=== PATIENT | female | born 1990 | race Caucasian/White ===

== ENCOUNTER 2022-10-23 12:34 | Emergency (ER) | payer OTHER, SELFPAY ==
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
--- NOTE | ~2022-10-23 | CT_ITS ---
EXAMINATION: CT CERVICAL SPINE WITHOUT CONTRAST CLINICAL INFORMATION: Trauma COMPARISON: None TECHNIQUE: Axial helical scans with sagittal and coronal reformats are obtained. This CT examination was performed using dose optimization techniques as appropriate, variously including the following: *Automated exposure control *Adjustment of mA and/or kV according to patient size (this includes techniques or standardized protocols for targeted exams where dose is matched to indication/reason for exam; i.e. extremities or head) *Use of iterative reconstruction technique DLP: 637 mGy-cm FINDINGS: No fracture or destructive lesion or alignment abnormality. No encroachment on the spinal canal. Prevertebral soft tissues are normal. CT/CT cervical spine wo IV con IMPRESSION: Unremarkable study. No acute findings.
[2022-10-23 12:40] VITALS: BP 133/98; BP 134/68; PULSE 77; PULSE 99; RESP 20; O2SAT 99; BMI 19.0
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
[2022-10-23 13:41] LABS: Urine Pregnancy NEGATIVE (NEGATIVE)
[2022-10-23 13:50] LABS: Amphetamine Screen Urine Not Detected (Not Detect); Barbiturates, Urine Not Detected (Not Detect); Benzodiazepines Screen Urine Not Detected (Not Detect); Cannabinoid Screen Urine POSITIVE (Not Detect); Cocaine Screen Urine Not Detected (Not Detect); Fentanyl, urine Not Detected (Not Detect); Opiate Screen Urine Not Detected (Not Detect); Phencyclidine Screen Urine Not Detected (Not Detect)
[2022-10-23 14:13] LABS: Ethanol 342 mg/dL
[2022-10-23 14:39] VITALS: BP 119/71; PULSE 82; RESP 20; O2SAT 96
[2022-10-23 15:20] LABS: UPreg QC Valid YES
== END 2022-10-23 15:06 | disposition home or self-care (01) ==
PROVIDERS: Emergency Provider Emergency Medicine
DX: Z04.1 Encounter for examination and observation following transport accident (principal); F10.120 Alcohol abuse with intoxication, uncomplicated; Y90.8 Blood alcohol level of 240 mg/100 ml or more; F12.90 Cannabis use, unspecified, uncomplicated
CPT/HCPCS: 36415; 70450; 72125; 80307; 81025; 82077; 99284

== ENCOUNTER 2024-02-12 02:47 | Emergency (ER) | payer OTHER, SELFPAY ==
--- NOTE | ~2024-02-12 | XR_ITS ---
EXAMINATION: XR RIBS, LEFT CLINICAL INFORMATION: Status post fall COMPARISON: None available. TECHNIQUE: 3 views of the left ribs were obtained. FINDINGS: No displaced rib fracture is seen. Lung volumes are symmetric. No focal consolidation is present. Trace linear left basilar atelectasis. No evidence of pneumothorax, pleural effusion, or pulmonary edema. The cardiomediastinal contour is unremarkable. XR/XR ribs LT min 3V w CXR1V IMPRESSION: No rib fracture identified. Trace left basilar atelectasis.
[2024-02-12 02:49] VITALS: BP 112/70; PULSE 108; O2SAT 99
[2024-02-12 02:52] VITALS: BP 126/77; PULSE 89; RESP 18; TEMP 37.2; O2SAT 99; BMI 23.0
--- NOTE | 2024-02-12 02:54 | ED_ITS ---
HPI - Alcohol General Chief Complaint: ETOH/Substance Use Stated Complaint: etoh Time Seen by Provider: 02/12/24 02:54 Source: patient Mode of arrival: EMS Limitations: no limitations History of Present Illness ED Provider: mingo POWELL narrative: Patient alcoholic been drinking heavy for last 2 years after separation stay sober for 2 months and started drinking in stoddard drink 6-7 days nonstop without eating much food patient's brother asked her to go to the hospital Related Data Allergies Allergy/AdvReac Type Severity Reaction Status Date / Time No Known Allergies Allergy Verified 02/12/24 02:57 Review of Systems 2 Review of Systems: Yes all other systems are reviewed and are negative [facility] Social History Social History Alcohol intake: current Alcohol intake frequency: 3 or more drinks per day Alcohol type: hard liquor Smoked in Last 30 Days: No Use of substances other than those prescribed or required for medical reasons: Yes Substance Use Type: Marijuana Substance Use Frequency: Chronic Longstanding Advance Directives: No Advance Directives Information Provided: No Do you have a plan to hurt others: No Plan Patient : No Physical Exam ED Vital Signs: Vital Signs - 24 hr 02/12/24 02:52 02/12/24 06:09 Temperature 99.0 F 98.5 F Pulse Rate 89 112 H Respiratory Rate 18 14 Blood Pressure 126/77 115/74 Pulse Oximetry 99 96 Oxygen Delivery Method Room Air Room Air BMI result Body Mass Index 23.0 Appearance: Alert. Oriented X3. No acute distress. Intoxicated Eyes: PERRLA, No Nystagmus ENT: Pharynx normal. Oral Mucosa moist Neck: Normal inspection. Neck supple. CVS: Normal heart rate and rhythm. Pulses normal. Respiratory: No respiratory distress. Equal air entry bilateral, no wheezing/rales/rhonchi bruising left lower rib with slight tenderness Abdomen: Soft and nontender. Bowel sounds are present, no mass palpable, no CVA tenderness Skin: Skin warm and dry. Normal skin color. Normal skin turgor. Extremities: No lower extremity edema. No calf tenderness Neuro: Oriented X 3. No motor deficit. No sensory deficit.No cerebellar signs , cranial nerves II-XII intact Medical Decision Making Lab Data [facility] Lab Attestation statement: I reviewed the patient's lab results. 02/12/24 03:15 02/12/24 03:15 Labs: Lab Results 02/12/24 02/12/24 Range/Units 03:15 03:28 WBC 10.5 (4.8-10.8) X10*3/uL RBC 4.55 (4.20-5.50) X10*6/uL Hgb 14.1 (12.0-16.0) g/dl Hct 41.3 (37.0-47.0) % MCV 90.8 (80.0-98.0) fL MCH 31.0 (27.0-33.0) pg MCHC 34.1 (31.0-35.0) g/dl RDW 14.2 (11.0-16.0) % Plt Count 429 H (160-400) X10*3/uL MPV 9.3 L (9.4-12.3) fL Immature Gran % (Auto) 0.2 (0.0-0.4) % Neut % (Auto) 47.1 (45-73) % Lymph % (Auto) 45.3 H (20-40) % [place] % (Auto) 6.1 (2-11) % Eos % (Auto) 0.5 (0-4) % Baso % (Auto) 0.8 (0-2) % Lymph # (Auto) 4.7 (1.2-4.9) X10*3/uL [place] # (Auto) 0.6 (0.1-1.2) X10*3/uL Eos # (Auto) 0.1 (0.0-0.4) X10*3/uL Baso # (Auto) 0.1 (0.0-0.2) X10*3/uL Abs Immat Gran (auto) 0.02 (0.00-0.03) X10*3/uL Absolute Neuts (auto) 4.9 (2.0-8.3) x10*3/uL Absolute Nucleated RBC 0.000 (0.0-0.012) X10*3/uL Nucleated RBC % (auto) 0.0 (0.0-0.2) /100WBC Sodium 140 (135-145) mmol/L Potassium 3.6 (3.3-5.1) mmol/L Chloride 99 (96-108) mmol/L Carbon Dioxide 25 (22-29) mmol/L Anion Gap 20 (12-20) BUN 8 L (9-16) mg/dL Creatinine 0.76 (0.5-1.4) mg/dL Estim Creat Clear Calc 111.7 Estimated GFR > 60 Random Glucose 99 (60-115) mg/dL Calcium 9.1 (8.4-10.2) mg/dL Magnesium 2.1 (1.6-2.6) mg/dL Total Bilirubin 0.7 (0.0-1.0) mg/dL AST 71 H (5-31) U/L ALT 125 H (0-31) U/L Alkaline Phosphatase 79 (39-117) U/L Total Protein 7.5 (6.5-8.0) g/dL Albumin 4.6 (3.5-5.0) g/dL Lipase 34 (8-78) U/L Urine Color Yellow Urine Appearance Clear Urine pH 6.0 (5.0-9.0) Ur Specific [place] 1.010 (1.005-1.025) Urine Protein 30 (1+) H (Neg-Trace) mg/dL Urine Glucose (UA) Negative (Negative) mg/dL Urine Ketones Negative (Negative) mg/dL Urine Blood Negative (Negative) Urine Nitrite Negative (Negative) Ur Leukocyte Esterase Negative (Negative) Urine RBC 0-2 (0-2) /HPF Urine WBC 0-5 (0-5) /HPF Ur Squamous Epith Cells 3-5 (0-2) /HPF Urine Bacteria None Seen (None Seen) Hyaline Casts 0-2 (0-2) /LPF Urine Test NEGATIVE (NEGATIVE) Urine Opiates Screen Not Detected (Not Detect) Ur Buprenorphine Scrn Not Detected (Not Detect) ng/mL Ur Oxycodone Screen Not Detected (Not Detect) ng/mL Urine Methadone Screen Not Detected (Not Detect) ng/mL Urine Fentanyl Screen Not Detected (Not Detect) Ur Barbiturates Screen Not Detected (Not Detect) Ur Phencyclidine Scrn Not Detected (Not Detect) Ur Amphetamines Screen Not Detected (Not Detect) U Benzodiazepines Scrn Not Detected (Not Detect) Urine Cocaine Screen Not Detected (Not Detect) U Marijuana (THC) Screen POSITIVE H (Not Detect) Ethyl Alcohol 461 H* mg/dL Medications Administered Discontinued Medications Generic Name Dose Route Start Last Admin Trade Name Freq PRN Reason Stop Dose Admin Sodium Chloride 1,000 mls @ 999 mls/hr 02/12/24 03:00 02/12/24 04:27 Ns IV 02/12/24 04:00 Infused .Q1H1M ONE Infusion Lorazepam 2 mg 02/12/24 03:24 02/12/24 03:31 Lorazepam 1 Mg Tablet PO 02/12/24 03:25 2 mg ONCE ONE Administration Discharge Plan Discharge Clinical Impression: Alcoholic intoxication Patient Disposition: Still a Patient Print Language: Japanese
[2024-02-12 03:19] LABS: MANUAL DIFF FLAG NO
[2024-02-12 03:20] LABS: Basophils Absolute Auto 0.1 X10*3/uL (0.0-0.2); Basophils Percent Auto 0.8 % (0-2); Eosinophils Absolute Auto 0.1 X10*3/uL (0.0-0.4); Eosinophils Percent Auto 0.5 % (0-4); Hematocrit 41.3 % (37.0-47.0); Hemoglobin 14.1 g/dl (12.0-16.0); Imm Gran Abs Auto 0.02 X10*3/uL (0.00-0.03); Imm Gran Pct Auto 0.2 % (0.0-0.4); Lymphocytes Absolute Auto 4.7 X10*3/uL (1.2-4.9); Lymphocytes Percent Auto 45.3 % (20-40); Mean Corpuscular HGB Conc 34.1 g/dl (31.0-35.0); Mean Corpuscular Volume 90.8 fL (80.0-98.0); Mean Platelet Volume 9.3 fL (9.4-12.3); Monocytes Absolute Auto 0.6 X10*3/uL (0.1-1.2); Monocytes Percent Auto 6.1 % (2-11); Neutrophils Absolute Auto 4.9 x10*3/uL (2.0-8.3); Neutrophils Percent Auto 47.1 % (45-73); Platelet Count 429 X10*3/uL (160-400); Red Blood Count 4.55 X10*6/uL (4.20-5.50); Red Cell Distribution Width 14.2 % (11.0-16.0); White Blood Count 10.5 X10*3/uL (4.8-10.8)
[2024-02-12] MEDS: 0.9 % Sodium Chloride 1,000 ML 999 ML IV (03:21)
[2024-02-12] MEDS: LORazepam 1 MG TABLET 2 MG PO ×2 (03:31→12:41)
[2024-02-12 03:36] LABS: Appearance Urine Clear; Color Urine Yellow; Glucose Urine UA Negative (Negative); Leukocyte Esterase Urine Negative (Negative); Nitrite Urine Negative (Negative); UMIC TRIGGER UACC YES; Urine Blood Negative (Negative); Urine Ketones Negative (Negative); Urine Protein 30 (1+) mg/dL (Neg-Trace)
[2024-02-12 03:37] LABS: UPreg QC Valid YES; Urine Pregnancy NEGATIVE (NEGATIVE)
[2024-02-12 03:38] LABS: Ethanol 461 mg/dL
[2024-02-12 03:38] LABS: Bacteria Urine None Seen (None Seen); Hyaline Casts Urine 0-2 /LPF (0-2); RBC Urine 0-2 /HPF (0-2); WBC Urine 0-5 /HPF (0-5)
[2024-02-12 03:40] LABS: Alanine Aminotransferase 125 U/L (0-31); Albumin Level 4.6 g/dL (3.5-5.0); Alkaline Phosphatase 79 U/L (39-117); Anion Gap 20 (12-20); Aspartate Amino Transferase 71 U/L (5-31); Bilirubin Total 0.7 mg/dL (0.0-1.0); Blood Urea Nitrogen 8 mg/dL (9-16); Calcium 9.1 mg/dL (8.4-10.2); Carbon Dioxide 25 mmol/L (22-29); Chloride 99 mmol/L (96-108); Creatinine Clr Calc Pharmacy 111.7; Estimated Glomerular Filt Rate > 60; Glucose Random 99 mg/dL (60-115); Lipase 34 U/L (8-78); Magnesium 2.1 mg/dL (1.6-2.6); Potassium 3.6 mmol/L (3.3-5.1); Sodium 140 mmol/L (135-145); Total Protein 7.5 g/dL (6.5-8.0)
[2024-02-12 03:47] LABS: Amphetamine Screen Urine Not Detected (Not Detect); Barbiturates, Urine Not Detected (Not Detect); Benzodiazepines Screen Urine Not Detected (Not Detect); Buprenorphine Scr Not Detected (Not Detect); Cannabinoid Screen Urine POSITIVE (Not Detect); Cocaine Screen Urine Not Detected (Not Detect); Fentanyl, urine Not Detected (Not Detect); Methadone Screen, Urine Not Detected (Not Detect); Opiate Screen Urine Not Detected (Not Detect); Oxycodone Screen Urine Not Detected (Not Detect); Phencyclidine Screen Urine Not Detected (Not Detect)
[2024-02-12 06:09] VITALS: BP 115/74; PULSE 112; RESP 14; TEMP 36.9; O2SAT 96
--- NOTE | 2024-02-12 07:18 | PC.NURSE ---
Resumed care of patient, she is currently resting comfortable at this time, RN to let patient sleep. Call thornton within reach at this time
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
--- NOTE | 2024-02-12 13:15 | PC.NURSE ---
pt reporting she feels weak today, denies n/v/d. Ativan and PO intake given to patient at this time. Awaiting intake phone call with Addition later this afternoon
[2024-02-12 14:18] VITALS: BP 115/74; PULSE 112; RESP 14; TEMP 36.9; O2SAT 96
== END 2024-02-12 14:19 | disposition home or self-care (01) ==
PROVIDERS: Emergency Provider Internal Medicine
DX: F10.220 Alcohol dependence with intoxication, uncomplicated (principal); Y90.8 Blood alcohol level of 240 mg/100 ml or more; R07.81 Pleurodynia; F12.90 Cannabis use, unspecified, uncomplicated; Z91.81 History of falling
CPT/HCPCS: 36415; 71101; 80053; 80307; 81001; 81025; 83690; 83735; 85025; 96360; 99202; 99284; 99285

== ENCOUNTER 2024-02-12 14:19 | Outpatient (AMB) | payer OTHER, SELFPAY ==
[2024-02-12 14:23] VITALS: BP 112/66; PULSE 148; O2SAT 97
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
== END 2024-02-12 15:09 | disposition home or self-care (01) ==
PROVIDERS: Visit Provider Nurse Practitioner Family
DX: F10.20 Alcohol dependence, uncomplicated (principal)
CPT/HCPCS: 99204

== ENCOUNTER 2024-02-16 09:15 | Outpatient (AMB) | payer OTHER, SELFPAY ==
--- NOTE | 2024-02-16 09:16 | MHC.AM.SUB ---
Vital Signs 02/16/24 09:19 BP 120/80 Blood Pressure Location Rt brachial Position Sitting Respiration 22 H Pulse 87 Pulse Source Pulse Oximeter Pulse Oximetry (%) 98 Intake Visit Reasons: MAT follow up Allergies No Known Allergies Allergy (Verified 02/12/24 02:57) HPI HPI MAT follow up: Details: Patient presents for AUD treatment and follow up States she has only had 2 Twisted Teas since her last appointment Reports [place] the [place] States she only has a problem with alcohol when she is home alone Has been trying to keep busy States she filled out multiple job applications in the past few days Has been trying to work out more but is experiencing some left rib pain that has made it challenging Reports poor sleep due to rib pain States she is in substance abuse therapy through [facility], sees her therapist once monthly, but is planning on increasing her visits to twice a month Has tried AA and [facility], did not find either helpful HPI Comments Details: Patient presents for MAT visit [facility] Social History Alcohol intake: current Alcohol intake frequency: 3 or more drinks per day Alcohol type: hard liquor Substance Use Type: Marijuana Review of Systems Const Reports as per HPI Physical Exam Vital Signs: Last Vital Signs Pulse 87 02/16/24 09:19 Resp 22 H 02/16/24 09:19 BP 120/80 02/16/24 09:19 Pulse Ox 98 02/16/24 09:19 Const General: cooperative and no acute distress Resp Effort & Inspection: normal respiratory effort and able to speak in complete sentences Psych Appearance: grossly normal Mental Status: mental status grossly normal Speech and movement: Normal speech and movement present Affect: normal affect Attitude: cooperative Thought process: Normal thought process present Assessment & Plan Assessment & Plan (1) Alcohol use disorder, severe, dependence: Code(s): F10.20 - Alcohol dependence, uncomplicated Category: Medical Plan: -Rx sent to pharmacy for lidocaine patch for rib pain -Provided pt with literature about financial coach support, she is to think about whether she would like a referral -Recovery support and relapse prevention discussion -Follow up 1 week Medications: New lidocaine 1.8% leave on most painful area for up to 12 hrs 1 patch topical DAILY 30 ea 0RF
[2024-02-16 09:19] VITALS: BP 120/80; PULSE 87; RESP 22; O2SAT 98
== END 2024-02-16 09:40 | disposition home or self-care (01) ==
PROVIDERS: Visit Provider Nurse Practitioner Family
DX: F10.20 Alcohol dependence, uncomplicated (principal)
CPT/HCPCS: 99213

== ENCOUNTER → 2024-02-16 09:15 | Outpatient (BNVA) | payer OTHER, SELFPAY | PROVIDERS: Visit Provider Nurse Practitioner Family | DX: F10.20 Alcohol dependence, uncomplicated (principal); Z79.899 Other long term (current) drug therapy | CPT/HCPCS: 99212 ==

== ENCOUNTER 2024-02-23 09:28 | Outpatient (AMB) | payer OTHER, SELFPAY ==
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
[2024-02-23 09:39] VITALS: BP 90/58; PULSE 62; O2SAT 98
== END 2024-02-23 10:44 | disposition home or self-care (01) ==
PROVIDERS: Visit Provider Nurse Practitioner Family
DX: F10.21 Alcohol dependence, in remission (principal)
CPT/HCPCS: 99213

== ENCOUNTER → 2024-02-23 09:28 | Outpatient (BNVA) | payer OTHER, SELFPAY | PROVIDERS: Visit Provider Nurse Practitioner Family | DX: F10.20 Alcohol dependence, uncomplicated (principal) | CPT/HCPCS: 99212 ==

== ENCOUNTER 2024-03-01 13:25 | Outpatient (AMB) | payer OTHER, SELFPAY ==
[2024-03-01 13:30] VITALS: BP 85/40; PULSE 66; RESP 16; O2SAT 98
--- NOTE | 2024-03-01 13:30 | A.OFFVISCC_ITS ---
Vital Signs 03/01/24 13:30 BP 85/40 L Blood Pressure Location Rt brachial Respiration 16 Pulse 66 Pulse Source Pulse Oximeter Pulse Oximetry (%) 98 Intake Visit Reasons: MAT follow up Allergies No Known Allergies Allergy (Verified 02/12/24 02:57) HPI HPI MAT follow up: Details: Patient presents for AUD treatment and follow up Has continued to remain free from alcohol States last night she was having cravings, and had a dream where she was drinking Started a new job last week, she is feeling positive about this change Reports she hung out today with her ex, she continues to feel triggered by him, but feels responsible for him HPI Comments Details: Patient presents for MAT visit [facility] Social History Alcohol intake: current Alcohol intake frequency: 3 or more drinks per day Alcohol type: hard liquor Substance Use Type: Marijuana Review of Systems Const Reports as per HPI Physical Exam Vital Signs: Last Vital Signs Pulse 66 03/01/24 13:30 Resp 16 03/01/24 13:30 BP 85/40 L 03/01/24 13:30 Pulse Ox 98 03/01/24 13:30 Const General: cooperative and no acute distress Resp Effort & Inspection: normal respiratory effort and able to speak in complete sentences Psych Appearance: grossly normal Mental Status: mental status grossly normal Speech and movement: Normal speech and movement present Affect: normal affect Attitude: cooperative Thought process: Normal thought process present Assessment & Plan Assessment & Plan (1) Alcohol use disorder, severe, dependence: Code(s): F10.20 - Alcohol dependence, uncomplicated Category: Medical Plan: -DIscussed with her how important it is to set healthy boundaries with people -Encouraged her to trial her naltrexone at 1/2 tab for the next few days and then progress to full tab. Discussed with her that starting the naltrexone will hopefully decrease some of her alcohol cravings -Follow up 2 weeks
== END 2024-03-01 14:22 | disposition home or self-care (01) ==
PROVIDERS: Visit Provider Nurse Practitioner Family
DX: F10.20 Alcohol dependence, uncomplicated (principal)
CPT/HCPCS: 99213

== ENCOUNTER → 2024-03-01 13:25 | Outpatient (BNVA) | payer OTHER, SELFPAY | PROVIDERS: Visit Provider Nurse Practitioner Family | DX: F10.20 Alcohol dependence, uncomplicated (principal) | CPT/HCPCS: 99212 ==

== ENCOUNTER 2024-03-08 11:00 | Outpatient (AMB) | payer OTHER, SELFPAY ==
--- NOTE | 2024-03-08 11:21 | MHC.AM.SUB ---
Intake Visit Reasons: mat follow up Allergies No Known Allergies Allergy (Verified 02/12/24 02:57) HPI HPI mat follow up: Details: Patient presents to visit quite intoxicated Had an uber drop her off Reporting that following her appt last Friday (03/01) she started to drink that evening after not drinking for 3 weeks She reports drinking 3 handles of vodka over the last week--and yesterday drank about 1/2 of a bottle This morning had 6 shots prior to appt. She is help seeking however she is unwilling to present to ED or have any type of admission to treat ETOH. She reports history of alcohol withdrawal seizures--unclear when this was. She identifies her dog as the main reason she is unable to enter treatment anywhere. This remote mortgage underwriter sharing concerns for withdrawal management. Patient stating she is planning to taper her alcohol use. Requesting assistance on how to do this. She does have tremors and anxiety and states this is when she takes a couple of shots Identifies her brother as a support, and he lives down the street from her. [facility] Social History Alcohol intake: current Alcohol intake frequency: 3 or more drinks per day Alcohol type: hard liquor Substance Use Type: Marijuana Review of Systems Const Reports as per HPI (occasional nausea, anxiety) Physical Exam Const General: alert and awake Nutritional Appearance: average body habitus Limitations: altered mental status Psych Appearance: disheveled Speech and movement: Slurred speech present Affect: Depressed mood present Attitude: cooperative Thought process: Tangential thought process present Insight: Fair insight present (Psych) Judgement: Limited judgement present (Psych) Assessment & Plan Assessment & Plan (1) Alcohol use disorder, severe, dependence: Code(s): F10.20 - Alcohol dependence, uncomplicated Category: Medical Plan: discussed decreasing amount of alcohol slowly. Provided patient with a sheet and potential plan for how many shots daily reinforced eating, drinking water, not stopping abruptly advised to present to ED with any withdrawal sx encouraged to call brother and make him aware of difficulties at this time walked out to car by RN into waiting ride follow up one week --telehealth if necessary. Discouraged patient from leaving home when drinking so much unless it was to come to the hospital
== END 2024-03-08 11:56 | disposition home or self-care (01) ==
PROVIDERS: Visit Provider Nurse Practitioner Psychiatric/Mental Health
DX: F10.20 Alcohol dependence, uncomplicated (principal)
CPT/HCPCS: 99214

== ENCOUNTER → 2024-03-08 11:00 | Outpatient (BNVA) | payer OTHER, SELFPAY | PROVIDERS: Visit Provider Nurse Practitioner Psychiatric/Mental Health | DX: F10.20 Alcohol dependence, uncomplicated (principal) | CPT/HCPCS: 99212 ==

== ENCOUNTER 2024-03-08 16:13 | Emergency (ER) | payer OTHER, SELFPAY ==
[2024-03-08 16:27] VITALS: BP 111/66; BP 142/90; PULSE 105; PULSE 88; RESP 18; TEMP 36.8; O2SAT 95; O2SAT 96; BMI 22.1
--- NOTE | 2024-03-08 16:28 | ED.GENADULT ---
HPI - General Adult General Chief complaint: ETOH/Substance Use Stated complaint: ETOH Time Seen by Provider: 03/08/24 16:27 Source: patient and EMS Mode of arrival: EMS Limitations: no limitations History of Present Illness ED Provider: Dior Castro PA-C HPI narrative: 33-year-old female with history of alcohol use disorder presents for evaluation of alcohol intoxication with fear of withdrawal. Per patient, she has been on a 6 day drinking stoddard. She reports she drinks half a handle of vodka per day. At one point in interview states she drank half a gallon of vodka this morning, then later stated it was 6 shots. Endorsed abdominal pain and nausea to EMS but currently denies. States that she has only had six mini pizzas to eat over the last 6 days, drinks lots of water. When asked if she has a history of withdrawal seizures she states that she knows she has 3 per night when she stops drinking but they have not been witnessed and she could not clarify on how she knows she's having them. MD complaint: Alcohol intoxication Relieving factors: none Exacerbating factors: none Associated symptoms: denies other symptoms Treatments prior to arrival: none Related Data Previous Rx's ?Medication ?Instructions ?Recorded folic acid 1 mg tablet 1 mg PO DAILY #30 tabs 02/12/24 naltrexone 50 mg tablet 50 mg PO DAILY #30 tabs 02/12/24 ondansetron 4 mg disintegrating 4 mg PO Q8H PRN nausea and 02/12/24 tablet vomiting #10 tabs thiamine HCl (vitamin B1) 100 mg 100 mg PO DAILY #30 tabs 02/12/24 tablet lidocaine 1.8 % topical patch 1 patch topical DAILY #30 ea 02/16/24 Allergies Allergy/AdvReac Type Severity Reaction Status Date / Time No Known Allergies Allergy Verified 03/08/24 16:30 Review of Systems Constitutional: Constitutional: Reports no additional constitutional complaints, Denies chills, Denies fever(s), Denies night sweats and Reports poor appetite Eyes: Eyes: Reports no additional eye complaints, Denies blurry vision, Denies change in vision, Denies diplopia, Denies eye discharge, Denies loss of vision and Denies eye pain ENT: Denies dizziness Cardiovascular: Cardiovascular: Reports no additional cardiovascular complaints, Denies chest pain, Denies lightheadedness, Denies Loss of Consciousness and Denies dyspnea Respiratory: Respiratory: Reports no additional respiratory complaints and Denies dyspnea Gastrointestinal: Gastrointestinal: Reports no additional gastrointestinal complaints, Denies abdominal pain, Denies melena, Denies hematochezia, Denies change in bowel habits and Denies change in stool character Genitourinary: Genitourinary: Denies hematuria, Denies urinary frequency, Denies dysuria, Denies urinary incontinence, Denies urinary hesitancy and Denies urinary urgency Musculoskeletal: Musculoskeletal: Reports no additional musculoskeletal complaints, Denies numbness and Denies tingling Neurologic: Denies dizziness, Denies loss of vision, Denies numbness and Denies tingling Psychiatric: Psychiatric: Reports no additional psychiatric complaints Endocrine: Endocrine: Reports no additional endocrine complaints Hematologic/Lymphatic: Hematologic/Lymphatic: Reports no additional hematologic/lymphatic complaints Allergic/Immunologic: Allergic/Immunologic: Reports no additional allergic/immunologic complaints PMFSH Past Medical History Attestation statement: The following information was validated with the patient. Source: old records reviewed and nursing notes reviewed Social History Social History Alcohol intake: current Alcohol intake frequency: 3 or more drinks per day Alcohol type: hard liquor Smoked in Last 30 Days: Yes Use of substances other than those prescribed or required for medical reasons: Yes Substance Use Type: Marijuana Substance Use Frequency: Daily Advance Directives: No Advance Directives Information Provided: No Do you have a plan to hurt others: No Plan Patient : No Physical Exam ED Vital Signs: Vital Signs - 24 hr 03/08/24 16:27 Temperature 98.3 F Pulse Rate 88 Respiratory Rate 18 Blood Pressure 111/66 Pulse Oximetry 96 Oxygen Delivery Method Room Air BMI result Body Mass Index 22.1 Const General: cooperative, no acute distress, alert and awake Nutritional Appearance: well nourished Orientation/consciousness: patient oriented x3 Limitations: no limitations HENMT Head: Yes normal to inspection and Yes atraumatic Ears: hearing grossly normal bilaterally and external ears normal General nose exam: Normal external nose present, no nasal discharge noted and no epistaxis Face and sinus: Yes normal facial exam, No abrasion and No laceration Mouth: Normal oral and palatal mucosa present, no drooling and no muffled voice Eyes General: appearance normal, both eyes and all related structures Periorbital: periorbital findings normal Eyelids: Yes eyelids normal Conjunctivae: conjunctivae normal Pupils: Equal, round and reactive pupils present EOM: EOMs intact bilaterally Neck Neck: Yes normal visual inspection, Yes full ROM and Yes no lymphadenopathy Chest Chest palpation & inspection: normal inspection of the chest Resp Effort & Inspection: normal respiratory effort and able to speak in complete sentences Auscultation: clear to auscultation bilaterally Cardio Rate: regular rate Rhythm: regular rhythm GI Inspection: Yes normal to inspection Neuro General: patient oriented x3 and moves all extremities Cranial nerves: Yes Equal, round and reactive pupils present Cognition (Neuro): normal cognition Motor exam (neuro): 5/5 motor strength present throughout Sensory Exam: Normal double simultaneous stimulation for sensation Coordination: [id number] test normal Extrem General: Yes normal to inspection, Yes full ROM and Yes capillary refill normal Psych Appearance: grossly normal Mental Status: other (acutely intoxicated with EtOH) Speech and movement: Slurred speech present Affect: normal affect Attitude: cooperative Thought process: Normal thought process present Thought content: Normal thought content present Insight: Good insight present (Psych) Medications Administered Discontinued Medications Generic Name Dose Route Start Last Admin Trade Name Lokiq PRN Reason Stop Dose Admin Sodium Chloride 1,000 mls @ 999 mls/hr 03/08/24 16:45 03/08/24 18:35 Ns IV 03/08/24 17:45 Infused .Q1H1M CAROLE Infusion Lorazepam 2 mg 03/08/24 18:13 03/08/24 18:32 Lorazepam 1 Mg Tablet PO 03/08/24 18:14 2 mg ONCE ONE Administration Medical Decision Making Medical Decision Making [facility] Narrative: Patient is a 33 year old assigned female at with a history of ETOH abuse presenting to the emergency department today with alcohol intoxication and concern for withdrawal. Patient's physical exam was unremarkable. Patient's blood work showed an ethyl alcohol level of 412 but was otherwise unremarkable. Patient's urine showed no acute process. I explained my physical exam findings as well as all test results to the patient. I answered all questions asked by the patient. Patient requested to speak to the addiction team about her alcohol abuse. Patient will remain in physician observation until she consults with the addiction team. Differential Diagnosis Differential Diagnoses: The differential diagnosis associated with the presentation includes Alcohol intoxication Alcohol withdrawal Nutrient deficiency Admission/Observation Consideration of admission/observation: Escalation of care including admission/observation considered Patient would have been admitted to the hospital had her work up had any findings where hospital admission was appropriate and her clinical presentation warranted hospital admission. Lab Data [facility] Lab Attestation statement: I reviewed the patient's lab results. My interpretation of these results are in the MDM Rationale portion of this note. 03/08/24 17:09 03/08/24 17:09 Labs: Lab Results 03/08/24 03/08/24 Range/Units 17:09 22:49 WBC 7.8 (4.8-10.8) X10*3/uL RBC 4.60 (4.20-5.50) X10*6/uL Hgb 14.9 (12.0-16.0) g/dl Hct 42.0 (37.0-47.0) % MCV 91.3 (80.0-98.0) fL MCH 32.4 (27.0-33.0) pg MCHC 35.5 H (31.0-35.0) g/dl RDW 14.1 (11.0-16.0) % Plt Count 381 (160-400) X10*3/uL MPV 8.9 L (9.4-12.3) fL Immature Gran % (Auto) 0.1 (0.0-0.4) % Neut % (Auto) 44.3 L (45-73) % Lymph % (Auto) 50.4 H (20-40) % [place] % (Auto) 4.1 (2-11) % Eos % (Auto) 0.3 (0-4) % Baso % (Auto) 0.8 (0-2) % Lymph # (Auto) 4.0 (1.2-4.9) X10*3/uL [place] # (Auto) 0.3 (0.1-1.2) X10*3/uL Eos # (Auto) 0.0 (0.0-0.4) X10*3/uL Baso # (Auto) 0.1 (0.0-0.2) X10*3/uL Abs Immat Gran (auto) 0.01 (0.00-0.03) X10*3/uL Absolute Neuts (auto) 3.5 (2.0-8.3) x10*3/uL Absolute Nucleated RBC 0.000 (0.0-0.012) X10*3/uL Nucleated RBC % (auto) 0.0 (0.0-0.2) /100WBC Sodium 146 H (135-145) mmol/L Potassium 3.9 (3.3-5.1) mmol/L Chloride 105 (96-108) mmol/L Carbon Dioxide 21 L (22-29) mmol/L Anion Gap 24 H (12-20) BUN 9 (9-16) mg/dL Creatinine 0.76 (0.5-1.4) mg/dL Estim Creat Clear Calc 111.7 Estimated GFR > 60 Random Glucose 87 (60-115) mg/dL Calcium 8.8 (8.4-10.2) mg/dL Magnesium 2.0 (1.6-2.6) mg/dL Total Bilirubin 0.7 (0.0-1.0) mg/dL AST 34 H (5-31) U/L ALT 24 (0-31) U/L Alkaline Phosphatase 62 (39-117) U/L Total Protein 7.6 (6.5-8.0) g/dL Albumin 4.6 (3.5-5.0) g/dL Urine Color Yellow Urine Appearance Clear Urine pH 6.0 (5.0-9.0) Ur Specific [place] 1.015 (1.005-1.025) Urine Protein 30 (1+) H (Neg-Trace) mg/dL Urine Glucose (UA) Negative (Negative) mg/dL Urine Ketones Trace (Negative) mg/dL Urine Blood Negative (Negative) Urine Nitrite Negative (Negative) Ur Leukocyte Esterase Negative (Negative) Urine Test NEGATIVE (NEGATIVE) Salicylates < 5.0 L (15-30) mg/dL Acetaminophen < 3 (<30) mcg/mL Ethyl Alcohol 412 H* mg/dL COVID-19 (JO-ANN) Negative (Negative) COVID-19 Clin Com See Note Independent Historian Clinical information obtained from an independent historian. History obtained from or confirmed by: EMS (EMS provided additional history and confirmed the history provided by the patient.) Discharge Plan Discharge Clinical Impression: Alcohol use disorder, severe, dependence Patient Disposition: Still a Patient Prescriptions: No Action lidocaine 1.8 % adhesive patch,medicated 1 patch topical DAILY Qty: 30 0RF Rx Instructions: leave on most painful area for up to 12 hrs naltrexone 50 mg tablet 50 mg PO DAILY Qty: 30 0RF Rx Instructions: Take 1/2 pill for 3 days, advance to full pill if well tolerated folic acid 1 mg tablet 1 mg PO DAILY Qty: 30 0RF thiamine HCl (vitamin B1) 100 mg tablet 100 mg PO DAILY Qty: 30 0RF ondansetron 4 mg tablet,disintegrating 4 mg PO Q8H PRN (Reason: nausea and vomiting) Qty: 10 0RF Print Language: Frisian
[2024-03-08] MEDS: 0.9 % Sodium Chloride 1,000 ML 999 ML IV (17:10)
[2024-03-08 17:12] LABS: MANUAL DIFF FLAG NO
[2024-03-08 17:17] LABS: Basophils Absolute Auto 0.1 X10*3/uL (0.0-0.2); Basophils Percent Auto 0.8 % (0-2); Eosinophils Percent Auto 0.3 % (0-4); Hemoglobin 14.9 g/dl (12.0-16.0); Imm Gran Abs Auto 0.01 X10*3/uL (0.00-0.03); Imm Gran Pct Auto 0.1 % (0.0-0.4); Lymphocytes Percent Auto 50.4 % (20-40); Mean Corpuscular HGB Conc 35.5 g/dl (31.0-35.0); Mean Corpuscular Hemoglobin 32.4 pg (27.0-33.0); Mean Corpuscular Volume 91.3 fL (80.0-98.0); Mean Platelet Volume 8.9 fL (9.4-12.3); Monocytes Absolute Auto 0.3 X10*3/uL (0.1-1.2); Monocytes Percent Auto 4.1 % (2-11); Neutrophils Absolute Auto 3.5 x10*3/uL (2.0-8.3); Neutrophils Percent Auto 44.3 % (45-73); Platelet Count 381 X10*3/uL (160-400); Red Cell Distribution Width 14.1 % (11.0-16.0); White Blood Count 7.8 X10*3/uL (4.8-10.8)
[2024-03-08 17:36] LABS: COVID-19 Test Negative (Negative); IDNOW Serial# 152EDE1D
[2024-03-08 17:41] LABS: Acetaminophen LAB < 3 mcg/mL (<30); Alanine Aminotransferase 24 U/L (0-31); Albumin Level 4.6 g/dL (3.5-5.0); Alkaline Phosphatase 62 U/L (39-117); Anion Gap 24 (12-20); Aspartate Amino Transferase 34 U/L (5-31); Bilirubin Total 0.7 mg/dL (0.0-1.0); Blood Urea Nitrogen 9 mg/dL (9-16); Calcium 8.8 mg/dL (8.4-10.2); Carbon Dioxide 21 mmol/L (22-29); Chloride 105 mmol/L (96-108); Creatinine Clr Calc Pharmacy 111.7; Estimated Glomerular Filt Rate > 60; Ethanol 412 mg/dL; Glucose Random 87 mg/dL (60-115); Potassium 3.9 mmol/L (3.3-5.1); Salicylate < 5.0 mg/dL (15-30); Sodium 146 mmol/L (135-145); Total Protein 7.6 g/dL (6.5-8.0)
[2024-03-08] MEDS: LORazepam 1 MG TABLET 2 MG PO (18:32)
--- NOTE | 2024-03-08 21:35 | PC.NURSE ---
late entry: Pt CIWA score of 7 reported to LATRELL De Leon- pt reports she feels s though she is going to have a seizure. 2mg ativan given
--- NOTE | 2024-03-08 21:36 | PC.NURSE ---
pt appears to be sleeping at this time, eyes closed, respirations even and unlabored, rise and fall of chest noted. Warm blanket given, pt awaiting CARE team consult
[2024-03-08 22:58] LABS: Appearance Urine Clear; Color Urine Yellow; Glucose Urine UA Negative (Negative); Leukocyte Esterase Urine Negative (Negative); Nitrite Urine Negative (Negative); Specific Gravity - Urine 1.015 (1.005-1.025); UMIC TRIGGER UA YES; Urine Blood Negative (Negative); Urine Ketones Trace mg/dL (Negative); Urine Protein 30 (1+) mg/dL (Neg-Trace)
[2024-03-08 22:59] LABS: UPreg QC Valid YES; Urine Pregnancy NEGATIVE (NEGATIVE)
[2024-03-08 23:03] LABS: Bacteria Urine None Seen (None Seen); Hyaline Casts Urine 0-2 /LPF (0-2); RBC Urine 0-2 /HPF (0-2); WBC Urine 0-5 /HPF (0-5)
[2024-03-08 23:13] LABS: Amphetamine Screen Urine Not Detected (Not Detect); Barbiturates, Urine Not Detected (Not Detect); Benzodiazepines Screen Urine Not Detected (Not Detect); Buprenorphine Scr Not Detected (Not Detect); Cannabinoid Screen Urine POSITIVE (Not Detect); Cocaine Screen Urine Not Detected (Not Detect); Fentanyl, urine Not Detected (Not Detect); Methadone Screen, Urine Not Detected (Not Detect); Opiate Screen Urine Not Detected (Not Detect); Oxycodone Screen Urine Not Detected (Not Detect); Phencyclidine Screen Urine Not Detected (Not Detect)
--- NOTE | 2024-03-08 23:20 | PC.NURSE ---
this rn assumed careof pt, pt noted to not be changed over. this rn woke pt up to change and pt states she would like to go home and no longer would like to speak to care team and detox. Dior SAMS aware. pt denies si/hi.
[2024-03-08 23:32] VITALS: BP 111/66; PULSE 88; RESP 18; TEMP 36.8; O2SAT 96
== END 2024-03-08 23:32 | disposition home or self-care (01) ==
PROVIDERS: Physician Assistant Medical; Emergency Provider Internal Medicine
DX: F10.239 Alcohol dependence with withdrawal, unspecified (principal); Y90.8 Blood alcohol level of 240 mg/100 ml or more; R11.0 Nausea; Z51.81 Encounter for therapeutic drug level monitoring; Z79.899 Other long term (current) drug therapy; Z11.52 Encounter for screening for COVID-19
CPT/HCPCS: 80053; 80143; 80179; 80307; 81001; 81025; 83735; 85025; 87635; 96360; 99284; 99285

== ENCOUNTER 2024-03-15 10:11 | Outpatient (AMB) | payer OTHER, SELFPAY ==
[2024-03-15 10:16] VITALS: BP 140/80; PULSE 115; RESP 22; O2SAT 98
--- NOTE | 2024-03-15 10:16 | MHC.AM.SUB ---
Vital Signs 03/15/24 10:16 BP 140/80 H Blood Pressure Location Rt brachial Position Sitting Respiration 22 H Pulse 115 H Pulse Source Pulse Oximeter Pulse Oximetry (%) 98 Intake Visit Reasons: mat follow up Allergies No Known Allergies Allergy (Verified 03/08/24 16:30) HPI HPI mat follow up: Details: Patient presents for follow up Reports she fell down the stairs recently carrying her dog out to use the bathroom Leg bruised--tailbone painful. Did not visit ER No alcohol for 5 days. Slightly anxious, but motivated to continue forward [facility] Social History Alcohol intake: current Alcohol intake frequency: 3 or more drinks per day Alcohol type: hard liquor Substance Use Type: Marijuana Review of Systems Const Reports as per HPI Physical Exam Vital Signs: Last Vital Signs Pulse 115 H 03/15/24 10:16 Resp 22 H 03/15/24 10:16 BP 140/80 H 03/15/24 10:16 Pulse Ox 98 03/15/24 10:16 Const General: cooperative Nutritional Appearance: average body habitus Orientation/consciousness: patient oriented x3 Neuro General: patient oriented x3 Psych Appearance: well kempt Speech and movement: Clear speech present Affect: Anxious affect present Assessment & Plan Assessment & Plan (1) Alcohol use disorder, severe, dependence: Code(s): F10.20 - Alcohol dependence, uncomplicated Category: Medical Plan: follow up one week with RN worksheets related to relapse prevention to be reviewed at that time
== END 2024-03-15 10:37 | disposition home or self-care (01) ==
PROVIDERS: Visit Provider Nurse Practitioner Psychiatric/Mental Health
DX: F10.20 Alcohol dependence, uncomplicated (principal)
CPT/HCPCS: 99213

== ENCOUNTER → 2024-03-15 10:11 | Outpatient (BNVA) | payer OTHER, SELFPAY | PROVIDERS: Visit Provider Nurse Practitioner Psychiatric/Mental Health | DX: F10.20 Alcohol dependence, uncomplicated (principal) | CPT/HCPCS: 99212 ==

== ENCOUNTER 2024-03-16 17:31 | Emergency (ER) | payer OTHER, SELFPAY | END 2024-03-16 18:51 | disposition left against medical advice (07) | PROVIDERS: Emergency Provider Emergency Medicine | DX: Z53.21 Procedure and treatment not carried out due to patient leaving prior to being seen by health care provider (principal) ==

== ENCOUNTER 2024-04-13 10:29 | Outpatient (AMB) | payer OTHER, SELFPAY ==
--- NOTE | 2024-04-13 10:37 | MHC.AM.SUB ---
Intake Visit Reasons: MAT Allergies No Known Allergies Allergy (Verified 03/08/24 16:30) HPI HPI MAT: Details: Patient presents for follow up Reports drinking for 7 days --has found that she drinks to excess during her menses Negative self talk, feeling anxious Has been taking vitamins --needs refill Discussed SSRI --patient agreeable [facility] Social History Alcohol intake: current Alcohol intake frequency: 3 or more drinks per day Alcohol type: hard liquor Substance Use Type: Marijuana Review of Systems Const Reports as per HPI Physical Exam Const General: cooperative, anxious and tired appearing (slightly dis) Nutritional Appearance: thin Assessment & Plan Assessment & Plan (1) Alcohol use disorder, severe, dependence: Code(s): F10.20 - Alcohol dependence, uncomplicated Category: Medical Plan: continue naltrexone sertraline 25mg --discussed goals, side effects and dosing refilled other medications follow up one week Medications: New sertraline (Zoloft) 25 mg PO DAILY 30 tabs 0RF omeprazole 10 mg PO DAILY 30 caps 0RF Refilled thiamine HCl (vitamin B1) 100 mg PO DAILY 30 tabs 3RF folic acid 1 mg PO DAILY 30 tabs 3RF
== END 2024-04-13 10:58 | disposition home or self-care (01) ==
PROVIDERS: Visit Provider Nurse Practitioner Psychiatric/Mental Health
DX: F10.20 Alcohol dependence, uncomplicated (principal)
CPT/HCPCS: 99214

== ENCOUNTER → 2024-04-13 10:29 | Outpatient (BNVA) | payer OTHER, SELFPAY | PROVIDERS: Visit Provider Nurse Practitioner Psychiatric/Mental Health | DX: F10.20 Alcohol dependence, uncomplicated (principal); Z79.899 Other long term (current) drug therapy | CPT/HCPCS: 99212 ==

== ENCOUNTER 2024-06-03 20:51 | Emergency (ER) | payer OTHER, SELFPAY ==
[2024-06-03 21:03] VITALS: BP 116/79; BP 136/80; PULSE 110; PULSE 95; RESP 18; TEMP 36.8; O2SAT 97; BMI 23.0
[2024-06-03 21:35] LABS: Hematocrit 43.2 % (37.0-47.0); Hemoglobin 14.8 g/dl (12.0-16.0); Mean Corpuscular HGB Conc 34.3 g/dl (31.0-35.0); Mean Corpuscular Volume 90.4 fL (80.0-98.0); Mean Platelet Volume 9.3 fL (9.4-12.3); Platelet Count 433 X10*3/uL (160-400); Red Blood Count 4.78 X10*6/uL (4.20-5.50); Red Cell Distribution Width 13.2 % (11.0-16.0)
[2024-06-03 21:55] LABS: Alanine Aminotransferase 65 U/L (0-31); Albumin Level 4.5 g/dL (3.5-5.0); Alkaline Phosphatase 55 U/L (39-117); Anion Gap 16 (12-20); Aspartate Amino Transferase 71 U/L (5-31); Bilirubin Total 0.5 mg/dL (0.0-1.0); Blood Urea Nitrogen 8 mg/dL (9-16); Calcium 8.7 mg/dL (8.4-10.2); Carbon Dioxide 27 mmol/L (22-29); Chloride 106 mmol/L (96-108); Creatinine Clr Calc Pharmacy 110.2; Estimated Glomerular Filt Rate > 60; Ethanol 478 mg/dL; Glucose Random 91 mg/dL (60-115); Potassium 3.5 mmol/L (3.3-5.1); Sodium 145 mmol/L (135-145); Total Protein 7.6 g/dL (6.5-8.0)
[2024-06-03 22:15] LABS: Amphetamine Screen Urine Not Detected (Not Detect); Barbiturates, Urine Not Detected (Not Detect); Benzodiazepines Screen Urine Not Detected (Not Detect); Buprenorphine Scr Not Detected (Not Detect); Cannabinoid Screen Urine POSITIVE (Not Detect); Cocaine Screen Urine Not Detected (Not Detect); Fentanyl, urine Not Detected (Not Detect); Methadone Screen, Urine Not Detected (Not Detect); Opiate Screen Urine Not Detected (Not Detect); Oxycodone Screen Urine Not Detected (Not Detect); Phencyclidine Screen Urine Not Detected (Not Detect)
[2024-06-03 22:18] LABS: SLIDE REVIEW MANUAL DIFF; White Blood Count 8.6 X10*3/uL (4.8-10.8)
[2024-06-03 22:21] LABS: Atypical Lymph Absolute Manual 1.7 x10*3/uL; Atypical Lymphs Percent Manual 20 % (0-6); Band Neutrophils Percent 0 % (3-5); Basophils Abs Manual 0.1 X10*3/uL (0.0-0.2); Basophils Percent Manual 1 % (0-2); Eosinophils Absolute Manual 0.1 X10*3/uL (0.0-0.4); Eosinophils Percent Manual 1 % (0-4); Lymphocytes Absolute Manual 3.4 X10*3/uL (1.2-4.9); Lymphocytes Percent Manual 40 % (20-40); Monocytes Absolute Manual 0.4 X10*3/uL (0.1-1.2); Monocytes Percent Manual 5 % (2-11); Neutrophils Absolute Manual 2.8 X10*3/uL (2.0-8.3); Neutrophils Percent Manual 33 % (45-73); RBC Morphology NORMAL
[2024-06-03 22:22] LABS: Platelet Estimate NORMAL (NORMAL); Platelet Morphology Comment NORMAL
--- NOTE | 2024-06-03 22:45 | ED.ALCOHOL ---
HPI - Alcohol General Chief Complaint: ETOH/Substance Use Stated Complaint: ETOH Time Seen by Provider: 06/03/24 22:45 Source: patient Mode of arrival: ambulatory Limitations: no limitations History of Present Illness ED Provider: mingo POWELL narrative: Patient alcoholic with history of depression been drinking heavy for last 3 years after break-up from the relationship drinks vodka for 5 days month and then stops and starts drinking again today patient has been drinking last 4 days did not eat or drink any other food feels shaky last drink was in a.m. Related Data Previous Rx's ?Medication ?Instructions ?Recorded naltrexone 50 mg tablet 50 mg PO DAILY #30 tabs 02/12/24 ondansetron 4 mg disintegrating 4 mg PO Q8H PRN nausea and 02/12/24 tablet vomiting #10 tabs lidocaine 1.8 % topical patch 1 patch topical DAILY #30 ea 02/16/24 folic acid 1 mg tablet 1 mg PO DAILY #30 tabs 04/13/24 omeprazole 10 mg capsule,delayed 10 mg PO DAILY #30 caps 04/13/24 release sertraline 25 mg tablet (Zoloft) 25 mg PO DAILY #30 tabs 04/13/24 thiamine HCl (vitamin B1) 100 mg 100 mg PO DAILY #30 tabs 04/13/24 tablet Allergies Allergy/AdvReac Type Severity Reaction Status Date / Time No Known Allergies Allergy Verified 06/03/24 21:10 Review of Systems Review of Systems: Yes all other systems are reviewed and are negative [facility] Social History Social History Alcohol intake: current Alcohol intake frequency: 3 or more drinks per day Alcohol type: hard liquor Smoked in Last 30 Days: No Use of substances other than those prescribed or required for medical reasons: Yes Substance Use Type: Marijuana Advance Directives: No Advance Directives Information Provided: No Do you have a plan to hurt others: No Plan Physical Exam ED Vital Signs: Vital Signs - 24 hr 06/03/24 21:03 06/04/24 00:12 Temperature 98.2 F 98.7 F Pulse Rate 95 76 Respiratory Rate 18 16 Blood Pressure 116/79 105/69 Pulse Oximetry 97 100 Oxygen Delivery Method Room Air Room Air BMI result Body Mass Index 23.0 Appearance: Alert. Oriented X3. No acute distress. Eyes: PERRLA, no pallor or icterus ENT: Pharynx normal. Oral Mucosa moist Neck: Normal inspection. Neck supple. CVS: Normal heart rate and rhythm. Pulses normal. Respiratory: No respiratory distress. Equal air entry bilateral, no wheezing/rales/rhonchi Abdomen: Soft and nontender. Bowel sounds are present, no mass palpable, no CVA tenderness Skin: Skin warm and dry. Normal skin color. Normal skin turgor. Extremities: No lower extremity edema. No calf tenderness Neuro: Oriented X 3. No motor deficit. No sensory deficit.No cerebellar signs , cranial nerves II-XII intact Medical Decision Making Medical Decision Making [facility] Narrative: Patient intoxicated ambulatory in steady gait in the ER refused to stay longer for family reasons. Will discharge patient home Lab Data [facility] Lab Attestation statement: I reviewed the patient's lab results. 06/03/24 21:15 06/03/24 21:15 Labs: Lab Results 06/03/24 06/03/24 Range/Units 21:15 21:45 WBC 8.6 (4.8-10.8) X10*3/uL RBC 4.78 (4.20-5.50) X10*6/uL Hgb 14.8 (12.0-16.0) g/dl Hct 43.2 (37.0-47.0) % MCV 90.4 (80.0-98.0) fL MCH 31.0 (27.0-33.0) pg MCHC 34.3 (31.0-35.0) g/dl RDW 13.2 (11.0-16.0) % Plt Count 433 H (160-400) X10*3/uL MPV 9.3 L (9.4-12.3) fL Immature Gran % (Auto) Cancelled Neut % (Auto) Cancelled Lymph % (Auto) Cancelled [place] % (Auto) Cancelled Eos % (Auto) Cancelled Baso % (Auto) Cancelled Lymph # (Auto) Cancelled [place] # (Auto) Cancelled Eos # (Auto) Cancelled Baso # (Auto) Cancelled Abs Immat Gran (auto) Cancelled Absolute Neuts (auto) Cancelled Absolute Nucleated RBC 0.000 (0.0-0.012) X10*3/uL Nucleated RBC % (auto) 0.0 (0.0-0.2) /100WBC Neutrophils % (Manual) 33 L (45-73) % Band Neutrophils % 0 L (3-5) % Lymphocytes % (Manual) 40 (20-40) % Atypical Lymphs % (Man) 20 H (0-6) % Monocytes % (Manual) 5 (2-11) % Eosinophils % (Manual) 1 (0-4) % Basophils % (Manual) 1 (0-2) % Abs Neuts (Manual) 2.8 (2.0-8.3) X10*3/uL Lymphocytes # (Manual) 3.4 (1.2-4.9) X10*3/uL Atyp Lymphs # (Manual) 1.7 x10*3/uL Monocytes # (Manual) 0.4 (0.1-1.2) X10*3/uL Eosinophils # (Manual) 0.1 (0.0-0.4) X10*3/uL Basophils # (Manual) 0.1 (0.0-0.2) X10*3/uL Platelet Estimate NORMAL (NORMAL) Plt Morphology Comment NORMAL RBC Morphology NORMAL Smear Tech's Comments MANUAL DIFF Sodium 145 (135-145) mmol/L Potassium 3.5 (3.3-5.1) mmol/L Chloride 106 (96-108) mmol/L Carbon Dioxide 27 (22-29) mmol/L Anion Gap 16 (12-20) BUN 8 L (9-16) mg/dL Creatinine 0.77 (0.5-1.4) mg/dL Estim Creat Clear Calc 110.2 Estimated GFR > 60 Random Glucose 91 (60-115) mg/dL Calcium 8.7 (8.4-10.2) mg/dL Magnesium 2.1 (1.6-2.6) mg/dL Total Bilirubin 0.5 (0.0-1.0) mg/dL AST 71 H (5-31) U/L ALT 65 H (0-31) U/L Alkaline Phosphatase 55 (39-117) U/L Total Protein 7.6 (6.5-8.0) g/dL Albumin 4.5 (3.5-5.0) g/dL Urine Opiates Screen Not Detected (Not Detect) Ur Buprenorphine Scrn Not Detected (Not Detect) ng/mL Ur Oxycodone Screen Not Detected (Not Detect) ng/mL Urine Methadone Screen Not Detected (Not Detect) ng/mL Urine Fentanyl Screen Not Detected (Not Detect) Ur Barbiturates Screen Not Detected (Not Detect) Ur Phencyclidine Scrn Not Detected (Not Detect) Ur Amphetamines Screen Not Detected (Not Detect) U Benzodiazepines Scrn Not Detected (Not Detect) Urine Cocaine Screen Not Detected (Not Detect) U Marijuana (THC) Screen POSITIVE H (Not Detect) Ethyl Alcohol 478 H* mg/dL Medications Administered Discontinued Medications Generic Name Dose Route Start Last Admin Trade Name Freq PRN Reason Stop Dose Admin Sodium Chloride 1,000 mls @ 999 mls/hr 06/03/24 23:04 06/03/24 23:22 Ns IV 06/04/24 00:04 999 mls/hr .Q1H1M ONE Administration Lorazepam 2 mg 06/03/24 23:04 06/03/24 23:23 Lorazepam 1 Mg Tablet PO 06/03/24 23:05 2 mg ONCE ONE Administration Discharge Plan Discharge Clinical Impression: Alcoholic intoxication Patient Disposition: Home, Self-Care Instructions: Alcohol Intoxication (ED) Additional Instructions: Stop drinking alcohol Follow with detox Prescriptions: No Action lidocaine 1.8 % adhesive patch,medicated 1 patch topical DAILY Qty: 30 0RF Rx Instructions: leave on most painful area for up to 12 hrs naltrexone 50 mg tablet 50 mg PO DAILY Qty: 30 0RF Rx Instructions: Take 1/2 pill for 3 days, advance to full pill if well tolerated ondansetron 4 mg tablet,disintegrating 4 mg PO Q8H PRN (Reason: nausea and vomiting) Qty: 10 0RF sertraline [Zoloft] 25 mg tablet 25 mg PO DAILY Qty: 30 0RF thiamine HCl (vitamin B1) 100 mg tablet 100 mg PO DAILY Qty: 30 3RF folic acid 1 mg tablet 1 mg PO DAILY Qty: 30 3RF omeprazole 10 mg capsule,delayed release(DR/EC) 10 mg PO DAILY Qty: 30 0RF Interventions: ED Discharge Assessment Last Done: 06/04/24 00:12 Discharge Date/Time: 06/04/24 00:19 Print Language: Azeri
[2024-06-03 23:17] LABS: Magnesium 2.1 mg/dL (1.6-2.6)
[2024-06-03] MEDS: 0.9 % Sodium Chloride 1,000 ML 999 ML IV (23:22)
[2024-06-03] MEDS: LORazepam 1 MG TABLET 2 MG PO (23:23)
--- NOTE | 2024-06-04 00:05 | PC.NURSE ---
pt walked to the nurse desk, and spoke with the doctor, pt wants to be discharge, because her dog is at home, by itself. Pt ambulates steadily without assistance
[2024-06-04 00:12] VITALS: BP 105/69; PULSE 76; RESP 16; TEMP 37.1; O2SAT 100
== END 2024-06-04 00:19 | disposition home or self-care (01) ==
PROVIDERS: Emergency Provider Internal Medicine
DX: F10.220 Alcohol dependence with intoxication, uncomplicated (principal); Y90.8 Blood alcohol level of 240 mg/100 ml or more; Z79.899 Other long term (current) drug therapy
CPT/HCPCS: 36415; 80053; 80307; 83735; 85007; 85025; 85027; 99284

== ENCOUNTER 2024-06-21 14:02 | Outpatient (AMB) | payer OTHER, SELFPAY ==
[2024-06-21 14:18] VITALS: PULSE 89; RESP 19; O2SAT 98
--- NOTE | 2024-06-21 14:18 | A.OFFVISCC_ITS ---
Vital Signs 06/21/24 14:18 Blood Pressure Location Rt radial Position Sitting Respiration 19 Pulse 89 Pulse Source Pulse Oximeter Pulse Oximetry (%) 98 Intake Visit Reasons: MAT Office Allergies No Known Allergies Allergy (Verified 06/03/24 21:10) HPI HPI MAT Office: Details: Patient presents for follow up for AUD reports seeing pcp recently and had labs drawn elevated LFTs was seen by GI, but has not followed up again, I know it's because of my drinking Did not start SSRI, wants to start OCT, has new rx reviewed how to start Has noted that week before her menses she will drink excessive amounts of alcohol spends several days after being sick with vomiting She states that her hope is the OCT will balance her hormones and she won't drink as much -provided supportive listening and offered risk reduction strategies PFS Social History Alcohol intake: current Alcohol intake frequency: 3 or more drinks per day Alcohol type: hard liquor Substance Use Type: Marijuana Review of Systems Const Reports as per HPI, Reports difficulty sleeping, Reports fatigue, Reports lethargy, Reports malaise, Reports poor appetite and Reports weakness Neuro Reports weakness Endo Reports fatigue Physical Exam Vital Signs: Last Vital Signs Pulse 89 06/21/24 14:18 Resp 19 06/21/24 14:18 Pulse Ox 98 06/21/24 14:18 Const General: cooperative (skin pale), comfortable and no acute distress Nutritional Appearance: thin Orientation/consciousness: patient oriented x3 Limitations: no limitations Neuro General: patient oriented x3 Assessment & Plan Assessment & Plan (1) Alcohol use disorder, severe, dependence: Code(s): F10.20 - Alcohol dependence, uncomplicated Category: Medical Plan: * risk reduction discussion * patient to return as walk in when ready
== END 2024-06-21 15:30 | disposition home or self-care (01) ==
PROVIDERS: Visit Provider Nurse Practitioner Psychiatric/Mental Health
DX: F10.20 Alcohol dependence, uncomplicated (principal)
CPT/HCPCS: 99214

== ENCOUNTER → 2024-06-21 14:02 | Outpatient (BNVA) | payer OTHER, SELFPAY | PROVIDERS: Visit Provider Nurse Practitioner Psychiatric/Mental Health | DX: F10.20 Alcohol dependence, uncomplicated (principal); Z79.899 Other long term (current) drug therapy | CPT/HCPCS: 99212 ==

== ENCOUNTER 2025-03-25 08:58 | Inpatient (IN) | payer OTHER, SELFPAY ==
[2025-03-25] VITALS (9 sets, daily range): BP systolic 92–130; BP diastolic 55–95; PULSE 75–150; RESP 15–20; TEMP 36.6–37.2; O2SAT 96–100; BMI 17.9; BMI 21.0
--- NOTE | ~2025-03-25 | CT_ITS ---
EXAMINATION: CT ABDOMEN PELVIS WITH IV CONTRAST HISTORY: abnormal LFTs, elevated lipase, pain n/v COMPARISON: There are no prior studies for available comparison. TECHNIQUE: CT scan of the abdomen and pelvis was performed following administration of 85 mL Omnipaque 350 using standard departmental protocol. Coronal and sagittal reformatted images were generated and reviewed. The patient received oral contrast material. This CT exam was performed with one or more of the following dose reduction techniques: automated exposure control, adjustment of the mA and/or kV according to patient size, use of iterative reconstruction technique. DLP: 579 mGy-cm FINDINGS: LOWER CHEST: The visualized lung bases are clear. There is no pleural effusion. CARDIOVASCULATURE: The heart is normal in size. There is no pericardial effusion. LIVER: The liver is normal in size and contour, but demonstrates markedly decreased attenuation, consistent with steatosis. No liver mass is identified. The hepatic and portal veins are patent. GALLBLADDER / BILE DUCTS: The gallbladder is unremarkable. There is no intra or extrahepatic biliary ductal dilatation. SPLEEN: The spleen is normal in size. No focal splenic lesion is identified. PANCREAS: The pancreas is unremarkable in appearance. No peripancreatic inflammatory stranding is seen. ADRENAL GLANDS: Within normal limits. KIDNEYS/RETROPERITONEUM: No renal calculi are identified. There is no hydronephrosis. No renal masses are identified. LYMPH NODES: No abdominal or pelvic lymphadenopathy. VASCULATURE: The abdominal aorta is normal in caliber. MESENTERY/PERITONEUM: No free fluid. No masses. There is no free intraperitoneal gas. STOMACH: The stomach is unremarkable. SMALL BOWEL: There is wall thickening of a segment of small bowel in the pelvis which also demonstrates fecalization, consistent with stasis. There is no significant small bowel dilatation. COLON: The colon is largely collapsed, but appears to demonstrate wall thickening. APPENDIX: Normal. URINARY BLADDER/PELVIC ORGANS: The urinary bladder is collapsed, limiting evaluation. The uterus and ovaries are unremarkable. BONES / SOFT TISSUES: No suspicious bony or soft tissue abnormalities. CT/CT abdomen pelvis w IV con IMPRESSION: 1. Marked hepatic steatosis. 2. Abnormal loop of small bowel in the pelvis demonstrating wall thickening and fecalization, consistent with enteritis and stasis. 3. Colonic wall thickening, compatible with colitis. Electronically signed by: Praveen Do MD 03/25/2025 12:49 PM EDT RP
--- NOTE | ~2025-03-25 | CT_ITS ---
EXAMINATION: CT HEAD WITHOUT IV CONTRAST HISTORY: headstrike fall. TECHNIQUE: Unenhanced helical CT of the head was performed per standard departmental protocol. Coronal and sagittal reformats of the head were also evaluated. One or more of the following techniques was used for dose reduction: Automated exposure control, adjustment of the mA and/or kV according to patient size, use of iterative reconstruction technique. DLP: 582 mGy-cm COMPARISON: Comparison is made with the prior examination dated 10/23/2022. FINDINGS: BRAIN: The brain parenchyma is unremarkable. There is normal swenson/white differentiation. The ventricular system is normal in size and configuration. There is no mass effect or midline shift. No intra- or extra-axial fluid collections are identified. SINUSES: The visualized paranasal sinuses are clear. The mastoid air cells and middle ear cavities are well pneumatized. ORBITS: The visualized orbits are unremarkable. BONES/SOFT TISSUES: The extracranial soft tissues are unremarkable. The calvarium is intact. No suspicious lytic or sclerotic lesions. CT/CT head/brain wo IV con IMPRESSION: No acute intracranial abnormality. Electronically signed by: Praveen Do MD 03/25/2025 10:02 AM EDT
--- NOTE | ~2025-03-25 | CT_ITS ---
EXAMINATION: CT CERVICAL SPINE WITHOUT CONTRAST CLINICAL INFORMATION: Neck pain after fall. COMPARISON: 10/23/2022. TECHNIQUE: Spiral CT imaging of the cervical spine performed in axial plane without contrast. Multiplanar reformatted images were constructed from the axial data set. This CT examination was performed using dose optimization techniques as appropriate, variously including the following: *Automated exposure control *Adjustment of mA and/or kV according to patient size (this includes techniques or standardized protocols for targeted exams where dose is matched to indication/reason for exam; i.e. extremities or head) *Use of iterative reconstruction technique FINDINGS: CORONAL ALIGNMENT: -Normal. SAGITTAL ALIGNMENT: -Mild reversal of the normal lordosis centered at C4. -No subluxations. C1-C2 AND CRANIOCERVICAL JUNCTION: -Intact and normally aligned. 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 VERTEBRAL BODIES AND FACETS: -There is no fracture, depression deformity, or suspicious bone lesion, or traumatic subluxation. -There is normal facet alignment bilaterally. No facet subluxation. DISCS: -Grossly preserved at all levels. CENTRAL CANAL: -No evidence of high-grade central canal narrowing or large disc herniation allowing for modality limitations. PREVERTEBRAL AND PARAVERTEBRAL SOFT TISSUES: -There is no prevertebral or paravertebral soft tissue edema, swelling, or abnormal fluid collection. -Normal-appearing thyroid. -No mass or lymphadenopathy within the neck. LUNG APICES: -Clear bilaterally. CT/CT cervical spine wo IV con IMPRESSION: No CT evidence of acute cervical spine fracture or injury. Electronically signed by: Yon Vazquez MD 03/25/2025 10:06 AM EDT
--- NOTE | 2025-03-25 09:14 | ECG_ITS ---
Test Reason : Seizure Blood Pressure : */* mmHG Vent. Rate : 115 BPM Atrial Rate : * BPM P-R Int : * ms QRS Dur : 100 ms QT Int : 342 ms P-R-T Axes : * 85 -89 degrees QTcB Int : 473 ms Sinus tachycardia Cannot rule out Inferior infarct , age undetermined ST & T wave abnormality, consider anterolateral ischemia Abnormal ECG No previous ECGs available Referred By: Scarlet Graham Electronically Signed By: Iker Verde
--- NOTE | 2025-03-25 09:17 | ED_ITS ---
HPI - Seizure General Chief Complaint: Seizure Stated Complaint: seizure Time Seen by Provider: 03/25/25 09:05 Source: patient, EMS and old records reviewed Mode of arrival: EMS Limitations: other (poor historian) History of Present Illness ED Provider: VASU HPI Narrative: 34 yo female with PMH of severe ETOH use disorder still drinking though she did not elaborate how much she is drinking who notes 2 weeks ago she had back to back seizures at [facility] but refused transport. She notes since then she hasn't felt well. She states she was on sinus infection medications but unclear if fevers and this was a week ago. She notes she has just been laying in bed now her whole body hurts. She had a seizure today per her reports states she felt weird and then woke up on the floor - she reports she hit her head on a hard object. EMS then stated she had shaking movements with them but unclear how long and she was NOT postictal. I asked patient with her ETOH use has she had seizure before and she states no. No hx of seizure but her sister had one before. She reports her whole body hurts. She has no tongue injury or incontinence. Her last drink was a few days ago. She states she has n/v body pain and is weak. MD complaint: possible seizure and other Onset (ago): week(s) (2) Description of Episode: loss of consciousness Witnessed: Yes - by Bystander Trauma: Yes Seizure History: No Place: Home Possible Precipitating Event: alcohol withdrawal Associated symptoms: loss of appetite, malaise and weakness Treatments prior to arrival: other (IVF) Related Data Previous Rx's ?Medication ?Instructions ?Recorded naltrexone 50 mg tablet 50 mg PO DAILY #30 tabs 01/15 0 ondansetron 4 mg disintegrating 4 mg PO Q8H PRN nausea and 02/12/24 tablet vomiting #10 tabs lidocaine 1.8 % topical patch 1 patch topical DAILY #3 0 ea 02/16/24 omeprazole 10 mg capsule,delayed 10 mg PO DAILY #30 ca ps 04/13/24 release sertraline 25 mg tablet (Zoloft) 25 mg PO DAILY #30 ta bs 04/13/24 folic acid 1 mg tablet 1 mg PO DAILY #90 tabs 07/12 thiamine HCl (vitamin B1) 100 mg 100 mg PO DAILY #90 t abs 07/12/24 tablet Allergies Allergy/AdvReac Type Severity Reaction Status Date / Time No Known Allergies Allergy Verified 03/25/25 09:17 Review of Systems 2 Review of Systems: Constitutional : No Fever, No Chills, pos Fatigue ENT/Mouth : No sore throat, No Rhinorrhea Eyes: No Eye Pain, No Swelling, No Redness Cardiovascular : No Chest Pain, No SOB, No Dyspnea on Exertion Respiratory : No Cough, No Sputum Gastrointestinal : pos Nausea, pos Vomiting, No Diarrhea, No abdominal Pain Genitourinary : No Dysuria, No Urinary Frequency, No Hematuria, Musculoskeletal : No joint pain, pos Myalgias, No Joint Swelling Skin : No Skin Lesions, No rash Neuro : pos Weakness, No Numbness, No Dizziness, positive Headache All other systems reviewed and are negative [facility] Past Medical History Attestation statement: The following information was validated with the patient. Source: old records reviewed Medical History (Updated 03/25/25 @ 10:35 by Scarlet Graham DO) Alcohol use disorder, severe, dependence Social History Social History (Updated 03/25/25 @ 09:51 by Scarlet Graham DO) Alcohol intake: current Alcohol intake frequency: 3 or more drinks per day Alcohol type: hard liquor Patient Tobacco Use Status: Tobacco use Unknown Smoked in Last 30 Days: No Use of substances other than those prescribed or required for medical reasons: No Substance Use Type: Marijuana Advance Directives: No Advance Directives Information Provided: Yes Do you have a plan to hurt others: No Plan Patient : No Physical Exam 2 Vital Signs: Vital Signs: Last Vital Signs Temp 98.3 F 03/25/25 10:20 Pulse 98 03/25/25 11:25 Resp 15 03/25/25 11:25 BP 124/85 03/25/25 11:25 Pulse Ox 99 03/25/25 11:25 O2 Del Method Room Air 03/25/25 11:25 BMI result Body Mass Index 17.9 Appearance: Alert. Oriented X3. anxious mild acute distress. Eyes: Pupils equal, round and reactive to light. ENT: Pharynx dry MM tongue fasciculations Neck: Normal inspection. Neck supple. no meningeal signs CVS: tachyardic heart rate and rhythm. Pulses normal. Respiratory: No respiratory distress. Breath sounds normal. Abdomen: Soft and nontender. Skin: Skin warm and dry. Normal skin color. skin sensitive to touch every part of body Extremities: No lower extremity edema. No calf ttp Neuro: Oriented X 3. No motor deficit. No sensory deficit. CN2-12 intact tremors Course Course Course Narrative: improving after ativan phenobarb started asleep now Reevaluation(s) Reevaluation #1: given LFTs and lipase - CT scan ordered Reevaluation #2: possible colitis but no diarrhea and hx not consistent will hold off therapy Medications Administered Discontinued Medications Generic Name Dose Route Start Last Admin Trade Name Humza PRN Reason Stop Dose Admin Lactated Ringer's 1,000 mls @ 999 mls/hr 03/25/25 09:13 03/25/25 10:35 Lr IV 03/25/25 10:13 Infused .Q1H1M ONE Infusion Magnesium Sulfate 2 gm in 50 mls @ 25 mls/hr 03/25/25 09:13 03/25/25 10:49 Magnesium Sulfate/H2o IV 03/25/25 11:12 Infused ONCE ONE Infusion Thiamine HCl 200 mg/ Sodium 102 mls @ 204 mls/hr 03/25/25 09:57 03/25/25 11:41 Chloride IV 03/25/25 10:26 Infused ONCE ONE Infusion Potassium Chloride 10 meq in 100 mls @ 100 mls/hr 03/25/25 10:15 03/25/25 11:41 Potassium Chloride/H20 IV 03/25/25 12:14 100 mls/hr Q1H CAROLE Administration Lactated Ringer's 1,000 mls @ 999 mls/hr 03/25/25 10:10 03/25/25 11:41 Lr IV 03/25/25 11:10 Infused .Q1H1M ONE Infusion Iohexol 100 ml 03/25/25 12:15 03/25/25 12:15 Iohexol 350 Mg/Ml 100 Ml Infus..Btl IV 03/25/25 12:16 85 ml ONCE ONE Administration Lorazepam 2 mg 03/25/25 09:13 03/25/25 09:20 Lorazepam 2 Mg/Ml Vial IVPUSH 03/25/25 09:14 2 mg ONCE ONE Administration Ondansetron HCl 4 mg 03/25/25 11:12 03/25/25 11:34 Ondansetron Hcl 4 Mg/2 Ml Vial IVPUSH 03/25/25 11:13 4 mg ONCE ONE Administration Phenobarbital Sodium 227 mg 03/25/25 11:00 03/25/25 11:34 Phenobarbital Sodium 130 Mg/Ml Im Once IM 03/25/25 11:01 227 mg ONCE ONE Administration Protocol Potassium Chloride 40 meq 03/25/25 10:05 03/25/25 12:08 Potassium Chloride Er 20 Meq Tab.Er.Prt PO 03/25/25 10:06 40 meq ONCE ONE Administration Medical Decision Making Medical Decision Making [facility] Narrative: 34 yo female with PMH of severe ETOH use disorder now here with reported seizures, head strike she is tachycardic dilated pupils and tremulous at this time given her history will need IVF, IV ativan, basic labs, start on thiamine and magnesium, CT head/cspine given fall and pain, start on phenobarb protocol as well. I see no signs of infection on face or swelling to suggest [employer]ALL CLE[employer]ER infection she has no meningeal signs. Differential Diagnosis Differential Diagnoses: The differential diagnosis associated with the presentation includes ETOH withdrawal, anxiety, lyte abnormality, NICOLE, rhabdo, head trauma Admission/Observation Consideration of admission/observation: Escalation of care including admission/observation considered admit for possible withdrawal / seizure Consult Healthcare Provider Management of the patient was discussed with: Hospitalist (will admit) Lab Data [facility] Lab Attestation statement: I reviewed the patient's lab results. gap likely ETOH use vs alcoholic ketoacidosis 03/25/25 09:33 03/25/25 11:47 Labs: Lab Results 03/25/25 03/25/25 03/25/25 Range/Units 09:29 09:33 10:13 WBC 4.3 L (4.8-10.8) X10*3/uL RBC 3.72 L D (4.20-5.50) X10*6/uL Hgb 13.1 (12.0-16.0) g/dl Hct 36.0 L (37.0-47.0) % MCV 96.8 (80.0-98.0) fL MCH 35.2 H (27.0-33.0) pg MCHC 36.4 H (31.0-35.0) g/dl RDW 12.7 (11.0-16.0) % Plt Count 155 L D (160-400) X10*3/uL MPV 11.2 (9.4-12.3) fL Immature Gran % (Auto) 1.2 H (0.0-0.4) % Neut % (Auto) 82.4 H (45-73) % Lymph % (Auto) 9.5 L (20-40) % [place] % (Auto) 6.7 (2-11) % Eos % (Auto) 0.0 (0-4) % Baso % (Auto) 0.2 (0-2) % Lymph # (Auto) 0.4 L (1.2-4.9) X10*3/uL [place] # (Auto) 0.3 (0.1-1.2) X10*3/uL Eos # (Auto) 0.0 (0.0-0.4) X10*3/uL Baso # (Auto) 0.0 (0.0-0.2) X10*3/uL Abs Immat Gran (auto) 0.05 H (0.00-0.03) X10*3/uL Absolute Neuts (auto) 3.5 (2.0-8.3) x10*3/uL Absolute Nucleated RBC 0.000 (0.0-0.012) X10*3/uL Nucleated RBC % (auto) 0.0 (0.0-0.2) /100WBC Sodium 132 L (135-145) mmol/L Potassium 2.8 L* (3.3-5.1) mmol/L Chloride 87 L (96-108) mmol/L Carbon Dioxide 17 L (22-29) mmol/L Anion Gap 31 H (12-20) BUN 13 (9-16) mg/dL Creatinine 0.78 (0.5-1.4) mg/dL Estim Creat Clear Calc 89.2 Estimated GFR > 60 Random Glucose 184 H (60-115) mg/dL Calcium 9.0 (8.4-10.2) mg/dL Magnesium 2.0 (1.6-2.6) mg/dL Total Bilirubin 1.4 H (0.0-1.0) mg/dL Direct Bilirubin 0.6 H (0.0-0.5) mg/dL AST 235 H (5-31) U/L ALT 79 H (0-31) U/L Alkaline Phosphatase 80 (39-117) U/L Total Creatine Kinase 98 (26-140) U/L Troponin I High Sens 11.2 (<3.5-17.0) ng/L C-Reactive Protein 0.10 (< or = 0.50) mg/dL Total Protein 7.4 (6.5-8.0) g/dL Albumin 4.7 (3.5-5.0) g/dL Lipase 238 H (8-78) U/L Beta HCG, Quant < 2 mIU/mL Urine Color Dark Yellow Urine Appearance Cloudy Urine pH 6.0 (5.0-9.0) Ur Specific [place] 1.025 (1.005-1.025) Urine Protein 300 (3+) H (Neg-Trace) mg/dL Urine Glucose (UA) 100 H (Negative) mg/dL Urine Ketones >=160 (Negative) mg/dL Urine Blood Moderate (2+) H (Negative) Urine Nitrite Negative (Negative) Ur Leukocyte Esterase Negative (Negative) Urine RBC 0-2 (0-2) /HPF Urine WBC 6-10 H (0-5) /HPF Ur Squamous Epith Cells >20 (0-2) /HPF Urine Bacteria 4+ (None Seen) Hyaline Casts 11-20 (0-2) /LPF Granular Casts Present Urine Opiates Screen Not Detected (Not Detect) Ur Buprenorphine Scrn Not Detected (Not Detect) ng/mL Ur Oxycodone Screen Not Detected (Not Detect) ng/mL Urine Methadone Screen Not Detected (Not Detect) ng/mL Urine Fentanyl Screen Not Detected (Not Detect) Ur Barbiturates Screen Not Detected (Not Detect) Ur Phencyclidine Scrn Not Detected (Not Detect) Ur Amphetamines Screen Not Detected (Not Detect) U Benzodiazepines Scrn Not Detected (Not Detect) Urine Cocaine Screen Not Detected (Not Detect) U Marijuana (THC) Screen POSITIVE H (Not Detect) Ethyl Alcohol 12 mg/dL Influenza Type A (PCR) NEGATIVE (Negative) Influenza Type B (PCR) NEGATIVE (Negative) RSV RNA Qual (PCR) NEGATIVE (Negative) SARS-CoV-2 RNA (RT-PCR) NEGATIVE (Negative) 03/25/25 Range/Units 11:47 WBC (4.8-10.8) X10*3/uL RBC (4.20-5.50) X10*6/uL Hgb (12.0-16.0) g/dl Hct (37.0-47.0) % MCV (80.0-98.0) fL MCH (27.0-33.0) pg MCHC (31.0-35.0) g/dl RDW (11.0-16.0) % Plt Count (160-400) X10*3/uL MPV (9.4-12.3) fL Immature Gran % (Auto) (0.0-0.4) % Neut % (Auto) (45-73) % Lymph % (Auto) (20-40) % Elk % (Auto) (2-11) % Eos % (Auto) (0-4) % Baso % (Auto) (0-2) % Lymph # (Auto) (1.2-4.9) X10*3/uL [place] # (Auto) (0.1-1.2) X10*3/uL Eos # (Auto) (0.0-0.4) X10*3/uL Baso # (Auto) (0.0-0.2) X10*3/uL Abs Immat Gran (auto) (0.00-0.03) X10*3/uL Absolute Neuts (auto) (2.0-8.3) x10*3/uL Absolute Nucleated RBC (0.0-0.012) X10*3/uL Nucleated RBC % (auto) (0.0-0.2) /100WBC Sodium 132 L (135-145) mmol/L Potassium 3.3 (3.3-5.1) mmol/L Chloride 91 L (96-108) mmol/L Carbon Dioxide 26 (22-29) mmol/L Anion Gap 18 (12-20) BUN 12 (9-16) mg/dL Creatinine 0.60 (0.5-1.4) mg/dL Estim Creat Clear Calc 115.9 Estimated GFR > 60 Random Glucose 110 (60-115) mg/dL Calcium 8.7 (8.4-10.2) mg/dL Magnesium (1.6-2.6) mg/dL Total Bilirubin (0.0-1.0) mg/dL Direct Bilirubin (0.0-0.5) mg/dL AST (5-31) U/L ALT (0-31) U/L Alkaline Phosphatase (39-117) U/L Total Creatine Kinase (26-140) U/L Troponin I High Sens (<3.5-17.0) ng/L C-Reactive Protein (< or = 0.50) mg/dL Total Protein (6.5-8.0) g/dL Albumin (3.5-5.0) g/dL Lipase (8-78) U/L Beta HCG, Quant mIU/mL Urine Color Urine Appearance Urine pH (5.0-9.0) Ur Specific [place] (1.005-1.025) Urine Protein (Neg-Trace) mg/dL Urine Glucose (UA) (Negative) mg/dL Urine Ketones (Negative) mg/dL Urine Blood (Negative) Urine Nitrite (Negative) Ur Leukocyte Esterase (Negative) Urine RBC (0-2) /HPF Urine WBC (0-5) /HPF Ur Squamous Epith Cells (0-2) /HPF Urine Bacteria (None Seen) Hyaline Casts (0-2) /LPF Granular Casts Urine Opiates Screen (Not Detect) Ur Buprenorphine Scrn (Not Detect) ng/mL Ur Oxycodone Screen (Not Detect) ng/mL Urine Methadone Screen (Not Detect) ng/mL Urine Fentanyl Screen (Not Detect) Ur Barbiturates Screen (Not Detect) Ur Phencyclidine Scrn (Not Detect) Ur Amphetamines Screen (Not Detect) U Benzodiazepines Scrn (Not Detect) Urine Cocaine Screen (Not Detect) U Marijuana (THC) Screen (Not Detect) Ethyl Alcohol mg/dL Influenza Type A (PCR) (Negative) Influenza Type B (PCR) (Negative) RSV RNA Qual (PCR) (Negative) SARS-CoV-2 RNA (RT-PCR) (Negative) Independent Interpretation I performed an independent interpretation of an: EKG and CT Scan (no head or neck trauma) Interpretation: Rate: 115 Rhythm: sinus tach [place]: normal Normal P waves. Normal DRAGAN. Normal QRS complex. ST T wave : on YESENIA, nonspecific ST T wave changes inf leads qTC: 473 prior studies: no acute ischemia The study has been interpreted contemporaneously by me. . Radiology Impression Discussion of test interpretation with radiology: I have reviewed the radiologist's reading. Independent Historian Clinical information obtained from an independent historian. History obtained from or confirmed by: EMS External Record Review External record reviewed: Outpatient record Critical Care Time Critical Care Time Critical Care Time: Yes Total Critical Care Time: 60 Attestation: Time is exclusive of separately billable procedures. Time includes: direct patient care, patient reassessment, coordination of patient care, interpretation of data (laboratory data, pulse oximetry, arterial blood gases and chest xrays), review of patient's medical records, medical consultation and documentation of patient care. IVF x 2L, IV ativan, ETOH phenobarb protocol, IV potassium/magnesium. Procedures excluded from critical care time: electrocardiography. Discharge Plan Discharge Clinical Impression: Acute hypokalemia, Acute dehydration, Alcoholic ketoacidosis Alcohol withdrawal Qualifiers: Complication of substance-induced condition: with unspecified complication Q ualified Code(s): F10.939 - Alcohol use, unspecified with withdrawal, unspecified Patient Disposition: Admitted As Inpatient Print Language: Greenlandic
[2025-03-25] MEDS: LORazepam 2 MG/ML VIAL IVPUSH (09:20)
[2025-03-25] MEDS: Lactated Ringers 1,000 ML 999 ML IV ×2 (09:20→10:37)
[2025-03-25] MEDS: Magnesium Sulfate/H2O 2 GM/50 ML PIGGYBACK IV (09:20)
--- NOTE | 2025-03-25 09:36 | PC.NURSE ---
Pt extremely anxious, hyperverbal; A+OX3; reports hands and feet cramping at home after hyperventilating; denies drug use; IVF's and meds admin. per orders
[2025-03-25 09:39] LABS: MANUAL DIFF FLAG NO
[2025-03-25 09:40] LABS: Hematocrit 36.0 % (37.0-47.0); Hemoglobin 13.1 g/dl (12.0-16.0); Imm Gran Abs Auto 0.05 X10*3/uL (0.00-0.03); Imm Gran Pct Auto 1.2 % (0.0-0.4); Lymphocytes Absolute Auto 0.4 X10*3/uL (1.2-4.9); Mean Corpuscular HGB Conc 36.4 g/dl (31.0-35.0); Mean Corpuscular Hemoglobin 35.2 pg (27.0-33.0); Mean Corpuscular Volume 96.8 fL (80.0-98.0); NRBC Abs Auto 0.000 X10*3/uL (0.0-0.012); NRBC Pct Auto 0.0 /100WBC (0.0-0.2); Red Blood Count 3.72 X10*6/uL (4.20-5.50); White Blood Count 4.3 X10*3/uL (4.8-10.8)
[2025-03-25 09:46] LABS: Platelet Count 155 X10*3/uL (160-400)
[2025-03-25 10:02] LABS: Troponin-I High Sensitivity 11.2 ng/L (<3.5-17.0)
[2025-03-25 10:06] LABS: Alanine Aminotransferase 79 U/L (0-31); Albumin Level 4.7 g/dL (3.5-5.0); Alkaline Phosphatase 80 U/L (39-117); Anion Gap 31 (12-20); Aspartate Amino Transferase 235 U/L (5-31); Blood Urea Nitrogen 13 mg/dL (9-16); Calcium 9.0 mg/dL (8.4-10.2); Carbon Dioxide 17 mmol/L (22-29); Chloride 87 mmol/L (96-108); Creatinine Clr Calc Pharmacy 89.2; Estimated Glomerular Filt Rate > 60; Lipase 238 U/L (8-78); Magnesium 2.0 mg/dL (1.6-2.6); Potassium 2.8 mmol/L (3.3-5.1); Sodium 132 mmol/L (135-145); Total Protein 7.4 g/dL (6.5-8.0)
[2025-03-25 10:18] LABS: Resp Syncy Virus RNA Qual PCR NEGATIVE (Negative); SARS COV2 PCR INHOUSE NEGATIVE (Negative)
[2025-03-25 10:23] LABS: Appearance Urine Cloudy; Glucose Urine UA 100 mg/dL (Negative); PH 6.0 (5.0-9.0); Specific Gravity - Urine 1.025 (1.005-1.025); UMIC TRIGGER UACC YES
[2025-03-25 10:34] LABS: Cannabinoid Screen Urine POSITIVE (Not Detect)
[2025-03-25] MEDS: Potassium Chloride/H20 10 MEQ/100 ML PIGGYBACK 100 MEQ IV ×2 (10:34→11:41)
[2025-03-25] MEDS: Thiamine HCL 200 MG in 0.9 % Sodium Chloride 100 ML 204 MG IV (10:35)
[2025-03-25 10:36] LABS: UACC Culture Trigger YES
--- OUTSIDE RECORDS SUMMARY | 2025-03-25 10:39 | XMS_ITS | Clinical Summary ---
Author Organization [address] Building Address [address] [place] [address] Phone Care Team Providers Care Director Of Healthcare Systems Name Role Phone Gil Flores MD Primary Care Provider [phone] Allergies No known active allergies Medications folic acid (FOLVITE) 1 mg tablet Take 1 tablet (1,000 mcg total) by mouth 1 (one) time each day. 02/12/2024 Active clotrimazole-bet amethasone (LOTRISONE) 1-0.05 % cream APPLY TWICE DAILY NEEDED FOR UP TO 2 WEEKS. 30 g 1 08/31/2024 Active Vienva 0.1-20 mg-mcg per tablet Take 1 tablet by mouth 1 (one) time each day. 08/30/2024 Active ferrous fumarate-vitamin C ER (Timothy-Sequels, iron-vit c,) 200 mg (65 mg iron)-25 mg CR tablet Take 1 tablet (65 mg total) by mouth 1 (one) time each day. Do not crush, chew, or split. 30 tablet 2 01/16/2025 Active Active Problems Problem Noted Date Diagnosed Date Alopecia 07/15/2024 Psoriasis 07/15/2024 Encounters Date Type Department Care Team Description 03/03/2025 Telephone Internal Medicine - [address] [phone] Gil Flores MD Seizures 01/16/2025 3:30 PM EDT Office Visit Walk-In Clinic - [address] [phone] Jose Sanchez PA Acute bacterial rhinosinusitis (Primary Dx) from Last 3 Months Immunizations Name Administration Dates Next Due Hepatitis B (Jyyvkap-N-Kkydm , Recombivax HB-Adult) 19yo and older 05/20/2001 Influenza Quadravalent, MDCK , 0.5ml, preservative free (Flucelvax) 6mo and older 07/30/2021 MMR, measles mumps and rubel la Live (Priorix; M-M-R II) 12mo and older 07/22/2001 Moderna SARS-CoV-2 COVID-19, mRNA, LNP-S, preservative free 03/29/2021,02/27/2021 Td Tetanus diptheria (Tdvax) 7yo and older 07/22,05/20/2001 Tdap Tetanus diptheria acell ular pertussis (Boostrix; Adacel) 7yo and older 12/24/2019 Varicella live (Varivax) 12mo and older 11/11/19 04 Surgical History Surgery Date Site/Laterality Comments TONSILLECTOMY ADENOIDECTOMY, BILATERAL MYRINGOTOMY AND TUBES PROCEDURE: ID TONSILLECTOMY & ADENOIDECTOMY <AGE 12 WISDOM TOOTH EXTRACTION PROCEDURE: HISTORICAL WISDOM TEETH EXTRACTION Medical History Medical History Date Comments Psoriasis DX:Psoriasis Alopecia DX:Alopecia Drinking binge DX:Drinking lan e Family History Medical History Relation Name Comments No Known Problems Father some heart issue unsure of what exactly Breast cancer Mother Drug abuse Mother Other: hepatitis c Mother Colon cancer Neg Hx Ovarian cancer Neg Hx Relation Name Status Comments Brother 4 brothers all healthy Father Alive Mother Sister 7 sisters healt hy Social History Tobacco Use Types Packs/Day Years Used Date Smoking Tobacco: Never Smokeless Tobacco: Never Alcohol Use Standard Drinks/Week Comments Not Currently 0 (1 standard drink = 0.6 oz pur e alcohol) Comments Unknown Sex and Gender Information Value Date Recorded Sex Assigned at Not on file Legal Sex Female 6:28 PM EST Gender Identity Not on file Sexual Orientation Not on file Obstetrics History Last Filed Vital Signs Vital Sign Reading Time Taken Comments Blood Pressure 112/74 01/16/2025 3:44 PM EDT Pulse 92 01/16/2025 3:44 PM EDT Temperature 36.5 C (97.7 F) 01/16/2025 3:44 PM EDT Respiratory Rate 16 09/17/2024 1:29 PM EST Oxygen Saturation 96% 01/16/2025 3:44 PM EDT Inhaled Oxygen Concentration - - Weight 67.1 kg (148 lb) 09/17/2024 1:29 PM EST Height 179.1 cm (5' 10.5 ) 04/22/2024 3:25 PM ED T Body Mass Index 20.94 04/22/2024 3:25 PM EDT Plan of Treatment Health Maintenance Due Date Last Done Comments Hepatitis B Vaccines (2 of 3 - 3-dose series) 06/17/2001 05/20/2001 Hepatitis A Vaccines (1 of 2 - Risk 2-dose series) 2007 Depression Screening 08/24/2022 Social Influencers of Health Screening 08/24/2022 COVID-19 Vaccine (3 - 2023-2 5 season) 2024 03/29/2021, 02/27/2021 Influenza Vaccine (#1) 2025 07/30/2021 Cervical Cancer Screening: HPV 11/23/2028 11/24/2023 Cholesterol Screening (Lipid Panel) 04/19/2029 04/19/2024, 04/19/2024 DTaP,Tdap,and Td Vaccines (4 - Td or Tdap) 12/23/2029 12/24/2019, 07/22/2001, 05/20/2001 MMR Vaccines Completed 07/22/2001 Varicella Vaccines Aged Out 11/11/2003 No longer eligible based on patient's age to complete this topic HIV Screening Completed 11/24/2023 Hepatitis C Screening Completed 11/24/2023 HIB Vaccines Aged Out No longer eligi ble based on patient's age to complete this topic HPV Vaccines Aged Out No longer eligi ble based on patient's age to complete this topic IPV Vaccines Aged Out No longer eligi ble based on patient's age to complete this topic Meningococcal ACWY Vaccine Aged Out N o longer eligible based on patient's age to complete this topic Meningococcal B Vaccine Aged Out No l onger eligible based on patient's age to complete this topic Pneumococcal Vaccine: Pediatrics (0 to 5 Years) and At-Risk Patients (6 to 49 Years) Aged Out No longer eligible b ased on patient's age to complete this topic RSV Immunization Patients Under 20 months Aged Out No longer eligible b ased on patient's age to complete this topic Procedures Procedure Name Priority Date/Time Associated Diagnosis Comments POC RAPID [id number], MOLECULAR Routine 01/16/2025 4:11 PM EDT Acute bacterial rhinosinusitis POC INFLUENZA A/B Routine 01/16/2025 4:1 0 PM EDT Acute bacterial rhinosinusitis LIPID PANEL Routine 04/19/2024 HM HPV Routine 11/24/2023 HEPATITIS C SCREENING Routine 11/24/2023 HIV SCREENING Routine 11/24/2023 from Last 3 Months or Most Recently Relevant to Health Maintenance Results * Poc Rapid [id number], MOLECULAR (01/16/2025 4:11 PM EDT) Pathologist [facility] COVID-19/SARS- COV-2 Rapid POC Negative Negative Internal Control Pass Yes Yes Swab Nasopharyngeal structure / Unknown 01/16/2025 4:11 PM EDT us Jose SAMS POINT OF CARE TEST ENTER/E DIT ORDERABLES Final Result * POC Influenza A/B manually resulted (01/16/2025 4:10 PM EDT) Pathologist [facility] Rapid Influenza A AGN POC Negative Negative Rapid Influenza B AGN POC Negative Negative Internal Control Pass Yes Yes Swab 01/16/2025 4:10 PM EDT us Jose SAMS POINT OF CARE TEST ENTER/E DIT ORDERABLES Final Result * Lipid panel (04/19/2024) Pathologist [facility] LDL/HDL Ratio 2 0 - 4 Triglycerides 42 0 - 150 mg/dL Cholesterol 182 0 - 200 mg/dL HDL 107 >=40 mg/dL LDL Cholesterol 67 0 - 100 mg/dL Blood Venous blood specimen / Unknown Historical Provider LAB BLOOD ORDERABLES Adrianna l Result * Cervical Cancer Screening: HPV (11/24/2023) [facility] Cervical Cancer Screening: HPV abstracted, negative Result [facility] Provider HEALTH MAINTENANCE Final Result * HIV Screening (11/24/2023) [facility] HIV Screening abstracted Historical Provider HEALTH MAINTENANCE Final Result * Hepatitis C Screening (11/24/2023) [facility] Hepatitis C Screening abstracted [facility] Provider HEALTH MAINTENANCE Final Result from Last 3 Months or Most Recently Relevant to Health Maintenance Insurance [facility] [employer] Care Teams Director Of Healthcare Systems Relationship Specialty Start Date End Date Gil Flores MD [address] [place] [id number] PCP - General Internal Medicine 06/15/21
[2025-03-25] MEDS: PHENobarbitaL sodium 130 MG/ML IM ONCE 227 MG IM (11:34)
[2025-03-25 12:08] LABS: Anion Gap 18 (12-20); Blood Urea Nitrogen 12 mg/dL (9-16); Calcium 8.7 mg/dL (8.4-10.2); Carbon Dioxide 26 mmol/L (22-29); Chloride 91 mmol/L (96-108); Creatinine Clr Calc Pharmacy 115.9; Estimated Glomerular Filt Rate > 60; Potassium 3.3 mmol/L (3.3-5.1); Sodium 132 mmol/L (135-145)
[2025-03-25] MEDS: Potassium Chloride ER 20 MEQ TAB.ER.PRT 40 MEQ PO (12:08)
[2025-03-25] MEDS: iohexoL 350 MG/ML 100 ML INFUS..BTL IV (12:15)
--- NOTE | 2025-03-25 13:30 | P.HPHOSP_ITS ---
History of Present Illness Date of Service: 03/25/25 Attending physician on admission: Rajinder Powell Chief Complaint: Body aches Keena White is a 34 years old woman with past medical history significant for alcohol abuse presents to the emergency department complaining of a plethora of symptoms including: To events on seizure 2 weeks ago and 1 yesterday, generalized body aches, headache, palpitations, tremulousness, nausea, fainting, multiple events of nonbloody vomiting, shortness on breath, weakness to the lower extremities, walking difficulty and dizziness. No tongue biting or urinary incontinence reported. She fell yesterday and hit her head with a cabinet. She was not very specific when was the last time she drank alcohol. She drinks a bottle vodka every day and smoked marijuana. Denied illicit drug use or tobacco smoking. She took Pepto-Bismol for symptoms without significant improvement. She does not take medications daily. In the ED, she was found to have tachycardia. Other vital signs are normal or unremarkable. Blood glucose remarkable for neutropenia of 4.3. Hemoglobin is 13.1 and platelets 155. Initial CMP showed low CO2 and elevated anion gap. After hydration CMP was repeated and knee acidosis resolved. There is hyponatremia 132 and hypokalemia that is improved after replacement. Last potassium level is 3.3. Magnesium is normal. BUN and creatinine are normal. LFTs are elevated except alk-phos. Total CK and troponin are normal. Lipase is 238 and test is negative. Urinalysis remarkable for proteinuria, glucosuria, moderate blood without RBCs and WBC 6-10. ETOH level is 12 and urine drug screen was positive for marijuana. Viral testing for COVID-19, influenza RSV is negative. Head CT scan without contrast showed no intracranial abnormalities. Abdominal pelvis CT scan showed marked hepatic steatosis, finding consistent with enteritis, colitis and stasis. ED tx: LR 2 L bolus, Zofran 4 mg IV, potassium chloride 40 mEq p.o., KCl, Ativan 2 mg IV, magnesium 2 g IV, thiamine 200 mg IV Review of Systems 2 Review of Systems: All 12 systems were reviewed and normal except as noted in HPI. [facility] Medical History (Updated 03/25/25 @ 10:35 by Scarlet Graham DO) Alcohol use disorder, severe, dependence Social History (Updated 03/25/25 @ 09:51 by Scarlet Graham DO) Alcohol intake: current Alcohol intake frequency: 3 or more drinks per day Alcohol type: hard liquor Patient Tobacco Use Status: Tobacco use Unknown Smoked in Last 30 Days: No Use of substances other than those prescribed or required for medical reasons: No Substance Use Type: Marijuana Advance Directives: No Advance Directives Information Provided: Yes Do you have a plan to hurt others: No Plan Nutrition Risks: Acute nausea or vomiting x1 week and Poor intake 0-25% >4 days Patient : No Meds Allergies Allergy/AdvReac Type Severity Reaction Status Date / Time No Known Allergies Allergy Verified 03/25/25 09:17 Active Medications: Current Medications Acetaminophen (Acetaminophen 325 Mg Tablet) 650 mg PO Q6H PRN PRN Reason: Pain, Mild 1-3,fever,headache Calcium Carbonate (Calcium Carbonate 750 Mg Tab.Chew) 750 mg PO Q4H PRN PRN Reason: Heartburn Enoxaparin Sodium (Enoxaparin Sodium 40 Mg/0.4 Ml Syringe) 40 mg SUBCUT Q24H CAROLE Potassium Cl/Dextrose/Lact Ringer's (Kcl 20 Meq In 5 % Dex/Lact Rin) 20 meq in 1,000 mls @ 150 mls/hr IVCONT .Q6H40M CAROLE Magnesium Hydroxide (Milk Of Magnesia 30 Ml Oral.Susp) 30 ml PO DAILY PRN PRN Reason: Constipation Melatonin (Melatonin 3 Mg Tablet) 6 mg PO BEDTIME PRN PRN Reason: Insomnia Pharmacy Consult (Consult Rx Etoh Phenob Im/Po) 1 each MISCELLANE ONCE PRN; Protocol PRN Reason: Consult order Phenobarbital (Phenobarbital 15 Mg Tablet) 45 mg PO BID CAROLE; Protocol Stop: 03/27/25 21:01 Phenobarbital (Phenobarbital 30 Mg Tablet) 30 mg PO BID CAROLE; Protocol Stop: 03/29/25 21:01 Phenobarbital (Phenobarbital 30 Mg Tablet) 30 mg PO DAILY CAROLE; Protocol Stop: 03/31/25 09:01 Phenobarbital Sodium (Phenobarbital Sodium 130 Mg/Ml Vial Im Q3hx2) 170 mg IM Q3H CAROLE; Protocol Stop: 03/25/25 17:01 Sodium Chloride (0.9 % Sodium Chloride Flush 3 Ml Syringe) 3 ml IVFLUSH QSHIFT [facility] Home Medications ?Medication ?Instructions ?Recorded ?Confirmed ?Last Taken ?Type acetaminophen 500 mg-pamabrom 25 2 tab PO Q6H PRN Yusef enstrual pain 03/25/25 03/25/25 Unknown History mg-pyrilamine 15 mg tablet ibuprofen 200 mg tablet (Advil) 200 mg PO Q6H PRN Pain 03/25/25 03/25/25 Unknown History melatonin 5 mg tablet 5 mg PO BEDTIME PRN Sleep 03/25/25 Unknown History Physical Exam 2 Vital Signs and Narrative: Vital Signs: Last Vital Signs Temp 97.9 F 03/25/25 13:22 Pulse 84 03/25/25 13:22 Resp 17 03/25/25 13:22 BP 119/56 L 03/25/25 13:22 Pulse Ox 99 03/25/25 13:22 O2 Del Method Room Air 03/25/25 13:22 BMI result Body Mass Index 17.9 Constitutional - Awake and Alert, No apparent distress. HEENT - PER, EOMI. Normal sclerae. Dry oral mucosa. Heart - RRR, No murmurs Lungs - Normal lung expansion, Normal respiratory effort, No respiratory distress, CTA bilaterally Abdomen - NT / ND; +BS; No rebound or guarding Extremities - no calf tenderness bilaterally, no swelling Musculoskeletal - Normal inspection, normal ROM Skin - Warm/Dry. No jaundice. Neurological - Alert & oriented x3. Moving all extremities spontaneously. No facial droop. Normal speech. Psychological - Depressed affect Results Labs 03/25/25 09:33 03/25/25 11:47 Labs: Laboratory Results - last 24 hr 03/25/25 03/25/25 03/25/25 09:29 09:33 10:13 MCV 96.8 MCH 35.2 H MCHC 36.4 H RDW 12.7 Plt Count 155 L D MPV 11.2 Immature Gran % (Auto) 1.2 H Neut % (Auto) 82.4 H Lymph % (Auto) 9.5 L [place] % (Auto) 6.7 Eos % (Auto) 0.0 Baso % (Auto) 0.2 Lymph # (Auto) 0.4 L [place] # (Auto) 0.3 Eos # (Auto) 0.0 Baso # (Auto) 0.0 Abs Immat Gran (auto) 0.05 H Absolute Neuts (auto) 3.5 Absolute Nucleated RBC 0.000 Nucleated RBC % (auto) 0.0 Anion Gap 31 H Estim Creat Clear Calc 89.2 Estimated GFR > 60 Random Glucose 184 H Calcium 9.0 Magnesium 2.0 Total Bilirubin 1.4 H Direct Bilirubin 0.6 H AST 235 H ALT 79 H Alkaline Phosphatase 80 Total Creatine Kinase 98 C-Reactive Protein 0.10 Total Protein 7.4 Albumin 4.7 Lipase 238 H Beta HCG, Quant < 2 Urine Color Dark Yellow Urine Appearance Cloudy Urine pH 6.0 Ur Specific [place] 1.025 Urine Protein 300 (3+) H Urine Glucose (UA) 100 H Urine Ketones >=160 Urine Blood Moderate (2+) H Urine Nitrite Negative Ur Leukocyte Esterase Negative Urine RBC 0-2 Urine WBC 6-10 H Ur Squamous Epith Cells >20 Urine Bacteria 4+ Hyaline Casts 11-20 Granular Casts Present Urine Opiates Screen Not Detected Ur Buprenorphine Scrn Not Detected Ur Oxycodone Screen Not Detected Urine Methadone Screen Not Detected Urine Fentanyl Screen Not Detected Ur Barbiturates Screen Not Detected Ur Phencyclidine Scrn Not Detected Ur Amphetamines Screen Not Detected U Benzodiazepines Scrn Not Detected Urine Cocaine Screen Not Detected U Marijuana (THC) Screen POSITIVE H Ethyl Alcohol 12 Influenza Type A (PCR) NEGATIVE Influenza Type B (PCR) NEGATIVE RSV RNA Qual (PCR) NEGATIVE SARS-CoV-2 RNA (RT-PCR) NEGATIVE 03/25/25 11:47 MCV MCH MCHC RDW Plt Count MPV Immature Gran % (Auto) Neut % (Auto) Lymph % (Auto) [place] % (Auto) Eos % (Auto) Baso % (Auto) Lymph # (Auto) [place] # (Auto) Eos # (Auto) Baso # (Auto) Abs Immat Gran (auto) Absolute Neuts (auto) Absolute Nucleated RBC Nucleated RBC % (auto) Anion Gap 18 Estim Creat Clear Calc 115.9 Estimated GFR > 60 Random Glucose 110 Calcium 8.7 Magnesium Total Bilirubin Direct Bilirubin AST ALT Alkaline Phosphatase Total Creatine Kinase C-Reactive Protein Total Protein Albumin Lipase Beta HCG, Quant Urine Color Urine Appearance Urine pH Ur Specific [place] Urine Protein Urine Glucose (UA) Urine Ketones Urine Blood Urine Nitrite Ur Leukocyte Esterase Urine RBC Urine WBC Ur Squamous Epith Cells Urine Bacteria Hyaline Casts Granular Casts Urine Opiates Screen Ur Buprenorphine Scrn Ur Oxycodone Screen Urine Methadone Screen Urine Fentanyl Screen Ur Barbiturates Screen Ur Phencyclidine Scrn Ur Amphetamines Screen U Benzodiazepines Scrn Urine Cocaine Screen U Marijuana (THC) Screen Ethyl Alcohol Influenza Type A (PCR) Influenza Type B (PCR) RSV RNA Qual (PCR) SARS-CoV-2 RNA (RT-PCR) Imaging Radiologist's Impressions: Impressions Cervical Spine CT 03/25/25 08:37 IMPRESSION: No CT evidence of acute cervical spine fracture or injury. Electronically signed by: Yon Vazquez MD 03/25/2025 10:06 AM EDT RP Head CT 03/25/25 08:37 IMPRESSION: No acute intracranial abnormality. Electronically signed by: Praveen Do MD 03/25/2025 10:02 AM EDT RP Abdomen/Pelvis CT 03/25/25 11:13 IMPRESSION: 1. Marked hepatic steatosis. 2. Abnormal loop of small bowel in the pelvis demonstrating wall thickening and fecalization, consistent with enteritis and stasis. 3. Colonic wall thickening, compatible with colitis. Electronically signed by: Praveen Do MD 03/25/2025 12:49 PM EDT RP Assessment and Plan (1) Alcohol withdrawal: Qualifiers: Complication of substance-induced condition: with unspecified complication Qualified Code(s): F10.939 - Alcohol use, unspecified with withdrawal, unspecified Status: Acute (2) Acute dehydration: Status: Acute (3) Acute hypokalemia: Status: Acute Plan Keena White is a 34 y/o woman admitted with: Alcohol withdrawal symptoms. Admit to hospitalist service. Telemetry. CIWA. Continue phenobarbital protocol. Thiamine, folic acid and multivitamins. Patient was advised to abstain for alcohol. Social work consult. Hyponatremia, mild. Secondary to alcohol consumption --> SIADH and/or volume depletion secondary to vomiting. Hypokalemia. Secondary to alcohol vomiting and poor p.o. intake. Receive KCl p.o. and IV in ED. continue to monitor. ? Seizures. Continue phenobarbital. Seizure precautions. Alcoholic ketoacidosis, resolved. Hepatic steatosis + elevated LFTs secondary to alcohol. Continue to monitor. Neutropenia and thrombocytopenia, mild; secondary to alcohol. Check hepatitis panel and vitamin B12 + folate level. Continue to monitor. Elevated lipase (< than upper limit). No abdominal pain or tenderness. Abdomen and pelvis CT scan showed no areas of pancreatitis. Continue to monitor. DVT prophylaxis: Lovenox Code status: Full Patient will need hospitalization for at least 2 midnights Quality Stroke Does the patient have a stroke diagnosis?: No VTE Prior VTE?: No VTE Risk Level:: Medical - moderate - high VTE Device Contraindication: Treatment Not Indicated VTE Drug Contraindication: N/A - Med Ordered
--- NOTE | 2025-03-25 13:52 | PHA.MEDREC ---
Pharmacy Consult ? Medication Reconciliation Pharmacy has completed the medication reconciliation Spoke with patient, she is only on OTC prn medications.
[2025-03-25] MEDS: PHENobarbitaL sodium 130 MG/ML VIAL IM Q3Hx2 170 MG IM ×2 (14:33→18:29)
[2025-03-25] MEDS: KCl 20 mEq in 5 % Dex/Lact Rin 20 MEQ/1,000 ML IV.SOLN 150 MEQ IVCONT ×2 (15:09→23:20)
[2025-03-26] VITALS (8 sets, daily range): BP systolic 86–115; BP diastolic 42–82; PULSE 96–110; RESP 16–20; TEMP 36.4–37.3; O2SAT 96–100
[2025-03-26] MEDS: KCl 20 mEq in 5 % Dex/Lact Rin 20 MEQ/1,000 ML IV.SOLN 150 MEQ IVCONT ×3 (06:02→17:29)
[2025-03-26 07:13] LABS: MANUAL DIFF FLAG NO
[2025-03-26 07:19] LABS: Hematocrit 33.2 % (37.0-47.0); Hemoglobin 12.0 g/dl (12.0-16.0); Imm Gran Abs Auto 0.04 X10*3/uL (0.00-0.03); Imm Gran Pct Auto 0.8 % (0.0-0.4); Lymphocytes Absolute Auto 1.7 X10*3/uL (1.2-4.9); Mean Corpuscular HGB Conc 36.1 g/dl (31.0-35.0); Mean Corpuscular Hemoglobin 35.0 pg (27.0-33.0); Mean Corpuscular Volume 96.8 fL (80.0-98.0); NRBC Abs Auto 0.000 X10*3/uL (0.0-0.012); NRBC Pct Auto 0.0 /100WBC (0.0-0.2); Platelet Count 145 X10*3/uL (160-400); Red Blood Count 3.43 X10*6/uL (4.20-5.50); White Blood Count 5.3 X10*3/uL (4.8-10.8)
[2025-03-26 07:27] LABS: Hemoglobin A1C 79.6722 umol/L; Total Hemoglobin (HGBA1C) 3161.3524 umol/L
[2025-03-26 07:40] LABS: Alanine Aminotransferase 53 U/L (0-31); Albumin Level 3.9 g/dL (3.5-5.0); Alkaline Phosphatase 66 U/L (39-117); Anion Gap 13 (12-20); Aspartate Amino Transferase 149 U/L (5-31); Blood Urea Nitrogen 5 mg/dL (9-16); Calcium 8.9 mg/dL (8.4-10.2); Carbon Dioxide 28 mmol/L (22-29); Chloride 92 mmol/L (96-108); Creatinine Clr Calc Pharmacy 170.1; Estimated Glomerular Filt Rate > 60; Lipase 327 U/L (8-78); Magnesium 2.0 mg/dL (1.6-2.6); Potassium 3.1 mmol/L (3.3-5.1); Sodium 130 mmol/L (135-145); Total Protein 6.0 g/dL (6.5-8.0)
--- NOTE | 2025-03-26 07:59 | MHC.CM.PN ---
CM met with Patient at bedside. Patient lives in an apartment with her Bridgette/Paul, who will transport to home at time of dc. Patient was independent [employer] and home self care VS Recovery Team intervention r/t ETOH is the tentative plan. CM has initiated and will follow for dc planning. PCP is Dr. Gil Flores.
[2025-03-26 08:10] LABS: Folate 3.9 ng/mL (> or = 4.0); Vitamin B12 727 pg/mL (200-900)
[2025-03-26 09:09] LABS: HBS Num1 59.74 mIU/mL (0-7.99); HBc Num1 0.13 S/CO (0.00-0.79); HBsAGNum1 0.34 S/CO (0.00-0.99); Hepatitis A Antibody IgM 0.15 Index (0-0.79); Hepatitis B Surface Antigen Negative (Negative); ~HepC Num1 0.32 S/CO (0.00-0.79); ~Hepatitis A Antibody IgM Nonreactive (Nonreactive); ~Hepatitis B Surface Antibody REACTIVE (Nonreactive); ~Hepatitis C Antibody Nonreactive (Nonreactive)
[2025-03-26] MEDS: Potassium Chloride ER 20 MEQ TAB.ER.PRT 40 MEQ PO (09:44)
--- NOTE | 2025-03-26 13:52 | HO.PM.IMPN ---
Subjective Subjective Date of Service: 03/26/25 Interval History: Seen and evaluated this morning BP runs soft no seizure since admission tolerating PO UA concerning for infection Review of Systems Review of Systems: Yes all other systems are reviewed and are negative Physical Exam Vital Signs: Vital Signs: Last Vital Signs Temp 99.1 F 03/26/25 07:25 Pulse 102 H 03/26/25 07:25 Resp 18 03/26/25 07:25 BP 91/58 L 03/26/25 07:25 Pulse Ox 98 03/26/25 07:25 O2 Del Method Room Air 03/26/25 07:25 BMI result Body Mass Index 21.0 Const: Other: Constitutional : Awake, interactive, not in distress Neck : Normal inspection, Supple Cardiovascular : RRR, no JVP, no lower extremity edema Respiratory : good bilateral air entry, no crackles, wheezes or rhonchi Gastrointestinal: soft, lax, Normal bowel sounds, Non tender Skin : Warm, Dry Neurological : Alert & oriented x3, No focal deficit Objective Data Active Medications Acetaminophen (Acetaminophen 325 Mg Tablet) 650 mg PO Q6H PRN PRN Reason: Pain, Mild 1-3,fever,headache Calcium Carbonate (Calcium Carbonate 750 Mg Tab.Chew) 750 mg PO Q4H PRN PRN Reason: Heartburn Ceftriaxone Sodium (Ceftriaxone Sodium 1 Gm Vial) 1 gm IVPUSH Q24H [facility] Last Admin: 03/26/25 11:22 Dose: 1 gm Documented By: DEAN Enoxaparin Sodium (Enoxaparin Sodium 40 Mg/0.4 Ml Syringe) 40 mg SUBCUT Q24H [facility] Last Admin: 03/26/25 09:44 Dose: 40 mg Documented By: DEAN Folic Acid (Folic Acid 1 Mg Tablet) 1 mg PO DAILY [facility] Last Admin: 03/26/25 09:44 Dose: 1 mg Documented By: DEAN Gabapentin (Gabapentin 100 Mg Capsule) 100 mg PO BID [facility] Last Admin: 03/26/25 11:22 Dose: 100 mg Documented By: DEAN Potassium Cl/Dextrose/Lact Ringer's (Kcl 20 Meq In 5 % Dex/Lact Rin) 20 meq in 1,000 mls @ 150 mls/hr IVCONT .Q6H40M [facility] Last Admin: 03/26/25 11:58 Dose: 150 mls/hr Documented By: DEAN Magnesium Hydroxide (Milk Of Magnesia 30 Ml Oral.Susp) 30 ml PO DAILY PRN PRN Reason: Constipation Melatonin (Melatonin 3 Mg Tablet) 6 mg PO BEDTIME PRN PRN Reason: Insomnia Multivitamins/Vitamin C (Multivitamin Tablet) 1 tab PO DAILY [facility] Last Admin: 03/26/25 09:45 Dose: 1 tab Documented By: DEAN Pantoprazole Sodium (Pantoprazole Sodium 40 Mg/10 Ml Vial) 40 mg IVPUSH DAILY@0630 [facility] Last Admin: 03/26/25 06:03 Dose: 40 mg Documented By: BALWINDER Pharmacy Consult (Consult Rx Etoh Phenob Im/Po) 1 each MISCELLANE ONCE PRN; Protocol PRN Reason: Consult order Phenobarbital (Phenobarbital 15 Mg Tablet) 45 mg PO BID [facility]; Protocol Stop: 03/27/25 21:01 Last Admin: 03/26/25 09:44 Dose: 45 mg Documented By: DEAN Phenobarbital (Phenobarbital 30 Mg Tablet) 30 mg PO BID [facility]; Protocol Stop: 03/29/25 21:01 Phenobarbital (Phenobarbital 30 Mg Tablet) 30 mg PO DAILY [facility]; Protocol Stop: 03/31/25 09:01 Sodium Chloride (0.9 % Sodium Chloride Flush 3 Ml Syringe) 3 ml IVFLUSH QSHIFT [facility] Last Admin: 03/26/25 12:13 Dose: Not Given Documented By: DEAN Non-Admin Reason: IV Running Thiamine HCl (Thiamine Hcl 100 Mg Tablet) 100 mg PO DAILY [facility] Last Admin: 03/26/25 09:45 Dose: 100 mg Documented By: DEAN Labs 03/26/25 06:19 03/26/25 06:19 Labs: Laboratory Results - last 24 hr 03/25/25 03/26/25 11:47 06:19 MCV 96.8 MCH 35.0 H MCHC 36.1 H RDW 12.6 Plt Count 145 L MPV 11.4 Immature Gran % (Auto) 0.8 H Neut % (Auto) 59.5 Lymph % (Auto) 32.5 [place] % (Auto) 6.2 Eos % (Auto) 0.6 Baso % (Auto) 0.4 Lymph # (Auto) 1.7 [place] # (Auto) 0.3 Eos # (Auto) 0.0 Baso # (Auto) 0.0 Abs Immat Gran (auto) 0.04 H Absolute Neuts (auto) 3.2 Absolute Nucleated RBC 0.000 Nucleated RBC % (auto) 0.0 Anion Gap 13 Estim Creat Clear Calc 170.1 Estimated GFR > 60 Random Glucose 97 Estimat Average Glucose 82 Hemoglobin A1c % 4.5 Calcium 8.9 Magnesium 2.0 Total Bilirubin 1.3 H AST 149 H ALT 53 H Alkaline Phosphatase 66 C-Reactive Protein < 0.10 Total Protein 6.0 L Albumin 3.9 Lipase 327 H Vitamin B12 727 Folate 3.9 L Hepatitis A IgM Ab Nonreactive Hep Bs Antigen Negative Hep Bs Antibody REACTIVE Hep B Core Total Ab Nonreactive Hepatitis C Ab (EIA) Nonreactive Assessment and Plan (1) Alcohol withdrawal: Status: Acute (2) Acute dehydration: Status: Acute (3) Acute hypokalemia: Status: Acute (4) Alcoholic ketoacidosis: Status: Acute (5) UTI (urinary tract infection): Status: Acute Plan Keena White is a 34 y/o woman admitted with: Alcohol withdrawal symptoms. Telemetry. CIWA. Continue phenobarbital protocol. Thiamine, folic acid and multivitamins. Patient was advised to abstain for alcohol. addiction team consult. Acute Hyponatremia, mild. Secondary to alcoholism SIADH and/or volume depletion secondary to vomiting. water restriction and monitor BMP High protein diet Acute Hypokalemia. Secondary to alcohol vomiting and poor p.o. intake. replacement given continue to monitor. UTI pending final cultures IV Ceftriaxone Questionable Seizures. Continue phenobarbital. Seizure precautions. Neurology evaluation Alcoholic ketoacidosis, resolved. Hepatic steatosis + Transaminitis secondary to alcohol. Continue to monitor. Neutropenia and thrombocytopenia, mild; secondary to alcohol. Negative hepatitis panel and normal vitamin B12 + low folate level. Continue to monitor. Elevated lipase (< than upper limit). No abdominal pain or tenderness. Abdomen and pelvis CT scan showed no areas of pancreatitis. Continue to monitor. DVT prophylaxis: Lovenox Code status: Full Patient will need hospitalization overnight for treatment of withdrawal, hypotension, electrolytes imbalance Quality Stroke Does the patient have a stroke diagnosis?: No VTE Prior VTE?: No VTE Risk Level:: Medical - moderate - high VTE Device Contraindication: Treatment Not Indicated VTE Drug Contraindication: N/A - Med Ordered
--- NOTE | 2025-03-26 15:40 | PM.NEUROCN ---
History of Present Illness Data of Consult Service Date: 03/26/25 Primary Care Provider: Gil Flores MD [facility] Reason for consult: Seizure disorder 34 years old woman with alcohol abuse who came to hospital with multiple symptoms including generalized weakness lethargy pain shortness of breath and also seizures. She said that she had 1st seizure couple of weeks ago then another 1. She said that she did not know what happened during the seizure but she passed out. She did not have any physical injury or incontinence from these episodes. Witnesses account was not available. She had evaluation in emergency room where her serum sodium was 130 to, tox screen was positive for marijuana, and UA was positive for UTI. Head CT revealed significant cerebellar atrophy. Review of Systems Review of Systems: No recent cold or flu-like illness PMFSH Past Medical History Medical History (Updated 03/26/25 @ 13:59 by Yesy Llamas MD) Alcohol use disorder, severe, dependence Social History Social History (Updated 03/25/25 @ 09:51 by Scarlet Graham DO) Household Members: Spouse Housing: Apartment Do you presently have visiting nurse or other home services: No Alcohol intake: current Alcohol intake frequency: 3 or more drinks per day Alcohol type: hard liquor Patient Tobacco Use Status: Tobacco use Unknown Substance Use Type: Marijuana service: No Meds Allergies Allergy/AdvReac Type Severity Reaction Status Date / Time No Known Allergies Allergy Verified 03/25/25 09:17 Active Medications: Current Medications Acetaminophen (Acetaminophen 325 Mg Tablet) 650 mg PO Q6H PRN PRN Reason: Pain, Mild 1-3,fever,headache Calcium Carbonate (Calcium Carbonate 750 Mg Tab.Chew) 750 mg PO Q4H PRN PRN Reason: Heartburn Ceftriaxone Sodium (Ceftriaxone Sodium 1 Gm Vial) 1 gm IVPUSH Q24H [facility] Last Admin: 03/26/25 11:22 Dose: 1 gm Enoxaparin Sodium (Enoxaparin Sodium 40 Mg/0.4 Ml Syringe) 40 mg SUBCUT Q24H [facility] Last Admin: 03/26/25 09:44 Dose: 40 mg Folic Acid (Folic Acid 1 Mg Tablet) 1 mg PO DAILY [facility] Last Admin: 03/26/25 09:44 Dose: 1 mg Gabapentin (Gabapentin 100 Mg Capsule) 100 mg PO BID [facility] Last Admin: 03/26/25 11:22 Dose: 100 mg Potassium Cl/Dextrose/Lact Ringer's (Kcl 20 Meq In 5 % Dex/Lact Rin) 20 meq in 1,000 mls @ 150 mls/hr IVCONT .Q6H40M [facility] Last Admin: 03/26/25 11:58 Dose: 150 mls/hr Magnesium Hydroxide (Milk Of Magnesia 30 Ml Oral.Susp) 30 ml PO DAILY PRN PRN Reason: Constipation Melatonin (Melatonin 3 Mg Tablet) 6 mg PO BEDTIME PRN PRN Reason: Insomnia Multivitamins/Vitamin C (Multivitamin Tablet) 1 tab PO DAILY [facility] Last Admin: 03/26/25 09:45 Dose: 1 tab Pantoprazole Sodium (Pantoprazole Sodium 40 Mg/10 Ml Vial) 40 mg IVPUSH DAILY@0630 [facility] Last Admin: 03/26/25 06:03 Dose: 40 mg Pharmacy Consult (Consult Rx Etoh Phenob Im/Po) 1 each MISCELLANE ONCE PRN; Protocol PRN Reason: Consult order Phenobarbital (Phenobarbital 15 Mg Tablet) 45 mg PO BID [facility]; Protocol Stop: 03/27/25 21:01 Last Admin: 03/26/25 09:44 Dose: 45 mg Phenobarbital (Phenobarbital 30 Mg Tablet) 30 mg PO BID [facility]; Protocol Stop: 03/29/25 21:01 Phenobarbital (Phenobarbital 30 Mg Tablet) 30 mg PO DAILY [facility]; Protocol Stop: 03/31/25 09:01 Sodium Chloride (0.9 % Sodium Chloride Flush 3 Ml Syringe) 3 ml IVFLUSH QSHIFT [facility] Last Admin: 03/26/25 12:13 Dose: Not Given Thiamine HCl (Thiamine Hcl 100 Mg Tablet) 100 mg PO DAILY [facility] Last Admin: 03/26/25 09:45 Dose: 100 mg Home Medications ?Medication ?Instructions ?Recorded ?Confirmed ?Last Taken ?Type acetaminophen 500 mg-pamabrom 25 2 tab PO Q6H PRN Premenstrual pain 03/25/25 03/25/25 Unknown History mg-pyrilamine 15 mg tablet ibuprofen 200 mg tablet (Advil) 200 mg PO Q6H PRN Pain 03/25/25 03/25/25 Unknown History melatonin 5 mg tablet 5 mg PO BEDTIME PRN Sleep 03/25/25 03/25/25 Unknown History Physical Exam Vital Signs: Vital Signs: Last Vital Signs Temp 97.5 F 03/26/25 15:28 Pulse 110 H 03/26/25 15:28 Resp 20 03/26/25 15:28 BP 90/55 L 03/26/25 15:28 Pulse Ox 100 03/26/25 15:28 O2 Del Method Room Air 03/26/25 15:28 BMI result Body Mass Index 21.0 Neuro: Other: She is drowsy but able to easily workup converse and follow commands. She was not in any distress. Face was symmetrical. Visual hogan are full. There was no focal weakness. Feet were very sensitive and hyperemic. Speech was normal. Results Labs 03/26/25 06:19 03/26/25 06:19 Labs: Short CBC 03/26/25 Range/Units 06:19 WBC 5.3 (4.8-10.8) X10*3/uL Hgb 12.0 (12.0-16.0) g/dl Hct 33.2 L (37.0-47.0) % Plt Count 145 L (160-400) X10*3/uL BMP 03/26/25 06:19 Sodium 130 L Potassium 3.1 L Chloride 92 L Carbon Dioxide 28 BUN 5 L Creatinine 0.48 L Calcium 8.9 Liver Function 03/26/25 Range/Units 06:19 Total Bilirubin 1.3 H (0.0-1.0) mg/dL AST 149 H (5-31) U/L ALT 53 H (0-31) U/L Alkaline Phosphatase 66 (39-117) U/L Albumin 3.9 (3.5-5.0) g/dL Head CT revealed [id number] cerebellar atrophy. Microbiology Microbiology Results: Microbiology 03/25/25 Unknown Urine clean catch - Clean Catch Midstream Urine Culture - Final Strep agalactiae (Grp B) Assessment and Plan (1) Alcohol withdrawal: Qualifiers: Complication of substance-induced condition: with unspecified complication Qualified Code(s): F10.939 - Alcohol use, unspecified with withdrawal, unspecified Status: Acute Probably alcohol-related symptomatology with possibility of syncope or seizure. Main issue is alcoholism. At this time, my recommendation is to treat for alcohol detox, supplement with thiamine, folate, and B complex, and rule out infection. Her risk for seizure disorder was relatively high recent for seizure can be considered if it would keep on happening while she was not drinking. For now, she should be advised to not drive and not be involved in activity that could put her life in danger such as swimming alone or sitting in a soaking tub alone. Procedures Date of Service Date of Service: 03/26/25
--- NOTE | 2025-03-26 15:47 | PC.NURSE ---
Addendum entered by Tylor Stevens RN 03/26/25 17:18: clarified w/ 2L bolus NS. Addendum entered by Tylor Stevens RN 03/26/25 15:52: informed md of pt's HR throughout the day Original Note: informed md of pt's low BP
--- NOTE | 2025-03-26 16:07 | PM.EVENT ---
Event Note Date of Service: 03/26/25 Event Note: patient has boderline bp ,tachycardia, no leucocytosis. added lactic acid ,blood cultures ,ivf , antibiotics changed from ceftriaxone to zosyn. no sepsis at present Time Spent With Patient Time: Total time managing care of this patient today ____ minutes.
[2025-03-26 18:46] LABS: Reflex Lactate? Lactic Acid Added
[2025-03-26 19:58] LABS: ~Lactic Acid-LAB USE ONLY 3.6 mmol/L (0.5-2.0)
[2025-03-26] MEDS: Lactated Ringers 1,000 ML 999 ML IV (21:00)
[2025-03-26] MEDS: Albumin Human 25 % 100 ML 133.33 ML IV ×2 (21:10→22:21)
[2025-03-26 21:23] LABS: Reflex Lactate? 2 Y
[2025-03-26 22:30] LABS: ~Lactic Acid-LAB USE ONLY 2.2 mmol/L (0.5-2.0)
[2025-03-27] VITALS (10 sets, daily range): BP systolic 87–132; BP diastolic 52–75; PULSE 84–110; RESP 16–20; TEMP 36.2–37.2; O2SAT 94–100
[2025-03-27] MEDS: KCl 20 mEq in 5 % Dex/Lact Rin 20 MEQ/1,000 ML IV.SOLN 150 MEQ IVCONT ×3 (01:02→23:03)
[2025-03-27] MEDS: 0.9 % Sodium Chloride Flush 3 ML SYRINGE IVFLUSH ×2 (01:03→21:21)
[2025-03-27 07:09] LABS: MANUAL DIFF FLAG NO
[2025-03-27 07:26] LABS: Hematocrit 30.6 % (37.0-47.0); Hemoglobin 11.0 g/dl (12.0-16.0); Imm Gran Abs Auto 0.03 X10*3/uL (0.00-0.03); Imm Gran Pct Auto 0.7 % (0.0-0.4); Lymphocytes Absolute Auto 1.3 X10*3/uL (1.2-4.9); Mean Corpuscular HGB Conc 35.9 g/dl (31.0-35.0); Mean Corpuscular Hemoglobin 35.5 pg (27.0-33.0); Mean Corpuscular Volume 98.7 fL (80.0-98.0); NRBC Abs Auto 0.000 X10*3/uL (0.0-0.012); NRBC Pct Auto 0.0 /100WBC (0.0-0.2); Platelet Count 152 X10*3/uL (160-400); Red Blood Count 3.10 X10*6/uL (4.20-5.50); White Blood Count 4.3 X10*3/uL (4.8-10.8)
[2025-03-27 07:34] LABS: Anion Gap 12 (12-20); Blood Urea Nitrogen < 3 mg/dL (9-16); Calcium 8.9 mg/dL (8.4-10.2); Carbon Dioxide 26 mmol/L (22-29); Chloride 102 mmol/L (96-108); Creatinine Clr Calc Pharmacy 163.3; Estimated Glomerular Filt Rate > 60; Potassium 3.6 mmol/L (3.3-5.1); Sodium 136 mmol/L (135-145)
--- NOTE | 2025-03-27 11:36 | P.PNIM_ITS ---
Subjective Subjective Date of Service: 03/27/25 Interval History: Seen and evaluated this morning BP improved but still on softer side no seizure since admission tolerating PO UCx positive Review of Systems Review of Systems: Yes all other systems are reviewed and are negative Physical Exam 2 Vital Signs: Vital Signs: Last Vital Signs Temp 97.1 F 03/27/25 11:15 Pulse 110 H 03/27/25 11:15 Resp 16 03/27/25 11:15 BP 88/60 L 03/27/25 11:15 Pulse Ox 100 03/27/25 11:15 O2 Del Method Room Air 03/27/25 11:15 BMI result Body Mass Index 21.0 Const: Other: Constitutional : Awake, interactive, not in distress Neck : Normal inspection, Supple Cardiovascular : RRR, no JVP, no lower extremity edema Respiratory : good bilateral air entry, no crackles, wheezes or rhonchi Gastrointestinal: soft, lax, Normal bowel sounds, Non tender Skin : Warm, Dry Neurological : Alert & oriented x3, No focal deficit Objective Data Active Medications Acetaminophen (Acetaminophen 325 Mg Tablet) 650 mg PO Q6H PRN PRN Reason: Pain, Mild 1-3,fever,headache Calcium Carbonate (Calcium Carbonate 750 Mg Tab.Chew) 750 mg PO Q4H PRN PRN Reason: Heartburn Enoxaparin Sodium (Enoxaparin Sodium 40 Mg/0.4 Ml Syringe) 40 mg SUBCUT Q24H [facility] Last Admin: 03/27/25 08:20 Dose: 40 mg Documented By: LEON Folic Acid (Folic Acid 1 Mg Tablet) 1 mg PO DAILY [facility] Last Admin: 03/27/25 08:17 Dose: 1 mg Documented By: ELON Gabapentin (Gabapentin 100 Mg Capsule) 100 mg PO BID [facility] Last Admin: 03/27/25 08:16 Dose: 100 mg Documented By: LEON Potassium Cl/Dextrose/Lact Ringer's (Kcl 20 Meq In 5 % Dex/Lact Rin) 20 meq in 1,000 mls @ 150 mls/hr IVCONT .Q6H40M [facility] Last Infusion: 03/27/25 10:11 Dose: Infused Documented By: LEON Piperacillin Sod/Tazobactam (Sod 3.375 gm/ Sodium Chloride) 50 mls @ 100 mls/hr IV Q6H [facility] Last Infusion: 03/27/25 06:07 Dose: Infused Documented By: BALWINDER Vancomycin HCl 1,250 mg/ (Sodium Chloride) 250 mls @ 166.667 mls/hr IV Q12H [facility] Last Admin: 03/27/25 10:04 Dose: 166.67 mls/hr Documented By: LEON Magnesium Hydroxide (Milk Of Magnesia 30 Ml Oral.Susp) 30 ml PO DAILY PRN PRN Reason: Constipation Melatonin (Melatonin 3 Mg Tablet) 6 mg PO BEDTIME PRN PRN Reason: Insomnia Multivitamins/Vitamin C (Multivitamin Tablet) 1 tab PO DAILY [facility] Last Admin: 03/27/25 08:17 Dose: 1 tab Documented By: LEON Pantoprazole Sodium (Pantoprazole Sodium 40 Mg/10 Ml Vial) 40 mg IVPUSH DAILY@0630 [facility] Last Admin: 03/27/25 05:37 Dose: 40 mg Documented By: BALWINDER Pharmacy Consult (Consult Rx Etoh Phenob Im/Po) 1 each MISCELLANE ONCE PRN; Protocol PRN Reason: Consult order Pharmacy Consult (Consult Rx Vancomycin Dosing) 1 each MISCELLANE DAILY PRN PRN Reason: Consult order Phenobarbital (Phenobarbital 15 Mg Tablet) 45 mg PO BID [facility]; Protocol Stop: 03/27/25 21:01 Last Admin: 03/27/25 08:18 Dose: 45 mg Documented By: LEON Phenobarbital (Phenobarbital 30 Mg Tablet) 30 mg PO BID [facility]; Protocol Stop: 03/29/25 21:01 Phenobarbital (Phenobarbital 30 Mg Tablet) 30 mg PO DAILY [facility]; Protocol Stop: 03/31/25 09:01 Sodium Chloride (0.9 % Sodium Chloride Flush 3 Ml Syringe) 3 ml IVFLUSH QSHIFT [facility] Last Admin: 03/27/25 08:20 Dose: Not Given Documented By: LEON Non-Admin Reason: IV Running Thiamine HCl (Thiamine Hcl 100 Mg Tablet) 100 mg PO DAILY [facility] Last Admin: 03/27/25 08:17 Dose: 100 mg Documented By: LEON Labs 03/27/25 06:49 03/27/25 06:49 Labs: Laboratory Results - last 24 hr 03/26/25 03/26/25 03/26/25 16:30 19:19 22:10 MCV MCH MCHC RDW Plt Count MPV Immature Gran % (Auto) Neut % (Auto) Lymph % (Auto) [place] % (Auto) Eos % (Auto) Baso % (Auto) Lymph # (Auto) [place] # (Auto) Eos # (Auto) Baso # (Auto) Abs Immat Gran (auto) Absolute Neuts (auto) Absolute Nucleated RBC Nucleated RBC % (auto) Hold Purple Top SEE NOTE Anion Gap Estim Creat Clear Calc Estimated GFR Random Glucose Lactic Acid 3.5 H* Lactic Acid F/U @ 2Hr 3.6 H* Lactic Acid F/U @ 4Hr 2.2 H* Calcium Hold Yellow Top See Note 03/27/25 06:49 MCV 98.7 H MCH 35.5 H MCHC 35.9 H RDW 12.7 Plt Count 152 L MPV 11.7 Immature Gran % (Auto) 0.7 H Neut % (Auto) 58.6 Lymph % (Auto) 31.5 [place] % (Auto) 7.8 Eos % (Auto) 0.7 Baso % (Auto) 0.7 Lymph # (Auto) 1.3 [place] # (Auto) 0.3 Eos # (Auto) 0.0 Baso # (Auto) 0.0 Abs Immat Gran (auto) 0.03 Absolute Neuts (auto) 2.5 Absolute Nucleated RBC 0.000 Nucleated RBC % (auto) 0.0 Hold Purple Top Anion Gap 12 Estim Creat Clear Calc 163.3 Estimated GFR > 60 Random Glucose 94 Lactic Acid Lactic Acid F/U @ 2Hr Lactic Acid F/U @ 4Hr Calcium 8.9 Hold Yellow Top Microbiology Microbiology Results: Microbiology 03/25/25 Unknown Urine Culture - Final Urine clean catch - Clean Catch Midstream Strep agalactiae (Grp B) Assessment and Plan (1) Alcohol withdrawal: Status: Acute (2) Acute hypokalemia: Status: Acute (3) Acute dehydration: Status: Acute (4) Alcoholic ketoacidosis: Status: Acute (5) UTI (urinary tract infection): Status: Acute (6) Hypotension: Status: Acute Plan Keena White is a 34 y/o woman admitted with: Sepsis 2/2 UTI complicated with lactic acidosis LA trended down with IV fluids UCx +ve of Grp B Strep pending blood cultures on broad spectrum Abx follow Vanco trough Hypotension Due to dehydration, alcoholism not due to severe sepsis Her baseline BP from previous admissions were always on the low-low normal side give IV bolus and monitor BP Alcohol withdrawal symptoms. Telemetry. CIWA. Continue phenobarbital protocol. Thiamine, folic acid and multivitamins. Patient was advised to abstain for alcohol. addiction team consult. Acute Hyponatremia, mild. Secondary to alcoholism SIADH and/or volume depletion secondary to vomiting. water restriction and monitor BMP High protein diet Acute Hypokalemia. Secondary to alcohol vomiting and poor p.o. intake. replacement given continue to monitor. UTI Grp B Strep in UCx Dcd IV Ceftriaxone and started on Zosyn Questionable Seizures. no recurrence since admission Continue phenobarbital. Seizure precautions. Neurology evaluation; avoid driving, stop alcohol, consider seizure medication if recur her recent history is concerning for multiple incidents (3 seizures) over the last month; consider starting her on Keppra 500 bid on discharge and can follow with neurology as outpatient for further adjustment consider EEG and MRI head as outpatient Alcoholic ketoacidosis, resolved. Hepatic steatosis + Transaminitis secondary to alcohol. Continue to monitor. Neutropenia and thrombocytopenia, mild; secondary to alcohol. Negative hepatitis panel and normal vitamin B12 + low folate level. Continue to monitor. Elevated lipase (< than upper limit). No abdominal pain or tenderness. Abdomen and pelvis CT scan showed no areas of pancreatitis. Continue to monitor. DVT prophylaxis: Lovenox Code status: Full Patient will need hospitalization overnight for treatment of withdrawal, hypotension, electrolytes imbalance Quality Stroke Does the patient have a stroke diagnosis?: No VTE Prior VTE?: No VTE Risk Level:: Medical - moderate - high VTE Device Contraindication: Treatment Not Indicated VTE Drug Contraindication: N/A - Med Ordered
[2025-03-28 04:00] VITALS: BP 97/68; PULSE 92; RESP 16; TEMP 36.3; O2SAT 100
[2025-03-28] MEDS: KCl 20 mEq in 5 % Dex/Lact Rin 20 MEQ/1,000 ML IV.SOLN 150 MEQ IVCONT (06:21)
[2025-03-28] MEDS: diazePAM 10 MG/2 ML CARTRIDGE IVPUSH (06:46)
[2025-03-28 06:59] LABS: MANUAL DIFF FLAG NO
[2025-03-28 07:06] LABS: Hematocrit 33.4 % (37.0-47.0); Hemoglobin 11.7 g/dl (12.0-16.0); Imm Gran Abs Auto 0.03 X10*3/uL (0.00-0.03); Imm Gran Pct Auto 0.7 % (0.0-0.4); Lymphocytes Absolute Auto 1.4 X10*3/uL (1.2-4.9); Mean Corpuscular HGB Conc 35.0 g/dl (31.0-35.0); Mean Corpuscular Hemoglobin 35.6 pg (27.0-33.0); Mean Corpuscular Volume 101.5 fL (80.0-98.0); NRBC Abs Auto 0.000 X10*3/uL (0.0-0.012); NRBC Pct Auto 0.0 /100WBC (0.0-0.2); Platelet Count 183 X10*3/uL (160-400); Red Blood Count 3.29 X10*6/uL (4.20-5.50); White Blood Count 4.2 X10*3/uL (4.8-10.8)
[2025-03-28 07:27] LABS: Anion Gap 13 (12-20); Blood Urea Nitrogen < 3 mg/dL (9-16); Calcium 9.0 mg/dL (8.4-10.2); Carbon Dioxide 25 mmol/L (22-29); Chloride 103 mmol/L (96-108); Creatinine Clr Calc Pharmacy 154.0; Estimated Glomerular Filt Rate > 60; Potassium 3.7 mmol/L (3.3-5.1); Sodium 137 mmol/L (135-145)
[2025-03-28] MEDS: 0.9 % Sodium Chloride Flush 3 ML SYRINGE IVFLUSH (08:45)
--- NOTE | 2025-03-28 10:43 | PM.EVENT ---
Event Note Date of Service: 03/28/25 Event Note: Addiction consult placed for patient with AUD Seen by Recover RN, declined any referrals or intervention Seen Recovery Note for additional details. No concerns related to withdrawal management No additional follow up necessary Time Spent With Patient Time: Total time managing care of this patient today ____ minutes.
[2025-03-28 11:19] VITALS: BP 88/62; PULSE 111; RESP 20; TEMP 36.5; O2SAT 100
[2025-03-28 13:06] VITALS: BP 86/62; PULSE 97
[2025-03-28 13:07] VITALS: BP 86/60; BP 88/64; PULSE 124; PULSE 146
--- NOTE | 2025-03-28 14:51 | P.DS_ITS ---
DS: Providers Provider Date of Service: 03/28/25 Date of admission: 03/25/25 13:37 Date of discharge: 03/28/25 Primary care physician: Gil Flores MD Consults: 03/25/25 18:19 Addiction Medicine Provider Routine Consulting Provider: Addiction Covering Reason for consultation: ETOH 03/26/25 10:39 Consult to Neurosurgery Routine Consulting Provider: Rogelio Frey Reason for consultation: new onset seizure 03/28/25 10:45 Inpt - Recovery Team Routine Comment: Reason for consultation: BH eval DS: Diagnosis Discharge Diagnosis (1) Alcohol withdrawal: Status: Acute (2) Acute hypokalemia: Status: Acute (3) Acute dehydration: Status: Acute (4) Alcoholic ketoacidosis: Status: Acute (5) UTI (urinary tract infection): Status: Acute (6) Hypotension: Status: Acute DS: Summary Hospital Course Hospital Course: From admission HPI: Date of Service: 03/25/25 Attending physician on admission: Rajinder Powell Chief Complaint: Body aches Keena White is a 34 years old woman with past medical history significant for alcohol abuse presents to the emergency department complaining of a plethora of symptoms including: To events on seizure 2 weeks ago and 1 yesterday, generalized body aches, headache, palpitations, tremulousness, nausea, fainting, multiple events of nonbloody vomiting, shortness on breath, weakness to the lowe r extremities, walking difficulty and dizziness. No tongue biting or urinary incontinence reported. She fell yesterday and hit her head with a cabinet. She was not very specific when was the last time she drank alcohol. She drinks a bottle vodka every day and smoked marijuana. Denied illicit drug use or tobacco smoking. She took Pepto-Bismol for symptoms without significant improvement. She does not take medications daily. In the ED, she was found to have tachycardia. Other vital signs are normal or unremarkable. Blood glucose remarkable for neutropenia of 4.3. Hemoglobin is 13.1 and platelets 155. Initial CMP showed low CO2 and elevated anion gap. After hydration CMP was repeated and knee acidosis resolved. There is hyponatremia 132 and hypokalemia that is improved after replacement. Last potassium level is 3.3. Magnesium is normal. BUN and creatinine are normal. LFTs are elevated except alk-phos. Total CK and troponin are normal. Lipase is 238 and test is negative. Urinalysis remarkable for proteinuria, glucosuria, moderate blood without RBCs and WBC 6-10. ETOH level is 12 and urine drug screen was positive for marijuana. Viral testing for COVID-19, influenza RSV is negative. Head CT scan without contrast showed no intracranial abnormalities. Abdominal pelvis CT scan showed marked hepatic steatosis, finding consistent with enteritis, colitis and stasis. ED tx: LR 2 L bolus, Zofran 4 mg IV, potassium chloride 40 mEq p.o., KCl, Ativan 2 mg IV, magnesium 2 g IV, thiamine 200 mg IV Hospital course: Pt was admitted to the hospital for acute alcohol withdrawal symptoms including possible seizure activity. Pt adamantly denied drinking alcohol for the past week+, though patient had positive alcohol level at time of presentation. Pt was started on phenobarb protocol to cover both alcohol withdrawal and possible seizure activity, and was also covered with thiamine, folic acid, and multivitamin. Pt had acute hyponatremia likely secondary to alcoholism and SIADH; resolved with water restriction. Acute hypokalemia secondary to volume loss from vomiting and poor p.o. intake; resolved with supplementation. Was also noted to have alcoholic ketoacidosis which resolved, as well as hepatic steatosis and transaminitis which improved mildly, though likely secondary to alcohol use. Pt reports he has had 3 seizures over the last month. Was seen and evaluated by Neurology who thought possible syncope/seizure secondary to alcohol related symptomatology. Recommended treat for alcohol detox with dietary supplementation, and rule out infection. Pt was advised to abstain from driving for 6 months as well as engaging in potentially harmful activities such as swimming or soaking in a tub alone. Should follow up with Neurology outpatient for additional seizure workup. UA concerning for UTI, though urine cultures showed group B strep agalactiae. Patient's hospital stay complicated by BP which was noted to be soft with multiple episodes of hypotension and tachycardia. Pt did not have leukocytosis or fever, though at lactic acid elevated. Blood cultures were negative after 48 hours. Pt was started on broad-spectrum antibiotics of Zosyn and vancomycin. Today pt continued to be hypotensive with BP 88/62 despite receiving continuous IVF of 150nl/h. Checked orthostatics which were negative, though pt remained hypotensive as low as 86/60 and tachycardic up to 146. Pt was seen and evaluated this morning and afternoon where was agitated, anxious, and tearful, wanting to go home immediately. Discussed pt's concerning vitals, and need for continued monitoring and treatment, including additional IVF or even echocardiogram, pt declined any additional treatments or interventions, including additional IVF or monitoring of vital signs. Pt stated she always had a low BP and felt fine, except for being incredibly anxious and tired. Attempted to give pt additional 1L IVF with repeat vitals, but pt refused any additional intervention and decided to leave AMA. Pt was aware For alcohol use disorder, abstain from alcohol use. Seek out family and social support for help with maintaining sobriety. Also should take daily vitamin, thiamine, and folic acid. For question of seizure activity, pt should take empiric Keppra 500 mg b.i.d. and follow up with Neurology for additional outpatient workup including possible EEG and MRI. Pt should be advised to not drive for the next 6 months, and avoid potentially harmful activities such as swimming or soaking in a tub alone. For peripheral neuropathy take gabapentin 100 mg b.i.d.. For possible UTI, take Ceftin 250 mg twice a day for the next 3 days. Time Attestation Discharge Coordination Time (in mins): 45 Quality: Safe Use of Opioids Does Pt have an Active Cancer Diagnosis on the Problem List?: No Quality: Stroke Does the patient have a stroke diagnosis?: No Physical Exam Vital Signs: Vital Signs: Last Vital Signs Temp 97.7 F 03/28/25 11:19 Pulse 146 H 03/28/25 13:07 Resp 20 03/28/25 11:19 BP 86/60 L 03/28/25 13:07 Pulse Ox 100 03/28/25 11:19 O2 Del Method Room Air 03/28/25 11:19 BMI result Body Mass Index 21.0 General: AOx3, anxious, tearful. Resp: CTA bilaterally CVS: S1, S2, regular rate, tachycardic GI: +BS, NT, no distention Skin: Warm, dry Neuro: Cranial nerves II-XII grossly intact bilaterally. Motor grossly intact bilaterally Extremities: No edema Psych: Anxious, not wanting to fully cooperate with treatment DS: Data Data Completed and Pending Labs on day of discharge: Laboratory Results - last 24 hr 03/27/25 03/28/25 19:56 06:21 WBC 4.2 L RBC 3.29 L Hgb 11.7 L Hct 33.4 L MCV 101.5 H MCH 35.6 H MCHC 35.0 RDW 12.9 Plt Count 183 MPV 11.0 Immature Gran % (Auto) 0.7 H Neut % (Auto) 54.5 Lymph % (Auto) 32.6 [place] % (Auto) 10.0 Eos % (Auto) 1.0 Baso % (Auto) 1.2 Lymph # (Auto) 1.4 [place] # (Auto) 0.4 Eos # (Auto) 0.0 Baso # (Auto) 0.1 Abs Immat Gran (auto) 0.03 Absolute Neuts (auto) 2.3 Absolute Nucleated RBC 0.000 Nucleated RBC % (auto) 0.0 Hold Purple Top SEE NOTE Sodium 137 Potassium 3.7 Chloride 103 Carbon Dioxide 25 Anion Gap 13 BUN < 3 L Creatinine 0.53 Estim Creat Clear Calc 154.0 Estimated GFR > 60 Random Glucose 105 Calcium 9.0 Random Vancomycin 11.0 L Preliminary micro results at discharge 03/26/25 16:30 Blood Culture - Preliminary Blood - Venous No growth after 24 hours. 03/26/25 16:30 Blood Culture - Preliminary Blood - Venous No growth after 24 hours. Discharge Plan Discharge Anticipated Discharge Date/Time: 03/28/25 15:13 Patient Disposition: Left Against Medical Advice Discharge Diagnosis: Acute dehydration Referrals: Gil Flores MD [Primary Care Provider, Internal Medicine] - 1 Week Discharge Medications: New levetiracetam [Keppra] 500 mg tablet 500 mg PO BID Qty: 60 0RF Rx Instructions: Take one tablet twice a day gabapentin 100 mg capsule 100 mg PO BID Qty: 30 0RF Rx Instructions: Take one capsule twice a day for peripheral neuropathy cefuroxime axetil 250 mg tablet 250 mg PO BID Qty: 6 0RF Rx Instructions: Take one capsule twice a day for the next 3 days for UTI thiamine HCl (vitamin B1) 100 mg capsule 100 mg PO DAILY Qty: 90 0RF Rx Instructions: Take one tablet daily multivitamin Tablet 1 tab PO DAILY Qty: 90 0RF Rx Instructions: Take one tablet daily folic acid 1 mg tablet 1 mg PO DAILY Qty: 90 0RF Rx Instructions: Take one tablet daily Continued [id number] 500-25-15 mg Tablet 2 tab PO Q6H PRN (Reason: Premenstrual pain) ibuprofen [Advil] 200 mg Tablet 200 mg PO Q6H PRN (Reason: Pain) melatonin 5 mg Tablet 5 mg PO BEDTIME PRN (Reason: Sleep) Discharge Orders: Discharge Order (Routine); Ordered 03/28/25 Ordered By: Justine Hernandez Print Language: Turkish Care Plan Goals: See below Health Concerns: Alcohol use disorder Seizure disorder Hypotension Syncope Plan of Treatment: Pt is strongly encouraged to abstain from alcohol, and encouraged to seek out family and social support to help maintain sobriety Continue supplementation with thiamine, folate, and B complex vitamins Take Ceftin 250 mg twice a day for the next 3 days for UTI Take Keppra 500 mg b.i.d. for possible seizure disorder; will need Neurology evaluation to continue medication Follow up outpatient with Neurology in the next 1-2 weeks for additional workup for possible seizure disorder with EEG and possible MRI Due to possible seizure disorder, pt is advised to not drive for the next 6 months; also should abstain from activities such as swimming alone or soaking in a bathtub alone Will be prescribed a short dose of gabapentin for peripheral neuropathy Assessment: See discharge summary
[2025-04-09 18:03] LABS: Cortisol, Free 0.78 mcg/dL
== END 2025-03-28 15:44 | disposition left against medical advice (07) | DRG 770 ==
LOC: HO.ED 13:29 → HO.EDOVER 13:38 → HO.IMC 16:37
PROVIDERS: Internal Medicine; Student in an Organized Health Care Education/Training Program; Admitting Provider Internal Medicine; Emergency Provider Emergency Medicine; PCP Internal Medicine; Visit Provider Student in an Organized Health Care Education/Training Program
DX: F10.239 Alcohol dependence with withdrawal, unspecified (principal); E87.29 Other acidosis; D70.9 Neutropenia, unspecified; E22.2 Syndrome of inappropriate secretion of antidiuretic hormone; D69.59 Other secondary thrombocytopenia; K70.0 Alcoholic fatty liver; I95.9 Hypotension, unspecified; B95.1 Streptococcus, group B, as the cause of diseases classified elsewhere; E86.0 Dehydration; R56.9 Unspecified convulsions; N39.0 Urinary tract infection, site not specified; E87.6 Hypokalemia; Z20.822 Contact with and (suspected) exposure to COVID-19; Z79.899 Other long term (current) drug therapy
CPT/HCPCS: 36415; 70450; 72125; 74177; 80048; 80053; 80076; 80202; 80307; 81001; 82530; 82550; 82607; 82746; 83036; 83605; 83690; 83735; 84484; 84702; 85025; 86140; 86704; 86706; 86709; 86803; 87040; 87086; 87147; 87340; 87637; 93005; 99285; J0696; J1650; J2060; J2405; J2470; J2543; J2560; J3360; J3374; J3411; J3475; J3480; J7120; P9047; Q9967; S9485

== ENCOUNTER → 2025-03-25 09:14 | Outpatient (BNV) | payer OTHER, SELFPAY | PROVIDERS: Emergency Provider Emergency Medicine; PCP Internal Medicine; Visit Provider Radiology Diagnostic Radiology | DX: K76.0 Fatty (change of) liver, not elsewhere classified (principal); K63.89 Other specified diseases of intestine; M54.2 Cervicalgia; S09.90XA Unspecified injury of head, initial encounter; W19.XXXA Unspecified fall, initial encounter | CPT/HCPCS: 70450; 72125; 74177 ==

== ENCOUNTER → 2025-03-25 09:14 | Outpatient (BNV) | payer OTHER, SELFPAY | PROVIDERS: Admitting Provider Internal Medicine; Emergency Provider Emergency Medicine; PCP Internal Medicine; Visit Provider Internal Medicine Cardiovascular Disease | DX: R00.0 Tachycardia, unspecified (principal) | CPT/HCPCS: 93010 ==

== ENCOUNTER → 2025-03-25 13:37 | Outpatient (BNV) | payer OTHER, SELFPAY | PROVIDERS: Admitting Provider Internal Medicine; Emergency Provider Emergency Medicine; PCP Internal Medicine; Visit Provider Psychiatry & Neurology Neurology | DX: F10.939 Alcohol use, unspecified with withdrawal, unspecified (principal) | CPT/HCPCS: 99222 ==

== ENCOUNTER → 2025-03-25 13:37 | Outpatient (BNV) | payer OTHER, SELFPAY | PROVIDERS: Admitting Provider Internal Medicine; Emergency Provider Emergency Medicine; PCP Internal Medicine; Visit Provider Internal Medicine | DX: F10.939 Alcohol use, unspecified with withdrawal, unspecified (principal); E87.6 Hypokalemia; E86.0 Dehydration; E87.29 Other acidosis; N39.0 Urinary tract infection, site not specified; I95.9 Hypotension, unspecified | CPT/HCPCS: 99233; 99499 ==

== ENCOUNTER 2025-05-12 06:36 | Inpatient (IN) | payer OTHER, SELFPAY ==
[2025-05-12] VITALS (11 sets, daily range): BP systolic 102–132; BP diastolic 61–98; PULSE 93–160; RESP 16–25; TEMP 36.3–37.1; O2SAT 95–100; BMI 21.2; BMI 20.8
--- NOTE | 2025-05-12 06:54 | ECG_ITS ---
Test Reason : Abdominal Pain Blood Pressure : */* mmHG Vent. Rate : 135 BPM Atrial Rate : 135 BPM P-R Int : 114 ms QRS Dur : 80 ms QT Int : 368 ms P-R-T Axes : 81 88 62 degrees QTcB Int : [address] & T wave abnormality, consider inferior ischemia and anterolateral ischemia Abnormal ECG When compared with ECG of 25-Mar-2025 09:19, T wave inversion no longer evident in Anterolateral leads Referred By: Generic ED Physician Electronically Signed By: CHINEDU MEDELLIN
--- OUTSIDE RECORDS SUMMARY | 2025-05-12 07:10 | XMS_ITS | Clinical Summary ---
Author Organization [place] [id number] [address] [facility] Building Address [address] [place] [address] Phone Care Team Providers Care Medical Transcriptionist Name Role Phone Gil Flores MD Primary Care Provider [phone] Allergies No known active allergies Medications folic acid (FOLVITE) 1 mg tablet Take 1 tablet (1,000 mcg total) by mouth 1 (one) time each day. 02/12/20 24 Active levETIRAcetam (KEPPRA) 500 mg tablet 03/28/20 25 Active multivitamin tablet 03/28/20 25 Active thiamine 100 mg tablet 03/28/20 25 Active ferrous fumarate-vitam in C ER (Timothy-Sequels , iron-vit c,) 200 mg (65 mg iron)-25 mg CR tablet Take 1 tablet (65 mg total) by mouth 1 (one) time each day. Do not crush, chew, or split. 30 tablet 2 04/06/20 25 Active lidocaine (LIDODERM) 5 % patch Apply 1 patch topically 1 (one) time each day. Apply to painful area 12 hours per day, remove for 12 hours. 30 each 04/12/20 25 Active Vitron-C 65 mg iron- 125 mg tablet,delayed release (DR/EC) TAKE 1 TABLET BY MOUTH EVERY DAY DO NOT CRUSH,CHEW OR SPLIT 90 tablet 1 04/19/20 25 Active gabapentin (NEURONTIN) 300 mg capsule 300 mg in the morning and afternoon and 600 mg at night 120 each 5 04/20/20 25 Active gabapentin (NEURONTIN) 300 mg capsule Take 1 capsule (300 mg total) by mouth 3 (three) times a day. 90 each 5 04/06/20 25 025 Discontinued naproxen (NAPROSYN) 500 mg tablet Take 1 tablet (500 mg total) by mouth 2 (two) times a day with meals for 10 days. 20 tablet 04/12/20 25 025 Active Problems Problem Noted Date Diagnosed Date Alopecia 07/15/2024 Psoriasis 07/15/2024 Encounters Date Type Department Care Team Description 04/19/2025 3:14 PM EDT - 04/19/2025 11:59 PM EDT Hospital Encounter [facility] MRI [address] [place] [id number] Seizure ([facility] V24, [facility] V28) Discharge Disposition: Home or Self Care 04/12/2025 6:19 PM EDT - 04/12/2025 11:59 PM EDT Hospital Encounter Xray - [facility] [address] [place], [place] [phone] Acute left-sided low back pain with bilateral sciatica Discharge Disposition: Home or Self Care 04/12/2025 6:19 PM EDT - 04/12/2025 11:59 PM EDT Hospital Encounter [facility] [address] [facility] [place], [place] [phone] Neck pain Discharge Disposition: Home or Self Care 04/12/2025 6:00 PM EDT Office Visit [facility] - [facility] [address] [facility] [place], [place] [phone] Jose Sanchez PA Neck pain (Primary Dx); Acute left-sided low back pain with bilateral sciatica 04/12/2025 Telephone Internal [facility] - [facility] [address] [facility] [place], [place] [phone] Gil Flores MD 04/11/2025 3:20 PM EDT Consult [facility] [address] [place] [phone] Kay Velarde MD Chronic alcohol abuse (Primary Dx); Seizure ([facility], [facility] V28); Alcohol withdrawal seizure with complication ([facility]24, [facility] V28) 04/06/2025 10:30 AM EDT Office Visit Internal Medicine - [address] [phone] Gil Flores MD Hospital discharge follow-up (Primary Dx); Seizure ([facility] V24, [facility] V28); Elevated LFTs; Dizziness; Hypotension, unspecified hypotension type; Peripheral neuropathic pain 04/04/2025 Telephone Internal Medicine [address] [phone] Gil Flores MD 03/03/2025 Telephone Internal Medicine [address] [phone] Gil Flores MD from Last 3 Months Immunizations Name Administration Dates Next Due Hepatitis B (Xbxclxm-I-Zplos , Recombivax HB-Adult) 19yo and older 05/20/2001 [...] TONSILLECTOMY ADENOIDECTOMY, BILATERAL MYRINGOTOMY AND TUBES PROCEDURE: CT TONSILLECTOMY & ADENOIDECTOMY <AGE 10 WISDOM TOOTH [...] Date Smoking Tobacco: Never Smokeless Tobacco: Never Tobacco Cessation:Counseling Given: Not Answered Alcohol Use Standard Drinks/Week Comments Not Currently 0 (1 standard drink = 0.6 oz pur e alcohol) Comments No Sex and Gender Information Value Date Recorded Sex Assigned at Not on file Legal Sex Female 6:28 PM EST Gender Identity Not on file Sexual Orientation Not on file Obstetrics History Last Filed Vital Signs Vital Sign Reading Time Taken Comments Blood Pressure 80/62 04/12/2025 5:52 PM EDT Pulse 90 04/12/2025 5:52 PM EDT Temperature 36.2 C (97.1 F) 04/12/2025 5:52 PM EDT Respiratory Rate 16 09/17/2024 1:29 PM EST Oxygen Saturation 97% 04/12/2025 5:52 PM EDT Inhaled Oxygen Concentration - - Weight 70.1 kg (154 lb 9.6 oz) 04/11/2025 3:36 P M EDT Height 177.8 cm (5' 10 ) 04/11/2025 3:36 PM EDT Body Mass Index 22.18 04/11/2025 3:36 PM EDT Plan of Treatment Upcoming Encounters Date Type Department Care Team (Late st Contact Info) Description 07/08/2025 11:15 AM EDT Office Visit Internal Medicine - [facility] [address] [place] [phone] Gil Flores MD [address] [place] [address] 07/21/2025 10:00 AM EST Ancillary Procedure [facility] - [facility] [address] [facility] [address] [place] [phone] 07/28/2025 4:00 PM EST Office Visit [facility] [address] [place] [address] Kay Velarde MD [facility] [place] [address] Health Maintenance Due Date Last Done Comments Hepatitis B Vaccines (2 of 3 - 3-dose series) 06/17/2001 05/20/2001 Hepatitis A Vaccines (1 of 2 - Risk 2-dose series) 2007 Social Influencers of Health Screening 08/24/2022 COVID-19 Vaccine (3 - 2023-2 5 season) 2024 03/29/2021, 02/27/2021 Depression Screening 09/15/2024 Influenza Vaccine (#1) 2025 07/30/2021 Cervical Cancer [...] Procedure Name Priority Date/Time Associated Diagnosis Comments MR BRAIN WO AND W CONTRAST Routine 04/19/2025 4:27 PM EDT Seizure (CMS/HCC V24, [facility] V28) XR LUMBAR SPINE 4+ VIEWS STAT 04/12/2025 6:44 PM EDT Acute left-sided low back pain with bilateral sciatica XR CERVICAL SPINE 4-5 VIEWS STAT 04/12/2025 6:43 PM EDT Neck pain POC , URINE DIAGNOSTIC Routine 04/12/2025 6:30 PM EDT Neck pain Acute left-sided low back pain with bilateral sciatica COMPREHENSIVE METABOLIC PANEL Routine 04/06/2025 11:26 AM EDT Elevated LFTs VITAMIN B12 AND FOLATE Routine 11:26 AM EDT Peripheral neuropathic pain EXTERNAL CT REPORT 03/25/2025 LIPID PANEL Routine 04/19/2024 HM HPV Routine 11/24/2023 HEPATITIS C SCREENING Routine 11/24/2023 HIV SCREENING Routine 11/24/2023 from Last 3 Months or Most Recently Relevant to Health Maintenance Results * MR Brain wo and w Contrast (04/19/2025 4:27 PM EDT) Anatomical Region Laterality Modality Head and Neck Magnetic Resonan ce 04/22/2025 11:3 4 AM EDT Impressions 04/22/2025 11:42 AM EDT Normal MRI appearance of the brain. -------- FINAL REPORT -------- Dictated By: Noman Crump Dictated Date: 04/22/2025 11:34 ET Assigned Physician: Noman Crump Reviewed and Electronically Signed By: Noman Crump Signed Date: 04/22/2025 11:42 ET Workstation ID: [id number] Transcribed By: Self Edit Transcribed Date: 04/22/2025 11:34 ET Narrative 04/22/2025 11:42 AM EDT PROCEDURE: Contrast-enhanced MRI of the brain. HISTORY: Seizure, nontraumatic (Age 18-40y) seizure , fall , alcohol use. TECHNIQUE: Multiplanar multisequence MRI of the brain with and without intravenous contrast. IV CONTRAST DOSE: 15 mL Dotarem from a 15 mL vial with 0 mL discarded. COMPARISON: Head CT dated 07/28/2024. FINDINGS: BRAIN: No diffusion abnormality. No mass or extra-axial fluid collection. No hydrocephalus. The major intracranial flow voids are preserved. Age commensurate ventricles and sulci. No abnormal enhancement. Coronal images focused on the hippocampi demonstrate no findings to suggest mesial temporal sclerosis. ORBITS: Normal. SINUSES/MASTOIDS: Normal. CALVARIUM: Normal. OTHER: The visualized skull base soft tissues are normal. Procedure Note Noman Crump MD - 04/22/2025 PROCEDURE: Contrast-enhanced MRI of the brain. HISTORY: Seizure, nontraumatic (Age 18-40y) seizure , fall , alcohol use. TECHNIQUE: Multiplanar multisequence MRI of the brain with and withoutintravenous contrast. IV CONTRAST DOSE: 15 mL Dotarem from a 15 mL vial with 0 mL discarded. COMPARISON: Head CT dated 07/28/2024. FINDINGS: BRAIN: No diffusion abnormality. No mass or extra-axial fluid collection.No hydrocephalus. The major intracranial flow voids are preserved. Agecommensurate ventricles and sulci. No abnormal enhancement. Coronalimages focused on the hippocampi demonstrate no findings to suggest mesialtemporal sclerosis. ORBITS: Normal. SINUSES/MASTOIDS: Normal. CALVARIUM: Normal. OTHER: The visualized skull base soft tissues are normal. IMPRESSION: Normal MRI appearance of the brain. 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 Mild constipation. -------- FINAL REPORT -------- Dictated By: Tashia Hassan Dictated Date: 04/12/2025 19:27 ET Assigned Physician: Tashia Hassan Reviewed and Electronically Signed By: Tashia Hassan Signed Date: 04/12/2025 19:29 ET Workstation ID: [id number] Transcribed By: Self Edit Transcribed Date: 04/12/2025 19:27 ET Narrative 04/12/2025 7:29 PM EDT LUMBOSACRAL SPINE, 5 VIEWS INCLUDING OBLIQUES Prior: Lumbar spine 03/17/2024. HISTORY: Back pain after recent seizures. FINDINGS: There is normal alignment of the lumbosacral spine. No fractures are seen. There is mild endplate spurring at L3-4, unchanged. There is stool scattered in the colon. Procedure Note Tashia Hassan MD - 04/12/2025 LUMBOSACRAL SPINE, 5 VIEWS INCLUDING OBLIQUES Prior: Lumbar spine 03/17/2024. HISTORY: Back pain after recent seizures. FINDINGS: There is normal alignment of the lumbosacral spine. No fractures areseen. There is mild endplate spurring at L3-4, unchanged. There is stool scattered in the colon. 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 Mild constipation. -------- FINAL REPORT -------- Dictated By: Tashia Hassan Dictated Date: 04/12/2025 19:27 ET Assigned Physician: Tashia Hassan Reviewed and Electronically Signed By: Tashia Hassan Signed Date: 04/12/2025 19:29 ET Workstation ID: [id number] Transcribed By: Self Edit Transcribed Date: 04/12/2025 19:27 ET us Jose SAMS IMG XR PROCEDURES Final Re sult * XR Cervical Spine 4-5 Views (04/12/2025 6:43 PM EDT) Anatomical Region Laterality Modality Spine, C-spine Radiographic Barbara ging 04/12/2025 7:29 PM EDT Impressions 04/12/2025 7:31 PM EDT Discogenic degenerative disease. Neural foraminal narrowing at C3-4. -------- FINAL REPORT -------- Dictated By: Tashia Hassan Dictated Date: 04/12/2025 19:29 ET Assigned Physician: Tashia Hassan Reviewed and Electronically Signed By: Tashia Hassan Signed Date: 04/12/2025 19:31 ET Workstation ID: [id number] Transcribed By: Self Edit Transcribed Date: 04/12/2025 19:29 ET Narrative 04/12/2025 7:31 PM EDT CERVICAL SPINE, 4 VIEWS HISTORY: Neck pain after recent seizures. FINDINGS: There is straightening of the normal lordotic curve. No fracture or dislocation is seen. The paravertebral soft tissues are unremarkable. There is mild endplate spurring at C3-4 and C5-6. There is mild bilateral neural foraminal narrowing from osteophytes at C3-4. Procedure Note Tashia Hassan MD - 04/12/2025 CERVICAL SPINE, 4 VIEWS HISTORY: Neck pain after recent seizures. FINDINGS: There is straightening of the normal lordotic curve. No fracture or dislocation is seen. The paravertebral soft tissues areunremarkable. There is mild endplate spurring at C3-4 and C5-6. There is mild bilateral neural foraminal narrowing from osteophytes atC3-4. IMPRESSION: Discogenic degenerative disease. Neural foraminal narrowing at C3-4. -------- FINAL REPORT -------- Dictated By: Tashia Hassan Dictated Date: 04/12/2025 19:29 ET Assigned Physician: Tashia Hassan Reviewed and Electronically Signed By: Tashia Hassan Signed Date: 04/12/2025 19:31 ET Workstation ID: [id number] Transcribed By: Self Edit Transcribed Date: 04/12/2025 19:29 ET Jose SAMS IMG XR PROCEDURES Final Re sult * POC , urine manually resulted (04/12/2025 6:30 PM EDT) Pathologist [facility] HCG, Ur POC Negative Negative Urine Urine specimen obtained by clean catch procedure / Unknown 04/12/2025 6:30 PM EDT Jose SAMS POINT OF CARE TEST ENTER/E DIT ORDERABLES Final Result * (ABNORMAL) Vitamin B12 and folate (04/06/2025 11:26 AM EDT) [facility] Vitamin B-12 467 250 - 900 pcg/mL LAB CHEMISTRY METHOD 04/06/2025 5:03 PM EDT [facility] Folate >20.0(H) 2.8 - 17.0 ng/ml LAB CHEMISTRY METHOD 04/06/2025 5:03 PM EDT [facility] Blood Venous blood specimen / Unknown Venipuncture / Unknown 04/06/2025 11:26 AM EDT 04/06/2025 11:26 AM EDT Gil Flores MD LAB BLOOD ORDERABLES Final Resu lt [facility] [address] [place] [address], * (ABNORMAL) Comprehensive metabolic panel (04/06/2025 11:26 AM EDT) [facility] Sodium 138 133 - 145 mmol/L LAB CHEMISTRY METHOD 04/06/2025 4:41 PM EDT [facility] Potassium 4.5 3.5 - 5.5 mmol/L LAB CHEMISTRY METHOD 04/06/2025 4:[address] [facility] Chloride 105 96 - 110 mmol/L LAB CHEMISTRY METHOD 04/06/2025 4:[address] [facility] CO2 29 21 - 32 mmol/L LAB CHEMISTRY METHOD 04/06/2025 4:[address] [facility] Anion Gap 4 3 - 11 LAB CHEMISTRY METHOD 04/06/2025 4:[address] [facility] Glucose 89 70 - 100 mg/dL LAB CHEMISTRY METHOD 04/06/2025 4:[address] [facility] BUN 12 5 - 25 mg/dL LAB CHEMISTRY METHOD 04/06/2025 4:[address] [facility] Creatinine 0.84 0.50 - 1.10 mg/dL LAB CHEMISTRY METHOD 04/06/2025 4:[address] [facility] eGFR 92 >=60 mL/min/1. 73m2 LAB CHEMISTRY METHOD 04/06/2025 4:[address] [facility] Comment:Calculation based on the Chronic Kidney Disease Epidemiology Collaboration (CKD-EPI) equation refit without adjustment for race. BUN/Creatinine Ratio 14.3 LAB CHEMISTRY METHOD 04/06/2025 4:[address] [facility] Calcium 10.6(H) 8.5 - 10.5 mg/dL LAB CHEMISTRY METHOD 04/06/2025 4:[address] [facility] AST (SGOT) 75(H) 10 - 42 unit/L LAB CHEMISTRY METHOD 04/06/2025 4:[address] [facility] ALT (SGPT) 115(H) 10 - 60 unit/L LAB CHEMISTRY METHOD 04/06/2025 4:[address] [facility] Alkaline Phosphatase 90 42 - 121 unit/L LAB CHEMISTRY METHOD 04/06/2025 4:[address] [facility] Total Protein 6.9 6.0 - 8.0 g/dL LAB CHEMISTRY METHOD 04/06/2025 4:41 PM EDT [facility] Albumin 4.0 3.2 - 5.0 g/dL LAB CHEMISTRY METHOD 04/06/2025 4:41 PM EDT [facility] Total Bilirubin 0.3 0.0 - 1.4 mg/dL LAB CHEMISTRY METHOD 04/06/2025 4:41 PM EDT [facility] Blood Venous blood specimen / Unknown Venipuncture / Unknown 04/06/2025 11:26 AM EDT 04/06/2025 11:26 AM EDT Gil Flores MD LAB BLOOD ORDERABLES Final Resu lt [facility] [address] [place] [address], [place] [phone] * External CT Report (03/25/2025) Anatomical Region Laterality Modality Computed Tomogra phy Provider [facility] IMG CT PROCEDURES Final Result * Lipid panel (04/19/2024) [facility] LDL/HDL Ratio 2 0 - 4 Triglycerides 42 0 - 150 mg/dL Cholesterol 182 0 - 200 mg/dL HDL 107 >=40 mg/dL LDL Cholesterol 67 0 - 100 mg/dL Blood Venous blood specimen / Unknown Historical Provider LAB BLOOD ORDERABLES Adrianna l Result * Cervical Cancer Screening: HPV (11/24/2023) [facility] Cervical Cancer Screening: HPV abstracted, negative Historical Provider HEALTH MAINTENANCE Final Result * HIV Screening (11/24/2023) [facility] HIV Screening abstracted Historical Provider HEALTH MAINTENANCE Final Result * Hepatitis C Screening (11/24/2023) [facility] Hepatitis C Screening abstracted us Historical Provider HEALTH MAINTENANCE Final Result from Last 3 Months or Most Recently Relevant to Health Maintenance Insurance [facility] Medical [employer] Care Teams Medical Transcriptionist Relationship Specialty Start Date End Date Gil Flores MD [address] [facility] [place] [id number] PCP - General Internal Medicine 06/15/21
--- OUTSIDE RECORDS SUMMARY | 2025-05-12 07:12 | XMS_ITS ---
Author Name [facility] Organization Unknown Care Team Organization Name Specialty Phone Email Start Date End Da te [facility] Gil Flores Primary Care 08/27/20232023 [facility] Maria Del Rosario Osorio Primary Care 01/20/20232023 [facility] Gil Flores Primary Care 11/20/20222023 [facility] Sonja Chapa Primary Care 07/23/2022
[2025-05-12 07:27] LABS: MANUAL DIFF FLAG NO
[2025-05-12 07:38] LABS: Hematocrit 44.7 % (37.0-47.0); Hemoglobin 15.7 g/dl (12.0-16.0); Imm Gran Abs Auto 0.02 X10*3/uL (0.00-0.03); Imm Gran Pct Auto 0.4 % (0.0-0.4); Lymphocytes Absolute Auto 0.9 X10*3/uL (1.2-4.9); Mean Corpuscular HGB Conc 35.1 g/dl (31.0-35.0); Mean Corpuscular Hemoglobin 34.1 pg (27.0-33.0); Mean Corpuscular Volume 97.2 fL (80.0-98.0); NRBC Abs Auto 0.000 X10*3/uL (0.0-0.012); NRBC Pct Auto 0.0 /100WBC (0.0-0.2); Platelet Count 253 X10*3/uL (160-400); Red Blood Count 4.60 X10*6/uL (4.20-5.50); White Blood Count 4.8 X10*3/uL (4.8-10.8)
--- NOTE | 2025-05-12 07:47 | PC.NURSE ---
34 F presents to ED with all over body pain, n/v, and withdrawal. Pt sts last drink was this morning to attempt to cure withdrawal but pt vomitted it back up. Pt sts she goes on benders drinking and then stops drinking. A+Ox4, anxious. Pt c/o whole body being in 10/10 pain and not being able to walk. Pt sts she walks at baseline. Pt sts she had an episode of incontinence in bed d/t not being able to get up out of bed, normally ambulates.
--- NOTE | 2025-05-12 07:55 | ED.GENADULT ---
HPI - General Adult General Chief complaint: Nausea/Vomiting/Diarrhea Stated complaint: Withdrawl , V/D , Body Aches and Pain Time Seen by Provider: 05/12/25 07:15 History of Present Illness ED Provider: Dr. Nieves HPI narrative: 34 y/o F patient; PMH alcohol use disorder; presents via EMS with report of alcohol withdrawal . The patient is reporting NBNB nausea/vomiting, diarrhea, and diffuse body aches. She denies other recreational drug use. She denies fever or chills, abdominal pain, chest pain, SOB, cough/congestion. She denies falls or trauma. Related Data Home Medications ?Medication ?Instructions ?Recorded ?Confirmed melatonin 5 mg tablet 5 mg PO BEDTIME PRN Sleep 03/25/25 05/12/25 gabapentin 300 mg capsule 300 mg PO BID@0900,1200 05/12/25 05/12/25 gabapentin 300 mg capsule 600 mg PO BEDTIME 05/12/25 05/12/25 iron,carbonyl 65 mg-vitamin C 125 1 tab PO DAILY 05/12/25 05/12/25 mg tablet,delayed release (Vitron-C) lidocaine 5 % topical patch 1 patch topical DAILY 05/12/25 05/12/25 Previous Rx's ?Medication ?Instructions ?Recorded folic acid 1 mg tablet 1 mg PO DAILY #90 tabs 03/28/25 multivitamin 1 tab PO DAILY #90 tabs 03/28/25 thiamine HCl (vitamin B1) 100 mg 100 mg PO DAILY #90 caps 03/28/25 capsule Allergies Allergy/AdvReac Type Severity Reaction Status Date / Time No Known Allergies Allergy Verified 05/12/25 06:47 Review of Systems Review of Systems: Yes all other systems are reviewed and are negative PMFSH Past Medical History Attestation statement: The following information was validated with the patient. Source: old records reviewed Medical History Sepsis Alcohol use disorder, severe, dependence Social History Social History Household Members: Spouse Housing: Apartment Do you presently have visiting nurse or other home services: No Alcohol intake: current Alcohol intake frequency: 3 or more drinks per day Alcohol type: hard liquor Patient Tobacco Use Status: Tobacco use Unknown Smoked in Last 30 Days: No Use of substances other than those prescribed or required for medical reasons: No Substance Use Type: Marijuana Advance Directives: No Advance Directives Information Provided: No Do you have a plan to hurt others: No Plan Patient : No service: No Physical Exam ED Vital Signs: Vital Signs - 24 hr 05/12/25 06:46 05/12/25 07:05 05/12/25 07:48 Temperature 97.6 F Pulse Rate 116 H 160 H 100 Respiratory Rate 18 25 H Blood Pressure 132/98 H 132/98 H Pulse Oximetry 98 98 Oxygen Delivery Method Room Air Room Air 05/12/25 08:00 05/12/25 09:33 05/12/25 10:00 Temperature 98.1 F 98.2 F Pulse Rate 113 H 120 H 100 Respiratory Rate 20 20 20 Blood Pressure 116/96 H 116/96 H 130/61 Pulse Oximetry 98 98 99 Oxygen Delivery Method Room Air Room Air Room Air BMI result Body Mass Index 20.8 Patient is afebrile, tachycardic, normotensive. Const General: cooperative HENMT Head: Yes normal to inspection and Yes atraumatic Eyes General: appearance normal, both eyes and all related structures Conjunctivae: conjunctivae normal Pupils: Equal, round and reactive pupils present Neck Neck: Yes normal visual inspection, Yes full ROM, Yes supple and No tender Chest Chest palpation & inspection: normal inspection of the chest and normal palpation of entire chest wall Resp Effort & Inspection: normal respiratory effort, able to speak in complete sentences and no cough Auscultation: clear to auscultation bilaterally Cardio Rate: tachycardic Rhythm: regular rhythm Peripheral pulses: Peripheral pulses 2+ throughout GI Inspection: Yes normal to inspection, No Abdominal wall edema and No distended Palpation (GI): Soft to palpation, not firm, nontender, no guarding and not rigid Auscultation: normal bowel sounds Back/Spine/Pelvis Back: No back tenderness Neuro Cranial nerves: Yes Equal, round and reactive pupils present Course Course Course Narrative: Patient is afebrile, tachycardic, normotensive. Requested to see patient immediately due to high risk of life threatening deterioration in condition 2/2 to tachycardia to 160BPM. Ordered for STAT EKG. Providing 1L IVF and zofran 4mg IV for symptom management. Ordered for screening labs. EKG independently interpreted by myself as ST 135BPM with QT prolongation. Labs reviewed. No significant leukocytosis or anemia. Baseline transaminitis. Ethanol is negative. Hcg is negative. AGAP 45. Bicarb 14. Cr 1.58, baseline is closer to 0.53 (03/28/2025). Concern for alcohol withdrawal and alcoholic ketoacidosis. Added beta hydroxybuterate. Providing 2L IVF and then dextrose containing fluids. Started on phenobarb at 10mg/kg IBW. Placed on CIWA. Following the phenobarb patient's HR has improved. Her nausea has resolved. She is tolerating ice chips. Repeat EKG with NSR 98BPM with normal intervals, resolution of QTc prolongation. Patient reporting a mid-abdominal pain which she states is from vomiting so much for the last few days. Provided IV tylenol and a second dose of zofran. Hospitalist requesting LA and rBMP before admission. Improvement in LA, anion gap, and Cr after resuscitation efforts above. Plan: Admit to hospital Condition: Stable Medications Administered Generic Name Dose Route Start Last Admin Trade Name Freq PRN Reason Stop Dose Admin Dextrose/Sodium Chloride 1,000 mls @ 250 mls/hr 05/12/25 08:15 05/12/25 08:27 D5ns IVCONT 250 mls/hr .Q4H CAROLE Administration Discontinued Medications Generic Name Dose Route Start Last Admin Trade Name Freq PRN Reason Stop Dose Admin Sodium Chloride 1,000 mls @ 999 mls/hr 05/12/25 07:45 05/12/25 08:37 Ns IV 05/12/25 08:45 Infused .Q1H1M CAROLE Infusion Sodium Chloride 1,000 mls @ 999 mls/hr 05/12/25 08:15 05/12/25 09:27 Ns IV 05/12/25 09:15 Infused .Q1H1M CAROLE Infusion Acetaminophen 1,000 mg in 100 mls @ 400 mls/hr 05/12/25 10:20 05/12/25 10:45 Ofirmev IV 05/12/25 10:34 Infused ONCE ONE Infusion Ondansetron HCl 4 mg 05/12/25 07:31 05/12/25 07:36 Ondansetron Hcl 4 Mg/2 Ml Vial IVPUSH 05/12/25 07:32 4 mg ONCE ONE Administration Ondansetron HCl 4 mg 05/12/25 10:20 05/12/25 10:30 Ondansetron Hcl 4 Mg/2 Ml Vial IVPUSH 05/12/25 10:21 4 mg ONCE ONE Administration Phenobarbital Sodium 680 mg 05/12/25 08:20 05/12/25 08:27 Phenobarbital Sodium 130 Mg/Ml Vial IVPUSH 05/12/25 08:21 680 mg ONCE ONE Administration Medical Decision Making Lab Data 05/12/25 07:20 05/12/25 10:50 Labs: Lab Results 05/12/25 05/12/25 Range/Units 07:20 10:50 WBC 4.8 (4.8-10.8) X10*3/uL RBC 4.60 D (4.20-5.50) X10*6/uL Hgb 15.7 D (12.0-16.0) g/dl Hct 44.7 D (37.0-47.0) % MCV 97.2 (80.0-98.0) fL MCH 34.1 H (27.0-33.0) pg MCHC 35.1 H (31.0-35.0) g/dl RDW 13.4 (11.0-16.0) % Plt Count 253 D (160-400) X10*3/uL MPV 10.5 (9.4-12.3) fL Immature Gran % (Auto) 0.4 (0.0-0.4) % Neut % (Auto) 69.9 (45-73) % Lymph % (Auto) 17.7 L (20-40) % [place] % (Auto) 11.0 (2-11) % Eos % (Auto) 0.0 (0-4) % Baso % (Auto) 1.0 (0-2) % Lymph # (Auto) 0.9 L (1.2-4.9) X10*3/uL [place] # (Auto) 0.5 (0.1-1.2) X10*3/uL Eos # (Auto) 0.0 (0.0-0.4) X10*3/uL Baso # (Auto) 0.1 (0.0-0.2) X10*3/uL Abs Immat Gran (auto) 0.02 (0.00-0.03) X10*3/uL Absolute Neuts (auto) 3.4 (2.0-8.3) x10*3/uL Absolute Nucleated RBC 0.000 (0.0-0.012) X10*3/uL Nucleated RBC % (auto) 0.0 (0.0-0.2) /100WBC Sodium 141 141 (135-145) mmol/L Potassium 4.2 3.2 L D (3.3-5.1) mmol/L Chloride 86 L 99 (96-108) mmol/L Carbon Dioxide 14 L 27 (22-29) mmol/L Anion Gap 45 H 18 (12-20) BUN 27 H 21 H (9-16) mg/dL Creatinine 1.58 H 1.15 (0.5-1.4) mg/dL Estim Creat Clear Calc 51.7 71.1 Estimated GFR 37 53 Random Glucose 177 H 177 H (60-115) mg/dL Lactic Acid 1.9 (0.5-2.0) mmol/L Calcium 9.6 D 7.8 L D (8.4-10.2) mg/dL Magnesium 2.1 (1.6-2.6) mg/dL Total Bilirubin 1.6 H (0.0-1.0) mg/dL AST 105 H (5-31) U/L ALT 45 H (0-31) U/L Alkaline Phosphatase 78 (39-117) U/L Total Protein 9.2 H (6.5-8.0) g/dL Albumin 5.5 H (3.5-5.0) g/dL Lipase 24 (8-78) U/L Beta-Hydroxybutyrate 12.80 H (0.02-0.27) mmol/L Beta HCG, Quant < 2 mIU/mL Ethyl Alcohol < 10 mg/dL Influenza Type A (PCR) NEGATIVE (Negative) Influenza Type B (PCR) NEGATIVE (Negative) RSV RNA Qual (PCR) NEGATIVE (Negative) SARS-CoV-2 RNA (RT-PCR) NEGATIVE (Negative) Critical Care Time Critical Care Time Critical Care Time: Yes Total Critical Care Time: 37 Attestation: Total critical care time: Approximately?37?minutes Due to a high probability of clinically significant, life threatening deterioration, the patient required my highest level of preparedness to intervene emergently and I personally spent this critical care time directly and personally managing the patient. This critical care time included obtaining a history; examining the patient; pulse oximetry; ordering and review of studies; arranging urgent treatment with development of a management plan; evaluation of patient's response to treatment; frequent reassessment; and, discussions with other providers. This critical care time was performed to assess and manage the high probability of imminent, life-threatening deterioration that could result in multi-organ failure. It was exclusive of separately billable procedures and treating other patients? Discharge Plan Discharge Clinical Impression: Alcohol withdrawal, Alcoholic ketoacidosis, NICOLE (acute kidney injury) Patient Disposition: Admitted As Inpatient Print Language: Faroese
[2025-05-12 08:00] LABS: Alanine Aminotransferase 45 U/L (0-31); Albumin Level 5.5 g/dL (3.5-5.0); Alkaline Phosphatase 78 U/L (39-117); Anion Gap 45 (12-20); Aspartate Amino Transferase 105 U/L (5-31); Blood Urea Nitrogen 27 mg/dL (9-16); Calcium 9.6 mg/dL (8.4-10.2); Carbon Dioxide 14 mmol/L (22-29); Chloride 86 mmol/L (96-108); Creatinine Clr Calc Pharmacy 51.7; Estimated Glomerular Filt Rate 37; Lipase 24 U/L (8-78); Magnesium 2.1 mg/dL (1.6-2.6); Potassium 4.2 mmol/L (3.3-5.1); Sodium 141 mmol/L (135-145); Total Protein 9.2 g/dL (6.5-8.0)
--- NOTE | 2025-05-12 08:03 | ECG_ITS ---
Test Reason : Weakness Blood Pressure : */* mmHG Vent. Rate : 98 BPM Atrial Rate : 98 BPM P-R Int : 104 ms QRS Dur : 90 ms QT Int : 340 ms P-R-T Axes : 19 78 22 degrees QTcB Int : 434 ms Sinus rhythm with short DC Nonspecific ST and T wave abnormality Abnormal ECG When compared with ECG of 12-May-2025 07:28, Improved ST depression Referred By: Devorah Nieves Electronically Signed By: CHINEDU MEDELLIN
[2025-05-12 08:16] LABS: Resp Syncy Virus RNA Qual PCR NEGATIVE (Negative); SARS COV2 PCR INHOUSE NEGATIVE (Negative)
--- NOTE | 2025-05-12 08:39 | PC.NURSE ---
Provider instructed this RN to administer 680mg/5.2ml phenobarb placed in 100ml NS infusion over 15 minutes. Infusion started.
--- NOTE | 2025-05-12 11:01 | PHA.MEDREC ---
Addendum entered by Paulino Mcarthur, PharmD 05/12/25 12:09: MED REC CHECKED BY [facility] Original Note: Pharmacy Consult ? Medication Reconciliation Pharmacy has completed the medication reconciliation. Spoke to patient to confirm med list. Patient states she is no longer taking Cefuroxime Axetil, and Keppra 500 mg. Patient states Gabapentin was just increased, however she doesn't know the dose. Claim has Gabapentin 300 mg BID and Gabapentin 600 mg at bedtime. Patient states she hasn't had any medications in 4 days.
[2025-05-12 11:18] LABS: Anion Gap 18 (12-20); Blood Urea Nitrogen 21 mg/dL (9-16); Calcium 7.8 mg/dL (8.4-10.2); Carbon Dioxide 27 mmol/L (22-29); Chloride 99 mmol/L (96-108); Creatinine Clr Calc Pharmacy 71.1; Estimated Glomerular Filt Rate 53; Potassium 3.2 mmol/L (3.3-5.1); Sodium 141 mmol/L (135-145)
--- NOTE | 2025-05-12 11:28 | PM.IMHP ---
History of Present Illness Date of Service: 05/12/25 Chief Complaint: Alcohol withdrawal This is a 34-year-old female with pertinent history of alcohol use disorder with history of alcohol withdrawals, peripheral neuropathy who presents to the emergency department concerns of alcohol withdrawal. Patient states her last drink was on the day of presentation. She has been having tremors since she stopped drinking. Also has been complaining of nausea and multiple episodes of nonbloody emesis. She endorses generalized body ache and easy fatigability. Denies blood in vomitus. No abdominal discomfort. No fever, chills, chest pain, palpitations, shortness of breath, changes in urinary or bowel habits. Unclear if she has history of alcohol withdrawal seizures. In the emergency department, patient found to have an NICOLE with lactic acidosis and ketoacidosis. Review of Systems Constitutional: Constitutional: Reports fatigue, Reports lethargy, Reports malaise, Reports poor appetite and Reports weakness Cardiovascular: Cardiovascular: Reports no additional cardiovascular complaints Respiratory: Respiratory: Reports no additional respiratory complaints Gastrointestinal: Gastrointestinal: Reports nausea and Reports vomiting Genitourinary: Genitourinary: Reports no additional female genitourinary complaints Neurologic: Reports weakness Endocrine: Endocrine: Reports fatigue [facility] Medical History Sepsis Alcohol use disorder, severe, dependence Pertinent family history: No family history of early CAD Social History Household Members: Spouse Housing: Apartment Do you presently have visiting nurse or other home services: No Alcohol intake: current Alcohol intake frequency: 3 or more drinks per day Alcohol type: hard liquor Patient Tobacco Use Status: Tobacco use Unknown Smoked in Last 30 Days: No Use of substances other than those prescribed or required for medical reasons: No Substance Use Type: Marijuana Advance Directives: No Advance Directives Information Provided: No Do you have a plan to hurt others: No Plan Patient : No service: No Meds Allergies Allergy/AdvReac Type Severity Reaction Status Date / Time No Known Allergies Allergy Verified 05/12/25 06:47 Active Medications: Current Medications Dextrose/Sodium Chloride (D5ns) 1,000 mls @ 250 mls/hr IVCONT .Q4H CAROLE Stop: 05/12/25 12:14 Last Admin: 05/12/25 08:27 Dose: 250 mls/hr Thiamine HCl 500 mg/ Sodium (Chloride) 105 mls @ 210 mls/hr IV ONCE ONE Stop: 05/12/25 11:55 Home Medications ?Medication ?Instructions ?Recorded ?Confirmed ?Last Taken ?Type melatonin 5 mg tablet 5 mg PO BEDTIME PRN Sleep 03/25/25 05/12/25 Unknown History gabapentin 300 mg capsule 300 mg PO BID@0900,1200 05/12/25 05/12/25 05/08/25 History gabapentin 300 mg capsule 600 mg PO BEDTIME 05/12/25 05/12/25 05/08/25 History iron,carbonyl 65 mg-vitamin C 125 1 tab PO DAILY 05/12/25 05/12/25 05/08/25 History mg tablet,delayed release (Vitron-C) lidocaine 5 % topical patch 1 patch topical DAILY 05/12/25 05/12/25 05/08/25 History Physical Exam Vital Signs and Narrative: Vital Signs: Last Vital Signs Temp 98.2 F 05/12/25 10:00 Pulse 100 05/12/25 10:00 Resp 20 05/12/25 10:00 BP 130/61 05/12/25 10:00 Pulse Ox 99 05/12/25 10:00 O2 Del Method Room Air 05/12/25 10:00 BMI result Body Mass Index 20.8 Const: Other: Middle-aged female lying in bed in no distress Neck supple, no JVD Regular rate and rhythm, S1-S2 heard Regular breath sounds bilaterally, no wheezing or crackles appreciated Abdomen soft nontender, no guarding, no rigidity Patient is awake, alert and oriented x3 ; hand tremor seen Psych: Anxious No pedal edema Results Labs 05/12/25 07:20 05/12/25 10:50 Labs: Laboratory Results - last 24 hr 05/12/25 05/12/25 07:20 10:50 MCV 97.2 MCH 34.1 H MCHC 35.1 H RDW 13.4 Plt Count 253 D MPV 10.5 Immature Gran % (Auto) 0.4 Neut % (Auto) 69.9 Lymph % (Auto) 17.[address] [place] % (Auto) 11.0 Eos % (Auto) 0.0 Baso % (Auto) 1.0 Lymph # (Auto) 0.[address] [place] # (Auto) 0.5 Eos # (Auto) 0.0 Baso # (Auto) 0.1 Abs Immat Gran (auto) 0.02 Absolute Neuts (auto) 3.4 Absolute Nucleated RBC 0.000 Nucleated RBC % (auto) 0.0 Anion Gap 45 H 18 Estim Creat Clear Calc 51.7 71.1 Estimated GFR 37 53 Random Glucose 177 H 177 H Lactic Acid 1.9 Calcium 9.6 D 7.8 L D Magnesium 2.1 Total Bilirubin 1.6 H AST 105 H ALT 45 H Alkaline Phosphatase 78 Total Protein 9.2 H Albumin 5.5 H Lipase 24 Beta-Hydroxybutyrate 12.80 H Beta HCG, Quant < 2 Ethyl Alcohol < 10 Influenza Type A (PCR) NEGATIVE Influenza Type B (PCR) NEGATIVE RSV RNA Qual (PCR) NEGATIVE SARS-CoV-2 RNA (RT-PCR) NEGATIVE Assessment and Plan (1) NICOLE (acute kidney injury): Status: Acute (2) Alcoholic ketoacidosis: Status: Acute (3) Alcohol withdrawal: Status: Acute Plan This is a 34-year-old female with pertinent history of alcohol use disorder with history of alcohol withdrawals, peripheral neuropathy who presents to the emergency department concerns of alcohol withdrawal. #. Alcohol use disorder with concerns for withdrawal: Will admit patient with phenobarb protocol. Monitor CIWA. Continue thiamine and folic acid. Consulted Addiction Team #. Alcoholic ketoacidosis: Resolved #. Acute kidney injury stage I: Resolved with crystalloid resuscitation #. Acute lactic acidosis due to alcohol use #. Elevated liver enzymes due to alcohol use #. Hypokalemia: Repleted DVT prophylaxis: Lovenox Full code Admit as inpatient and will require two night minimum hospital stay for management of alcohol withdrawal (as above), which is not possible in a lesser acute setting. Quality Stroke Does the patient have a stroke diagnosis?: No VTE Prior VTE?: No VTE Risk Level:: Medical - moderate - high VTE Device Contraindication: Treatment Not Indicated VTE Drug Contraindication: N/A - Med Ordered
[2025-05-12] MEDS: Potassium Chloride Packet 20 MEQ PACKET 40 MEQ PO (12:10)
--- NOTE | 2025-05-12 12:16 | PC.NURSE ---
Pt still not tolerating PO at this time. Attempted to given potassium PO per MAR but pt vomitted following. Provider notified.
[2025-05-12] MEDS: Potassium Chloride/H20 10 MEQ/100 ML PIGGYBACK 100 MEQ IV ×4 (12:42→15:49)
[2025-05-12] MEDS: PHENobarbitaL sodium 130 MG/ML VIAL IM Q3Hx2 200 MG IM ×2 (14:57→17:41)
--- NOTE | 2025-05-12 15:45 | PC.NURSE ---
Spoke to Provider Yves Diaz regarding pt has a medsurg bed but still need 1 more bag of potassium. Received ok to send Pt up.
[2025-05-12] MEDS: 0.9 % Sodium Chloride Flush 3 ML SYRINGE IVFLUSH ×2 (17:41→19:39)
[2025-05-12 18:47] LABS: Cannabinoid Screen Urine POSITIVE (Not Detect)
[2025-05-12] MEDS: Lactated Ringers 1,000 ML 80 ML IVCONT (19:59)
[2025-05-13 03:35] VITALS: BP 123/83; PULSE 86; RESP 16; TEMP 36.6; O2SAT 96
[2025-05-13 06:15] LABS: MANUAL DIFF FLAG NO
[2025-05-13 07:00] LABS: Hematocrit 37.5 % (37.0-47.0); Hemoglobin 12.8 g/dl (12.0-16.0); Imm Gran Abs Auto 0.01 X10*3/uL (0.00-0.03); Imm Gran Pct Auto 0.2 % (0.0-0.4); Lymphocytes Absolute Auto 1.9 X10*3/uL (1.2-4.9); Mean Corpuscular HGB Conc 34.1 g/dl (31.0-35.0); Mean Corpuscular Hemoglobin 33.5 pg (27.0-33.0); Mean Corpuscular Volume 98.2 fL (80.0-98.0); NRBC Abs Auto 0.000 X10*3/uL (0.0-0.012); NRBC Pct Auto 0.0 /100WBC (0.0-0.2); Red Blood Count 3.82 X10*6/uL (4.20-5.50); White Blood Count 4.8 X10*3/uL (4.8-10.8)
[2025-05-13 07:17] LABS: Platelet Count 145 X10*3/uL (160-400)
[2025-05-13 07:35] VITALS: BP 107/74; PULSE 83; RESP 16; TEMP 37; O2SAT 98
[2025-05-13] MEDS: Lactated Ringers 1,000 ML 80 ML IVCONT ×2 (07:40→21:06)
[2025-05-13 07:41] LABS: Alanine Aminotransferase 27 U/L (0-31); Albumin Level 4.1 g/dL (3.5-5.0); Alkaline Phosphatase 49 U/L (39-117); Anion Gap 13 (12-20); Aspartate Amino Transferase 53 U/L (5-31); Blood Urea Nitrogen 9 mg/dL (9-16); Calcium 8.1 mg/dL (8.4-10.2); Carbon Dioxide 33 mmol/L (22-29); Chloride 99 mmol/L (96-108); Creatinine Clr Calc Pharmacy 115.1; Estimated Glomerular Filt Rate > 60; Potassium 2.9 mmol/L (3.3-5.1); Sodium 142 mmol/L (135-145); Total Protein 6.5 g/dL (6.5-8.0)
--- NOTE | 2025-05-13 07:48 | HO.PM.IMPN ---
Subjective Subjective Date of Service: 05/13/25 Interval History: f/u on alcohol withdrawal, nausea vomitting K is low, still with nausea and not sleeping Physical Exam Vital Signs: Vital Signs: Last Vital Signs Temp 98.6 F 05/13/25 07:35 Pulse 83 05/13/25 07:35 Resp 16 05/13/25 07:35 BP 107/74 05/13/25 07:35 Pulse Ox 98 05/13/25 07:35 O2 Del Method Room Air 05/13/25 07:35 BMI result Body Mass Index 20.8 Const: Other: Middle-aged female lying in bed in no distress Neck supple, no JVD Regular rate and rhythm, S1-S2 heard Regular breath sounds bilaterally, no wheezing or crackles appreciated Abdomen soft nontender, no guarding, no rigidity Patient is awake, alert and oriented x3 ; hand tremor seen Psych: Anxious No pedal edema Objective Data Active Medications Acetaminophen (Acetaminophen 325 Mg Tablet) 650 mg PO Q6H PRN PRN Reason: Pain, Mild 1-3,fever,headache Calcium Carbonate (Calcium Carbonate 750 Mg Tab.Chew) 750 mg PO Q4H PRN PRN Reason: Heartburn Enoxaparin Sodium (Enoxaparin Sodium 40 Mg/0.4 Ml Syringe) 40 mg SUBCUT Q24H [facility] Last Admin: 05/12/25 12:09 Dose: 40 mg Documented By: GERBER Folic Acid (Folic Acid 1 Mg Tablet) 1 mg PO DAILY [facility] Last Admin: 05/13/25 07:41 Dose: 1 mg Documented By: DALIA Gabapentin (Gabapentin 300 Mg Capsule) 300 mg PO BID@0900,1200 [facility] Last Admin: 05/13/25 07:41 Dose: 300 mg Documented By: DALIA Gabapentin (Gabapentin 300 Mg Capsule) 600 mg PO BEDTIME [facility] Last Admin: 05/12/25 20:01 Dose: 600 mg Documented By: KIM Lactated Ringer's (Lr) 1,000 mls @ 80 mls/hr IVCONT .[id number] [facility] Last Admin: 05/13/25 07:40 Dose: 80 mls/hr Documented By: DALIA Magnesium Hydroxide (Milk Of Magnesia 30 Ml Oral.Susp) 30 ml PO DAILY PRN PRN Reason: Constipation Melatonin (Melatonin 3 Mg Tablet) 6 mg PO BEDTIME PRN PRN Reason: Insomnia Multivitamins/Vitamin C (Multivitamin Tablet) 1 tab PO DAILY [facility] Last Admin: 05/13/25 07:40 Dose: 1 tab Documented By: DALIA Ondansetron HCl (Ondansetron Hcl 4 Mg/2 Ml Vial) 4 mg IVPUSH Q8H PRN PRN Reason: Nausea and Vomiting Last Admin: 05/13/25 07:41 Dose: 4 mg Documented By: DALIA Pharmacy Consult (Consult Rx Etoh Phenob Im/Po) 1 each MISCELLANE ONCE PRN; Protocol PRN Reason: Consult order Phenobarbital (Phenobarbital 30 Mg Tablet) 60 mg PO BID [facility]; Protocol Stop: 05/14/25 09:01 Last Admin: 05/13/25 07:41 Dose: 60 mg Documented By: DALIA Phenobarbital (Phenobarbital 30 Mg Tablet) 30 mg PO BID CAROLE; Protocol Stop: 05/16/25 09:01 Phenobarbital (Phenobarbital 30 Mg Tablet) 30 mg PO DAILY [facility]; Protocol Stop: 05/18/25 09:01 Potassium Chloride (Potassium Chloride Er 20 Meq Tab.Er.Prt) 40 meq PO ONCE ONE Stop: 05/13/25 07:48 Sodium Chloride (0.9 % Sodium Chloride Flush 3 Ml Syringe) 3 ml IVFLUSH QSHIFT [facility] Last Admin: 05/13/25 07:41 Dose: Not Given Documented By: DALIA Non-Admin Reason: IV Running Thiamine HCl (Thiamine Hcl 100 Mg Tablet) 100 mg PO DAILY [facility] Last Admin: 05/13/25 07:41 Dose: 100 mg Documented By: DALIA Labs 05/13/25 05:31 05/13/25 05:31 Labs: Laboratory Results - last 24 hr 05/12/25 05/12/25 05/12/25 07:20 10:50 18:15 MCV MCH MCHC RDW Plt Count MPV Immature Gran % (Auto) Neut % (Auto) Lymph % (Auto) [place] % (Auto) Eos % (Auto) Baso % (Auto) Lymph # (Auto) [place] # (Auto) Eos # (Auto) Baso # (Auto) Abs Immat Gran (auto) Absolute Neuts (auto) Absolute Nucleated RBC Nucleated RBC % (auto) Anion Gap 45 H 18 Estim Creat Clear Calc 51.7 71.1 Estimated GFR 37 53 Random Glucose 177 H 177 H Lactic Acid 1.9 Calcium 9.6 D 7.8 L D Magnesium 2.1 Total Bilirubin 1.6 H AST 105 H ALT 45 H Alkaline Phosphatase 78 Total Protein 9.2 H Albumin 5.5 H Lipase 24 Beta-Hydroxybutyrate 12.80 H Beta HCG, Quant < 2 Urine Opiates Screen Not Detected Ur Buprenorphine Scrn Not Detected Ur Oxycodone Screen Not Detected Urine Methadone Screen Not Detected Urine Fentanyl Screen Not Detected Ur Barbiturates Screen POSITIVE H Ur Phencyclidine Scrn Not Detected Ur Amphetamines Screen Not Detected U Benzodiazepines Scrn Not Detected Urine Cocaine Screen Not Detected U Marijuana (THC) Screen POSITIVE H Ethyl Alcohol < 10 Influenza Type A (PCR) NEGATIVE Influenza Type B (PCR) NEGATIVE RSV RNA Qual (PCR) NEGATIVE SARS-CoV-2 RNA (RT-PCR) NEGATIVE 05/13/25 05:31 MCV 98.2 H MCH 33.5 H MCHC 34.1 RDW 12.8 Plt Count 145 L D MPV 10.9 Immature Gran % (Auto) 0.2 Neut % (Auto) 47.8 Lymph % (Auto) 40.0 [place] % (Auto) 8.1 Eos % (Auto) 3.3 Baso % (Auto) 0.6 Lymph # (Auto) 1.9 [place] # (Auto) 0.4 Eos # (Auto) 0.2 Baso # (Auto) 0.0 Abs Immat Gran (auto) 0.01 Absolute Neuts (auto) 2.3 Absolute Nucleated RBC 0.000 Nucleated RBC % (auto) 0.0 Anion Gap 13 Estim Creat Clear Calc 115.1 Estimated GFR > 60 Random Glucose 77 Lactic Acid Calcium 8.1 L Magnesium Total Bilirubin 0.7 AST 53 H ALT 27 Alkaline Phosphatase 49 Total Protein 6.5 Albumin 4.1 Lipase Beta-Hydroxybutyrate Beta HCG, Quant Urine Opiates Screen Ur Buprenorphine Scrn Ur Oxycodone Screen Urine Methadone Screen Urine Fentanyl Screen Ur Barbiturates Screen Ur Phencyclidine Scrn Ur Amphetamines Screen U Benzodiazepines Scrn Urine Cocaine Screen U Marijuana (THC) Screen Ethyl Alcohol Influenza Type A (PCR) Influenza Type B (PCR) RSV RNA Qual (PCR) SARS-CoV-2 RNA (RT-PCR) Assessment and Plan (1) Alcohol withdrawal: Status: Acute (2) NICOLE (acute kidney injury): Status: Acute (3) Alcoholic ketoacidosis: Status: Acute (4) Hypokalemia: Status: Acute Plan 34-year-old female with pertinent history of alcohol use disorder with history of alcohol withdrawals, peripheral neuropathy who presents to the emergency department concerns of alcohol withdrawal. Alcohol use disorder with concerns for withdrawal phenobarb protocol. Monitor CIWA. Continue thiamine and folic acid. Addiction med consult Nausea/vomitting possible alcoholic gastritis IVF, iv pepcid Alcoholic ketoacidosis resolved with IVF Hypokelemia, oral replacement, mag is normal NICOLE, resolved with IVF Acute lactic acidosis due to alcohol, resolved levated liver enzymes due to alcohol use DVT prophylaxis: Lovenox Full code Quality Stroke Does the patient have a stroke diagnosis?: No VTE Prior VTE?: No VTE Risk Level:: Medical - moderate - high VTE Device Contraindication: Treatment Not Indicated VTE Drug Contraindication: N/A - Med Ordered
[2025-05-13 08:41] LABS: Magnesium 1.7 mg/dL (1.6-2.6)
[2025-05-13] MEDS: Potassium Chloride ER 20 MEQ TAB.ER.PRT 40 MEQ PO (09:36)
--- NOTE | 2025-05-13 13:09 | MHC.CM.PN ---
Patient comes from home w/ S.O. [place]. Independent. Denies use of DME or services. PCP Gil Flores MD [facility] No HCP. CM provided education and offered assistance. Patient declined. DP: Goal is home self care. ? Recovery team intervention. S.O. to transport. CM will continue to follow.
[2025-05-13 15:03] VITALS: BP 127/81; PULSE 75; RESP 16; TEMP 36.7; O2SAT 99
--- NOTE | 2025-05-13 18:14 | MHC.RECOVRN ---
TW met with the patient to discuss current alcohol use and concerns related to increased risk of alcohol and related problems.? On approach pt was laying in bed, in no apparent distress but appearing weak and coughing frequently. She reports being unable to eat or keep anything down. ?Yaritza tried but it makes me want to puke?. She endorses some nausea but states overall she is feeling better than at admission. Discussed how alcohol use has impacted health, including negative impact on mental health and overall physical well being.? Discussed risk and reduction strategies including drinking below the recommended limit, the importance of adequate nutrition and vitamin supplements, and drinking water between drinks containing alcohol. Also discussed adding alcohol to a mixer, such as soda instead of drinking straight alcohol in order to space out consumption.? Provided pt with written resources including information on inpatient and outpatient treatment, SHAYY, harm reduction, recovery coaching, and [facility] [place]. Also provided pt with information on the multiple pathways to recovery.? Pt reports she ?might think about? SHAYY but states ?I?ve done all this before, I know what I have to do, it?s just really hard to do. I think my ADHD gets in the way, but I really need to stop?. Pt encouraged to keep trying and keep reaching for help and to seek counseling and therapy. Pt declines intervention, SHAYY, or outpatient appt for treatment related to AUD at this time. ? Pt was provided with TW?s contact information if questions or concerns arise. Pt denies further questions or concerns at this time.?
[2025-05-13 19:26] VITALS: BP 121/76; PULSE 82; RESP 17; TEMP 36.7; O2SAT 98
[2025-05-14 03:12] VITALS: BP 122/90; PULSE 79; RESP 18; TEMP 36.5; O2SAT 99
[2025-05-14] MEDS: Lactated Ringers 1,000 ML 80 ML IVCONT (07:17)
[2025-05-14 07:21] VITALS: BP 108/74; PULSE 74; RESP 16; TEMP 36.2; O2SAT 98
[2025-05-14] MEDS: 0.9 % Sodium Chloride Flush 3 ML SYRINGE IVFLUSH (08:56)
--- NOTE | 2025-05-14 09:28 | P.DS_ITS ---
DS: Providers Provider Date of admission: 05/12/25 11:27 Primary care physician: Unknown Physician Consults: 05/12/25 08:15 Addiction Medicine Provider Stat Consulting Provider: Addiction Covering Reason for consultation: alcohol use disorder 05/12/25 11:29 Addiction Medicine Provider Routine Consulting Provider: Addiction Covering Reason for consultation: Alcohol use disorder DS: Diagnosis Discharge Diagnosis (1) Alcohol withdrawal: Status: Acute (2) NICOLE (acute kidney injury): Status: Acute (3) Alcoholic ketoacidosis: Status: Acute (4) Hypokalemia: Status: Acute DS: Summary Hospital Course Hospital Course: Admission HPI Chief Complaint: Alcohol withdrawal This is a 34-year-old female with pertinent history of alcohol use disorder with history of alcohol withdrawals, peripheral neuropathy who presents to the emergency department concerns of alcohol withdrawal. Patient states her last drink was on the day of presentation. She has been having tremors since she stopped drinking. Also has been complaining of nausea and multiple episodes of nonbloody emesis. She endorses generalized body ache and easy fatigability. Denies blood in vomitus. No abdominal discomfort. No fever, chills, chest pain, palpitations, shortness of breath, changes in urinary or bowel habits. U nclear if she has history of alcohol withdrawal seizures. In the emergency department, patient found to have an NICOLE with lactic acidosis and ketoacidosis. Hospital course: 34-year-old female with pertinent history of alcohol use disorder with history of alcohol withdrawals, peripheral neuropathy who presents to the emergency department concerns of alcohol withdrawal. Alcohol use disorder with concerns for withdrawal. Has not shown signs of overt withdrawal, treated with Phenobarbital , thiamine, folate and seen by addiction med consult and given resources to help with sobriety Nausea/vomitting possible alcoholic gastritis, overall improved, and diet advanced, pepcid Alcoholic ketoacidosis resolved with IVF Hypokelemia, replaced NICOLE, resolved with IVF Acute lactic acidosis due to alcohol, resolved elvated liver enzymes due to alcohol use, negative hepatitis seroloy last month Time Attestation Discharge Coordination Time (in mins): 35 Quality: Safe Use of Opioids Does Pt have an Active Cancer Diagnosis on the Problem List?: No Quality: Stroke Does the patient have a stroke diagnosis?: No Physical Exam Vital Signs: Vital Signs: Last Vital Signs Temp 97.2 F 05/14/25 07:21 Pulse 74 05/14/25 07:21 Resp 16 05/14/25 07:21 BP 108/74 05/14/25 07:21 Pulse Ox 98 05/14/25 07:21 O2 Del Method Room Air 05/14/25 07:21 BMI result Body Mass Index 20.8 DS: Data Data Completed and Pending Completed studies during hospitalization [Text1]: Procedures Detoxification Services for Substance Abuse Treatment (03/25/25) Discharge Plan Discharge Patient Disposition: Home, Self-Care Discharge Diagnosis: alcoholic gastritis, alcohol withdrawal, hypokalemia, alcoholic ketoacidosis Referrals: Physician,Unknown J [Primary Care Provider, Medical] - 1 Week Discharge Medications: Continued lidocaine 5 % adhesive patch,medicated 1 patch topical DAILY Rx Instructions: APPLY 1 PATCH DAILY APPLY TO PAINFUL AREA FOR 12 HOURS PER DAY, REMOVE FOR 12 HOURS gabapentin 300 mg capsule 300 mg PO BID@0900,1200 Vitron-C 65 mg iron- 125 mg tablet,delayed release (DR/EC) 1 tab PO DAILY gabapentin 300 mg capsule 600 mg PO BEDTIME melatonin 5 mg Tablet 5 mg PO BEDTIME PRN (Reason: Sleep) thiamine HCl (vitamin B1) 100 mg capsule 100 mg PO DAILY Qty: 90 0RF Rx Instructions: Take one tablet daily multivitamin Tablet 1 tab PO DAILY Qty: 90 0RF Rx Instructions: Take one tablet daily folic acid 1 mg tablet 1 mg PO DAILY Qty: 90 0RF Rx Instructions: Take one tablet daily Diet: Advance to usual diet Activity on Discharge: As tolerated Stand Alone Forms: Patient Portal Discharge page Print Language: Setswana Care Plan Goals: recovery from alcoholic gastritis, alcohol withdrawal, hypokalemia, alcoholic ketoacidosis Health Concerns: alcoholic gastritis, alcohol withdrawal, hypokalemia, alcoholic ketoacidosis Plan of Treatment: avoid alcohol, use resources given to you to help stay sober follow up with your primary care provider in a week, call for appointment Assessment: see above
[2025-05-14 09:49] LABS: Anion Gap 14 (12-20); Blood Urea Nitrogen 5 mg/dL (9-16); Calcium 9.4 mg/dL (8.4-10.2); Carbon Dioxide 32 mmol/L (22-29); Chloride 96 mmol/L (96-108); Creatinine Clr Calc Pharmacy 122.0; Estimated Glomerular Filt Rate > 60; Potassium 3.0 mmol/L (3.3-5.1); Sodium 139 mmol/L (135-145)
[2025-05-14] MEDS: Potassium Chloride ER 20 MEQ TAB.ER.PRT 40 MEQ PO (11:47)
[2025-05-14 14:46] LABS: Anion Gap 16 (12-20); Carbon Dioxide 31 mmol/L (22-29); Chloride 96 mmol/L (96-108); Potassium 3.5 mmol/L (3.3-5.1); Sodium 139 mmol/L (135-145)
--- NOTE | 2025-05-14 14:59 | MHC.CM.PN ---
PT TO DC HOME TODAY WITHOUT SERVICES VIA PRIVATE TRANSPORT
--- NOTE | 2025-05-14 15:11 | MHC.RECOVRN ---
Met with pt in f/u. Pt continues to decline SHAYY and outpatient appointment. Resources have been provided for review. Pt positive and motivated in regards to pursuing recovery from AUD. No further questions or concerns offered at this time.
[2025-05-14 15:30] VITALS: BP 113/77; PULSE 84; RESP 16; TEMP 36.3; O2SAT 96
== END 2025-05-14 15:55 | disposition home or self-care (01) | DRG 775 ==
LOC: HO.ED 08:57 → HO.EDOVER 11:33 → HO.S3 15:22
PROVIDERS: Admitting Provider Student in an Organized Health Care Education/Training Program; Emergency Provider Emergency Medicine; PCP Internal Medicine; Visit Provider Internal Medicine
DX: F10.939 Alcohol use, unspecified with withdrawal, unspecified (principal); N17.9 Acute kidney failure, unspecified; E87.29 Other acidosis; G62.9 Polyneuropathy, unspecified; E87.6 Hypokalemia; Z20.822 Contact with and (suspected) exposure to COVID-19; Z79.899 Other long term (current) drug therapy
CPT/HCPCS: 36415; 80048; 80051; 80053; 80307; 82010; 83605; 83690; 83735; 84702; 85025; 87637; 93005; 99285; J0131; J1171; J1650; J2405; J2560; J3411; J3480; J7120; S9485

== ENCOUNTER → 2025-05-12 06:54 | Outpatient (BNV) | payer OTHER, SELFPAY | PROVIDERS: Admitting Provider Student in an Organized Health Care Education/Training Program; Emergency Provider Emergency Medicine; Visit Provider Internal Medicine | DX: R00.0 Tachycardia, unspecified (principal); R94.31 Abnormal electrocardiogram [ECG] [EKG]; R53.1 Weakness | CPT/HCPCS: 93010 ==

== ENCOUNTER → 2025-05-12 11:27 | Outpatient (BNV) | payer OTHER, SELFPAY | PROVIDERS: Admitting Provider Student in an Organized Health Care Education/Training Program; Emergency Provider Emergency Medicine; Visit Provider Student in an Organized Health Care Education/Training Program | DX: N17.9 Acute kidney failure, unspecified (principal); E87.29 Other acidosis; F10.939 Alcohol use, unspecified with withdrawal, unspecified | CPT/HCPCS: 99223; 99233 ==

== ENCOUNTER 2025-06-01 09:29 | Outpatient (AMB) | payer OTHER, SELFPAY ==
[2025-06-01 09:34] VITALS: BP 118/70; PULSE 90; O2SAT 98; BMI 22.1
--- NOTE | 2025-06-01 09:34 | MHC.OFFVIS ---
Vital Signs 06/01/25 09:34 Height 5 ft 10.5 in Weight 156 lb BMI 22.1 BP 118/70 Pulse 90 Pulse Oximetry (%) 98 Intake Visit Reasons: mat Allergies No Known Allergies Allergy (Verified 06/01/25 09:36) HPI Comments Details: A 34-year-old female presents with partner for a visit related to alcohol use disorder. During the visit the patient declines medications to assist with alcohol cravings verbalizes at this time not interested in active treatment although is open to obtaining information on available resources. The patient states I need a script for ondansetron. [facility] Medical History Sepsis Alcohol use disorder, severe, dependence Social History Household Members: Significant Other Housing: Apartment Do you presently have visiting nurse or other home services: No Alcohol intake: current Alcohol intake frequency: 3 or more drinks per day Alcohol type: hard liquor Patient Tobacco Use Status: Tobacco use Unknown Substance Use Type: Marijuana service: No Physical Exam Vital Signs: Last Vital Signs Pulse 90 06/01/25 09:34 BP 118/70 06/01/25 09:34 Pulse Ox 98 06/01/25 09:34 BMI result Body Mass Index 22.1 Assessment & Plan Assessment & Plan (1) Alcohol use disorder: Code(s): F10.90 - Alcohol use, unspecified, uncomplicated Category: Medical Plan Information on community resources and [facility] provided by t/w and aircraft launch and recovery technician. T/w explained to the patient there is no history of a prescription for ondansetron and to follow up with PCP or GI for further evaluation. Encoraged to engages in risk reduction activiites to minimize alcohol consumption and to follow up or walk in to [facility] for services. Patient Instructions: - Information of community resources and [facility] provided. - Follow up or walk in to [facility] for services. - Engages in risk reduction activities to decrease alcohol consumption. - Follow up with PCP or GI for request of ondansetron prescription. Coding Level of Care Code Est Pt Level 3 (72158) Diagnoses Alcohol use disorder F10.90
--- NOTE | 2025-06-01 10:13 | AM.OFFVISNUR ---
Vital Signs 06/01/25 09:34 Height 5 ft 10.5 in Weight 70.76 kg BMI 22.1 BP 118/70 Pulse 90 Pulse Oximetry (%) 98 Intake Visit Reasons: mat Allergies No Known Allergies Allergy (Verified 06/01/25 09:36) Nursing Note Keena presented today looking for medication for nausea and vomiting that she is experiencing as a result of alcohol reduction. She was a patient of the [facility] in 07/08 and has had a couple of ED visits as a result of heavy alcohol use. She has had naltrexone in the past and is not committed to any MAT yet. She was educated about the benefits of outside recovery supports and said that she was open to pamphlets and brochures for consideration. Keena was given literature for different programs and alcohol harm reduction strategies. She mirian follow up if she decides to pursue treatment. Coding
--- OUTSIDE RECORDS SUMMARY | 2025-06-01 11:12 | XMS_ITS | Clinical Summary ---
Author Organization [place] [address] [address] [facility] Building Address [address] [place] [address] Phone Care Team Providers Care Research Professor Name Role Phone Gil Flores MD Primary Care Provider [phone] Allergies No known active allergies Medications folic acid (FOLVITE) 1 mg tablet Take 1 tablet (1,000 mcg total) by mouth 1 (one) time each day. 4 Active levETIRAcetam (KEPPRA) 500 mg tablet 5 Active multivitamin tablet 5 Active thiamine 100 mg tablet 5 Active ferrous fumarate-vitami n C ER (Timothy-Sequels, iron-vit c,) 200 mg (65 mg iron)-25 mg CR tablet Take 1 tablet (65 mg total) by mouth 1 (one) time each day. Do not crush, chew, or split. 30 tablet 2 5 Active lidocaine (LIDODERM) 5 % patch Apply 1 patch topically 1 (one) time each day. Apply to painful area 12 hours per day, remove for 12 hours. 30 each 5 Active Vitron-C 65 mg iron- 125 mg tablet,delayed release (DR/EC) TAKE 1 TABLET BY MOUTH EVERY DAY DO NOT CRUSH,CHEW OR SPLIT 90 tablet 1 5 Active gabapentin (NEURONTIN) 300 mg capsule 300 mg in the morning and afternoon and 600 mg at night 120 each 5 5 Active Active Problems Problem Noted Date Diagnosed Date Alopecia 07/15/2024 Psoriasis 07/15/2024 Encounters Date Type Department Care Team Description 04/19/2025 3:14 PM EDT - 04/19/2025 11:59 PM EDT Hospital Encounter [facility] MRI [address] [place] [phone] Seizure ([facility] V24, [facility] V28) Discharge Disposition: Home or Self Care 04/12/2025 6:19 PM EDT - 04/12/2025 11:59 PM EDT Hospital Encounter [facility] - [facility] [address] [facility] [place] [address] Acute left-sided low back pain with bilateral sciatica Discharge Disposition: Home or Self Care 04/12/2025 6:19 PM EDT - 04/12/2025 11:59 PM EDT Hospital Encounter Xray - [facility] [address] [facility] [place] [address] Neck pain Discharge Disposition: Home or Self Care 04/12/2025 6:00 PM EDT Office Visit Walk[facility] - [facility] [address] [place] [address] Jose Sanchez PA Neck pain (Primary Dx); Acute left-sided low back pain with bilateral sciatica 04/12/2025 Telephone Internal Medicine - [facility] [address] [place] [address] Gil Flores MD 04/11/2025 3:20 PM EDT Consult [facility] [address] [phone] Kay Velarde MD Chronic alcohol abuse (Primary Dx); Seizure (CMS/HCC V24, CMS/HCC V28); Alcohol withdrawal seizure with complication (CMS/HCC V24, CMS/HCC V28) 04/06/2025 10:30 AM EDT Office Visit Internal Medicine - [facility] [address] [place] [phone] Gil Flores MD Hospital discharge follow-up (Primary Dx); Seizure (CMS/HCC V24, CMS/HCC V28); Elevated LFTs; Dizziness; Hypotension, unspecified hypotension type; Peripheral neuropathic pain 04/04/2025 Telephone Internal Medicine - [address] [place] [phone] Gil Flores MD 03/03/2025 Telephone Internal Medicine - [address] [place] [phone] Gil Flores MD from Last 3 Months Immunizations Name Administration Dates Next Due Hepatitis B (Labhtof-L-Jlfee , Recombivax HB-Adult) 19yo and older 05/20/2001 [...] TONSILLECTOMY ADENOIDECTOMY, BILATERAL MYRINGOTOMY AND TUBES PROCEDURE: [place] TONSILLECTOMY & ADENOIDECTOMY <AGE 12 WISDOM TOOTH [...] AM EDT Office Visit Internal Medicine - [facility] [address] [place] [address] Gil Flores MD [address] [place] [address] 07/21/2025 10:00 AM EST Ancillary Procedure [facility] [address] [facility] [address] [place] [address] 07/28/2025 4:00 PM EST Office Visit [facility] [address] [facility] [address] [place] [phone] Kay Velarde MD [address] [place] [phone] Health Maintenance Due Date Last Done Comments Hepatitis B Vaccines (2 of 3 - 3-dose series) 06/17/2001 05/20/2001 Hepatitis A Vaccines (1 of 2 - Risk 2-dose series) 2007 Social Influencers of Health Screening 08/24/2022 Depression Screening 09/15/2024 COVID-19 Vaccine (3 - 2024-2 6 season) 2025 03/29/2021, 02/27/2021 Influenza Vaccine (#1) 2025 07/30/2021 [...] 04/19/2025 4:27 PM EDT Seizure (CMS/HCC V24, CMS/HCC V28) XR LUMBAR SPINE 4+ VIEWS STAT [...] Signed Date: 04/22/2025 11:42 ET Workstation ID: [id number] Transcribed By: Self Edit Transcribed Date: 04/22/2025 [...] Signed Date: 04/22/2025 11:42 ET Workstation ID: [id number] Transcribed By: Self Edit Transcribed Date: 04/22/2025 11:34 ET Kay Velarde MD IMG MRI PROCEDURES Final [...] Signed Date: 04/12/2025 19:29 ET Workstation ID: [id number] Transcribed By: Self Edit Transcribed Date: 04/12/2025 [...] Signed Date: 04/12/2025 19:29 ET Workstation ID: [id number] Transcribed By: Self Edit Transcribed Date: 04/12/2025 [...] Signed Date: 04/12/2025 19:31 ET Workstation ID: [id number] Transcribed By: Self Edit Transcribed Date: 04/12/2025 [...] Signed Date: 04/12/2025 19:31 ET Workstation ID: [id number] Transcribed By: Self Edit Transcribed Date: 04/12/2025 19:29 ET us Jose SAMS IMG XR PROCEDURES Final Re sult * POC , urine manually resulted (04/12/2025 6:30 PM EDT) [facility] HCG, Ur POC Negative Negative Urine Urine specimen obtained by clean catch procedure / Unknown 04/12/2025 6:30 PM EDT Jose SAMS POINT OF CARE TEST ENTER/E DIT ORDERABLES Final Result * (ABNORMAL) Vitamin B12 and folate (04/06/2025 11:26 AM EDT) [facility] Vitamin B-12 467 250 - 900 pcg/mL LAB CHEMISTRY METHOD 04/06/2025 5:03 PM EDT [facility] Folate >20.0(H) 2.8 - 17.0 ng/ml LAB CHEMISTRY METHOD 04/06/2025 5:03 PM EDT [facility] Blood Venous blood specimen / Unknown Venipuncture / Unknown 04/06/2025 11:26 AM EDT 04/06/2025 11:26 AM EDT Gil Flores MD LAB BLOOD ORDERABLES Final Resu lt [facility] [address] [place] [address], [place] [phone] * (ABNORMAL) Comprehensive metabolic panel (04/06/2025 11:26 AM EDT) [facility] Sodium 138 133 - 145 mmol/L LAB CHEMISTRY METHOD 04/06/2025 4:41 PM EDT [facility] Potassium 4.5 3.5 - 5.5 mmol/L LAB CHEMISTRY METHOD 04/06/2025 4:41 PM EDT [facility] Chloride 105 96 - 110 mmol/L LAB CHEMISTRY METHOD 04/06/2025 4:41 PM EDT [facility] CO2 29 21 - 32 mmol/L LAB CHEMISTRY [facility] Anion Gap 4 3 - 11 LAB CHEMISTRY METHOD 04/06/2025 4:41 PM [facility] Glucose 89 70 - 100 mg/dL LAB CHEMISTRY METHOD 04/06/2025 4:41 PM [facility] BUN 12 5 - 25 mg/dL LAB CHEMISTRY METHOD 04/06/2025 4:41 PM [facility] Creatinine 0.84 0.50 - 1.10 mg/dL LAB CHEMISTRY METHOD 04/06/2025 4:41 PM [facility] eGFR 92 >=60 mL/min/1. 73m2 LAB CHEMISTRY METHOD 04/06/2025 4:41 PM [facility] Comment:Calculation based on the Chronic Kidney Disease Epidemiology Collaboration (CKD-EPI) equation refit without adjustment for race. BUN/Creatinine Ratio 14.3 LAB CHEMISTRY METHOD 04/06/2025 4:41 PM [facility] Calcium 10.6(H) 8.5 - 10.5 mg/dL LAB CHEMISTRY METHOD 04/06/2025 4:41 PM [facility] AST (SGOT) 75(H) 10 - 42 unit/L LAB CHEMISTRY METHOD 04/06/2025 4:41 PM [facility] ALT (SGPT) 115(H) 10 - 60 unit/L LAB CHEMISTRY METHOD 04/06/2025 4:41 PM [facility] Alkaline Phosphatase 90 42 - 121 unit/L LAB CHEMISTRY METHOD 04/06/2025 4:41 PM [facility] Total Protein 6.9 6.0 - 8.0 g/dL LAB CHEMISTRY METHOD 04/06/2025 4:41 PM [facility] Albumin 4.0 3.2 - 5.0 g/dL LAB CHEMISTRY METHOD 04/06/2025 4:41 PM [facility] Total Bilirubin 0.3 0.0 - 1.4 mg/dL LAB CHEMISTRY METHOD 04/06/2025 4:41 PM EDT [facility] Blood Venous blood specimen / Unknown Venipuncture / Unknown 04/06/2025 11:26 AM EDT 04/06/2025 11:[address] [facility] Gil Flores MD LAB BLOOD ORDERABLES Final Resu lt [facility] [address] [place] [address], [place] [phone] * External CT Report (03/25/2025) Anatomical Region Laterality Modality Computed Tomogra phy Provider Chiquita Onbase IMG CT PROCEDURES Final Result * Lipid panel (04/19/2024) [facility] LDL/HDL Ratio 2 0 - 4 Triglycerides 42 0 - 150 mg/dL Cholesterol 182 0 - 200 mg/dL HDL 107 >=40 mg/dL LDL Cholesterol 67 0 - 100 mg/dL Blood Venous blood specimen / Unknown Result [facility] Historical Provider LAB BLOOD ORDERABLES Adrianna l Result * Cervical Cancer Screening: HPV (11/24/2023) [facility] Cervical Cancer Screening: HPV abstracted, negative Historical Elliot [facility] Final Result * HIV Screening (11/24/2023) [facility] HIV Screening abstracted Historical Provider HEALTH MAINTENANCE Final Result * Hepatitis C Screening (11/24/2023) [facility] Hepatitis C Screening abstracted Historical Provider HEALTH MAINTENANCE Final Result from Last 3 Months or Most Recently Relevant to Health Maintenance Insurance [facility] Care Teams Research Professor Relationship Specialty Start Date End Date Gil Flores MD [address] [place] [address] PCP - General Internal Medicine 06/15/21
== END 2025-06-01 10:06 | disposition home or self-care (01) ==
PROVIDERS: PCP Internal Medicine; Visit Provider Clinical Nurse Specialist Psychiatric/Mental Health
DX: F10.90 Alcohol use, unspecified, uncomplicated (principal)
CPT/HCPCS: 99213

== ENCOUNTER → 2025-06-01 09:29 | Outpatient (BNVA) | payer OTHER, SELFPAY | PROVIDERS: PCP Internal Medicine; Visit Provider Clinical Nurse Specialist Psychiatric/Mental Health | DX: F10.90 Alcohol use, unspecified, uncomplicated (principal) | CPT/HCPCS: 99212 ==

== ENCOUNTER 2025-06-27 19:54 | Inpatient (IN) | payer OTHER, SELFPAY ==
--- NOTE | 2025-06-27 | ECG_ITS ---
Test Reason : TACY, ETOH, WITHDRAWAL Blood Pressure : */* mmHG Vent. Rate : 136 BPM Atrial Rate : 136 BPM P-R Int : 136 ms QRS Dur : 86 ms QT Int : 362 ms P-R-T Axes : 85 87 63 degrees QTcB Int : 544 ms Sinus tachycardia Otherwise normal ECG When compared with ECG of 12-May-2025 08:27, DE interval has increased T wave inversion less evident in Inferior leads Nonspecific T wave abnormality no longer evident in Anterior leads Referred By: Generic ED Physician Electronically Signed By: Iker Verde
[2025-06-27 20:08] VITALS: BP 133/84; BP 140/90; PULSE 160; PULSE 85; RESP 25; TEMP 36.7; O2SAT 96; O2SAT 99; BMI 21.9
[2025-06-27 20:19] LABS: MANUAL DIFF FLAG NO
[2025-06-27 20:21] LABS: Hematocrit 44.6 % (37.0-47.0); Hemoglobin 15.1 g/dl (12.0-16.0); Imm Gran Abs Auto 0.05 X10*3/uL (0.00-0.03); Imm Gran Pct Auto 0.4 % (0.0-0.4); Lymphocytes Absolute Auto 0.7 X10*3/uL (1.2-4.9); Mean Corpuscular HGB Conc 33.9 g/dl (31.0-35.0); Mean Corpuscular Hemoglobin 32.1 pg (27.0-33.0); Mean Corpuscular Volume 94.9 fL (80.0-98.0); NRBC Abs Auto 0.000 X10*3/uL (0.0-0.012); NRBC Pct Auto 0.0 /100WBC (0.0-0.2); Platelet Count 291 X10*3/uL (160-400); Red Blood Count 4.70 X10*6/uL (4.20-5.50); White Blood Count 11.3 X10*3/uL (4.8-10.8)
[2025-06-27] MEDS: PHENobarbitaL sodium 130 MG/ML IM ONCE 274 MG IM (20:32)
--- NOTE | 2025-06-27 20:34 | ED.NAVMDI ---
HPI - Nausea/Vomiting/Diarrhea General Chief complaint: Nausea/Vomiting/Diarrhea Stated complaint: ETOH withdrawals weak v/n 91%RA Time Seen by Provider: 06/27/25 20:08 Source: patient and EMS Mode of arrival: EMS Limitations: no limitations History of Present Illness ED Provider: Yon SAMS HPI Narrative: The patient is a 34-year-old female presenting to the ED via EMS for evaluation of possible alcohol withdrawal. The patient reports she has drank alcohol daily for many years, decided yesterday that she no longer wanted drank alcohol and has had no alcohol intake for the past 24 hours. The patient reports associated marijuana use, denies other substance abuse. The patient began experiencing tremors, nausea, and intermittent nonbloody vomiting. 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 The patient's fiancee advised her he thought she may be having small seizures versus severe tremor and convinced her to activate EMS. Related Data Home Medications ?Medication ?Instructions ?Recorded ?Confirmed melatonin 5 mg tablet 5 mg PO BEDTIME PRN Sleep 03/25/25 05/12/25 gabapentin 300 mg capsule 300 mg PO BID@0900,1200 05/12/25 05/12/25 gabapentin 300 mg capsule 600 mg PO BEDTIME 05/12/25 05/12/25 iron,carbonyl 65 mg-vitamin C 125 1 tab PO DAILY 05/12/25 05/12/25 mg tablet,delayed release (Vitron-C) lidocaine 5 % topical patch 1 patch topical DAILY 05/12/25 05/12/25 Previous Rx's ?Medication ?Instructions ?Recorded folic acid 1 mg tablet 1 mg PO DAILY #90 tabs 03/28/25 multivitamin 1 tab PO DAILY #90 tabs 03/28/25 thiamine HCl (vitamin B1) 100 mg 100 mg PO DAILY #90 caps 03/28/25 capsule Allergies Allergy/AdvReac Type Severity Reaction Status Date / Time No Known Allergies Allergy Verified 06/27/25 20:11 Review of Systems Review of Systems: Yes all other systems are reviewed and are negative PMFSH Past Medical History Medical History Sepsis Alcohol use disorder, severe, dependence Social History Social History Household Members: Significant Other Housing: Apartment Do you presently have visiting nurse or other home services: No Alcohol intake: current Alcohol intake frequency: 0-2 drinks per day Alcohol type: hard liquor Patient Tobacco Use Status: Tobacco use Unknown Smoked in Last 30 Days: No Use of substances other than those prescribed or required for medical reasons: No Substance Use Type: Marijuana Advance Directives: No Advance Directives Information Provided: No Do you have a plan to hurt others: No Plan service: No Physical Exam Vital Signs: Vital Signs: Last Vital Signs Temp 98.0 F 06/27/25 20:08 Pulse 160 H 06/27/25 20:08 Resp 27 H 06/27/25 21:31 BP 133/84 06/27/25 20:08 Pulse Ox 99 06/27/25 20:08 O2 Del Method Room Air 06/27/25 20:08 BMI result Body Mass Index 21.9 CONSTITUTIONAL: The patient appears anxious and tremulous, otherwise non-toxic, well nourished and in no acute distress. Vital signs as documented. HEAD: Atraumatic, normocephalic. EYES: EOMs grossly intact, pupils equal, conjunctiva clear, no exudate. ENT: Nares patent, no discharge. Airway patent, no audible stridor, visible mucosa is pink and moist without noted lesions. NECK: Trachea is midline, no obvious masses or gross abnormalities. CHEST: Symmetric movement, normal appearance. LUNGS: LS present and CTAB, no w/r/r. Non-labored work of breathing. CARDIAC: Rapid but otherwise Regular Rhythm, S1/S2 appreciated, no murmurs, rubs or gallops. ABDOMEN: Abdomen soft and non-tender x4 quadrants, no palpable masses or organomegaly. : Deferred. EXTREMITIES: Normal tone, moves all extremities spontaneously without reported pain. No obvious acute injury or deformity noted. NEURO: Alert and oriented x3, CN II-XII appear grossly intact. Cerebellar Functioning grossly intact. No obvious sensory or motor deficits. Speech clear and appropriate. PSYCH: Anxious affect, otherwise appropriate eye contact, fluid speech, with appropriate response to questioning. No reported suicidality or homicidality. SKIN: Warm, dry, color appropriate, normal turgor. No rashes noted. Medications Administered Discontinued Medications Generic Name Dose Route Start Last Admin Trade Name Freq PRN Reason Stop Dose Admin Diazepam 5 mg 06/27/25 21:50 06/27/25 22:11 Diazepam 10 Mg/2 Ml Cartridge IVPUSH 06/27/25 21:51 5 mg STAT STA Administration Sodium Chloride 1,000 mls @ 999 mls/hr 06/27/25 20:15 06/27/25 22:11 Ns IV 06/27/25 21:15 Infused .Q1H1M CAROLE Infusion Ondansetron HCl 4 mg 06/27/25 20:11 06/27/25 20:22 Ondansetron Hcl 4 Mg/2 Ml Vial IVPUSH 06/27/25 20:12 4 mg ONCE ONE Administration Phenobarbital Sodium 274 mg 06/27/25 21:00 06/27/25 20:32 Phenobarbital Sodium 130 Mg/Ml Im Once IM 06/27/25 21:01 274 mg ONCE ONE Administration Protocol Medical Decision Making Medical Decision Making MDM Narrative: 8:34 PM 06/27/2025 (Suni SAMS): The patient is a 34-year-old female presenting to the ED via EMS for evaluation of possible alcohol withdrawal. The patient reports she has drank alcohol daily for many years, decided yesterday that she no longer wanted drank alcohol and has had no alcohol intake for the past 24 hours. The patient reports associated marijuana use, denies other substance abuse. The patient began experiencing tremors, nausea, and intermittent nonbloody vomiting. 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 The patient's fiancee advised her he thought she may be having small seizures versus severe tremor and convinced her to activate EMS. The patient arrived to the ED tachycardic, tremulous, dry heaving, anxious, and tachypneic. Patient's exam reveals tachycardia, tachypnea, and tremor, no other focal findings. The patient will be treated with IV fluid hydration, Zofran, and phenobarbital protocol. Laboratory evaluation reveals no significant leukocytosis, anemia, or electrolyte abnormality, no NICOLE. The patient's anion gap is elevated at 39, mild LFT abnormalities noted, toxicology results are negative for salicylates or Tylenol, alcohol level is 59. EKG shows sinus tachycardia with a rate of 136, no evidence of ischemia. Urine drug screen and urinalysis are pending. Expect patient will likely require admission for alcohol withdrawal. The patient denies any suicidal or homicidal ideation. Admission/Observation Consideration of admission/observation: Escalation of care including admission/observation considered Consult Healthcare Provider Management of the patient was discussed with: Hospitalist Lab Data MDM Lab Attestation statement: I reviewed the patient's lab results. 06/27/25 20:16 06/27/25 20:16 Labs: Lab Results 06/27/25 06/27/25 Range/Units 20:12 20:16 WBC 11.3 H (4.8-10.8) X10*3/uL RBC 4.70 D (4.20-5.50) X10*6/uL Hgb 15.1 (12.0-16.0) g/dl Hct 44.6 (37.0-47.0) % MCV 94.9 (80.0-98.0) fL MCH 32.1 (27.0-33.0) pg MCHC 33.9 (31.0-35.0) g/dl RDW 13.5 (11.0-16.0) % Plt Count 291 D (160-400) X10*3/uL MPV 10.0 (9.4-12.3) fL Immature Gran % (Auto) 0.4 (0.0-0.4) % Neut % (Auto) 89.9 H (45-73) % Lymph % (Auto) 6.2 L (20-40) % Lincoln % (Auto) 2.7 (2-11) % Eos % (Auto) 0.3 (0-4) % Baso % (Auto) 0.5 (0-2) % Lymph # (Auto) 0.7 L (1.2-4.9) X10*3/uL Lincoln # (Auto) 0.3 (0.1-1.2) X10*3/uL Eos # (Auto) 0.0 (0.0-0.4) X10*3/uL Baso # (Auto) 0.1 (0.0-0.2) X10*3/uL Abs Immat Gran (auto) 0.05 H (0.00-0.03) X10*3/uL Absolute Neuts (auto) 10.1 H (2.0-8.3) x10*3/uL Absolute Nucleated RBC 0.000 (0.0-0.012) X10*3/uL Nucleated RBC % (auto) 0.0 (0.0-0.2) /100WBC Sodium 146 H (135-145) mmol/L Potassium 4.8 D (3.3-5.1) mmol/L Chloride 99 (96-108) mmol/L Carbon Dioxide 13 L (22-29) mmol/L Anion Gap 39 H (12-20) BUN 16 (9-16) mg/dL Creatinine 0.88 (0.5-1.4) mg/dL Estim Creat Clear Calc 95.5 Estimated GFR > 60 POC Glucose 104 (60-115) mg/dL Random Glucose 97 (60-115) mg/dL Calcium 9.6 (8.4-10.2) mg/dL Total Bilirubin 1.1 H (0.0-1.0) mg/dL AST 89 H (5-31) U/L ALT 30 (0-31) U/L Alkaline Phosphatase 74 (39-117) U/L Total Protein 9.0 H (6.5-8.0) g/dL Albumin 5.6 H (3.5-5.0) g/dL Salicylates < 5.0 L (15-30) mg/dL Acetaminophen < 3 (<30) mcg/mL Ethyl Alcohol 59 mg/dL Independent Interpretation I performed an independent interpretation of an: EKG (EKG shows sinus tachycardia with a rate of 136, no evidence of acute ischemia, no ST elevation, no ectopy. QTC 544. Compared to previous sinus tachycardia is new.) External Record Review External record reviewed: Outpatient record and Prior outpatient labs Discharge Plan Discharge Clinical Impression: Alcohol withdrawal Patient Disposition: Admitted As Inpatient Print Language: French
--- OUTSIDE RECORDS SUMMARY | 2025-06-27 20:36 | XMS_ITS | Clinical Summary ---
Author Organization [place] [address] [address] [facility] Building Address [address] [place] [address] Phone Care Team Providers Care Certified Nursing Assistant Name Role Phone Gil Flores MD Primary Care Provider [phone] Allergies No known active allergies Medications folic [...] - 04/19/2025 11:59 PM EDT Hospital Encounter [facility] MRI [address] [place] [phone] Seizure ([facility] V24, [facility] V28) Discharge Disposition: Home or Self Care 04/12/2025 6:19 PM EDT - 04/12/2025 11:59 PM EDT [facility] En[facility] [address] [facility] [place] [address] Acute left-sided low back pain with bilateral sciatica Discharge Disposition: Home or Self Care 04/12/2025 6:19 PM EDT - 04/12/2025 11:59 PM EDT Hospital Encounter [facility] - [facility] [address] [facility] [place] [address] Neck pain Discharge Disposition: Home or Self Care 04/12/2025 6:00 PM EDT [facility] [place] [address] Jose Sanchez PA Neck pain (Primary Dx); Acute left-sided low back pain with bilateral sciatica 04/12/2025 Telephone [facility] [place] [address] Gil Flores MD 04/11/2025 3:20 PM EDT Consult [facility] [address] [phone] Kay Velarde MD Chronic alcohol abuse (Primary Dx); Seizure (CMS/HCC V24, CMS/HCC V28); Alcohol withdrawal seizure with complication (CMS/HCC V24, CMS/HCC V28) 04/06/2025 10:30 AM EDT [facility] [address] [place] [phone] Gil Flores MD Hospital discharge follow-up (Primary Dx); Seizure (CMS/HCC V24, CMS/HCC V28); Elevated LFTs; Dizziness; Hypotension, unspecified hypotension type; Peripheral neuropathic pain 04/04/2025 Telephone Internal Medicine - [facility] [address] [place] [address] Gil Flores MD from Last 3 Months Immunizations Immunization Administration Dates Next Due Hepatitis B ([id number] , Recombivax HB-Adult) 19yo and older 05/20/2001 [...] TONSILLECTOMY ADENOIDECTOMY, BILATERAL MYRINGOTOMY AND TUBES PROCEDURE: [place] TONSILLECTOMY & ADENOIDECTOMY <AGE 12 WISDOM TOOTH [...] AM EDT [facility] [address] [place] [address] Gil Flores MD [address] [place] [address] 07/21/2025 10:00 AM EST Ancillary Procedure [facility] [address] [facility] [address] [place] [address] 07/28/2025 4:00 PM EST Office Visit [facility] 175 [facility] [address] [place] [phone] Kay Velarde MD [address] [place] [address] Health Maintenance Due Date Last Done Comments Hepatitis B Vaccines (2 of 3 - 3-dose series) 06/17/2001 05/20/2001 Hepatitis A Vaccines (1 of 2 - Risk 2-dose series) 2007 HPV Vaccines (1 - 3-dose SCD M series) 2015 Social Influencers of Health Screening 08/24/2022 Depression Screening 09/15/2024 COVID-19 Vaccine (3 - 2024-2 6 season) 2025 03/29/2021, 02/27/2021 Influenza Vaccine (#1) 2025 07/30/2021 Cervical Cancer Screening: HPV 11/23/2028 11/24/2023 Cholesterol Screening (Lipid Panel) 04/19/2029 04/19/2024, 04/19/2024 DTaP,Tdap,and Td Vaccines (4 - Td or Tdap) 12/23/2029 12/24/2019, 07/22/2001, 05/20/2001 RSV Immunization Adult Patients (1 - 1-dose 75+ series) 2063 MMR Vaccines Completed 07/22/2001 Varicella Vaccines Aged [...] CONTRAST Routine 04/19/2025 4:27 PM EDT Seizure ([facility] V24, [facility] V28) XR LUMBAR SPINE 4+ VIEWS STAT [...] Routine 11:26 AM EDT Peripheral neuropathic pain LIPID PANEL Routine 04/19/2024 HM HPV Routine [...] Signed Date: 04/22/2025 11:42 ET Workstation ID: [id number] Transcribed By: Self Edit Transcribed Date: 04/22/2025 [...] Signed Date: 04/22/2025 11:42 ET Workstation ID: [id number] Transcribed By: Self Edit Transcribed Date: 04/22/2025 [...] Signed Date: 04/12/2025 19:29 ET Workstation ID: [id number] Transcribed By: Self Edit Transcribed Date: 04/12/2025 [...] Signed Date: 04/12/2025 19:29 ET Workstation ID: [id number] Transcribed By: Self Edit Transcribed Date: 04/12/2025 [...] Signed Date: 04/12/2025 19:31 ET Workstation ID: [id number] Transcribed By: Self Edit Transcribed Date: 04/12/2025 [...] Signed Date: 04/12/2025 19:31 ET Workstation ID: [id number] Transcribed By: Self Edit Transcribed Date: 04/12/2025 19:29 ET us Jose SAMS IMG XR PROCEDURES Final Re sult * POC , urine manually resulted (04/12/2025 6:30 PM EDT) HCG, Ur POC Negative Negative Urine Urine specimen obtained by clean catch procedure / Unknown 04/12/2025 6:30 PM EDT Jose SAMS POINT OF CARE TEST ENTER/E DIT ORDERABLES Final Result * (ABNORMAL) Vitamin B12 and folate (04/06/2025 11:26 AM EDT) Pathologist [facility] Vitamin B-12 467 250 - 900 pcg/mL LAB CHEMISTRY METHOD 04/06/2025 5:03 PM EDT [facility] Folate >20.0(H) 2.8 - 17.0 ng/ml LAB CHEMISTRY METHOD 04/06/2025 5:03 PM EDT [facility] Blood Venous blood specimen / Unknown Venipuncture / Unknown 04/06/2025 11:26 AM EDT 04/06/2025 11:26 AM EDT Gil Flores MD LAB BLOOD ORDERABLES Final Resu lt [facility] [address] [place] [address], [place] [phone] * (ABNORMAL) Comprehensive metabolic panel (04/06/2025 11:26 AM EDT) [facility] Sodium 138 133 - 145 mmol/L LAB CHEMISTRY METHOD 04/06/2025 4:41 PM EDT [facility] Potassium 4.5 3.5 - 5.5 mmol/L LAB CHEMISTRY METHOD 04/06/2025 4:41 PM EDT [facility] Chloride 105 96 - 110 mmol/L LAB CHEMISTRY METHOD 04/06/2025 4:41 PM EDT [facility] CO2 29 21 - 32 mmol/L LAB CHEMISTRY METHOD 04/06/2025 4:41 PM EDT [facility] Anion Gap 4 3 - 11 LAB CHEMISTRY METHOD 04/06/2025 4:41 PM EDT [facility] Glucose 89 70 - 100 mg/dL LAB CHEMISTRY METHOD 04/06/2025 4:[address] [facility] BUN 12 5 - 25 mg/dL LAB CHEMISTRY METHOD 04/06/2025 4:[address] [facility] Creatinine 0.84 0.50 - 1.10 mg/dL LAB CHEMISTRY METHOD 04/06/2025 4:[address] [facility] eGFR 92 >=60 mL/min/1. 73m2 LAB CHEMISTRY METHOD 04/06/2025 4:[address] [facility] Comment:Calculation based on the Chronic Kidney Disease Epidemiology Collaboration (CKD-EPI) equation refit without adjustment for race. BUN/Creatinine Ratio 14.3 LAB CHEMISTRY METHOD 04/06/2025 4:[address] [facility] Calcium 10.6(H) 8.5 - 10.5 mg/dL LAB CHEMISTRY METHOD 04/06/2025 4:[address] [facility] AST (SGOT) 75(H) 10 - 42 unit/L LAB CHEMISTRY METHOD 04/06/2025 4:[address] [facility] ALT (SGPT) 115(H) 10 - 60 unit/L LAB CHEMISTRY METHOD 04/06/2025 4:[address] [facility] Alkaline Phosphatase 90 42 - 121 unit/L LAB CHEMISTRY METHOD 04/06/2025 4:[address] [facility] Total Protein 6.9 6.0 - 8.0 g/dL LAB CHEMISTRY METHOD 04/06/2025 4:[address] [facility] Albumin 4.0 3.2 - 5.0 g/dL LAB CHEMISTRY METHOD 04/06/2025 4:[address] [facility] Total Bilirubin 0.3 0.0 - 1.4 mg/dL LAB CHEMISTRY METHOD 04/06/2025 4:[address] [facility] Blood Venous blood specimen / Unknown Venipuncture / Unknown 04/06/2025 11:26 AM EDT 04/06/2025 11:26 AM EDT Gil Flores MD LAB BLOOD ORDERABLES Final Resu lt [facility] [address] [place] [address], * Lipid panel (04/19/2024) [facility] LDL/HDL Ratio 2 0 - 4 Triglycerides 42 0 - 150 mg/dL Cholesterol 182 0 - 200 mg/dL HDL 107 >=40 mg/dL LDL Cholesterol 67 0 - 100 mg/dL Blood Venous blood specimen / Unknown Historical Provider LAB BLOOD ORDERABLES Adrianna l Result * Cervical Cancer Screening: HPV (11/24/2023) [facility] Cervical Cancer Screening: HPV abstracted, negative Historical Provider HEALTH MAINTENANCE Final Result * HIV Screening (11/24/2023) [facility] HIV Screening abstracted Historical Provider HEALTH MAINTENANCE Final Result * Hepatitis C Screening (11/24/2023) [facility] Hepatitis C Screening abstracted Historical Provider HEALTH MAINTENANCE Final Result from Last 3 Months or Most Recently Relevant to Health Maintenance Insurance [employer] Care Teams Certified Nursing Assistant Relationship Specialty Start Date End Date Gil Flores MD [address] [place] [address] PCP - General Internal Medicine 06/15/21
[2025-06-27 20:37] LABS: Acetaminophen LAB < 3 mcg/mL (<30); Alanine Aminotransferase 30 U/L (0-31); Albumin Level 5.6 g/dL (3.5-5.0); Alkaline Phosphatase 74 U/L (39-117); Anion Gap 39 (12-20); Aspartate Amino Transferase 89 U/L (5-31); Blood Urea Nitrogen 16 mg/dL (9-16); Calcium 9.6 mg/dL (8.4-10.2); Carbon Dioxide 13 mmol/L (22-29); Chloride 99 mmol/L (96-108); Creatinine Clr Calc Pharmacy 95.5; Estimated Glomerular Filt Rate > 60; Potassium 4.8 mmol/L (3.3-5.1); Salicylate < 5.0 mg/dL (15-30); Sodium 146 mmol/L (135-145); Total Protein 9.0 g/dL (6.5-8.0)
[2025-06-27 20:39] LABS: Glucose, Whole Blood 104 mg/dL (60-115)
[2025-06-27 21:31] VITALS: RESP 27
--- NOTE | 2025-06-27 21:42 | PC.NURSE ---
pt biba from home complaining of full body pain/weakness along with N/V secondary to ETOH w/d last drink being approximately 24 hours ago. PT reported that these symptoms onset around 24 hours ago and that she does have a pertinent PMH of ETOH W/D seizures. 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 PT presents in severe discomfort reporting pain everywhere also dry heaving with no emesis. PT reports chills/fever and also presented with tachypnea w/ bilateral carpal contractions. CIWA=21 and a 20g in L AC, medicated per NOV, seizure precautions in place.
[2025-06-27] MEDS: diazePAM 10 MG/2 ML CARTRIDGE 5 MG IVPUSH (22:11)
--- NOTE | 2025-06-28 00:12 | PM.IMHP ---
History of Present Illness Date of Service: 06/28/25 Attending physician on admission: Rajinder Powell Chief Complaint: N/V etoh withdrawal Patient is a 34-year-old female with history of alcohol use disorder, binge drink, , hepatic steatosis, , colitis, seizure peripheral neuropathy making mobility more difficult was BIBA for suspected alcohol withdrawal in 24 hours of nausea and vomiting. Patient did state that she was binge drinking for the last 2-3 days. Her last drink was yesterday. Patient chooses to drink vodka. Patient currently is denying suicidal ideations or homicidal ideations and hallucinations. Patient currently begging for ice chips. Patient denies history of pancreatitis. Patient currently not having any chest pain, shortness of breath, abdominal pain. Patient states she does have a seizure history related to alcohol withdrawal. Patient was started on phenobarbital in the ED. HCG pending. . Lipase pending. Patient being admitted for alcohol withdrawal monitoring and treatment. Toxicology screen positive for barbiturates and marijuana. Patient does admit to using marijuana but denies any use of illicit drugs or tobacco. Review of Systems Review of Systems: , Patient currently begging for ice chips denies any abdominal pain, nausea or vomiting. Patient is not having any chest pain or shortness of breath. Patient states she can not ambulate due to the significant neuropathy in her lower feet. Yes all other systems are reviewed and are negative [facility] Medical History Peripheral neuropathy Sepsis Alcohol use disorder, severe, dependence Cognitive capacity: Alert and orientated x3 Functional capacity: wheelchair bound (Patient states she has been able to walk to her neuropathy unable to confirm this) Social History Household Members: Significant Other Housing: Apartment Do you presently have visiting nurse or other home services: No Alcohol intake: current Alcohol intake frequency: 0-2 drinks per day Alcohol type: hard liquor Patient Tobacco Use Status: Tobacco use Unknown Smoked in Last 30 Days: No Use of substances other than those prescribed or required for medical reasons: No Substance Use Type: Marijuana Advance Directives: No Advance Directives Information Provided: No Do you have a plan to hurt others: No Plan service: No Ebola Risk: Travel/Contact With Anyone From Affected Area/s: No Has Patient Experienced Ebola Symptoms: No Meds Allergies Allergy/AdvReac Type Severity Reaction Status Date / Time No Known Allergies Allergy Verified 06/27/25 20:11 Active Medications: Current Medications Acetaminophen (Acetaminophen 325 Mg Tablet) 650 mg PO Q6H PRN PRN Reason: Pain, Mild 1-3,fever,headache Albuterol/Ipratropium (Albuterol/Iprat 2.5/0.5mg 3 Ml Ampul.Neb) 3 ml INHALE Q4H PRN PRN Reason: Shortness of Breath/Wheezing Calcium Carbonate (Calcium Carbonate 750 Mg Tab.Chew) 750 mg PO Q4H PRN PRN Reason: Heartburn Ceftriaxone Sodium (Ceftriaxone Sodium 1 Gm Vial) 1 gm IVPUSH Q24H [facility] Enoxaparin Sodium (Enoxaparin Sodium 40 Mg/0.4 Ml Syringe) 40 mg SUBCUT Q24H [facility] Folic Acid (Folic Acid 1 Mg Tablet) 1 mg PO DAILY [facility] Sodium Chloride (Ns) 1,000 mls @ 999 mls/hr IV .Q1H1M [facility] Stop: 06/28/25 00:15 Last Admin: 06/28/25 00:09 Dose: 999 mls/hr Sodium Bicarbonate 100 meq/ (Dextrose) 1,000 mls @ 100 mls/hr IV .Q10H [facility] Magnesium Hydroxide (Milk Of Magnesia 30 Ml Oral.Susp) 30 ml PO DAILY PRN PRN Reason: Constipation Ondansetron HCl (Ondansetron Hcl 4 Mg/2 Ml Vial) 4 mg IVPUSH Q8H PRN PRN Reason: Nausea and Vomiting Pharmacy Consult (Consult Rx Etoh Phenob Im/Po) 1 each MISCELLANE ONCE PRN; Protocol PRN Reason: Consult order Phenobarbital (Phenobarbital 15 Mg Tablet) 45 mg PO BID [facility]; Protocol Stop: 06/29/25 21:01 Phenobarbital (Phenobarbital 15 Mg Tablet) 15 mg PO BID [facility]; Protocol Stop: 07/01/25 21:01 Phenobarbital (Phenobarbital 15 Mg Tablet) 15 mg PO DAILY [facility] Stop: 07/03/25 09:01 Phenobarbital Sodium (Phenobarbital Sodium 130 Mg/Ml Vial Im Q3hx2) 206 mg IM Q3H [facility] Stop: 06/28/25 03:01 Polyethylene Glycol (Polyethylene Glycol 3350 17 Gm Powd.Pack) 17 gm PO DAILY PRN PRN Reason: Constipation Senna (Sennosides 8.6 Mg Tablet) 17.2 mg PO BEDTIME [facility] Sodium Chloride (0.9 % Sodium Chloride Flush 3 Ml Syringe) 3 ml IVFLUSH QSHIFT [facility] Thiamine HCl (Thiamine Hcl 100 Mg Tablet) 100 mg PO DAILY [facility] Home Medications ?Medication ?Instructions ?Recorded ?Confirmed ?Last Taken ?Type melatonin 5 mg tablet 5 mg PO BEDTIME PRN Sleep 03/25/25 05/12/25 Unknown History gabapentin 300 mg capsule 300 mg PO BID@0900,1200 05/12/25 05/12/25 05/08/25 History gabapentin 300 mg capsule 600 mg PO BEDTIME 05/12/25 05/12/25 05/08/25 History iron,carbonyl 65 mg-vitamin C 125 1 tab PO DAILY 05/12/25 05/12/25 05/08/25 History mg tablet,delayed release (Vitron-C) lidocaine 5 % topical patch 1 patch topical DAILY 05/12/25 05/12/25 05/08/25 History Physical Exam Vital Signs and Narrative: Vital Signs: Last Vital Signs Temp 98.0 F 06/27/25 20:08 Pulse 160 H 06/27/25 20:08 Resp 27 H 06/27/25 21:31 BP 133/84 06/27/25 20:08 Pulse Ox 99 06/27/25 20:08 O2 Del Method Room Air 06/27/25 20:08 BMI result Body Mass Index 21.9 Alert and orientated X3, , anxious appears to be actively withdrawing Neuro: CN II-X11 intact, no deficits, visual acuity intact EYES: PERRLA, EOM intact, sclerae nonicteric, conjunctiva pink ENT: hearing intact, no issues with swallowing, uvula midline, lips moist, nares patent no epistaxis Cardiac: S1 S2 RRR, no murmur, no JVD, no edema in Lower ext Pulmonary: lungs diminished bilateral Abdominal: BS active in all 4 quadrants, no guarding, tenderness, rebounding, distended MSK: strength 4-5/5 upper and lower extremities : no CVA tenderness no bladder distension Extremities: no edema in lower extremities, PT and DP pulses palpable +2 Psych: mood anxious, judgement and insight fair Skin: No new rashes or lesion Results Labs 06/27/25 20:16 06/27/25 20:16 Labs: Laboratory Results - last 24 hr 06/27/25 06/27/25 20:12 20:16 MCV 94.9 MCH 32.1 MCHC 33.9 RDW 13.5 Plt Count 291 D MPV 10.0 Immature Gran % (Auto) 0.4 Neut % (Auto) 89.9 H Lymph % (Auto) 6.2 L Stephens % (Auto) 2.7 Eos % (Auto) 0.3 Baso % (Auto) 0.5 Lymph # (Auto) 0.7 L Stephens # (Auto) 0.3 Eos # (Auto) 0.0 Baso # (Auto) 0.1 Abs Immat Gran (auto) 0.05 H Absolute Neuts (auto) 10.1 H Absolute Nucleated RBC 0.000 Nucleated RBC % (auto) 0.0 Anion Gap 39 H Estim Creat Clear Calc 95.5 Estimated GFR > 60 POC Glucose 104 Random Glucose 97 Calcium 9.6 Total Bilirubin 1.1 H AST 89 H ALT 30 Alkaline Phosphatase 74 Total Protein 9.0 H Albumin 5.6 H Salicylates < 5.0 L Acetaminophen < 3 Ethyl Alcohol 59 ECG Attestation: I personally reviewed and interpreted this ECG as follows: (Sinus tachycardia) Prior ECG tracings: available for review Assessment and Plan (1) Alcohol withdrawal: Qualifiers: Complication of substance-induced condition: uncomplicated Qualified Code(s): F10.930 - Alcohol use, unspecified with withdrawal, uncomplicated Status: Acute Plan Patient is a 34-year-old female with history of alcohol use disorder, binge drinking, ,hepatic steatosis, , colitis, seizure, peripheral neuropathy making mobility more difficult was BIBA for suspected alcohol withdrawal in 24 hours of nausea and vomiting. Patient did state that she was binge drinking for the last 2-3 days. Her last drink was yesterday. Patient being admitted for alcohol withdrawal management. Alcohol use disorder with withdrawal/ patient reports history of seizure related to alcohol withdrawal [facility] order Phenobarbital started in the ED Addictions consulted Thiamine and folic acid as Seizure precautions in place No SI, HI or hallucination Magnesium 2.7, AST 89 Lipase pending, no current indication for CT of the abdomen Metabolic acidosis with anion gap of 30 The patient is started on bicarb drip Repeat BMP Blood sugar normal, no history of diabetes Peripheral neuropathy Patient currently states she is unable to ambulate Neuro exam otherwise reassuring Normally takes gabapentin PT eval as patient is completing withdrawal DVT prophylaxis: Lovenox Med rec pending Full code status Quality Stroke Does the patient have a stroke diagnosis?: No Reason for No Anti-thrombotic by Day Two: N/A - Med Ordered VTE Prior VTE?: No VTE Risk Level:: Medical - moderate - high VTE Device Contraindication: N/A - Device Ordered VTE Drug Contraindication: N/A - Med Ordered
[2025-06-28 00:15] VITALS: BP 119/79; PULSE 104; RESP 20; TEMP 36.5; O2SAT 100
[2025-06-28] MEDS: PHENobarbitaL sodium 130 MG/ML VIAL IM Q3Hx2 206 MG IM ×2 (00:16→03:59)
[2025-06-28 00:57] LABS: Magnesium 2.7 mg/dL (1.6-2.6)
[2025-06-28] MEDS: Sodium Bicarbonate 8.4% 100 MEQ in Dextrose 5 % 900 ML IV ×2 (01:30→11:19)
[2025-06-28 01:47] LABS: Appearance Urine Clear; Glucose Urine UA Negative (Negative); PH 5.0 (5.0-9.0); Specific Gravity - Urine 1.025 (1.005-1.025); UMIC TRIGGER UA YES
[2025-06-28 01:55] LABS: Lipase 14 U/L (8-78)
[2025-06-28 03:58] VITALS: BP 116/71; PULSE 97; RESP 20; O2SAT 98
[2025-06-28 04:21] LABS: MANUAL DIFF FLAG NO
[2025-06-28 04:25] LABS: Hematocrit 36.9 % (37.0-47.0); Hemoglobin 12.5 g/dl (12.0-16.0); Imm Gran Abs Auto 0.02 X10*3/uL (0.00-0.03); Imm Gran Pct Auto 0.3 % (0.0-0.4); Lymphocytes Absolute Auto 0.9 X10*3/uL (1.2-4.9); Mean Corpuscular HGB Conc 33.9 g/dl (31.0-35.0); Mean Corpuscular Hemoglobin 32.1 pg (27.0-33.0); Mean Corpuscular Volume 94.6 fL (80.0-98.0); NRBC Abs Auto 0.000 X10*3/uL (0.0-0.012); NRBC Pct Auto 0.0 /100WBC (0.0-0.2); Platelet Count 206 X10*3/uL (160-400); Red Blood Count 3.90 X10*6/uL (4.20-5.50); White Blood Count 7.4 X10*3/uL (4.8-10.8)
[2025-06-28 04:49] LABS: Alanine Aminotransferase 26 U/L (0-31); Albumin Level 4.6 g/dL (3.5-5.0); Alkaline Phosphatase 57 U/L (39-117); Anion Gap 18 (12-20); Aspartate Amino Transferase 62 U/L (5-31); Blood Urea Nitrogen 13 mg/dL (9-16); Calcium 8.2 mg/dL (8.4-10.2); Carbon Dioxide 22 mmol/L (22-29); Chloride 105 mmol/L (96-108); Creatinine Clr Calc Pharmacy 123.7; Estimated Glomerular Filt Rate > 60; Potassium 4.0 mmol/L (3.3-5.1); Sodium 141 mmol/L (135-145); Total Protein 7.0 g/dL (6.5-8.0)
[2025-06-28] MEDS: diazePAM 10 MG/2 ML CARTRIDGE 5 MG IVPUSH (06:16)
[2025-06-28 06:17] VITALS: BP 111/78; PULSE 79; RESP 14; TEMP 36.5; O2SAT 99
--- NOTE | 2025-06-28 09:11 | PHA.MEDREC ---
Addendum entered by Jairo Young RPh 06/28/25 09:16: Reviewed by [facility] Original Note: Pharmacy Consult ? Medication Reconciliation Pharmacy has completed the medication reconciliation. Patient was able to confirm all of her medication. Patient states she took her medications yesterday however she vomited them up.
[2025-06-28 09:23] VITALS: BP 112/47; PULSE 94; RESP 16; O2SAT 98
--- NOTE | 2025-06-28 11:18 | MHC.CM.PN ---
Pt. lives alone, she does not use home health services or DME. PCP is Gil Flores, HCP she will complete form, naming Paul, her S.O., he will transport her home at [place]. DCP: home, self care, CM to follow for DC needs.
[2025-06-28 13:52] VITALS: BP 125/78; PULSE 75; RESP 16; O2SAT 99
--- NOTE | 2025-06-28 15:32 | HO.PM.IMPN ---
Subjective Subjective Date of Service: 06/28/25 Interval History: Pt seen in ed, she states that nausea meds are helping her , she wants to quit alcohol. states that outpt help has not been very effective, appears anxious, Review of Systems -ve except as stated above Physical Exam Exam: Exam: Alert and orientated X3, , anxious appears to be actively withdrawing Neuro: CN II-X11 intact, no deficits, visual acuity intact Cardiac: RRR, no TAWANDA Pulmonary: on RA, CTAB Abdominal: BS active in all 4 quadrants, no guarding, tenderness, rebounding, MSK: strength 4-5/5 upper and lower extremities : no CVA tenderness no bladder distension Extremities: no edema in lower extremities, PT and DP pulses palpable +2 Psych: mood anxious, judgement and insight fair Skin: No new rashes or lesion Vital Signs: Vital Signs: Last Vital Signs Temp 97.7 F 06/28/25 06:17 Pulse 75 06/28/25 13:52 Resp 16 06/28/25 13:52 BP 125/78 06/28/25 13:52 Pulse Ox 99 06/28/25 13:52 O2 Del Method Room Air 06/28/25 13:52 BMI result Body Mass Index 21.9 Objective Data Active Medications Acetaminophen (Acetaminophen 325 Mg Tablet) 650 mg PO Q6H PRN PRN Reason: Pain, Mild 1-3,fever,headache Albuterol/Ipratropium (Albuterol/Iprat 2.5/0.5mg 3 Ml Ampul.Neb) 3 ml INHALE Q4H PRN PRN Reason: Shortness of Breath/Wheezing Calcium Carbonate (Calcium Carbonate 750 Mg Tab.Chew) 750 mg PO Q4H PRN PRN Reason: Heartburn Enoxaparin Sodium (Enoxaparin Sodium 40 Mg/0.4 Ml Syringe) 40 mg SUBCUT Q24H [facility] Last Admin: 06/28/25 09:22 Dose: 40 mg Documented By: TEE Folic Acid (Folic Acid 1 Mg Tablet) 1 mg PO DAILY [facility] Last Admin: 06/28/25 09:22 Dose: 1 mg Documented By: TEE Gabapentin (Gabapentin 300 Mg Capsule) 300 mg PO BID@0900,1200 [facility] [place] Last Admin: 06/28/25 12:47 Dose: 300 mg Documented By: TEE Gabapentin (Gabapentin 300 Mg Capsule) 600 mg PO BEDTIME [facility] Sodium Bicarbonate 100 meq/ (Dextrose) 1,000 mls @ 100 mls/hr IV .Q10H [facility] Last Admin: 06/28/25 11:19 Dose: 100 mls/hr Documented By: TEE Lorazepam (Lorazepam 0.5 Mg Tablet) 0.5 mg PO Q8H PRN PRN Reason: anxiety/restlessness Last Admin: 06/28/25 12:50 Dose: 0.5 mg Documented By: TEE Magnesium Hydroxide (Milk Of Magnesia 30 Ml Oral.Susp) 30 ml PO DAILY PRN PRN Reason: Constipation Melatonin (Melatonin 3 Mg Tablet) 6 mg PO BEDTIME PRN PRN Reason: Sleep Ondansetron HCl (Ondansetron Hcl 4 Mg/2 Ml Vial) 4 mg IVPUSH Q8H PRN PRN Reason: Nausea and Vomiting Last Admin: 06/28/25 04:00 Dose: 4 mg Documented By: EDDIE Pharmacy Consult (Consult Rx Etoh Phenob Im/Po) 1 each MISCELLANE ONCE PRN; Protocol PRN Reason: Consult order Phenobarbital (Phenobarbital 15 Mg Tablet) 45 mg PO BID [facility]; Protocol Stop: 06/29/25 21:01 Last Admin: 06/28/25 09:22 Dose: 45 mg Documented By: TEE Phenobarbital (Phenobarbital 15 Mg Tablet) 15 mg PO BID [facility]; Protocol Stop: 07/01/25 21:01 Phenobarbital (Phenobarbital 15 Mg Tablet) 15 mg PO DAILY [facility] Stop: 07/03/25 09:01 Polyethylene Glycol (Polyethylene Glycol 3350 17 Gm Powd.Pack) 17 gm PO DAILY PRN PRN Reason: Constipation Senna (Sennosides 8.6 Mg Tablet) 17.2 mg PO BEDTIME [facility] Sodium Chloride (0.9 % Sodium Chloride Flush 3 Ml Syringe) 3 ml IVFLUSH QSHIFT [facility] Last Admin: 06/28/25 09:21 Dose: Not Given Documented By: TEE Non-Admin Reason: IV Running Thiamine HCl (Thiamine Hcl 100 Mg Tablet) 100 mg PO DAILY [facility] Last Admin: 06/28/25 09:22 Dose: 100 mg Documented By: TEE Labs 06/28/25 04:01 06/28/25 04:01 Labs: Laboratory Results - last 24 hr 06/27/25 06/27/25 06/28/25 20:12 20:16 01:30 MCV 94.9 MCH 32.1 MCHC 33.9 RDW 13.5 Plt Count 291 D MPV 10.0 Immature Gran % (Auto) 0.4 Neut % (Auto) 89.9 H Lymph % (Auto) 6.2 L Gray % (Auto) 2.7 Eos % (Auto) 0.3 Baso % (Auto) 0.5 Lymph # (Auto) 0.7 L Gray # (Auto) 0.3 Eos # (Auto) 0.0 Baso # (Auto) 0.1 Abs Immat Gran (auto) 0.05 H Absolute Neuts (auto) 10.1 H Absolute Nucleated RBC 0.000 Nucleated RBC % (auto) 0.0 Anion Gap 39 H Estim Creat Clear Calc 95.5 Estimated GFR > 60 POC Glucose 104 Random Glucose 97 Lactic Acid Calcium 9.6 Magnesium 2.7 H Total Bilirubin 1.1 H AST 89 H ALT 30 Alkaline Phosphatase 74 Total Protein 9.0 H Albumin 5.6 H Lipase 14 TSH 1.35 Beta HCG, Quant < 2 Urine Color Yellow Urine Appearance Clear Urine pH 5.0 Ur Specific [place] 1.025 Urine Protein 300 (3+) H Urine Glucose (UA) Negative Urine Ketones >=160 Urine Blood Small (1+) H Urine Nitrite Negative Ur Leukocyte Esterase Negative Urine RBC 0-2 Urine WBC 0-5 Ur Squamous Epith Cells 6-10 Urine Bacteria None Seen Hyaline Casts 6-10 Salicylates < 5.0 L Acetaminophen < 3 Ethyl Alcohol 59 06/28/25 06/28/25 04:01 11:28 MCV 94.6 MCH 32.1 MCHC 33.9 RDW 13.6 Plt Count 206 D MPV 10.5 Immature Gran % (Auto) 0.3 Neut % (Auto) 80.9 H Lymph % (Auto) 12.6 L Gray % (Auto) 5.9 Eos % (Auto) 0.0 Baso % (Auto) 0.3 Lymph # (Auto) 0.9 L Gray # (Auto) 0.4 Eos # (Auto) 0.0 Baso # (Auto) 0.0 Abs Immat Gran (auto) 0.02 Absolute Neuts (auto) 6.0 Absolute Nucleated RBC 0.000 Nucleated RBC % (auto) 0.0 Anion Gap 18 Estim Creat Clear Calc 123.7 Estimated GFR > 60 POC Glucose Random Glucose 158 H Lactic Acid 0.9 Calcium 8.2 L D Magnesium Total Bilirubin 1.0 AST 62 H ALT 26 Alkaline Phosphatase 57 Total Protein 7.0 Albumin 4.6 Lipase TSH Beta HCG, Quant Urine Color Urine Appearance Urine pH Ur Specific [place] Urine Protein Urine Glucose (UA) Urine Ketones Urine Blood Urine Nitrite Ur Leukocyte Esterase Urine RBC Urine WBC Ur Squamous Epith Cells Urine Bacteria Hyaline Casts Salicylates Acetaminophen Ethyl Alcohol Assessment and Plan (1) Alcohol use disorder: Status: Acute (2) Alcohol withdrawal: Status: Acute (3) Peripheral neuropathy: Status: Acute (4) HTN (hypertension): Status: Acute Plan Patient is a 34-year-old female with history of alcohol use disorder, binge drinking, ,hepatic steatosis, , colitis, seizure, peripheral neuropathy making mobility more difficult was BIBA for suspected alcohol withdrawal in 24 hours of nausea and vomiting. Patient did state that she was binge drinking for the last 2-3 days. Her last drink was yesterday. Patient being admitted for alcohol withdrawal management. Alcohol use disorder with withdrawal/ patient reports history of seizure related to alcohol withdrawal [facility] order Phenobarbital started in the ED Addictions consulted Thiamine and folic acid as Seizure precautions in place No SI, HI or hallucination Lipase wnl Metabolic acidosis with anion gap of 30 likely in the setting of alcohol ingestion received bicarb gtt AGMA resolved dc bicarb BS wnl VL wnl Peripheral neuropathy Patient currently states she is unable to ambulate Neuro exam otherwise reassuring Normally takes gabapentin, cont PT eval DVT prophylaxis: Lovenox Full code status OMN: PT eval, addiction consult Quality Stroke Does the patient have a stroke diagnosis?: No Reason for No Anti-thrombotic by Day Two: N/A - Med Ordered VTE Prior VTE?: No VTE Risk Level:: Medical - moderate - high VTE Device Contraindication: N/A - Device Ordered VTE Drug Contraindication: N/A - Med Ordered
--- NOTE | 2025-06-28 15:52 | PC.NURSE ---
IV was found to be infiltrated. new IV established.
[2025-06-28 17:50] VITALS: BMI 21.9
[2025-06-28 19:19] VITALS: BP 125/81; PULSE 90; RESP 19; TEMP 36.8; O2SAT 99
[2025-06-28] MEDS: 0.9 % Sodium Chloride Flush 3 ML SYRINGE IVFLUSH (20:46)
[2025-06-29] VITALS: BP 126/78; PULSE 84; RESP 18; TEMP 36.6; O2SAT 100
[2025-06-29 03:31] VITALS: BP 129/66; PULSE 84; RESP 16; TEMP 36.4; O2SAT 98
[2025-06-29 07:15] VITALS: BP 123/76; PULSE 74; RESP 18; TEMP 37.2; O2SAT 97
[2025-06-29] MEDS: 0.9 % Sodium Chloride Flush 3 ML SYRINGE IVFLUSH (09:06)
--- NOTE | 2025-06-29 10:47 | MHC.CM.PN ---
Per PT, Patient is doing much better today and their recommendation is now home/self care rather than STR.
[2025-06-29 11:16] VITALS: BP 120/83; PULSE 80; RESP 18; TEMP 36.9; O2SAT 97
[2025-06-29 11:36] LABS: Alanine Aminotransferase 35 U/L (0-31); Albumin Level 4.6 g/dL (3.5-5.0); Alkaline Phosphatase 54 U/L (39-117); Anion Gap 12 (12-20); Aspartate Amino Transferase 79 U/L (5-31); Blood Urea Nitrogen 8 mg/dL (9-16); Calcium 9.1 mg/dL (8.4-10.2); Carbon Dioxide 31 mmol/L (22-29); Chloride 97 mmol/L (96-108); Creatinine Clr Calc Pharmacy 125.5; Estimated Glomerular Filt Rate > 60; Potassium 3.1 mmol/L (3.3-5.1); Sodium 137 mmol/L (135-145); Total Protein 7.1 g/dL (6.5-8.0)
--- NOTE | 2025-06-29 12:19 | HO.PM.IMPN ---
Subjective Subjective Date of Service: 06/29/25 Interval History: Pt seen this am, looks much better than yesterday, she states that she has been able to eat and doind well overall. She states that she would want to meet with psych for her depression and anxiety. Review of Systems -ve except as stated above Physical Exam Exam: Exam: Alert and orientated X3, , calm and cooperative Neuro: CN II-X11 intact, no deficits, visual acuity intact Cardiac: RRR, no TAWANDA Pulmonary: on RA, CTAB Abdominal: BS active in all 4 quadrants, no guarding, tenderness, rebounding, MSK: strength 4-5/5 upper and lower extremities : no CVA tenderness no bladder distension Extremities: no edema in lower extremities, PT and DP pulses palpable +2 Psych: mood anxious, judgement and insight fair Skin: No new rashes or lesion Vital Signs: Vital Signs: Last Vital Signs Temp 98.5 F 06/29/25 11:16 Pulse 80 06/29/25 11:16 Resp 18 06/29/25 11:16 BP 120/83 06/29/25 11:16 Pulse Ox 97 06/29/25 11:16 O2 Del Method Room Air 06/29/25 11:16 BMI result Body Mass Index 21.9 Objective Data Active Medications Acetaminophen (Acetaminophen 325 Mg Tablet) 650 mg PO Q6H PRN PRN Reason: Pain, Mild 1-3,fever,headache Albuterol/Ipratropium (Albuterol/Iprat 2.5/0.5mg 3 Ml Ampul.Neb) 3 ml INHALE Q4H PRN PRN Reason: Shortness of Breath/Wheezing Calcium Carbonate (Calcium Carbonate 750 Mg Tab.Chew) 750 mg PO Q4H PRN PRN Reason: Heartburn Enoxaparin Sodium (Enoxaparin Sodium 40 Mg/0.4 Ml Syringe) 40 mg SUBCUT Q24H [facility] Last Admin: 06/29/25 09:06 Dose: 40 mg Documented By: VEL Folic Acid (Folic Acid 1 Mg Tablet) 1 mg PO DAILY [facility] Last Admin: 06/29/25 09:04 Dose: 1 mg Documented By: VEL Gabapentin (Gabapentin 300 Mg Capsule) 300 mg PO BID@0900,1200 [facility] Last Admin: 06/29/25 09:04 Dose: 300 mg Documented By: VEL Gabapentin (Gabapentin 300 Mg Capsule) 600 mg PO BEDTIME [facility] Last Admin: 06/28/25 20:47 Dose: 600 mg Documented By: MILENA Lorazepam (Lorazepam 0.5 Mg Tablet) 0.5 mg PO Q8H PRN PRN Reason: anxiety/restlessness Last Admin: 06/29/25 09:04 Dose: 0.5 mg Documented By: VEL Magnesium Hydroxide (Milk Of Magnesia 30 Ml Oral.Susp) 30 ml PO DAILY PRN PRN Reason: Constipation Melatonin (Melatonin 3 Mg Tablet) 6 mg PO BEDTIME PRN PRN Reason: Sleep Ondansetron HCl (Ondansetron Hcl 4 Mg/2 Ml Vial) 4 mg IVPUSH Q8H PRN PRN Reason: Nausea and Vomiting Last Admin: 06/28/25 20:45 Dose: 4 mg Documented By: MILENA Pharmacy Consult (Consult Rx Etoh Phenob Im/Po) 1 each MISCELLANE ONCE PRN; Protocol PRN Reason: Consult order Phenobarbital (Phenobarbital 15 Mg Tablet) 45 mg PO BID [facility]; Protocol Stop: 06/29/25 21:01 Last Admin: 06/29/25 09:05 Dose: 45 mg Documented By: VEL Phenobarbital (Phenobarbital 15 Mg Tablet) 15 mg PO BID [facility]; Protocol Stop: 07/01/25 21:01 Phenobarbital (Phenobarbital 15 Mg Tablet) 15 mg PO DAILY [facility] Stop: 07/03/25 09:01 Polyethylene Glycol (Polyethylene Glycol 3350 17 Gm Powd.Pack) 17 gm PO DAILY PRN PRN Reason: Constipation Senna (Sennosides 8.6 Mg Tablet) 17.2 mg PO BEDTIME [facility] Last Admin: 06/28/25 22:11 Dose: Not Given Documented By: MILENA Non-Admin Reason: Patient Refused Sodium Chloride (0.9 % Sodium Chloride Flush 3 Ml Syringe) 3 ml IVFLUSH QSHIFT [facility] Last Admin: 06/29/25 09:06 Dose: 3 ml Documented By: VEL Thiamine HCl (Thiamine Hcl 100 Mg Tablet) 100 mg PO DAILY [facility] Last Admin: 06/29/25 09:05 Dose: 100 mg Documented By: VEL Labs 06/28/25 04:01 06/29/25 07:05 Labs: Laboratory Results - last 24 hr 06/29/25 07:05 Anion Gap 12 Estim Creat Clear Calc 125.5 Estimated GFR > 60 Random Glucose 86 Calcium 9.1 D Total Bilirubin 0.8 AST 79 H ALT 35 H Alkaline Phosphatase 54 Total Protein 7.1 Albumin 4.6 Assessment and Plan (1) Alcohol use disorder: Status: Acute (2) Alcohol withdrawal: Status: Acute (3) HTN (hypertension): Status: Acute (4) Hypotension: Status: Acute (5) Peripheral neuropathy: Status: Acute (6) Anxiety: Status: Acute Plan Patient is a 34-year-old female with history of alcohol use disorder, binge drinking, ,hepatic steatosis, , colitis, seizure, peripheral neuropathy making mobility more difficult was BIBA for suspected alcohol withdrawal in 24 hours of nausea and vomiting. Patient did state that she was binge drinking for the last 2-3 days. Her last drink was yesterday. Patient being admitted for alcohol withdrawal management. Alcohol use disorder with withdrawal/ patient reports history of seizure related to alcohol withdrawal [facility] order Phenobarbital started in the ED Addictions consulted Thiamine and folic acid Seizure precautions in place No SI, HI or hallucination Lipase wnl scoring low on ciwa Metabolic acidosis with anion gap of 30 likely in the setting of alcohol ingestion received bicarb gtt AGMA resolved dc bicarb BS wnl VL wnl Peripheral neuropathy PT eval yesterday recc STR however pt is ambulating well today without any support. Neuro exam otherwise reassuring Normally takes gabapentin, cont Anxiety: Pt states that she has been dealing with alot at home and thinks its her anxiety that leads to binge drinking. Psych consulted. DVT prophylaxis: Lovenox Full code status OMN: psych consult Quality Stroke Does the patient have a stroke diagnosis?: No Reason for No Anti-thrombotic by Day Two: N/A - Med Ordered VTE Prior VTE?: No VTE Risk Level:: Medical - moderate - high VTE Device Contraindication: N/A - Device Ordered VTE Drug Contraindication: N/A - Med Ordered
--- NOTE | 2025-06-29 12:31 | MHC.RECOVRN ---
Patient had a positive screen for unhealthy alcohol use on admission, subsequently, met with this life insurance underwriter to discuss alcohol use, recovery supports, and concerns related to increased risk of alcohol related problems.? On approach pt was sitting in bed, smiling, sitting with a visitor. Pt was agreeable to meeting with TW while visitor was present. Pt identified visitor as her ?fiance?? Patient reports consuming approximately ?One handle of Vodka every 1-2 days?. ? Discussed how alcohol use has impacted health, including negative impact on mental health and overall physical well being.? Discussed risk and reduction strategies including drinking below the recommended limit.? Provided pt with written resources including information on inpatient and outpatient treatment, SHAYY, harm reduction and recovery coaching.?? ? Pt declines intervention, SHAYY, or outpatient appt for treatment related to AUD at this time.? Pt was provided with TW?s contact information if questions or concerns arise. Pt denies further questions or concerns at this time.? Please see Recovery/ [facility]isi for further information.
[2025-06-29] MEDS: Potassium Chloride Packet 20 MEQ PACKET 40 MEQ PO (12:36)
[2025-06-29 15:35] VITALS: BP 130/95; PULSE 90; RESP 20; TEMP 37.1; O2SAT 98
--- NOTE | 2025-06-29 16:17 | P.CNPS_ITS ---
History of Present Illness Date of Service: 06/29/25 Chief Complaint: Alcohol withdrawal syndrome Reason for Consult: anxiety and depression leading to alcohol abuse. hx of ADHD. Requesting physician: Alexa Sapp Discussed with referring provider: Yes Sources of Information: patient interviewed and chart reviewed HPI Narrative: Patient is a 34-year-old female with hx of alcohol use disorder, hepatic steatosis, colitis, seizure, peripheral neuropathy, BIBA for suspected alcohol withdrawal in 24 hours of nausea and vomiting. Patient did state she was binge drinking for the last 2-3 days. Her last drink was yesterday. Patient admitted for alcohol withdrawal management. Psychiatric consult placed for: anxiety and depression leading to alcohol abuse. hx of ADHD. During psychiatric assessment, patient presents alert and oriented x3. Calm and cooperative. Patient reports feeling anxious; patient stated, I think I drink alcohol because I have ADHD and when I was a kid and taking pills I would stare at the wall. My mind goes constantly and I drink until I pass out. I get depressed and anxious after I drink. I don't want Adderall because my sister used to take it. I don't like taking any pills . Patient denies SI/HI/AH/VH. She reports history of withdrawal seizures. Denies history of psychiatric treatment. Denies history of inpatient psychiatric hospitalization. Denies history of SA/SIB. Patient reports she drinks a gallon of vodka over 4 days and then will go weeks without drinking . She reports smoking marijuana daily. Denies any other substance use. She reports she has been drinking for the last 15 years but can not think of a precipitant. Patient reports she was prescribed Naltrexone but never took it because she was not ready to take it . Patient reports she is connected with a worker from [facility] who checks on her once a week but does not know this individuals title. Patient encouraged to reach out to [facility] to set up appointments for outpatient psychiatric providers; pt agreed. Past Psychiatric History: Denies history of inpatient psychiatric hospitalization. Does not have outpatient psychiatric providers. Denies history of psychiatric medications. Denies history of SA/SIB. Medical Evaluation Reviewed: Yes [facility] Medical History (Updated 06/29/25 @ 12:37 by Alexa Sapp MD) HTN (hypertension) Peripheral neuropathy Sepsis Alcohol use disorder, severe, dependence Family History: Mother: hx of substance abuse. Aunt: Bipolar d/o Sister: hx of substance use; from . Social History: Lives with fibrian. no kids. unemployed. Substance History: alcohol use. marijuana use daily. denies any other substance use. Trauma History: yes Diagnostics Vital Signs (24Hr): Vital Signs - 24 hr 06/28/25 19:19 06/29/25 00:00 06/29/25 03:31 Temperature 98.2 F 97.9 F 97.6 F Pulse Rate 90 84 84 Respiratory Rate 19 18 16 Blood Pressure 125/81 126/78 129/66 Pulse Oximetry 99 100 98 Oxygen Delivery Method Room Air Room Air Room Air 06/29/25 07:15 06/29/25 11:16 06/29/25 15:35 Temperature 99.0 F 98.5 F 98.7 F Pulse Rate 74 80 90 Respiratory Rate 18 18 20 Blood Pressure 123/76 120/83 130/95 H Pulse Oximetry 97 97 98 Oxygen Delivery Method Room Air Room Air BMI result Body Mass Index 21.9 Labs 06/28/25 04:01 06/29/25 07:05 Labs: Laboratory Results - last 48 hr 06/27/25 06/27/25 06/28/25 20:12 20:16 01:30 WBC 11.3 H RBC 4.70 D Hgb 15.1 Hct 44.6 MCV 94.9 MCH 32.1 MCHC 33.9 RDW 13.5 Plt Count 291 D MPV 10.0 Immature Gran % (Auto) 0.4 Neut % (Auto) 89.9 H Lymph % (Auto) 6.2 L Orange % (Auto) 2.7 Eos % (Auto) 0.3 Baso % (Auto) 0.5 Lymph # (Auto) 0.7 L [place] # (Auto) 0.3 Eos # (Auto) 0.0 Baso # (Auto) 0.1 Abs Immat Gran (auto) 0.05 H Absolute Neuts (auto) 10.1 H Absolute Nucleated RBC 0.000 Nucleated RBC % (auto) 0.0 Sodium 146 H Potassium 4.8 D Chloride 99 Carbon Dioxide 13 L Anion Gap 39 H BUN 16 Creatinine 0.88 Estim Creat Clear Calc 95.5 Estimated GFR > 60 POC Glucose 104 Random Glucose 97 Lactic Acid Calcium 9.6 Magnesium 2.7 H Total Bilirubin 1.1 H AST 89 H ALT 30 Alkaline Phosphatase 74 Total Protein 9.0 H Albumin 5.6 H Lipase 14 TSH 1.35 Beta HCG, Quant < 2 Urine Color Yellow Urine Appearance Clear Urine pH 5.0 Ur Specific [place] 1.025 Urine Protein 300 (3+) H Urine Glucose (UA) Negative Urine Ketones >=160 Urine Blood Small (1+) H Urine Nitrite Negative Ur Leukocyte Esterase Negative Urine RBC 0-2 Urine WBC 0-5 Ur Squamous Epith Cells 6-10 Urine Bacteria None Seen Hyaline Casts 6-10 Salicylates < 5.0 L Acetaminophen < 3 Ethyl Alcohol 59 06/28/25 06/28/25 06/29/25 04:01 11:28 07:05 WBC 7.4 RBC 3.90 L Hgb 12.5 Hct 36.9 L MCV 94.6 MCH 32.1 MCHC 33.9 RDW 13.6 Plt Count 206 D MPV 10.5 Immature Gran % (Auto) 0.3 Neut % (Auto) 80.9 H Lymph % (Auto) 12.6 L [place] % (Auto) 5.9 Eos % (Auto) 0.0 Baso % (Auto) 0.3 Lymph # (Auto) 0.9 L [place] # (Auto) 0.4 Eos # (Auto) 0.0 Baso # (Auto) 0.0 Abs Immat Gran (auto) 0.02 Absolute Neuts (auto) 6.0 Absolute Nucleated RBC 0.000 Nucleated RBC % (auto) 0.0 Sodium 141 137 Potassium 4.0 3.1 L D Chloride 105 97 Carbon Dioxide 22 31 H Anion Gap 18 12 BUN 13 8 L Creatinine 0.68 0.67 Estim Creat Clear Calc 123.7 125.5 Estimated GFR > 60 > 60 POC Glucose Random Glucose 158 H 86 Lactic Acid 0.9 Calcium 8.2 L D 9.1 D Magnesium Total Bilirubin 1.0 0.8 AST 62 H 79 H ALT 26 35 H Alkaline Phosphatase 57 54 Total Protein 7.0 7.1 Albumin 4.6 4.6 Lipase TSH Beta HCG, Quant Urine Color Urine Appearance Urine pH Ur Specific [place] Urine Protein Urine Glucose (UA) Urine Ketones Urine Blood Urine Nitrite Ur Leukocyte Esterase Urine RBC Urine WBC Ur Squamous Epith Cells Urine Bacteria Hyaline Casts Salicylates Acetaminophen Ethyl Alcohol Mental Status Exam Mental Status Exam Patient Appearance: Appropriate Patient Orientation: Person, Place, Time and Situation Level of Consciousness: Awake and Alert Patient Behavior: Appropriate, Cooperative and Good Eye Contact Mood Description: Anxious Affect Description: Calm Ability to Follow Directions: Good Speech Pattern: Clear Memory Description: Intact Hallucinations: None Delusions: Not Present Thought Process: Intact Thought Content: positive for Intact Medications Medications Current Medications Acetaminophen (Acetaminophen 325 Mg Tablet) 650 mg PO Q6H PRN PRN Reason: Pain, Mild 1-3,fever,headache Albuterol/Ipratropium (Albuterol/Iprat 2.5/0.5mg 3 Ml Ampul.Neb) 3 ml INHALE Q4H PRN PRN Reason: Shortness of Breath/Wheezing Calcium Carbonate (Calcium Carbonate 750 Mg Tab.Chew) 750 mg PO Q4H PRN PRN Reason: Heartburn Clonidine HCl (Clonidine Hcl 0.1 Mg Tablet) 0.1 mg PO TID [facility]; Protocol Enoxaparin Sodium (Enoxaparin Sodium 40 Mg/0.4 Ml Syringe) 40 mg SUBCUT Q24H [facility] Last Admin: 06/29/25 09:06 Dose: 40 mg Folic Acid (Folic Acid 1 Mg Tablet) 1 mg PO DAILY [facility] Last Admin: 06/29/25 09:04 Dose: 1 mg Gabapentin (Gabapentin 300 Mg Capsule) 300 mg PO BID@0900,1200 [facility] Last Admin: 06/29/25 12:35 Dose: 300 mg Gabapentin (Gabapentin 300 Mg Capsule) 600 mg PO BEDTIME [facility] Last Admin: 06/28/25 20:47 Dose: 600 mg Lorazepam (Lorazepam 0.5 Mg Tablet) 0.5 mg PO Q8H PRN PRN Reason: anxiety/restlessness Last Admin: 06/29/25 09:04 Dose: 0.5 mg Magnesium Hydroxide (Milk Of Magnesia 30 Ml Oral.Susp) 30 ml PO DAILY PRN PRN Reason: Constipation Melatonin (Melatonin 3 Mg Tablet) 6 mg PO BEDTIME PRN PRN Reason: Sleep Ondansetron HCl (Ondansetron Hcl 4 Mg/2 Ml Vial) 4 mg IVPUSH Q8H PRN PRN Reason: Nausea and Vomiting Last Admin: 06/28/25 20:45 Dose: 4 mg Pharmacy Consult (Consult Rx Etoh Phenob Im/Po) 1 each MISCELLANE ONCE PRN; Protocol PRN Reason: Consult order Phenobarbital (Phenobarbital 15 Mg Tablet) 45 mg PO BID [facility]; Protocol Stop: 06/29/25 21:01 Last Admin: 06/29/25 09:05 Dose: 45 mg Phenobarbital (Phenobarbital 15 Mg Tablet) 15 mg PO BID [facility]; Protocol Stop: 07/01/25 21:01 Phenobarbital (Phenobarbital 15 Mg Tablet) 15 mg PO DAILY [facility] Stop: 07/03/25 09:01 Polyethylene Glycol (Polyethylene Glycol 3350 17 Gm Powd.Pack) 17 gm PO DAILY PRN PRN Reason: Constipation Senna (Sennosides 8.6 Mg Tablet) 17.2 mg PO BEDTIME [facility] Last Admin: 06/28/25 22:11 Dose: Not Given Sodium Chloride (0.9 % Sodium Chloride Flush 3 Ml Syringe) 3 ml IVFLUSH QSHIFT [facility] Last Admin: 06/29/25 09:06 Dose: 3 ml Thiamine HCl (Thiamine Hcl 100 Mg Tablet) 100 mg PO DAILY [facility] Last Admin: 06/29/25 09:05 Dose: 100 mg Allergies Allergies Allergy/AdvReac Type Severity Reaction Status Date / Time No Known Allergies Allergy Verified 06/27/25 20:11 Assessment & Plan Assessment & Plan (1) Anxiety: Status: Acute Code(s): F41.9 - Anxiety disorder, unspecified (2) Alcohol use disorder: Status: Acute Code(s): F10.90 - Alcohol use, unspecified, uncomplicated Plan Recommendations: -Patient encouraged to reach out to [facility] to set up appointments for outpatient psychiatric providers; pt agreed. She will consider starting on psychiatric medications. -Addiction medicine consult for nutritional health coach. Total time managing care of this patient today _30___ minutes. Patient educated on: diagnosis and medication risk/benefits
--- NOTE | 2025-06-29 17:04 | ECG_ITS ---
Test Reason : Arrythmia Blood Pressure : */* mmHG Vent. Rate : 76 BPM Atrial Rate : 76 BPM P-R Int : 120 ms QRS Dur : 98 ms QT Int : 406 ms P-R-T Axes : 24 70 38 degrees QTcB Int : 456 ms Normal sinus rhythm T wave abnormality, consider anterior ischemia Abnormal ECG When compared with ECG of 27-Jun-2025 20:18, Vent. rate has decreased by 60 bpm T wave inversion no longer evident in Inferior leads T wave inversion now evident in Anterior leads Referred By: Darlene Granados Electronically Signed By: Iker Verde
--- NOTE | 2025-06-29 17:22 | P.DS_ITS ---
DS: Providers Provider Date of Service: 06/29/25 Date of admission: 06/27/25 23:00 Date of discharge: 06/29/25 Primary care physician: Gil Flores MD Consults: 06/28/25 00:07 Addiction Medicine Provider Routine Consulting Provider: Addiction Covering Reason for consultation: alcohol abuse Has provider been notified: No 06/29/25 12:14 Consult to Psychiatry Routine Consulting Provider: [facility] Psych Covering Reason for consultation: anxiety and depression leading to alcohol abuse, hx of adhd DS: Diagnosis Discharge Diagnosis (1) Anxiety: Status: Acute (2) Alcohol use disorder: Status: Acute DS: Summary Hospital Course Hospital Course: HPI: 34-year-old female with history of alcohol use disorder, binge drink, , hepatic steatosis, , colitis, seizure peripheral neuropathy making mobility more difficult was BIBA for suspected alcohol withdrawal in 24 hours of nausea and vomiting. Patient did state that she was binge drinking for the last 2-3 days. Her last drink was yesterday. Patient chooses to drink vodka. Patient currently is denying suicidal ideations or homicidal ideations and hallucinations. Patient currently begging for ice chips. Patient denies history of pancreatitis. Patient currently not having any chest pain, shortness of breath, abdominal pain. Patient states she does have a seizure history related to alcohol withdrawal. Patient was started on phenobarbital in the ED. HCG pending. . Lipase pending. Patient being admitted for alcohol withdrawal monitoring and treatment. Toxicology screen positive for barbiturates and marijuana. Patient does admit to using marijuana but denies any use of illicit drugs or tobacco. Patient had additional doses of phenobarbital, seizure precautions were in place. Patient was complaining of anxiety, psych was consulted. During the day patient developed episodes of SVT with heart rates in the 170s, with fluctuation of her heart rate. On telemetry patient had premature atrial complexes, EKG was obtained with T-wave inversions in leads V1-V3. Patient states that she does not wish to stay at the hospital and wishes to be discharged home, after thorough counseling given, patient resonated understanding and resonated that she wishes to leave against medical advice, may lead to withdrawal seizures, arrhythmias and may ultimately lead to her . Patient states that she understands the risk and is willing to take them. Mentions that she will follow up with her PCP and we will request to follow up with Cardiology in outpatient setting. Patient was given the opportunity ask questions and express concerns, all of which were answered to their satisfaction. Patient instructed to follow-up with her PCP within 3 to 10 days of discharge and head to the nearest emergency room or call 911 if symptoms worsen or new symptoms develop to get medical attention. More than 35 minutes was spent with patient regarding workup, diagnosis and follow-up. Time Attestation Discharge Coordination Time (in mins): greater than 30 minutes Quality: Safe Use of Opioids Does Pt have an Active Cancer Diagnosis on the Problem List?: No Quality: Stroke Does the patient have a stroke diagnosis?: No Physical Exam Vital Signs: Vital Signs: Last Vital Signs Temp 98.7 F 06/29/25 15:35 Pulse 90 06/29/25 15:35 Resp 20 06/29/25 15:35 BP 130/95 H 06/29/25 15:35 Pulse Ox 98 06/29/25 15:35 O2 Del Method Room Air 06/29/25 11:16 BMI result Body Mass Index 21.9 DS: Data Data Completed and Pending Completed studies during hospitalization [Text1]: Procedures Detoxification Services for Substance Abuse Treatment (03/25/25) Labs on day of discharge: Laboratory Results - last 24 hr 06/29/25 07:05 Sodium 137 Potassium 3.1 L D Chloride 97 Carbon Dioxide 31 H Anion Gap 12 BUN 8 L Creatinine 0.67 Estim Creat Clear Calc 125.5 Estimated GFR > 60 Random Glucose 86 Calcium 9.1 D Total Bilirubin 0.8 AST 79 H ALT 35 H Alkaline Phosphatase 54 Total Protein 7.1 Albumin 4.6 Discharge Plan Discharge Anticipated Discharge Date/Time: 06/29/25 17:23 Patient Disposition: Left Against Medical Advice Discharge Diagnosis: Alcohol use disorder with withdrawal Referrals: Gil Flores MD [Primary Care Provider, Internal Medicine] - 1 Week Discharge Medications: Continued lidocaine 5 % adhesive patch,medicated 1 patch topical DAILY Rx Instructions: APPLY 1 PATCH DAILY APPLY TO PAINFUL AREA FOR 12 HOURS PER DAY, REMOVE FOR 12 HOURS gabapentin 300 mg capsule 300 mg PO BID@0900,1200 Vitron-C 65 mg iron- 125 mg tablet,delayed release (DR/EC) 1 tab PO DAILY gabapentin 300 mg capsule 600 mg PO BEDTIME clotrimazole-betamethasone 1-0.05 % cream 1 appl topical BID PRN (Reason: Rash) melatonin 5 mg Tablet 5 mg PO BEDTIME PRN (Reason: Sleep) thiamine HCl (vitamin B1) 100 mg capsule 100 mg PO DAILY Qty: 90 0RF Rx Instructions: Take one tablet daily multivitamin Tablet 1 tab PO DAILY Qty: 90 0RF Rx Instructions: Take one tablet daily folic acid 1 mg tablet 1 mg PO DAILY Qty: 90 0RF Rx Instructions: Take one tablet daily Discharge Orders: Discharge Order (Routine); Ordered 06/29/25 Ordered By: Shahram Jara Diet: Advance to usual diet Activity on Discharge: As tolerated Print Language: Romanian Care Plan Goals: Left AMA Health Concerns: Left AMA Plan of Treatment: Left AMA Assessment: Left AMA Discharge Date/Time: 06/29/25 17:29
--- NOTE | 2025-06-29 17:26 | P.DS_ITS ---
DS: Providers Provider Date of Service: 06/29/25 Date of admission: 06/27/25 23:00 Date of discharge: 06/29/25 Primary care physician: Gil Flores MD Consults: 06/28/25 00:07 Addiction Medicine Provider Routine Consulting Provider: Addiction Covering Reason for consultation: alcohol abuse Has provider been notified: No 06/29/25 12:14 Consult to Psychiatry Routine Consulting Provider: [facility] [place] Psych Covering Reason for consultation: anxiety and depression leading to alcohol abuse, hx of adhd Attending physician on discharge: Shahram Jara Discharging clinician: Shahram Jara DS: Diagnosis Discharge Diagnosis (1) Anxiety: Status: Acute (2) Alcohol use disorder: Status: Acute DS: Summary Hospital Course Hospital Course: HPI: 34-year-old female with history of alcohol use disorder, binge drink, , hepatic steatosis, , colitis, seizure peripheral neuropathy making mobility more difficult was BIBA for suspected alcohol withdrawal in 24 hours of nausea and vomiting. Patient did state that she was binge drinking for the last 2-3 days. Her last drink was yesterday. Patient chooses to drink vodka. Patient currently is denying suicidal ideations or homicidal ideations and hallucinations. Patient currently begging for ice chips. Patient denies history of pancreatitis. Patient currently not having any chest pain, shortness of breath, abdominal pain. Patient states she does have a seizure history related to alcohol withdrawal. Patient was started on phenobarbital in the ED. HCG pending. . Lipase pending. Patient being admitted for alcohol withdrawal monitoring and treatment. Toxicology screen positive for barbiturates and marijuana. Patient does admit to using marijuana but denies any use of illicit drugs or tobacco. Patient had additional doses of phenobarbital, seizure precautions were in place. Patient was complaining of anxiety, psych was consulted. During the day patient developed episodes of SVT with heart rates in the 170s, with fluctuation of her heart rate. On telemetry patient had premature atrial complexes, EKG was obtained with T-wave inversions in leads V1-V3. Patient states that she does not wish to stay at the hospital and wishes to be discharged home, after thorough counseling given, patient resonated understanding and resonated that she wishes to leave against medical advice, may lead to withdrawal seizures, arrhythmias and may ultimately lead to her . Patient states that she understands the risk and is willing to take them. Mentions that she will follow up with her PCP and we will request to follow up with Cardiology in outpatient setting. Patient was given the opportunity ask questions and express concerns, all of which were answered to their satisfaction. Patient instructed to follow-up with her PCP within 3 to 10 days of discharge and head to the nearest emergency room or call 911 if symptoms worsen or new symptoms develop to get medical attention. More than 35 minutes was spent with patient regarding workup, diagnosis and follow-up. Time Attestation Discharge Coordination Time (in mins): greater than 35 mins Quality: Safe Use of Opioids Does Pt have an Active Cancer Diagnosis on the Problem List?: No Quality: Stroke Does the patient have a stroke diagnosis?: No Physical Exam Vital Signs: Vital Signs: Last Vital Signs Temp 98.7 F 06/29/25 15:35 Pulse 90 06/29/25 15:35 Resp 20 06/29/25 15:35 BP 130/95 H 06/29/25 15:35 Pulse Ox 98 06/29/25 15:35 O2 Del Method Room Air 06/29/25 11:16 BMI result Body Mass Index 21.9 DS: Data Data Completed and Pending Completed studies during hospitalization [Text1]: Procedures Detoxification Services for Substance Abuse Treatment (03/25/25) Labs on day of discharge: Laboratory Results - last 24 hr 06/29/25 07:05 Sodium 137 Potassium 3.1 L D Chloride 97 Carbon Dioxide 31 H Anion Gap 12 BUN 8 L Creatinine 0.67 Estim Creat Clear Calc 125.5 Estimated GFR > 60 Random Glucose 86 Calcium 9.1 D Total Bilirubin 0.8 AST 79 H ALT 35 H Alkaline Phosphatase 54 Total Protein 7.1 Albumin 4.6 Discharge Plan Discharge Anticipated Discharge Date/Time: 06/29/25 17:23 Patient Disposition: Left Against Medical Advice Discharge Diagnosis: Alcohol use disorder with withdrawal Referrals: Gil Flores MD [Primary Care Provider, Internal Medicine] - 1 Week Discharge Medications: Continued lidocaine 5 % adhesive patch,medicated 1 patch topical DAILY Rx Instructions: APPLY 1 PATCH DAILY APPLY TO PAINFUL AREA FOR 12 HOURS PER DAY, REMOVE FOR 12 HOURS gabapentin 300 mg capsule 300 mg PO BID@0900,1200 Vitron-C 65 mg iron- 125 mg tablet,delayed release (DR/EC) 1 tab PO DAILY gabapentin 300 mg capsule 600 mg PO BEDTIME clotrimazole-betamethasone 1-0.05 % cream 1 appl topical BID PRN (Reason: Rash) melatonin 5 mg Tablet 5 mg PO BEDTIME PRN (Reason: Sleep) thiamine HCl (vitamin B1) 100 mg capsule 100 mg PO DAILY Qty: 90 0RF Rx Instructions: Take one tablet daily multivitamin Tablet 1 tab PO DAILY Qty: 90 0RF Rx Instructions: Take one tablet daily folic acid 1 mg tablet 1 mg PO DAILY Qty: 90 0RF Rx Instructions: Take one tablet daily Discharge Orders: Discharge Order (Routine); Ordered 06/29/25 Ordered By: Shahram Jara Diet: Advance to usual diet Activity on Discharge: As tolerated Print Language: Italian Care Plan Goals: Left AMA Health Concerns: Left AMA Plan of Treatment: Left AMA Assessment: Left AMA Discharge Date/Time: 06/29/25 17:29
--- NOTE | 2025-06-29 19:03 | PC.NURSE ---
Provider at bedside with this RN to follow up with elevated heart rate, Provider ordered ekg stat, patient still insisted on leaving AMA even through provider explained all the risk with leaving with a fast heart rate.Patient stated she will follow up with her PCP. Patient a&ox4
== END 2025-06-29 17:29 | disposition left against medical advice (07) | DRG 770 ==
LOC: HO.ED 22:14 → HO.EDOVER 06-28 → HO.IMC 06-28 17:30
PROVIDERS: Hospitalist; Nurse Practitioner Family; Physician Assistant; Admitting Provider Internal Medicine; Emergency Provider Emergency Medicine Emergency Medical Services; PCP Internal Medicine; Visit Provider Student in an Organized Health Care Education/Training Program
DX: F10.239 Alcohol dependence with withdrawal, unspecified (principal); E87.20 Acidosis, unspecified; K76.0 Fatty (change of) liver, not elsewhere classified; F41.9 Anxiety disorder, unspecified; Y90.2 Blood alcohol level of 40-59 mg/100 ml; G62.9 Polyneuropathy, unspecified; Z79.899 Other long term (current) drug therapy
CPT/HCPCS: 36415; 80053; 80143; 80179; 80307; 81001; 81003; 82947; 83605; 83690; 83735; 84443; 84702; 85025; 93005; 97116; 97162; 99285; J1650; J2405; J2560; J3360; S9485

== ENCOUNTER → 2025-06-27 20:18 | Outpatient (BNV) | payer OTHER, SELFPAY | PROVIDERS: Admitting Provider Internal Medicine; Emergency Provider Emergency Medicine Emergency Medical Services; PCP Internal Medicine; Visit Provider Internal Medicine Cardiovascular Disease | DX: R00.0 Tachycardia, unspecified (principal) | CPT/HCPCS: 93010 ==

== ENCOUNTER 2025-06-27 23:00 | Outpatient (BNV) | payer OTHER, SELFPAY | END 2025-06-29 17:04 | PROVIDERS: Admitting Provider Internal Medicine; Emergency Provider Emergency Medicine Emergency Medical Services; PCP Internal Medicine; Visit Provider Internal Medicine Cardiovascular Disease | DX: R94.31 Abnormal electrocardiogram [ECG] [EKG] (principal); I49.9 Cardiac arrhythmia, unspecified | CPT/HCPCS: 93010 ==

== ENCOUNTER → 2025-06-27 23:00 | Outpatient (BNV) | payer OTHER, SELFPAY | PROVIDERS: Admitting Provider Internal Medicine; Emergency Provider Emergency Medicine Emergency Medical Services; PCP Internal Medicine; Visit Provider Nurse Practitioner Family | DX: F10.90 Alcohol use, unspecified, uncomplicated (principal); F10.930 Alcohol use, unspecified with withdrawal, uncomplicated; G62.9 Polyneuropathy, unspecified; I10 Essential (primary) hypertension | CPT/HCPCS: 99223; 99499 ==

== ENCOUNTER → 2025-06-27 23:00 | Outpatient (BNV) | payer OTHER, SELFPAY | PROVIDERS: Admitting Provider Internal Medicine; Emergency Provider Emergency Medicine Emergency Medical Services; PCP Internal Medicine; Visit Provider Registered Nurse | DX: F41.9 Anxiety disorder, unspecified (principal); F10.90 Alcohol use, unspecified, uncomplicated | CPT/HCPCS: 99222 ==

== ENCOUNTER 2025-07-19 18:02 | Emergency (ER) | payer OTHER, SELFPAY ==
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
[2025-07-19 18:13] VITALS: BP 125/74; PULSE 95; O2SAT 100
[2025-07-19 18:14] VITALS: BP 126/81; PULSE 104; RESP 18; TEMP 36.9; O2SAT 96; BMI 23.5
--- OUTSIDE RECORDS SUMMARY | 2025-07-19 18:52 | XMS_ITS | Clinical Summary ---
Author Organization [address] [facility] Address [address] [place] [phone] Phone Care Team Providers Care Gate Watchman Name Role Phone Gil Flores MD Primary Care Provider [phone] Allergies No known active allergies Medications levETIRAcetam (KEPPRA) 500 mg tablet 03/28/20 25 Active thiamine 100 mg tablet 03/28/20 25 Active ferrous fumarate-vitamin C ER (Timothy-Sequels, iron-vit c,) 200 mg (65 mg iron)-25 mg CR tablet Take 1 tablet (65 mg total) by mouth 1 (one) time each day. Do not crush, chew, or split. 30 tablet 2 04/06/20 25 Active Vitron-C 65 mg iron- 125 mg tablet,delayed release (DR/EC) TAKE 1 TABLET BY MOUTH EVERY DAY DO NOT CRUSH,CHEW OR SPLIT 90 tablet 1 04/19/20 25 Active gabapentin (NEURONTIN) 300 mg capsule 300 mg in the morning and afternoon and 600 mg at night 120 each 5 04/20/20 25 Active Vienva 0.1-20 mg-mcg per tablet TAKE 1 TABLET BY MOUTH EVERY DAY 28 tablet 11 07/07/20 25 Active Additional Information Patient not taking.Reported on 07/14/2025 folic acid (FOLVITE) 1 mg tablet Take 1 tablet (1,000 mcg total) by mouth 1 (one) time each day. 90 tablet 1 07/08/20 25 Active multivitamin tablet Take 1 tablet by mouth 1 (one) time each day. 90 tablet 1 07/08/20 Active lidocaine (LIDODERM) 5 % patch Apply 1 patch topically 1 (one) time each day. Apply to painful area 12 hours per day, remove for 12 hours. 30 each 07/08/20 Active Daily-Lauro, with folic acid, 400 mcg tablet Take 1 tablet by mouth 1 (one) time each day. 07/08/20 Active folic acid (FOLVITE) 1 mg tablet Take 1 tablet (1,000 mcg total) by mouth 1 (one) time each day. 02/12/20 24 Discontinu ed(Reorder ) multivitamin tablet 03/28/20 Discontinu ed(Reorder ) lidocaine (LIDODERM) 5 % patch Apply 1 patch topically 1 (one) time each day. Apply to painful area 12 hours per day, remove for 12 hours. 30 each 04/12/20 25 Discontinu ed(Reorder ) diclofenac (VOLTAREN) 1 % topical gelIndications:Lef t forearm pain Apply 1 g topically 3 (three) times a day for 10 days. 30 g 07/05/20 25 025 ondansetron ODT (ZOFRAN-ODT) 4 mg disintegrating tablet Dissolve 1 tablet (4 mg total) on top of the tongue 1 (one) time each day if needed for nausea or vomiting for up to 10 days. 10 tablet 07/08/20 025 Active Problems Problem Noted Date Diagnosed Date Cervical spondylosis 07/14/2025 Assessment & Plan (07/14/2025 12:40 PM EDT): Patient has multiple areas of pain on [...] the knuckles hurt. 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 She also had cervical and head CT scans [facility] 03/25/2025 that did not show any acute findings, no cervical fractures, no sign of any significant stenosis or large disc herniations. I reviewed all her imaging with her in detail in the computer. Ms. White is describing right neck pain and spasm, what sounds like occipital neuralgia, points to a tender spot right occiput, right upper trapezius pain and spasm. She is able to reach overhead with the right shoulder without pain, notes pain [...] has follow-up appointment with Dr. Velarde 07/28/2025. Chronic sacroiliac joint pain 07/14/2025 Assessment & Plan (07/14/2025 12:41 PM EDT): Patient describes transverse low back pain, points [...] She will follow-up after PT or call with any concerns or questions. Alcohol abuse 07/08/2025 Alopecia 07/15/2024 Psoriasis 07/15/2024 Encounters Date Type Department Care Team Description 07/14/2025 10:30 AM EDT Consult Neurosurgery [facility] [address] [place] [address] Yanely Vázquez PA Cervical spondylosis (Primary Dx); Chronic sacroiliac joint pain 07/08/2025 11:15 AM EDT Office Visit Internal Medicine - [address] [phone] Gil Flores MD Follow-up exam (Primary Dx); Anxiety; Alcohol abuse; Cervical radiculopathy 07/05/2025 4:15 PM EDT Office Visit Walk-In Clinic - [address] [phone] Everton Figueredo NP Left forearm pain (Primary Dx) 06/29/2025 Telephone Internal Medicine - [address] [phone] Gil Flores MD 04/19/2025 3:14 PM EDT - 04/19/2025 11:59 PM EDT Hospital Encounter [facility] [address] [place] [id number] Seizure (CMS/HCC V24, CMS/HCC V28) Discharge Disposition: Home or Self Care from Last 3 Months Immunizations Immunization Administration Dates Next Due Hepatitis B ([place] , Recombivax HB-Adult) 19yo and older 05/20/2001 [...] TONSILLECTOMY ADENOIDECTOMY, BILATERAL MYRINGOTOMY AND TUBES PROCEDURE: IN TONSILLECTOMY & ADENOIDECTOMY <AGE 12 WISDOM TOOTH EXTRACTION PROCEDURE: HISTORICAL WISDOM TEETH EXTRACTION Medical History Medical History Date Comments Psoriasis Alopecia Drinking binge Seizures ([facility] V24, [facility] V28) Anxiety Arthritis Heart murmur Family History Medical History Relation Name Comments [...] Sign Reading Time Taken Comments Blood Pressure 91/66 07/08/2025 11:20 AM EDT A Pulse 65 07/08/2025 11:20 AM EDT Temperature 36.3 C (97.3 F) 07/05/2025 4:11 PM EDT Respiratory Rate 16 09/17/2024 1:29 PM EST Oxygen Saturation 97% 04/12/2025 5:52 PM EDT Inhaled Oxygen Concentration - - Weight 72.6 kg (160 lb) 07/14/2025 10:48 AM EDT Height 177.8 cm (5' 10 ) 07/14/2025 10:48 AM EDT Body Mass Index 22.96 07/14/2025 10:48 AM EDT Plan of Treatment Upcoming Encounters Date Type Department Care Team (Late st Contact Info) Description 07/21/2025 10:00 AM EST Ancillary Procedure [facility] [address] [place] [address] 07/28/2025 9:00 AM EST Office Visit Internal Medicine - [address] [phone] Jay Jay Mendoza, JACQEULIN [address] [place] [address] 07/28/2025 4:00 PM EST Office Visit [facility] [address] [facility] [address] [place] [address] Kay Velarde MD [address] [place] [address] 11/17/2025 3:30 PM EST Office Visit Obstetrics and Gynecology - [address] [phone] Shayy Busch CNM [address] [place] [address] 01/06/2026 8:00 AM EDT Office Visit Internal Medicine - [address] [phone] Gil Flores MD [address] [place] [phone] Health Maintenance Due Date Last Done Comments [...] 04/19/2025 4:27 PM EDT Seizure (CMS/HCC V24, CMS/[facility] V28) LIPID PANEL Routine 04/19/2024 HM HPV Routine [...] Signed Date: 04/22/2025 11:42 ET Workstation ID: [id number] Transcribed By: Self Edit Transcribed Date: 04/22/2025 [...] Signed Date: 04/22/2025 11:42 ET Workstation ID: [id number] Transcribed By: Self Edit Transcribed Date: 04/22/2025 11:34 ET Result [facility] Kay Velarde MD IM MRI PROCEDURES Final Result * Lipid panel (04/19/2024) [facility] LDL/HDL Ratio 2 0 - 4 Triglycerides 42 0 - 150 mg/dL Cholesterol 182 0 - 200 mg/dL HDL 107 >=40 mg/dL LDL Cholesterol 67 0 - 100 mg/dL Blood Venous blood specimen / Unknown Result [facility] Provider LAB BLOOD ORDERABLES Adrianna l Result * Cervical Cancer Screening: HPV (11/24/2023) [facility] Cervical Cancer Screening: HPV abstracted, negative Result [facility] Provider HEALTH MAINTENANCE Final Result * HIV Screening (11/24/2023) [facility] HIV Screening abstracted Result [facility] Provider HEALTH MAINTENANCE Final Result * Hepatitis C Screening (11/24/2023) Hepatitis C Screening abstracted us Historical Provider HEALTH MAINTENANCE Final Result from Last 3 Months or Most Recently Relevant to Health Maintenance Insurance [facility] [employer] Care Teams Gate Watchman Relationship Specialty Start Date End Date Gil Flores MD [address] [place] [address] [place] [id number] PCP - General Internal Medicine 06/15/21
[2025-07-19 18:54] VITALS: BP 109/81; PULSE 92; RESP 20; O2SAT 96
[2025-07-19 18:55] LABS: Cannabinoid Screen Urine POSITIVE (Not Detect)
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
[2025-07-19 19:31] LABS: Hematocrit 38.6 % (37.0-47.0); Hemoglobin 13.2 g/dl (12.0-16.0); Imm Gran Abs Auto 0.03 X10*3/uL (0.00-0.03); Imm Gran Pct Auto 0.3 % (0.0-0.4); Lymphocytes Absolute Auto 3.7 X10*3/uL (1.2-4.9); MANUAL DIFF FLAG NO; Mean Corpuscular HGB Conc 34.2 g/dl (31.0-35.0); Mean Corpuscular Hemoglobin 32.0 pg (27.0-33.0); Mean Corpuscular Volume 93.5 fL (80.0-98.0); NRBC Abs Auto 0.000 X10*3/uL (0.0-0.012); NRBC Pct Auto 0.0 /100WBC (0.0-0.2); Platelet Count 357 X10*3/uL (160-400); Red Blood Count 4.13 X10*6/uL (4.20-5.50); White Blood Count 8.7 X10*3/uL (4.8-10.8)
[2025-07-19 19:49] LABS: Anion Gap 16 (12-20); Blood Urea Nitrogen 7 mg/dL (9-16); Calcium 9.3 mg/dL (8.4-10.2); Carbon Dioxide 26 mmol/L (22-29); Chloride 108 mmol/L (96-108); Creatinine Clr Calc Pharmacy 116.8; Estimated Glomerular Filt Rate > 60; Potassium 4.0 mmol/L (3.3-5.1); Sodium 146 mmol/L (135-145)
[2025-07-19 20:23] LABS: UPreg QC Valid YES
[2025-07-19 20:24] LABS: Appearance Urine Cloudy; Glucose Urine UA Negative (Negative); PH 5.5 (5.0-9.0); Specific Gravity - Urine 1.010 (1.005-1.025); UMIC TRIGGER UA YES
[2025-07-19 20:26] VITALS: BP 109/81; PULSE 92; RESP 20; TEMP -17.7; TEMP 0; O2SAT 96
== END 2025-07-19 20:26 ==
PROVIDERS: Emergency Provider Emergency Medicine; PCP Internal Medicine
DX: F10.129 Alcohol abuse with intoxication, unspecified (principal); Y90.8 Blood alcohol level of 240 mg/100 ml or more; I10 Essential (primary) hypertension; G62.9 Polyneuropathy, unspecified; Z65.3 Problems related to other legal circumstances
CPT/HCPCS: 36415; 80048; 80307; 81001; 81025; 84702; 85025; 99284

== ENCOUNTER 2025-08-06 22:23 | Inpatient (IN) | payer OTHER, SELFPAY ==
--- NOTE | ~2025-08-06 | CT_ITS ---
CLINICAL HISTORY: abd pain, History of alcoholism. CT abdomen and pelvis with contrast Comparison: CT - CT ABDOMEN PELVIS W IV CON - 08/07/25 00:44 EST Findings: LIMITED CHEST: Lung bases are clear. LIVER: No focal liver lesion. Diffusely hypoattenuating suggesting steatosis. BILIARY: No gallbladder wall thickening, radiopaque stone, or ductal dilatation. PANCREAS: No mass or ductal dilatation. SPLEEN: No splenomegaly. KIDNEYS: No hydronephrosis or radiopaque stone. ADRENALS: No nodule. VASCULAR: No aneurysm. RETROPERITONEUM: No lymphadenopathy or mass. BOWEL/MESENTERY: No evidence of obstruction. No free fluid or air. Mild ascending colon and sigmoid colonic wall thickening, may be due to underdistention. ABDOMINAL WALL: No mass or significant abnormality. URINARY BLADDER: No focal wall thickening. PELVIC NODES: No pelvic lymphadenopathy. PELVIC ORGANS: Normal for age. BONES: No acute fracture. OTHER: Negative. IMPRESSION: Mild ascending colon and sigmoid colon wall thickening, may represent infectious or inflammatory colitis. Hepatic steatosis. This document has been electronically signed by: Maria Del Rosario Rodriguez MD on 08/07/2025 02:01:55
[2025-08-06 22:30] VITALS: BP 128/84; BP 136/80; PULSE 100; RESP 20; TEMP 36.7; O2SAT 93; O2SAT 95; BMI 23.0
--- OUTSIDE RECORDS SUMMARY | 2025-08-06 23:08 | XMS_ITS | Clinical Summary ---
[facility] Address [address] [place] [phone] Phone Care Team Providers Care Windmill Technician Name Role Phone Gil Flores MD Primary Care Provider [phone] Allergies No known active allergies Medications levETIRAcetam (KEPPRA) 500 mg tablet 025 Active thiamine 100 mg tablet 025 Active ferrous fumarate-vitamin C ER (Timothy-Sequels, iron-vit c,) 200 mg (65 mg iron)-25 mg CR tablet Take 1 tablet (65 mg total) by mouth 1 (one) time each day. Do not crush, chew, or split. 30 tablet 2 025 Active Vitron-C 65 mg iron- 125 mg tablet,delayed release (DR/EC) TAKE 1 TABLET BY MOUTH EVERY DAY DO NOT CRUSH,CHEW OR SPLIT 90 tablet 1 025 Active gabapentin (NEURONTIN) 300 mg capsule 300 mg in the morning and afternoon and 600 mg at night 120 each 5 025 Active Vienva 0.1-20 mg-mcg per tablet TAKE 1 TABLET BY MOUTH EVERY DAY 28 tablet 11 025 Active Additional Information Patient not taking.Reported on 07/14/2025 folic acid (FOLVITE) 1 mg tablet Take 1 tablet (1,000 mcg total) by mouth 1 (one) time each day. 90 tablet 1 025 Active multivitamin tablet Take 1 tablet by mouth 1 (one) time each day. 90 tablet 1 Active Daily-Lauro, with folic acid, 400 mcg tablet Take 1 tablet by mouth 1 (one) time each day. Active hydrOXYzine HCL (ATARAX) 10 mg tablet Take 1 tablet (10 mg total) by mouth 2 (two) times a day if needed for anxiety. 60 each 025 2024 Active lidocaine (LIDODERM) 5 % patch APPLY 1 PATCH DAILY APPLY TO PAINFUL AREA FOR 12 HOURS PER DAY, REMOVE FOR 12 HOURS 30 patch 5 Active folic acid (FOLVITE) 1 mg tablet Take 1 tablet (1,000 mcg total) by mouth 1 (one) time each day. 2024 Discontinued(R eorder) multivitamin tablet 2024 Discontinued(R eorder) lidocaine (LIDODERM) 5 % patch Apply 1 patch topically 1 (one) time each day. Apply to painful area 12 hours per day, remove for 12 hours. 30 each 025 2024 Discontinued(R eorder) diclofenac (VOLTAREN) 1 % topical gelIndications:Le ft forearm pain Apply 1 g topically 3 (three) times a day for 10 days. 30 g 2024 ondansetron ODT (ZOFRAN-ODT) 4 mg disintegrating tablet Dissolve 1 tablet (4 mg total) on top of the tongue 1 (one) time each day if needed for nausea or vomiting for up to 10 days. 10 tablet 2024 lidocaine (LIDODERM) 5 % patch Apply 1 patch topically 1 (one) time each day. Apply to painful area 12 hours per day, remove for 12 hours. 30 each 2024 Discontinued Active Problems Problem Noted Date Diagnosed Date [...] the knuckles hurt. 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 She also had cervical and head CT scans [facility] 03/25/2025 that did not [...] Encounters Date Type Department Care Team Description 07/28/2025 1:30 PM EST Treatment [address] [phone] Praveen Altman, PT Cervical spondylosis (Primary Dx) 07/28/2025 9:00 AM EST Office Visit Internal Medicine - [address] [phone] Jay Jay Mendoza NP Unspecified mood (affective) disorder (CMS/[facility] V24) (Primary Dx); Anxiety; Alcohol use disorder; Marijuana use 07/26/2025 8:00 AM EST Evaluation [address] [phone] Praveen Altman, PT Cervical spondylosis; Chronic sacroiliac joint pain 07/21/2025 Telephone Internal Medicine - [address] [phone] Gil Flores MD 07/14/2025 10:30 AM EDT Consult Neurosurgery [facility] [address] [place] [address] Yanely Vázquez PA Cervical spondylosis (Primary Dx); Chronic sacroiliac joint pain 07/08/2025 11:15 AM EDT Office Visit Internal Medicine - [address] [phone] Gil Flores MD Follow-up exam (Primary Dx); Anxiety; Alcohol abuse; Cervical radiculopathy 07/05/2025 4:15 PM EDT Office Visit Walk-In Clinic - [address] [phone] Everton Figueredo, JACQUELIN Left forearm pain (Primary Dx) 06/29/2025 Telephone Internal Medicine - [address] [phone] Gil Flores MD from Last 3 Months Immunizations Immunization Administration Dates Next Due Hepatitis B (Tkyzzfw-U-Hrfdr , Recombivax HB-Adult) 19yo and older 05/20/2001 [...] TONSILLECTOMY ADENOIDECTOMY, BILATERAL MYRINGOTOMY AND TUBES PROCEDURE: [place] TONSILLECTOMY & ADENOIDECTOMY <AGE 12 WISDOM TOOTH EXTRACTION PROCEDURE: HISTORICAL WISDOM TEETH EXTRACTION Medical History Medical History Date Comments Psoriasis Alopecia Drinking binge Seizures (CMS/HCC V24, CMS/HCC V28) Anxiety Arthritis Heart murmur Family History [...] Care Team (Late st Contact Info) Description 08/09/2025 5:30 PM EST Treatment [address] [phone] Uri Diaz PTA 08/15/2025 8:00 AM EST Office Visit Adult Medicine [address] [phone] Jay Jay Mendoza, JACQUELIN [address] [place] [address] 08/15/2025 5:00 PM EST Treatment [address] [place] [address] Yuriy Davis, CRANE HELPER 08/18/2025 5:00 PM EST Treatment [facility] [address] [phone] Uri Diaz, CRANE HELPER 08/22/2025 9:30 AM EST Treatment [address] [phone] Praveen Altman, PT 08/24/2025 5:00 PM EST Treatment [facility] [address] [phone] Yuriy Davis, CRANE HELPER 10/10/2025 10:00 AM EST Ancillary Procedure [facility] [place] [facility] [address] [facility] [address] [place] [address] 11/17/2025 3:30 PM EST Office Visit Obstetrics and Gynecology - [address] [phone] hSayy Busch, [address] [phone] 01/06/2026 8:00 AM EDT Office Visit Internal Medicine - [address] [phone] Gil Flores MD [address] [place] [phone] Health Maintenance Due Date Last Done Comments Hepatitis B Vaccines (2 of 3 - 3-dose series) 06/17/2001 05/20/2001 Hepatitis A Vaccines (1 of 2 - Risk 2-dose series) 2007 HPV Vaccines (1 - 3-dose SCD M series) 2015 Social Influencers of Health Screening 08/24/2022 COVID-19 Vaccine (3 - 2024-2 6 season) [...] Completed 11/24/2023 Hepatitis C Screening Completed 11/24/2023 Depression Screening Completed 07/22/2025 HIB Vaccines Aged Out No longer eligi [...] on patient's age to complete this topic Goals Goal Patient Goal Type Associated Problems Recent Progress Patient-Stated? 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 and carry 17 lb dog without cervical pain Pt will report no EPR with cervical AROM testing Pt will be independent with cervical, upper body HEP Pt will complete Lumbar evaluation Procedures Procedure Name Priority Date/Time Associated Diagnosis Comments LIPID PANEL Routine 04/19/2024 HPV Routine 11/24/2023 HEPATITIS C SCREENING Routine 11/24/2023 HIV SCREENING Routine 11/24/2023 from Last 3 Months or Most Recently Relevant to Health Maintenance Results * Lipid panel (04/19/2024) Pathologist [facility] LDL/HDL Ratio 2 0 - 4 Triglycerides 42 0 - 150 mg/dL Cholesterol 182 0 - 200 mg/dL HDL 107 >=40 mg/dL LDL Cholesterol 67 0 - 100 mg/dL Blood Venous blood specimen / Unknown Result [facility] Provider LAB BLOOD ORDERABLES Adrianna l Result * Cervical Cancer Screening: HPV (11/24/2023) Pathologist [facility] Cervical Cancer Screening: HPV abstracted, negative Result [facility] Provider HEALTH MAINTENANCE Final Result * HIV Screening (11/24/2023) [facility] HIV Screening abstracted [facility] Provider HEALTH MAINTENANCE Final Result * Hepatitis C Screening (11/24/2023) [facility] Hepatitis C Screening abstracted [facility] Provider HEALTH MAINTENANCE Final Result from Last 3 Months or Most Recently Relevant to Health Maintenance Insurance [facility] Care Teams Windmill Technician Relationship Specialty Start Date End Date Gil Flores MD [address] [place] [address] PCP - General Internal Medicine 06/15/21
--- NOTE | 2025-08-06 23:33 | ECG_ITS ---
Test Reason : EPIGASTRIC PAIN Blood Pressure : */* mmHG Vent. Rate : 99 BPM Atrial Rate : 99 BPM P-R Int : 110 ms QRS Dur : 102 ms QT Int : 370 ms P-R-T Axes : -18 79 27 degrees QTcB Int : 474 ms Sinus rhythm with short FL Otherwise normal ECG When compared with ECG of 29-Jun-2025 17:06, Nonspecific T wave abnormality now evident in Inferior leads Referred By: Tesha Garcia Electronically Signed By: CHINEDU MEDELLIN
--- NOTE | 2025-08-06 23:39 | ED.ALCOHOL ---
HPI - Alcohol General Chief Complaint: ETOH/Substance Use Stated Complaint: Alcohol withdrawal per , etoh Time Seen by Provider: 08/06/25 23:25 Source: patient and EMS Mode of arrival: EMS Limitations: no limitations History of Present Illness ED Provider: DR. Garcia HPI narrative: 35-year-old female history of alcohol use disorder patient has been drinking hard liquor since 08:00 continuously today, come in here complaining of diffuse abdominal pain, nausea, and vomiting, no depression, no SI, no HI, no hallucination. No falls, no head injury. No history of intra surgery, last bowel movement was this morning and was normal, passing flatus. Related Data Home Medications ?Medication ?Instructions ?Recorded ?Confirmed melatonin 5 mg tablet 5 mg PO BEDTIME PRN Sleep 03/25/25 06/28/25 gabapentin 300 mg capsule 300 mg PO BID@0900,1200 05/12/25 06/28/25 gabapentin 300 mg capsule 600 mg PO BEDTIME 05/12/25 06/28/25 iron,carbonyl 65 mg-vitamin C 125 1 tab PO DAILY 05/12/25 06/28/25 mg tablet,delayed release (Vitron-C) lidocaine 5 % topical patch 1 patch topical DAILY 05/12/25 06/28/25 clotrimazole-betamethasone 1 1 appl topical BID PRN Rash 06/28/25 06/28/25 %-0.05 % topical cream Previous Rx's ?Medication ?Instructions ?Recorded folic acid 1 mg tablet 1 mg PO DAILY #90 tabs 03/28/25 multivitamin 1 tab PO DAILY #90 tabs 03/28/25 thiamine HCl (vitamin B1) 100 mg 100 mg PO DAILY #90 caps 03/28/25 capsule Allergies Allergy/AdvReac Type Severity Reaction Status Date / Time No Known Allergies Allergy Verified 08/06/25 22:50 Review of Systems Review of Systems: All other systems are reviewed and are negative Constitutional: Reports as per HPI and Reports no additional constitutional complaints Eyes: Reports as per HPI and Reports no additional eye complaints Reports system reviewed and no additional complaints, except as documented Cardiovascular: Reports as per HPI and Reports no additional cardiovascular complaints Respiratory: Reports as per HPI and Reports no additional respiratory complaints Gastrointestinal: Reports as per HPI and Reports no additional gastrointestinal complaints Genitourinary: Reports no additional female genitourinary complaints Musculoskeletal: Reports no additional musculoskeletal complaints Skin/Breast: Reports system reviewed and no additional complaints, except as docu Psychiatric: Reports no additional psychiatric complaints Endocrine: Reports no additional endocrine complaints Hematologic/Lymphatic: Reports no additional hematologic/lymphatic complaints Allergic/Immunologic: Reports no additional allergic/immunologic complaints Reports system reviewed and no additional complaints, except as documented and Reports Abnormal speech present [facility] Past Medical History Medical History HTN (hypertension) Peripheral neuropathy Sepsis Alcohol use disorder, severe, dependence Social History Social History Household Members: Spouse Housing: Apartment Do you presently have visiting nurse or other home services: No Unable to assess alcohol history related to: Unknown Alcohol intake: current Alcohol intake frequency: 3 or more drinks per day Alcohol type: hard liquor Patient Tobacco Use Status: Never used Tobacco Smoked in Last 30 Days: No Use of substances other than those prescribed or required for medical reasons: Yes Substance Use Type: Marijuana Substance Use Frequency Other:: uknown Advance Directives: No Advance Directives Information Provided: No Do you have a plan to hurt others: No Plan Patient : No service: No Physical Exam ED Vital Signs: Vital Signs - 24 hr 08/06/25 22:30 08/07/25 06:32 Temperature 98.1 F Pulse Rate 100 97 Respiratory Rate 20 18 Blood Pressure 136/80 128/73 Pulse Oximetry 95 96 Oxygen Delivery Method Room Air Room Air BMI result Body Mass Index 23.0 Vital signs have been reviewed and appear to be correct. Blood pressure elevated. Heart rate normal. Respiratory rate normal. Temperature normal. Oxygen saturation normal. Appearance: Alert. Oriented X3. No acute distress. Head: Normal external exam. Normocephalic. Atraumatic. No Doty signs noted. No raccoon eyes noted Eyes: PERRLA. EOMI. Conjunctiva and sclera normal. Eyelids normal. ENT: TM's Normal. Pharynx normal. Uvula midline. Moist mucous membranes. No trismus noted. No drooling noted. No muffled voice noted. Neck: Normal inspection. Neck supple. FROM. No adenopathy. Thyroid Normal. No meningeal signs. No neck mass noted. CVS: Normal heart rate and rhythm. Heart sound normal. No murmurs noted. Pulses normal throughout. Respiratory: No respiratory distress. Painless inspiration. Breath sounds normal. No wheezes/rales/rhonchi noted. Chest nontender. No accessory muscle usage noted or decreased air movement noted. Abdomen: Soft , mild epigastric tenderness, no rebound tenderness, no guarding.Bowel sounds normal in all 4 quadrants. No distention noted. No organomegaly noted. No visible injury noted. Back: No CVA tenderness. Full range of motion noted. Skin: Skin warm and dry. Normal skin color. Normal skin turgor. No rashes/lesions/lacerations noted. Extremities: No lower extremity edema. Extremities exhibit normal range of motion. Extremities nontender. Neuro: Oriented X 3. Cranial nerve exam: II-XII are grossly intact No motor deficit. No sensory deficit. Reflexes normal. Course Reevaluation(s) Reevaluation #1: 35-year-old female history of alcohol use syndrome presented after drinking hard liquor all day today with alcohol level about 500, patient is complaining of diffuse abdominal pain with nausea and vomiting. CT abdomen pelvis was reviewed by myself still pending official Radiology report, signed out to Dr. Gonzales to check on official CT reading. Reassess the patient when sober dispo accordingly. Time: 02:00 Reevaluation #2: Time: 08:59 Date: 08/07/25 Provider: Tono Yanez MD I assumed care of this patient from my colleague, Dr. Boo at 07:00 hours. The patient initially refused recovery evaluation and did not want to go to detox. The patient's fiance came to the emergency department to take the patient home however patient states she was not feeling well. When I went to evaluate the patient the patient is tremulous, she is complaining of nausea and she appears to be significantly withdrawing from alcohol. Patient's CIWA score was 13. Patient did receive Valium 5 mg IV with no effect. Patient reported that she drinks 1-2 nips of alcohol per hour. Patient states she was last admitted to [facility] 2 months ago for alcohol withdrawal and detox. The patient is willing to stay in the hospital for detox. I ordered Valium 10 mg IV. I also ordered phenobarbital protocol 15 milligram/kilogram IM divided doses. Patient was also given Zofran 4 mg IV and normal saline x1 L. I will discuss admission with the covering hospitalist. Medical Decision Making Differential Diagnosis Differential Diagnoses: The differential diagnosis associated with the presentation includes ( alcoholic pancreatitis, alcoholic gastritis, colitis, diverticulitis, electrolyte derangement, severe anemia.) Admission/Observation Consideration of admission/observation: Escalation of care including admission/observation considered Lab Data MDM Lab Attestation statement: I reviewed the patient's lab results. 08/07/25 00:11 08/07/25 00:11 Labs: Lab Results 08/07/25 08/07/25 Range/Units 00:11 02:58 WBC 4.2 L (4.8-10.8) X10*3/uL RBC 4.21 (4.20-5.50) X10*6/uL Hgb 13.6 (12.0-16.0) g/dl Hct 38.0 (37.0-47.0) % MCV 90.3 (80.0-98.0) fL MCH 32.3 (27.0-33.0) pg MCHC 35.8 H (31.0-35.0) g/dl RDW 12.6 (11.0-16.0) % Plt Count 223 D (160-400) X10*3/uL MPV 9.6 (9.4-12.3) fL Immature Gran % (Auto) 0.2 (0.0-0.4) % Neut % (Auto) 43.6 L (45-73) % Lymph % (Auto) 50.2 H (20-40) % [place] % (Auto) 3.6 (2-11) % Eos % (Auto) 0.7 (0-4) % Baso % (Auto) 1.7 (0-2) % Lymph # (Auto) 2.1 (1.2-4.9) X10*3/uL [place] # (Auto) 0.2 (0.1-1.2) X10*3/uL Eos # (Auto) 0.0 (0.0-0.4) X10*3/uL Baso # (Auto) 0.1 (0.0-0.2) X10*3/uL Abs Immat Gran (auto) 0.01 (0.00-0.03) X10*3/uL Absolute Neuts (auto) 1.8 L (2.0-8.3) x10*3/uL Absolute Nucleated RBC 0.000 (0.0-0.012) X10*3/uL Nucleated RBC % (auto) 0.0 (0.0-0.2) /100WBC Sodium 139 (135-145) mmol/L Potassium 3.3 (3.3-5.1) mmol/L Chloride 97 (96-108) mmol/L Carbon Dioxide 22 (22-29) mmol/L Anion Gap 23 H (12-20) BUN 11 (9-16) mg/dL Creatinine 0.60 (0.5-1.4) mg/dL Estim Creat Clear Calc 138.8 Estimated GFR > 60 Random Glucose 101 (60-115) mg/dL Calcium 8.4 D (8.4-10.2) mg/dL Magnesium 2.4 (1.6-2.6) mg/dL Troponin I High Sens 3.7 D (<3.5-17.0) ng/L Lipase 73 (8-78) U/L Beta HCG, Quant < 2 mIU/mL Urine Color Yellow Urine Appearance Cloudy Urine pH 5.0 (5.0-9.0) Ur Specific [place] >= 1.030 H (1.005-1.025) Urine Protein 100 (2+) H (Neg-Trace) mg/dL Urine Glucose (UA) Negative (Negative) mg/dL Urine Ketones 40 (Negative) mg/dL Urine Blood Large (3+) H (Negative) Urine Nitrite Negative (Negative) Ur Leukocyte Esterase Negative (Negative) Urine RBC >20 H (0-2) /HPF Urine WBC 0-5 (0-5) /HPF Ur Squamous Epith Cells 6-10 (0-2) /HPF Urine Bacteria Trace (None Seen) Hyaline Casts 11-20 (0-2) /LPF Ethyl Alcohol 506 H* mg/dL Medications Administered Discontinued Medications Generic Name Dose Route Start Last Admin Trade Name Freq PRN Reason Stop Dose Admin Al Hydroxide/Mg Hydroxide 30 ml 08/06/25 23:32 08/07/25 00:15 Magnesium Hydrox/Alum Hydrox 30 Ml Oral.Susp PO 08/06/25 23:33 30 ml ONCE ONE Administration Diazepam 5 mg 08/07/25 07:17 08/07/25 07:29 Diazepam 10 Mg/2 Ml Cartridge IVPUSH 08/07/25 07:18 5 mg STAT STA Administration Famotidine 20 mg 08/06/25 23:32 08/07/25 00:15 Famotidine/Pf 20 Mg/2 Ml Vial IVPUSH 08/06/25 23:33 20 mg ONCE ONE Administration Sodium Chloride 1,000 mls @ 999 mls/hr 08/06/25 23:32 08/07/25 01:30 Ns IV 08/07/25 00:32 Infused .Q1H1M ONE Infusion Iohexol 100 ml 08/07/25 00:59 08/07/25 01:00 Iohexol 350 Mg/Ml 100 Ml Infus..Btl IV 08/07/25 01:00 85 ml ONCE ONE Administration Ondansetron HCl 4 mg 08/06/25 23:35 08/07/25 00:15 Ondansetron Hcl 4 Mg/2 Ml Vial IVPUSH 08/06/25 23:36 4 mg ONCE ONE Administration Prochlorperazine Edisylate 10 mg 08/07/25 02:41 08/07/25 02:47 Prochlorperazine Edisylate 10 Mg/2 Ml Vial IVPUSH 08/07/25 02:42 10 mg ONCE ONE Administration Sucralfate 1 gm 08/06/25 23:32 08/07/25 00:15 Sucralfate Oral Suspension 1 Gm/10 Ml Oral.Susp PO 08/06/25 23:33 1 gm ONCE ONE Administration Critical Care Time Critical Care Time Critical Care Time: Yes Total Critical Care Time: 45 Attestation: Critical Care: The patient was critically ill with a high probability of imminent or life threatening deterioration. I spent greater than 30 minutes of discontinuous time evaluating the patient,delivering critical care at the bedside, discussing and evaluating pertinent data with consultants. Critical care time does not include time spent performing separately billable procedures or teaching. Total time spent performing critical care was 45 minutes. Discharge Plan Discharge Clinical Impression: Alcohol use disorder, Acute alcoholic gastritis without hemorrhage, Alcohol withdrawal Patient Disposition: Admitted As Inpatient Print Language: Armenian
[2025-08-07] MEDS: Sucralfate Oral Suspension 1 GM/10 ML ORAL.SUSP PO (00:15)
[2025-08-07] MEDS: Magnesium Hydrox/Alum Hydrox 30 ML ORAL.SUSP PO (00:15)
[2025-08-07 00:17] LABS: MANUAL DIFF FLAG NO
[2025-08-07 00:18] LABS: Hematocrit 38.0 % (37.0-47.0); Hemoglobin 13.6 g/dl (12.0-16.0); Imm Gran Abs Auto 0.01 X10*3/uL (0.00-0.03); Imm Gran Pct Auto 0.2 % (0.0-0.4); Lymphocytes Absolute Auto 2.1 X10*3/uL (1.2-4.9); Mean Corpuscular HGB Conc 35.8 g/dl (31.0-35.0); Mean Corpuscular Hemoglobin 32.3 pg (27.0-33.0); Mean Corpuscular Volume 90.3 fL (80.0-98.0); NRBC Abs Auto 0.000 X10*3/uL (0.0-0.012); NRBC Pct Auto 0.0 /100WBC (0.0-0.2); Platelet Count 223 X10*3/uL (160-400); Red Blood Count 4.21 X10*6/uL (4.20-5.50); White Blood Count 4.2 X10*3/uL (4.8-10.8)
[2025-08-07 00:39] VITALS: PULSE 100
[2025-08-07 00:49] LABS: Anion Gap 23 (12-20); Blood Urea Nitrogen 11 mg/dL (9-16); Calcium 8.4 mg/dL (8.4-10.2); Carbon Dioxide 22 mmol/L (22-29); Chloride 97 mmol/L (96-108); Creatinine Clr Calc Pharmacy 138.8; Estimated Glomerular Filt Rate > 60; Lipase 73 U/L (8-78); Magnesium 2.4 mg/dL (1.6-2.6); Potassium 3.3 mmol/L (3.3-5.1); Sodium 139 mmol/L (135-145); Troponin-I High Sensitivity 3.7 ng/L (<3.5-17.0)
[2025-08-07] MEDS: iohexoL 350 MG/ML 100 ML INFUS..BTL IV (01:00)
[2025-08-07 03:17] LABS: Appearance Urine Cloudy; Glucose Urine UA Negative (Negative); PH 5.0 (5.0-9.0); Specific Gravity - Urine >= 1.030 (1.005-1.025); UMIC TRIGGER UACC YES
[2025-08-07 06:32] VITALS: BP 128/73; PULSE 97; RESP 18; O2SAT 96
[2025-08-07] MEDS: diazePAM 10 MG/2 ML CARTRIDGE 5 MG IVPUSH (07:29)
--- NOTE | 2025-08-07 07:53 | PC.NURSE ---
Report received and care assumed at 0710. This RN received notice from EDT that the pt was asking for ativan or something for nausea the previous RN gave the pt a tuna sandwich requesting/advising that she eat something but she was unable to tolerate this (d/t smell she reports), she continues to drink gingerale without issue. RN spoke with MD about her CIWA of 9 and request, new orders received. Pt was medicated per MAR, visible hand tremors noted and felt. RN asked the pt if she was looking to receive any help and/or resources for her alcohol use but she declined siting a previous encounter adding that her spouse was coming shortly and would be able to bring her home. Update provided to MD, staff awaiting arrival of spouse. Sunbutter and jelly sandwich as well additional gingerale given
--- NOTE | 2025-08-07 08:32 | PC.NURSE ---
Pt previously medicated per NOV. Reports continued nausea and feeling unwell. Her tremors appear to have lessened but she states that she has since vomited. Pt requesting additional gingerale however due to her reported continued nausea/vomiting this RN recommended Ice chips instead. RN to discuss plan with the patient regarding her expectations and plan.
--- NOTE | 2025-08-07 08:51 | PC.NURSE ---
RN to bedside to speak with the patient. She reports continuing to feel unwell going further to describe that as nausea/vomiting, diffuse right sided body pain 10/10 and a mild headache. The pt continues to decline or differ recovery services at this time. Current CIWA scale/score/assessment findings are higher than previously documented prior to valium administration. Significant other present at bedside now and updated. RN spoke with MD Yanez to make him aware of update and request guidance on plan of care/next steps. MD Yanez is currently at bedside conversing with the patient.
[2025-08-07 09:03] VITALS: BMI 22.4
[2025-08-07] MEDS: diazePAM 10 MG/2 ML CARTRIDGE IVPUSH (09:10)
[2025-08-07 09:26] LABS: Alanine Aminotransferase 22 U/L (0-31); Albumin Level 4.8 g/dL (3.5-5.0); Alkaline Phosphatase 64 U/L (39-117); Aspartate Amino Transferase 58 U/L (5-31); Total Protein 7.6 g/dL (6.5-8.0)
--- NOTE | 2025-08-07 09:55 | P.HPHOSP_ITS ---
History of Present Illness Date of Service: 08/07/25 Chief Complaint: vomiting 35 year old woman with a history of alcohol use disorder. Patient reports that she drinks at least a sleeve of vodka a day. She reported that she had not been drinking every day and she generally binge drinks but over the last 2 weeks she has been drinking everyday. She reports she has not been eating or drinking very well. Patient has abdominal pain, nausea and vomiting. Abdominal CT showing possible colitis, hepatic steatosis. No bloody emesis. Patient was given IV fluids, IV Pepcid, Carafate, Valium and started on phenobarbital protocol. Plan will be to admit patient for acute intoxication and withdrawal. Review of Systems 2 Review of Systems: Denies any recent fever chills or decrease in appetite respiratory denies any shortness of breath or cough cardiovascular denied chest pain gastrointestinal see HPI genitourinary denies any dysuria frequency or hematuria musculoskeletal denies any joint pain or swelling neuropsych denies any weakness or seizures all other systems reviewed are negative [facility] Medical History (Updated 08/07/25 @ 11:52 by Theresa Quesada NP) HTN (hypertension) Peripheral neuropathy Alcohol use disorder, severe, dependence Social History Household Members: Spouse Housing: Apartment Do you presently have visiting nurse or other home services: No Unable to assess alcohol history related to: Unknown Alcohol intake: current Alcohol intake frequency: 3 or more drinks per day Alcohol type: hard liquor Patient Tobacco Use Status: Never used Tobacco Smoked in Last 30 Days: No Use of substances other than those prescribed or required for medical reasons: Yes Substance Use Type: Marijuana Substance Use Frequency Other:: uknown Advance Directives: No Advance Directives Information Provided: No Do you have a plan to hurt others: No Plan Patient : No service: No Meds Allergies Allergy/AdvReac Type Severity Reaction Status Date / Time No Known Allergies Allergy Verified 08/06/25 22:50 Active Medications: Current Medications Acetaminophen (Acetaminophen 325 Mg Tablet) 650 mg PO Q6H PRN PRN Reason: Pain, Mild 1-3,fever,headache Calcium Carbonate (Calcium Carbonate 750 Mg Tab.Chew) 750 mg PO Q4H PRN PRN Reason: Heartburn Heparin Sodium (Porcine) (Heparin Sodium,Porcine 5,000 Unit/Ml Vial) 5,000 unit SUBCUT Q12H [facility] Sodium Chloride (Ns) 1,000 mls @ 999 mls/hr IV .Q1H1M STA Stop: 08/07/25 10:03 Last Admin: 08/07/25 09:18 Dose: 999 mls/hr Lactated Ringer's (Lr) 1,000 mls @ 125 mls/hr IVCONT .Q8H [facility] Magnesium Hydroxide (Milk Of Magnesia 30 Ml Oral.Susp) 30 ml PO DAILY PRN PRN Reason: Constipation Melatonin (Melatonin 3 Mg Tablet) 6 mg PO BEDTIME PRN PRN Reason: Insomnia Ondansetron HCl (Ondansetron Hcl 4 Mg/2 Ml Vial) 4 mg IVPUSH Q8H PRN PRN Reason: Nausea and Vomiting Pharmacy Consult (Consult Rx Etoh Phenob Im/Po) 1 each MISCELLANE ONCE PRN; Protocol PRN Reason: Consult order Phenobarbital (Phenobarbital 15 Mg Tablet) 45 mg PO BID [facility]; Protocol Stop: 08/09/25 21:01 Phenobarbital (Phenobarbital 30 Mg Tablet) 30 mg PO BID [facility]; Protocol Stop: 08/11/25 21:01 Phenobarbital (Phenobarbital 30 Mg Tablet) 30 mg PO DAILY [facility]; Protocol Stop: 08/13/25 09:01 Phenobarbital Sodium (Phenobarbital Sodium 130 Mg/Ml Im Once) 411 mg IM ONCE ONE; Protocol Stop: 08/07/25 10:01 Phenobarbital Sodium (Phenobarbital Sodium 130 Mg/Ml Vial Im Q3hx2) 308 mg IM Q3H [facility]; Protocol Stop: 08/07/25 16:01 Sodium Chloride (0.9 % Sodium Chloride Flush 3 Ml Syringe) 3 ml IVFLUSH QSHIFT [facility] Home Medications ?Medication ?Instructions ?Recorded ?Confirmed ?Last Taken ?Type melatonin 5 mg tablet 5 mg PO BEDTIME PRN Sleep 08/07/25 Unknown History gabapentin 300 mg capsule 300 mg PO BID@0900,1200 04/1608/07/25 05/08/25 History gabapentin 300 mg capsule 600 mg PO BEDTIME 05/12/25 1 10/07/24 08/05/25 History iron,carbonyl 65 mg-vitamin C 125 1 tab PO DAILY 05/1208/07/25 08/06/25 History mg tablet,delayed release (Vitron-C) lidocaine 5 % topical patch 1 patch topical DAILY PRN Pain 05/12/25 08/07/25 08/06/25 History clotrimazole-betamethasone 1 1 appl topical BID PRN Ra sh 06/28/25 08/07/25 Unknown History %-0.05 % topical cream hydroxyzine HCl 10 mg tablet 10 mg PO BID PRN anxiety 08/07/25 08/07/25 Unknown History ibuprofen 200 mg tablet 400 mg PO Q8H PRN Cramps and pain 08/07/25 08/07/25 Unknown History multivitamin with folic acid 400 1 tab PO DAILY 08/07/25 08/06/25 History mcg tablet (Daily-Lauro (with folic acid)) Physical Exam 2 Vital Signs and Narrative: Vital Signs: Last Vital Signs Temp 98.1 F 08/06/25 22:30 Pulse 97 08/07/25 06:32 Resp 18 08/07/25 06:32 BP 128/73 08/07/25 06:32 Pulse Ox 96 08/07/25 06:32 O2 Del Method Room Air 08/07/25 06:32 BMI result Body Mass Index 22.4 Appearing in no acute distress head is normocephalic atraumatic eyes pupils are PERRLA sclera is anicteric mouth throat mucous membranes are intact and moist neck is supple no lymphadenopathy, no JVD noted lung sounds are clear to auscultation heart regular rate rhythm, clear S1, S2 positive bowel sounds, abdomen is soft, nontender neuro patient is alert x3, no focal deficits, tremulous Results Labs 08/07/25 00:11 08/07/25 00:11 Labs: Laboratory Results - last 24 hr 08/07/25 08/07/25 00:11 02:58 MCV 90.3 MCH 32.3 MCHC 35.8 H RDW 12.6 Plt Count 223 D MPV 9.6 Immature Gran % (Auto) 0.2 Neut % (Auto) 43.6 L Lymph % (Auto) 50.2 H [place] % (Auto) 3.6 Eos % (Auto) 0.7 Baso % (Auto) 1.7 Lymph # (Auto) 2.1 [place] # (Auto) 0.2 Eos # (Auto) 0.0 Baso # (Auto) 0.1 Abs Immat Gran (auto) 0.01 Absolute Neuts (auto) 1.8 L Absolute Nucleated RBC 0.000 Nucleated RBC % (auto) 0.0 Anion Gap 23 H Estim Creat Clear Calc 138.8 Estimated GFR > 60 Random Glucose 101 Calcium 8.4 D Magnesium 2.4 Total Bilirubin 0.5 Direct Bilirubin 0.2 AST 58 H ALT 22 Alkaline Phosphatase 64 Troponin I High Sens 3.7 D Total Protein 7.6 Albumin 4.8 Lipase 73 Beta HCG, Quant < 2 Urine Color Yellow Urine Appearance Cloudy Urine pH 5.0 Ur Specific [place] >= 1.030 H Urine Protein 100 (2+) H Urine Glucose (UA) Negative Urine Ketones 40 Urine Blood Large (3+) H Urine Nitrite Negative Ur Leukocyte Esterase Negative Urine RBC >20 H Urine WBC 0-5 Ur Squamous Epith Cells 6-10 Urine Bacteria Trace Hyaline Casts 11-20 Ethyl Alcohol 506 H* Assessment and Plan (1) Anxiety: Status: Acute (2) Alcohol use disorder: Status: Acute Plan 35 year old women admitted with alcohol intoxication and withdrawal Alcohol intoxication and withdrawal Alcohol level 506 Started on phenobarbital protocol IV fluid hydration Thiamine, multivitamin, folic acid Addiction consultation Monitor for seizures Possible colitis Abdominal CT showing mild ascending colon and sigmoid colon wall thickening GI consultation Hold off on antibiotics for now History of peripheral neuropathy Continue gabapentin DVT prophylaxis with Lovenox full code Quality Stroke Does the patient have a stroke diagnosis?: No VTE Prior VTE?: No VTE Risk Level:: Medical - moderate - high VTE Device Contraindication: Treatment Not Indicated VTE Drug Contraindication: N/A - Med Ordered
[2025-08-07] MEDS: PHENobarbitaL sodium 130 MG/ML IM ONCE 411 MG IM (10:19)
[2025-08-07] MEDS: Thiamine HCL 100 MG in 0.9 % Sodium Chloride 100 ML 202 MG IV (10:31)
--- NOTE | 2025-08-07 11:25 | PHA.MEDREC ---
Addendum entered by Dejon Garcia PharmD 08/07/25 11:30: reviewed Original Note: Pharmacy Consult ? Medication Reconciliation Pharmacy has completed the medication reconciliation. Confirmed medication list with patient and claims history. patient claims she recently started only taking her bedtime dose of Gabapentin 300 mg tablets (600 mg total) and could not remember the date she last took her daytime doses, but claimed it was about a couple of weeks ago. Patient states they use the lidocaine patches as needed. Patient takes melatonin 5 mg as needed and has not taken since roughly a week ago.
[2025-08-07] MEDS: Lactated Ringers 1,000 ML 125 ML IVCONT ×2 (12:03→20:10)
[2025-08-07 12:54] VITALS: BP 141/74; PULSE 108; RESP 18; O2SAT 98
[2025-08-07] MEDS: PHENobarbitaL sodium 130 MG/ML VIAL IM Q3Hx2 308 MG IM ×2 (12:56→16:36)
--- NOTE | 2025-08-07 13:33 | HO.NURTONUR ---
Pt came to ED c/o n/v continuously since 0800 yesterday. +etoh abuse. initial etoh level >500, by the time she awoke @ 0700 she was in full blown withdrawals. Pt being admitted for etoh withdrawal, current CIWA 17, phenobarb given.
[2025-08-07 14:56] VITALS: BMI 23.3
[2025-08-07 15:58] VITALS: BP 131/82; PULSE 99; RESP 18; TEMP 37; O2SAT 96
[2025-08-07 19:38] VITALS: BP 126/80; PULSE 75; RESP 16; TEMP 36.9; O2SAT 95
[2025-08-07 23:55] VITALS: BP 133/83; PULSE 88; RESP 16; TEMP 36.7; O2SAT 97
[2025-08-08 04:00] VITALS: BP 126/92; PULSE 80; RESP 18; TEMP 36.7; O2SAT 98
[2025-08-08] MEDS: Lactated Ringers 1,000 ML 125 ML IVCONT ×3 (04:05→19:50)
[2025-08-08 07:21] VITALS: BP 127/93; PULSE 93; RESP 16; TEMP 36.7; O2SAT 98
[2025-08-08 07:53] LABS: Hematocrit 39.7 % (37.0-47.0); Hemoglobin 13.8 g/dl (12.0-16.0); Mean Corpuscular HGB Conc 34.8 g/dl (31.0-35.0); Mean Corpuscular Hemoglobin 32.5 pg (27.0-33.0); Mean Corpuscular Volume 93.4 fL (80.0-98.0); NRBC Abs Auto 0.000 X10*3/uL (0.0-0.012); NRBC Pct Auto 0.0 /100WBC (0.0-0.2); Red Blood Count 4.25 X10*6/uL (4.20-5.50); White Blood Count 5.8 X10*3/uL (4.8-10.8)
[2025-08-08 07:58] LABS: Platelet Count 163 X10*3/uL (160-400)
[2025-08-08 08:00] LABS: Anion Gap 13 (12-20); Blood Urea Nitrogen 4 mg/dL (9-16); Calcium 8.7 mg/dL (8.4-10.2); Carbon Dioxide 29 mmol/L (22-29); Chloride 96 mmol/L (96-108); Creatinine Clr Calc Pharmacy 132.2; Estimated Glomerular Filt Rate > 60; Magnesium 2.1 mg/dL (1.6-2.6); Potassium 3.1 mmol/L (3.3-5.1); Sodium 135 mmol/L (135-145)
--- NOTE | 2025-08-08 09:04 | MHC.CM.PN ---
Home self care VS Recovery Team intervention R/T ETOH is the tentative plan; CM has initiated and will follow for dc planning. PCP is Dr. Gil Savage and Patient's Significant Other/Paul will transport at dc. Patient lives alone and is functionally independent.
[2025-08-08] MEDS: Thiamine HCL 100 MG in 0.9 % Sodium Chloride 100 ML 202 MG IV (10:52)
[2025-08-08] MEDS: 0.9 % Sodium Chloride Flush 3 ML SYRINGE IVFLUSH ×2 (11:02→19:55)
[2025-08-08 11:24] VITALS: BP 143/87; PULSE 89; RESP 16; TEMP 37.1; O2SAT 100
--- NOTE | 2025-08-08 15:31 | HO.PM.IMPN ---
Subjective Subjective Date of Service: 08/08/25 Interval History: Tearful and anxious by bedside. No tremulousness identified No visual or audible hallucinations Review of Systems Review of Systems: Yes all other systems are reviewed and are negative Physical Exam Exam: Exam: General: A&O x3, oriented to time place person and situation, tearful, distressed Cardiac: S1, S2 auscultated with no S3/4, no MRG. Well perfused. Respiratory: Normal breath sounds auscultated throughout all lung zones, without wheezing, rales. Normal rate. GI/ : No abdominal pain on palpation, no masses or distentions. MSK: Normal ambulation without pain at bony prominences or musculature Neurological: Normal neurological examination on overview, without obvious CN II-XII abnormalities. Vital Signs: Vital Signs: Last Vital Signs Temp 98.8 F 08/08/25 11:24 Pulse 89 08/08/25 11:24 Resp 16 08/08/25 11:24 BP 143/87 H 08/08/25 11:24 Pulse Ox 100 08/08/25 11:24 O2 Del Method Room Air 08/08/25 11:24 BMI result Body Mass Index 23.3 Objective Data Active Medications Acetaminophen (Acetaminophen 325 Mg Tablet) 650 mg PO Q6H PRN PRN Reason: Pain, Mild 1-3,fever,headache Last Admin: 08/07/25 17:47 Dose: 650 mg Documented By: GERALDINE Calcium Carbonate (Calcium Carbonate 750 Mg Tab.Chew) 750 mg PO Q4H PRN PRN Reason: Heartburn Diazepam (Diazepam 2 Mg Tablet) 2 mg PO BID PRN PRN Reason: Anxiety Last Admin: 08/08/25 15:02 Dose: 2 mg Documented By: ROBSON Famotidine (Famotidine/Pf 20 Mg/2 Ml Vial) 20 mg IVPUSH BID [facility] Last Admin: 08/08/25 11:02 Dose: 20 mg Documented By: ROBSON Folic Acid (Folic Acid 1 Mg Tablet) 1 mg PO DAILY [facility] Last Admin: 08/08/25 10:51 Dose: 1 mg Documented By: ROBSON Gabapentin (Gabapentin 300 Mg Capsule) 300 mg PO BID@0900,1200 [facility] Last Admin: 08/08/25 11:02 Dose: 300 mg Documented By: ROBSON Gabapentin (Gabapentin 300 Mg Capsule) 600 mg PO BEDTIME [facility] Last Admin: 08/07/25 20:05 Dose: 600 mg Documented By: HUBERT Heparin Sodium (Porcine) (Heparin Sodium,Porcine 5,000 Unit/Ml Vial) 5,000 unit SUBCUT Q12H [facility] Last Admin: 08/08/25 11:02 Dose: 5,000 unit Documented By: ROBSON Lactated Ringer's (Lr) 1,000 mls @ 125 mls/hr IVCONT .Q8H [facility] Last Admin: 08/08/25 11:03 Dose: 125 mls/hr Documented By: ROBSON Thiamine HCl 100 mg/ Sodium (Chloride) 101 mls @ 202 mls/hr IV DAILY [facility] Stop: 08/10/25 09:59 Last Infusion: 08/08/25 11:57 Dose: Infused Documented By: ROBSON Magnesium Hydroxide (Milk Of Magnesia 30 Ml Oral.Susp) 30 ml PO DAILY PRN PRN Reason: Constipation Melatonin (Melatonin 3 Mg Tablet) 6 mg PO BEDTIME PRN PRN Reason: Insomnia Multivitamins/Vitamin C (Multivitamin Tablet) 1 tab PO DAILY [facility] Last Admin: 08/08/25 11:04 Dose: Not Given Documented By: ROBSON Non-Admin Reason: Nausea Ondansetron HCl (Ondansetron Hcl 4 Mg/2 Ml Vial) 4 mg IVPUSH Q8H PRN PRN Reason: Nausea and Vomiting Last Admin: 08/08/25 11:02 Dose: 4 mg Documented By: ROBSON Pharmacy Consult (Consult Rx Etoh Phenob Im/Po) 1 each MISCELLANE ONCE PRN; Protocol PRN Reason: Consult order Phenobarbital (Phenobarbital 15 Mg Tablet) 45 mg PO BID [facility]; Protocol Stop: 08/09/25 21:01 Last Admin: 08/08/25 10:51 Dose: 45 mg Documented By: ROBSON Phenobarbital (Phenobarbital 30 Mg Tablet) 30 mg PO BID [facility]; Protocol Stop: 08/11/25 21:01 Phenobarbital (Phenobarbital 30 Mg Tablet) 30 mg PO DAILY [facility]; Protocol Stop: 08/13/25 09:01 Sodium Chloride (0.9 % Sodium Chloride Flush 3 Ml Syringe) 3 ml IVFLUSH QSHIFT [facility] Last Admin: 08/08/25 15:21 Dose: Not Given Documented By: MAYUR Non-Admin Reason: IV Running Labs 08/08/25 07:04 08/08/25 07:04 Labs: Laboratory Results - last 24 hr 08/08/25 07:04 MCV 93.4 MCH 32.5 MCHC 34.8 RDW 12.2 Plt Count 163 D MPV 10.4 Absolute Nucleated RBC 0.000 Nucleated RBC % (auto) 0.0 Anion Gap 13 Estim Creat Clear Calc 132.2 Estimated GFR > 60 Random Glucose 89 Calcium 8.7 Magnesium 2.1 Assessment and Plan (1) Anxiety: Status: Acute (2) Alcohol use disorder: Status: Acute (3) Alcohol withdrawal: Status: Acute (4) HTN (hypertension): Status: Acute (5) Hypotension: Status: Acute (6) Acute alcoholic gastritis without hemorrhage: Status: Acute (7) UTI (urinary tract infection): Status: Acute (8) Peripheral neuropathy: Status: Acute Plan 35 year old woman, with a background of alcohol use disorder, peripheral neuropathy, HTN, admitted with alcohol intoxication and withdrawal Alcohol intoxication and withdrawal Alcohol level 506 on admission Started on phenobarbital protocol IV fluid hydration Thiamine, multivitamin, folic acid Addiction consultation Monitor for seizures Possible colitis Abdominal CT showing mild ascending colon and sigmoid colon wall thickening GI consultation Hold off on antibiotics for now History of peripheral neuropathy Continue gabapentin QUALITY METRICS - VTE: Enoxaparin - CODE STATUS: Full code - DIET: Regular Quality Stroke Does the patient have a stroke diagnosis?: No VTE Prior VTE?: No VTE Risk Level:: Medical - moderate - high VTE Device Contraindication: Treatment Not Indicated VTE Drug Contraindication: N/A - Med Ordered
[2025-08-08 16:00] VITALS: BP 125/91; PULSE 99; RESP 18; TEMP 36.6; O2SAT 98
[2025-08-08 18:59] VITALS: BP 124/78; PULSE 93; RESP 18; TEMP 36.9; O2SAT 99
[2025-08-08 23:37] VITALS: BP 133/85; PULSE 74; RESP 16; TEMP 36.9; O2SAT 98
[2025-08-09] MEDS: Lactated Ringers 1,000 ML 125 ML IVCONT (02:47)
[2025-08-09 03:11] VITALS: BP 118/79; PULSE 75; RESP 16; TEMP 36.6; O2SAT 99
[2025-08-09 07:24] VITALS: BP 127/84; PULSE 72; RESP 18; TEMP 36.6; O2SAT 99
[2025-08-09] MEDS: Thiamine HCL 100 MG in 0.9 % Sodium Chloride 100 ML 202 MG IV (08:49)
[2025-08-09 11:20] VITALS: BP 128/81; PULSE 84; RESP 18; TEMP 36.7; O2SAT 98
[2025-08-09 15:50] VITALS: BP 123/94; PULSE 96; RESP 18; TEMP 36.6; O2SAT 99
--- NOTE | 2025-08-09 16:05 | P.PNIM_ITS ---
Subjective Subjective Date of Service: 08/09/25 Interval History: feeling better today overall no new complaints or issues Review of Systems Review of Systems: Yes all other systems are reviewed and are negative Physical Exam 2 Exam: Exam: General: A&O x3, oriented to time place person and situation, tearful, distressed Cardiac: S1, S2 auscultated with no S3/4, no MRG. Well perfused. Respiratory: Normal breath sounds auscultated throughout all lung zones, without wheezing, rales. Normal rate. GI/ : No abdominal pain on palpation, no masses or distentions. MSK: Normal ambulation without pain at bony prominences or musculature Neurological: Normal neurological examination on overview, without obvious CN II-XII abnormalities. Vital Signs: Vital Signs: Last Vital Signs Temp 97.8 F 08/09/25 15:50 Pulse 96 08/09/25 15:50 Resp 18 08/09/25 15:50 BP 123/94 H 08/09/25 15:50 Pulse Ox 99 08/09/25 15:50 O2 Del Method Room Air 08/09/25 15:50 BMI result Body Mass Index 23.3 Objective Data Active Medications Acetaminophen (Acetaminophen 325 Mg Tablet) 650 mg PO Q6H PRN PRN Reason: Pain, Mild 1-3,fever,headache Last Admin: 08/08/25 22:39 Dose: 650 mg Documented By: RUBÉN Calcium Carbonate (Calcium Carbonate 750 Mg Tab.Chew) 750 mg PO Q4H PRN PRN Reason: Heartburn Diazepam (Diazepam 2 Mg Tablet) 2 mg PO BID PRN PRN Reason: Anxiety Last Admin: 08/09/25 10:28 Dose: 2 mg Documented By: PAULA Famotidine (Famotidine/Pf 20 Mg/2 Ml Vial) 20 mg IVPUSH BID [facility] Last Admin: 08/09/25 08:49 Dose: 20 mg Documented By: PAULA Folic Acid (Folic Acid 1 Mg Tablet) 1 mg PO DAILY [facility] Last Admin: 08/09/25 08:49 Dose: 1 mg Documented By: PAULA Gabapentin (Gabapentin 300 Mg Capsule) 300 mg PO BID@0900,1200 [facility] Last Admin: 08/09/25 12:39 Dose: 300 mg Documented By: PAULA Gabapentin (Gabapentin 300 Mg Capsule) 600 mg PO BEDTIME [facility] Last Admin: 08/08/25 19:51 Dose: 600 mg Documented By: RUBÉN Heparin Sodium (Porcine) (Heparin Sodium,Porcine 5,000 Unit/Ml Vial) 5,000 unit SUBCUT Q12H [facility] Last Admin: 08/09/25 08:51 Dose: 5,000 unit Documented By: PAULA Thiamine HCl 100 mg/ Sodium (Chloride) 101 mls @ 202 mls/hr IV DAILY [facility] Stop: 08/10/25 09:59 Last Infusion: 08/09/25 09:41 Dose: Infused Documented By: PAULA Magnesium Hydroxide (Milk Of Magnesia 30 Ml Oral.Susp) 30 ml PO DAILY PRN PRN Reason: Constipation Melatonin (Melatonin 3 Mg Tablet) 6 mg PO BEDTIME PRN PRN Reason: Insomnia Multivitamins/Vitamin C (Multivitamin Tablet) 1 tab PO DAILY [facility] Last Admin: 08/09/25 08:48 Dose: 1 tab Documented By: PAULA Ondansetron HCl (Ondansetron Hcl 4 Mg/2 Ml Vial) 4 mg IVPUSH Q8H PRN PRN Reason: Nausea and Vomiting Last Admin: 08/08/25 11:02 Dose: 4 mg Documented By: ROBSON Pharmacy Consult (Consult Rx Etoh Phenob Im/Po) 1 each MISCELLANE ONCE PRN; Protocol PRN Reason: Consult order Phenobarbital (Phenobarbital 15 Mg Tablet) 45 mg PO BID [facility]; Protocol Stop: 08/09/25 21:01 Last Admin: 08/09/25 08:49 Dose: 45 mg Documented By: PAULA Phenobarbital (Phenobarbital 30 Mg Tablet) 30 mg PO BID [facility]; Protocol Stop: 08/11/25 21:01 Phenobarbital (Phenobarbital 30 Mg Tablet) 30 mg PO DAILY [facility]; Protocol Stop: 08/13/25 09:01 Sodium Chloride (0.9 % Sodium Chloride Flush 3 Ml Syringe) 3 ml IVFLUSH QSHIFT [facility] Last Admin: 08/09/25 08:51 Dose: Not Given Documented By: PAULA Non-Admin Reason: IV Running Labs 08/08/25 07:04 08/08/25 07:04 Assessment and Plan (1) Anxiety: Status: Acute (2) Alcohol use disorder: Status: Acute (3) Alcohol withdrawal: Status: Acute (4) HTN (hypertension): Status: Acute (5) Acute alcoholic gastritis without hemorrhage: Status: Acute (6) UTI (urinary tract infection): Status: Acute (7) Peripheral neuropathy: Status: Acute Plan 35 year old woman, with a background of alcohol use disorder, peripheral neuropathy, HTN, admitted with alcohol intoxication and withdrawal Alcohol intoxication and withdrawal Alcohol level 506 on admission Started on phenobarbital protocol IV fluid hydration Thiamine, multivitamin, folic acid Addiction consultation Monitor for seizures Possible colitis Abdominal CT showing mild ascending colon and sigmoid colon wall thickening GI consultation Hold off on antibiotics for now History of peripheral neuropathy Continue gabapentin QUALITY METRICS - VTE: Enoxaparin - CODE STATUS: Full code - DIET: Regular - DISPOSITION: Probable discharge tomorrow Total time managing care of this patient today: 35 minutes. Quality Stroke Does the patient have a stroke diagnosis?: No VTE Prior VTE?: No VTE Risk Level:: Medical - moderate - high VTE Device Contraindication: Treatment Not Indicated VTE Drug Contraindication: N/A - Med Ordered
--- NOTE | 2025-08-09 16:45 | PM.EVENT ---
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
[2025-08-09 20:00] VITALS: BP 120/80; PULSE 99; RESP 18; TEMP 36.6; O2SAT 99
[2025-08-09 23:37] VITALS: BP 91/56; PULSE 87; RESP 16; TEMP 36.4; O2SAT 96
[2025-08-10 03:21] VITALS: BP 107/68; PULSE 71; RESP 16; TEMP 36.2; O2SAT 98
[2025-08-10 07:21] VITALS: BP 119/78; PULSE 75; RESP 18; TEMP 36.4; O2SAT 97
[2025-08-10 11:08] VITALS: BP 133/75; PULSE 86; RESP 18; TEMP 36.9; O2SAT 97
--- NOTE | 2025-08-10 11:56 | PM.DS ---
DS: Providers Provider Date of Service: 08/10/25 Date of admission: 08/07/25 09:10 Date of discharge: 08/10/25 Primary care physician: Gil Flores MD Consults: 08/07/25 09:51 Addiction Medicine Provider Routine Consulting Provider: Addiction Covering Reason for consultation: etoh DS: Diagnosis Discharge Diagnosis (1) Anxiety: Status: Acute (2) Alcohol use disorder: Status: Acute (3) Alcohol withdrawal: Status: Acute (4) HTN (hypertension): Status: Acute (5) Acute alcoholic gastritis without hemorrhage: Status: Acute (6) UTI (urinary tract infection): Status: Acute (7) Peripheral neuropathy: Status: Acute DS: Summary Hospital Course Hospital Course: 35 year old woman, with a background of alcohol use disorder, peripheral neuropathy, HTN, admitted with alcohol intoxication and withdrawal Alcohol intoxication and withdrawal Alcohol level 506 on admission Started on phenobarbital protocol IV fluid hydration Thiamine, multivitamin, folic acid Addiction consultation; reccs greatly appreciated Monitor for seizures No S&S of withdrawal while on phenobarbital protocol. Possible colitis Abdominal CT showing mild ascending colon and sigmoid colon wall thickening Antibiotics were not started during admission. No worsening of abdominal symptoms - no new compalints. No further indication for antibiotic management History of peripheral neuropathy Continue gabapentin Status at Discharge Cognitive/behavioral status at discharge: Alert and oriented to person place time and situation Functional status at discharge: independent ambulation Overall status at discharge: patient is back to baseline Time Attestation Total time managing care of this patient today: 45 mintues. Discharge Coordination Time (in mins): 35 Quality: Safe Use of Opioids Does Pt have an Active Cancer Diagnosis on the Problem List?: No Quality: Stroke Does the patient have a stroke diagnosis?: No Physical Exam Exam: Exam: General: A&O x3, oriented to time place person and situation, tearful, distressed Cardiac: S1, S2 auscultated with no S3/4, no MRG. Well perfused. Respiratory: Normal breath sounds auscultated throughout all lung zones, without wheezing, rales. Normal rate. GI/ : No abdominal pain on palpation, no masses or distentions. MSK: Normal ambulation without pain at bony prominences or musculature Neurological: Normal neurological examination on overview, without obvious CN II-XII abnormalities. Vital Signs: Vital Signs: Last Vital Signs Temp 98.4 F 08/10/25 11:08 Pulse 86 08/10/25 11:08 Resp 18 08/10/25 11:08 BP 133/75 08/10/25 11:08 Pulse Ox 97 08/10/25 11:08 O2 Del Method Room Air 08/10/25 11:08 BMI result Body Mass Index 23.3 DS: Data Data Completed and Pending Completed studies during hospitalization [Text1]: Procedures Detoxification Services for Substance Abuse Treatment (06/27/25) Discharge Plan Discharge Anticipated Discharge Date/Time: 08/10/25 11:59 Patient Disposition: Home, Self-Care Discharge Diagnosis: Acute alcohol intoxication with withdrawal without delirium tremens Referrals: Physician,Unknown J [Physician, Medical] - 1 Week Discharge Medications: New phenobarbital 30 mg Tablet 30 mg PO BID 2 Days Qty: 4 0RF Rx Instructions: 1 tablet twice a day, then 1 tablet once a day x2 days multivitamin [Daily-Lauro] Tablet 1 tab PO DAILY 30 Days Qty: 30 0RF folic acid 1 mg Tablet 1 mg PO DAILY 30 Days Qty: 30 0RF Continued lidocaine 5 % adhesive patch,medicated 1 patch topical DAILY PRN (Reason: Pain) Rx Instructions: APPLY 1 PATCH DAILY APPLY TO PAINFUL AREA FOR 12 HOURS PER DAY, REMOVE FOR 12 HOURS gabapentin 300 mg capsule 300 mg PO BID@0900,1200 Vitron-C 65 mg iron- 125 mg tablet,delayed release (DR/EC) 1 tab PO DAILY gabapentin 300 mg capsule 600 mg PO BEDTIME clotrimazole-betamethasone 1-0.05 % cream 1 appl topical BID PRN (Reason: Rash) multivitamin with folic acid [Daily-Lauro (with folic acid)] 400 mcg tablet 1 tab PO DAILY hydroxyzine HCl 10 mg tablet 10 mg PO BID PRN (Reason: anxiety) ibuprofen 200 mg Tablet 400 mg PO Q8H PRN (Reason: Cramps and pain) melatonin 5 mg Tablet 5 mg PO BEDTIME PRN (Reason: Sleep) thiamine HCl (vitamin B1) 100 mg capsule 100 mg PO DAILY Qty: 90 0RF Rx Instructions: Take one tablet daily folic acid 1 mg tablet 1 mg PO DAILY Qty: 90 0RF Rx Instructions: Take one tablet daily Discharge Orders: Discharge Order (Routine); Ordered 08/10/25 Ordered By: Darlene Granados Diet: Advance to usual diet Activity on Discharge: As tolerated Stand Alone Forms: Patient Portal Discharge page Print Language: Dominican Care Plan Goals: As above Health Concerns: As above Plan of Treatment: FU with PCP in 1 week Return to hospital if experiencing S&S of withdrawal Assessment: Hemodynamically stable for discharge. High degree of confidence for compliance with medications
--- NOTE | 2025-08-10 12:12 | MHC.CM.PN ---
Patient has been medically cleared for dc to home today, self care.
--- NOTE | 2025-08-17 19:07 | PM.DS ---
DS: Providers Provider Date of Service: 08/10/25 Date of admission: 08/07/25 09:10 Date of discharge: 08/10/25 Primary care physician: Gil Flores MD Consults: 08/07/25 09:51 Addiction Medicine Provider Routine Consulting Provider: Addiction Covering Reason for consultation: etoh DS: Diagnosis Discharge Diagnosis (1) Anxiety: Status: Acute (2) Alcohol use disorder: Status: Acute (3) Alcohol withdrawal: Status: Acute (4) HTN (hypertension): Status: Acute (5) Acute alcoholic gastritis without hemorrhage: Status: Acute (6) UTI (urinary tract infection): Status: Acute (7) Peripheral neuropathy: Status: Acute DS: Summary Hospital Course Hospital Course: 35 year old woman, with a background of alcohol use disorder, peripheral neuropathy, HTN, admitted with alcohol intoxication and withdrawal As per H&P 35 year old woman with a history of alcohol use disorder. Patient reports that she drinks at least a sleeve of vodka a day. She reported that she had not been drinking every day and she generally binge drinks but over the last 2 weeks she has been drinking everyday. She reports she has not been eating or drinking very well. Patient has abdominal pain, nausea and vomiting. Abdominal CT showing possible colitis, hepatic steatosis. No bloody emesis. Patient was given IV fluids, IV Pepcid, Carafate, Valium and started on phenobarbital protocol. Plan will be to admit patient for acute intoxication and withdrawal. Alcohol intoxication and withdrawal Alcohol level 506 on admission Started on phenobarbital protocol IV fluid hydration was initiated Thiamine, multivitamin, folic acid Addiction consultation; reccs greatly appreciated Monitor for seizures No S&S of withdrawal while on phenobarbital protocol. Possible colitis Abdominal CT showing mild ascending colon and sigmoid colon wall thickening Antibiotics were not started during admission. No worsening of abdominal symptoms - no new compalints. No further indication for antibiotic management History of peripheral neuropathy Continue gabapentin Time Attestation Total time managing care of this patient today: 35 mintues. Discharge Coordination Time (in mins): 35 Quality: Safe Use of Opioids Does Pt have an Active Cancer Diagnosis on the Problem List?: No Quality: Stroke Does the patient have a stroke diagnosis?: No Physical Exam Exam: Exam: General: A&O x3, oriented to time place person and situation, tearful, distressed Cardiac: S1, S2 auscultated with no S3/4, no MRG. Well perfused. Respiratory: Normal breath sounds auscultated throughout all lung zones, without wheezing, rales. Normal rate. GI/ : No abdominal pain on palpation, no masses or distentions. MSK: Normal ambulation without pain at bony prominences or musculature Neurological: Normal neurological examination on overview, without obvious CN II-XII abnormalities. Vital Signs: Vital Signs: Last Vital Signs Temp 98.4 F 08/10/25 11:08 Pulse 86 08/10/25 11:08 Resp 18 08/10/25 11:08 BP 133/75 08/10/25 11:08 Pulse Ox 97 08/10/25 11:08 O2 Del Method Room Air 08/10/25 11:08 BMI result Body Mass Index 23.3 DS: Data Data Completed and Pending Completed studies during hospitalization [Text1]: Procedures Detoxification Services for Substance Abuse Treatment (06/27/25) Discharge Plan Discharge Anticipated Discharge Date/Time: 08/10/25 11:59 Patient Disposition: Home, Self-Care Discharge Diagnosis: Acute alcohol intoxication with withdrawal without delirium tremens Referrals: Physician,Unknown J [Physician, Medical] - 1 Week Discharge Medications: New phenobarbital 30 mg Tablet 30 mg PO BID 2 Days Qty: 4 0RF Rx Instructions: 1 tablet twice a day, then 1 tablet once a day x2 days multivitamin [Daily-Lauro] Tablet 1 tab PO DAILY 30 Days Qty: 30 0RF folic acid 1 mg Tablet 1 mg PO DAILY 30 Days Qty: 30 0RF Continued lidocaine 5 % adhesive patch,medicated 1 patch topical DAILY PRN (Reason: Pain) Rx Instructions: APPLY 1 PATCH DAILY APPLY TO PAINFUL AREA FOR 12 HOURS PER DAY, REMOVE FOR 12 HOURS gabapentin 300 mg capsule 300 mg PO BID@0900,1200 Vitron-C 65 mg iron- 125 mg tablet,delayed release (DR/EC) 1 tab PO DAILY gabapentin 300 mg capsule 600 mg PO BEDTIME clotrimazole-betamethasone 1-0.05 % cream 1 appl topical BID PRN (Reason: Rash) multivitamin with folic acid [Daily-Lauro (with folic acid)] 400 mcg tablet 1 tab PO DAILY hydroxyzine HCl 10 mg tablet 10 mg PO BID PRN (Reason: anxiety) ibuprofen 200 mg Tablet 400 mg PO Q8H PRN (Reason: Cramps and pain) melatonin 5 mg Tablet 5 mg PO BEDTIME PRN (Reason: Sleep) thiamine HCl (vitamin B1) 100 mg capsule 100 mg PO DAILY Qty: 90 0RF Rx Instructions: Take one tablet daily folic acid 1 mg tablet 1 mg PO DAILY Qty: 90 0RF Rx Instructions: Take one tablet daily Discharge Orders: Discharge Order (Routine); Ordered 08/10/25 Ordered By: Darlene Granados Diet: Advance to usual diet Activity on Discharge: As tolerated Stand Alone Forms: Patient Portal Discharge page Print Language: Belarusian Care Plan Goals: As above Health Concerns: As above Plan of Treatment: FU with PCP in 1 week Return to hospital if experiencing S&S of withdrawal Assessment: Hemodynamically stable for discharge. High degree of confidence for compliance with medications Discharge Date/Time: 08/10/25 13:25
== END 2025-08-10 13:25 | disposition home or self-care (01) | DRG 775 ==
LOC: HO.ED 08-07 09:11 → HO.EDOVER 08-07 09:14 → HO.IMC 08-07 12:31
PROVIDERS: Emergency Medicine; Nurse Practitioner Acute Care; Admitting Provider Internal Medicine; Emergency Provider Emergency Medicine Emergency Medical Services; PCP Internal Medicine; Visit Provider Hospitalist
DX: F10.939 Alcohol use, unspecified with withdrawal, unspecified (principal); F10.929 Alcohol use, unspecified with intoxication, unspecified; G62.9 Polyneuropathy, unspecified; Y90.8 Blood alcohol level of 240 mg/100 ml or more; K52.9 Noninfective gastroenteritis and colitis, unspecified; I10 Essential (primary) hypertension; Z79.899 Other long term (current) drug therapy
CPT/HCPCS: 36415; 74177; 80048; 80076; 80307; 81001; 83690; 83735; 84484; 84702; 85025; 85027; 93005; 99285; J0737; J1308; J1644; J2405; J2560; J3360; J3411; J7120; Q9967; S9485

== ENCOUNTER → 2025-08-06 23:33 | Outpatient (BNV) | payer OTHER, SELFPAY | PROVIDERS: Admitting Provider Internal Medicine; Emergency Provider Emergency Medicine Emergency Medical Services; Visit Provider Internal Medicine | DX: R10.13 Epigastric pain (principal) | CPT/HCPCS: 93010 ==

== ENCOUNTER → 2025-08-07 09:10 | Outpatient (BNV) | payer OTHER, SELFPAY | PROVIDERS: Admitting Provider Internal Medicine; Emergency Provider Emergency Medicine Emergency Medical Services; Visit Provider Nurse Practitioner Acute Care | DX: F41.9 Anxiety disorder, unspecified (principal); F10.90 Alcohol use, unspecified, uncomplicated | CPT/HCPCS: 99223 ==

== ENCOUNTER 2025-09-12 09:46 | Inpatient (IN) | payer OTHER, SELFPAY ==
[2025-09-12 10:06] VITALS: BP 140/68; PULSE 130; RESP 20; TEMP 36.9; O2SAT 98; BMI 26.9
[2025-09-12] MEDS: PHENobarbitaL sodium 130 MG/ML IM ONCE 263 MG IM (10:34)
--- NOTE | 2025-09-12 10:47 | ECG_ITS ---
Test Reason : ETOH Blood Pressure : */* mmHG Vent. Rate : 125 BPM Atrial Rate : 125 BPM P-R Int : 112 ms QRS Dur : 96 ms QT Int : 310 ms P-R-T Axes : * 86 38 degrees QTcB Int : 447 ms Sinus tachycardia Cannot rule out Inferior infarct , age undetermined Abnormal ECG When compared with ECG of 07-Aug-2025 00:20, Non-specific change in ST segment in Inferior leads Referred By: Angus Roca Electronically Signed By: CHINEDU MEDELLIN
[2025-09-12] MEDS: diazePAM 10 MG/2 ML CARTRIDGE IVPUSH ×2 (11:15→14:24)
--- NOTE | 2025-09-12 11:28 | MHC.EDTECH ---
pt refused labs now stated shes too shaky to come back later
--- OUTSIDE RECORDS SUMMARY | 2025-09-12 11:42 | XMS_ITS | Encounter Summary ---
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 Name Role Phone Gil Flores MD Primary Care Provider [phone] Encounter Details Date Type Department Care Team ([facility] Contact Info) Description 08/15/2025 Telephone Internal Medicine - [facility] [address] [facility] [phone] Gil Flores MD [address] [place] [address] Social History Tobacco Use Types Packs/Day Years [...] on file documented as of this encounter Progress Notes * Yanely Morales MA - 08/15/2025 1:54 PM EST Referred by Neuro * Jorden Smith - 08/15/2025 1:40 PM EST Patient has a referral to PT on [facility] in [place], ([facility]). She would prefer to to [facility] [address] because it's closer to home documented in this encounter Plan of Treatment Upcoming Encounters Date Type Department Care Team (Late st Contact Info) Description 10/10/2025 10:00 AM EST Ancillary Procedure [facility] - [address] [place] [address] 11/22/2025 2:30 PM EDT Office Visit Obstetrics and Gynecology - [address] [phone] Shayy Busch [address] [place] [phone] 01/06/2026 8:00 AM EDT Office Visit Internal Medicine - [address] [phone] Gil Flores MD [address] [place] [address] documented as of this encounter Goals Goal Patient Goal Type Associated Problems Recent Progress Patient-Stated? 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
--- OUTSIDE RECORDS SUMMARY | 2025-09-12 11:42 | XMS_ITS | Clinical Summary ---
Author Organization [address] [facility] Address [address] [place] [phone] Phone Care Team Providers Care Burling And Joining Supervisor Name Role Phone Gil Flores MD Primary Care Provider [phone] Allergies No known active allergies Medications levETIRAcetam [...] day. 90 tablet 1 07/08/20 25 Active Daily-Lauro, with folic acid, 400 mcg tablet Take 1 tablet by mouth 1 (one) time each day. 07/08/20 25 Active lidocaine (LIDODERM) 5 % patch APPLY 1 PATCH DAILY APPLY TO PAINFUL AREA FOR 12 HOURS PER DAY, REMOVE FOR 12 HOURS 30 patch 5 08/05/20 25 Active hydrOXYzine HCL (ATARAX) 10 mg tablet Take 1 tablet (10 mg total) by mouth 2 (two) times a day if needed for anxiety. 60 tablet 08/23/20 25 026 Active hydrOXYzine HCL (ATARAX) 10 mg tablet Take 1 tablet (10 mg total) by mouth 2 (two) times a day if needed for anxiety. 60 each 07/28/20 25 025 Discontinued Active Problems Problem Noted Date Diagnosed [...] the knuckles hurt. 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 She also had cervical and head CT scans [facility] 03/25[facility]2025 that did not show any acute [...] Encounters Date Type Department Care Team Description 08/15/2025 Telephone Internal Medicine - [address] [phone] Gil Flores MD 07/28/2025 1:30 PM EST Treatment [facility] [address] [phone] Praveen Altman, PT Cervical spondylosis (Primary Dx) 07/28/2025 9:00 AM EST Office Visit Internal Medicine - [address] [phone] Jay Jay Mendoza NP Unspecified mood (affective) disorder (CMS/[facility] V24) (Primary Dx); Anxiety; Alcohol use disorder; Marijuana use 07/26/2025 8:00 AM EST Evaluation [facility] [address] [phone] Praveen Altman, PT Cervical spondylosis; Chronic sacroiliac joint pain 07/21/2025 Telephone Internal Medicine - [address] [phone] Gil Flores MD 07/14/2025 10:30 AM EDT Consult Neurosurgery [facility] [address] [phone] Yanely Vázquez PA Cervical spondylosis (Primary Dx); Chronic sacroiliac joint pain 07/08/2025 11:15 AM EDT Office Visit Internal Medicine - [address] [phone] Gil Flores MD Follow-up exam (Primary Dx); Anxiety; Alcohol abuse; Cervical radiculopathy 07/05/2025 4:15 PM EDT Office Visit Walk-In Clinic - [address] [phone] Everton Figueredo NP Left forearm pain (Primary Dx) 06/29/2025 [facility] [address] [facility] [place] [address] Gil Flores MD from Last 3 Months Immunizations Immunization Administration Dates Next Due Hepatitis B (Tlqsdza-V-Bcujf , Recombivax HB-Adult) 19yo and older 05/20/2001 [...] TONSILLECTOMY ADENOIDECTOMY, BILATERAL MYRINGOTOMY AND TUBES PROCEDURE: [place] TONSILLECTOMY & ADENOIDECTOMY <AGE 10 WISDOM TOOTH [...] on file Sexual Orientation Not on file Last Filed Vital Signs Vital Sign Reading [...] Description 10/10/2025 10:00 AM EST Ancillary Procedure [facility] - [address] [place] [address] 11/22/2025 2:30 PM EDT Office Visit Obstetrics and Gynecology - [address] [phone] Shayy Busch, [address] [phone] 01/06/2026 8:00 AM EDT Office Visit Internal Medicine - [address] [phone] Gil Flores MD [address] [place] [phone] Health Maintenance Due Date Last Done Comments [...] No Praveen Altman, PT Note: Pt will cook pickled meat and carry 17 lb dog without cervical [...] Maintenance Results * Lipid panel (04/19/2024) Pathologist [facility] LDL/HDL Ratio 2 0 - 4 Triglycerides 42 0 - 150 mg/dL Cholesterol 182 0 - 200 mg/dL HDL 107 >=40 mg/dL LDL Cholesterol 67 0 - 100 mg/dL Blood Venous blood specimen / Unknown [facility] Provider LAB BLOOD ORDERABLES Adrianna l Result * Cervical Cancer Screening: HPV (11/24/2023) Pathologist [facility] Cervical Cancer Screening: HPV abstracted, negative [facility] Provider HEALTH MAINTENANCE Final Result * HIV Screening (11/24/2023) [facility] HIV Screening abstracted [facility] Provider HEALTH MAINTENANCE Final Result * Hepatitis C Screening (11/24/2023) [facility] C Screening abstracted Result [facility] Provider HEALTH MAINTENANCE Final Result from Last 3 Months or Most Recently Relevant to Health Maintenance Insurance [facility] Care Teams Burling And Joining Supervisor Relationship Specialty Start Date End Date Gil Flores MD [address] [place], [place] [id number] [address] PCP - General Internal Medicine 06/15/21
[2025-09-12 11:44] VITALS: BP 154/85; PULSE 130; RESP 16; O2SAT 98
[2025-09-12 11:54] LABS: MANUAL DIFF FLAG NO
[2025-09-12 11:57] LABS: Hematocrit 38.1 % (37.0-47.0); Hemoglobin 13.6 g/dl (12.0-16.0); Imm Gran Abs Auto 0.06 X10*3/uL (0.00-0.03); Imm Gran Pct Auto 0.6 % (0.0-0.4); Lymphocytes Absolute Auto 0.6 X10*3/uL (1.2-4.9); Mean Corpuscular HGB Conc 35.7 g/dl (31.0-35.0); Mean Corpuscular Hemoglobin 32.2 pg (27.0-33.0); Mean Corpuscular Volume 90.1 fL (80.0-98.0); NRBC Abs Auto 0.000 X10*3/uL (0.0-0.012); NRBC Pct Auto 0.0 /100WBC (0.0-0.2); Platelet Count 128 X10*3/uL (160-400); Red Blood Count 4.23 X10*6/uL (4.20-5.50); White Blood Count 9.3 X10*3/uL (4.8-10.8)
[2025-09-12] MEDS: Potassium Chloride/H20 10 MEQ/100 ML PIGGYBACK 100 MEQ IV ×2 (12:16→13:31)
[2025-09-12] MEDS: Lactated Ringers 1,000 ML 999 ML IV (12:16)
[2025-09-12 12:19] LABS: Alanine Aminotransferase 32 U/L (0-31); Albumin Level 4.7 g/dL (3.5-5.0); Alkaline Phosphatase 74 U/L (39-117); Anion Gap 24 (12-20); Aspartate Amino Transferase 94 U/L (5-31); Blood Urea Nitrogen 15 mg/dL (9-16); Calcium 8.7 mg/dL (8.4-10.2); Carbon Dioxide 26 mmol/L (22-29); Chloride 94 mmol/L (96-108); Creatinine Clr Calc Pharmacy 103.4; Estimated Glomerular Filt Rate > 60; Magnesium 3.1 mg/dL (1.6-2.6); Potassium 2.9 mmol/L (3.3-5.1); Sodium 141 mmol/L (135-145); Total Protein 7.5 g/dL (6.5-8.0)
--- NOTE | 2025-09-12 12:26 | ED.GENADULT ---
HPI - General Adult General Chief complaint: Seizure Stated complaint: ETOH WITHDRAWAL/TREMORS,06/29 DAILY, NONE TODAY Time Seen by Provider: 09/12/25 09:54 Source: patient, EMS, RN notes reviewed and old records reviewed Mode of arrival: EMS Limitations: no limitations History of Present Illness ED Provider: JOSEMANUEL Roca HPI narrative: 35-year-old female with medical history of alcohol use disorder, HTN, peripheral neuropathy presents to the ED by EMS due to tremors, nausea, vomiting, and request for ETOH detox. Patient states her and her fiance drank a handle of vodka last night and woke up this morning tremulous, with nausea, vomiting and headache. Patient has not drank in anything prior to arrival as she would like detox. Denies fevers, chills, chest pain, SOB, difficulty breathing, abdominal pain, diarrhea, urinary symptoms MD complaint: alcohol withdrawal symptoms Related Data Home Medications ?Medication ?Instructions ?Recorded ?Confirmed melatonin 5 mg tablet 5 mg PO BEDTIME PRN Sleep 03/25/25 09/12/25 gabapentin 300 mg capsule 600 mg PO BEDTIME 05/12/25 09/12/25 iron,carbonyl 65 mg-vitamin C 125 1 tab PO DAILY 05/12/25 09/12/25 mg tablet,delayed release (Vitron-C) lidocaine 5 % topical patch 1 patch topical DAILY PRN Pain 05/12/25 09/12/25 clotrimazole-betamethasone 1 1 appl topical BID PRN Rash 06/28/25 09/12/25 %-0.05 % topical cream hydroxyzine HCl 10 mg tablet 10 mg PO BID PRN anxiety 08/07/25 09/12/25 ibuprofen 200 mg tablet 400 mg PO Q8H PRN Cramps and pain 08/07/25 09/12/25 ondansetron 4 mg disintegrating 4 mg PO DAILY PRN nausea/vomiting 09/12/25 09/12/25 tablet Previous Rx's ?Medication ?Instructions ?Recorded thiamine HCl (vitamin B1) 100 mg 100 mg PO DAILY #90 caps 03/28/25 capsule folic acid 1 mg tablet 1 mg PO DAILY 30 days #30 tabs 08/10/25 multivitamin (Daily-Lauro tablet) 1 tab PO DAILY 30 days #30 tabs 08/10/25 Allergies Allergy/AdvReac Type Severity Reaction Status Date / Time No Known Allergies Allergy Verified 09/12/25 10:14 Review of Systems Review of Systems: Yes all other systems are reviewed and are negative [facility] Past Medical History Attestation statement: The following information was validated with the patient. Source: old records reviewed and nursing notes reviewed Medical History HTN (hypertension) Peripheral neuropathy Alcohol use disorder, severe, dependence Social History Social History Household Members: Significant Other Housing: Apartment Do you presently have visiting nurse or other home services: No Alcohol intake: current Alcohol intake frequency: 3 or more drinks per day Alcohol type: hard liquor Comment: Pt refusing BR assist, alarms Patient Tobacco Use Status: Never used Tobacco Substance Use Type: Marijuana service: No Physical Exam ED Vital Signs: Vital Signs - 24 hr 09/12/25 10:06 09/12/25 11:44 09/12/25 14:08 Temperature 98.4 F 98 F Pulse Rate 130 H 130 H 101 H Respiratory Rate 20 16 13 Blood Pressure 140/68 H 154/85 H 131/86 Pulse Oximetry 98 98 98 Oxygen Delivery Method Room Air Room Air Room Air 09/12/25 14:41 Temperature 98.2 F Pulse Rate 104 H Respiratory Rate 13 Blood Pressure 131/86 Pulse Oximetry 94 Oxygen Delivery Method Room Air BMI result Body Mass Index 26.9 GENERAL APPEARANCE: ?AxOx4, chronically ill-appearing and extremely tremulous, no acute distress. HEENT: ?NC, AT. MMM. EOMI, clear conjunctiva, oropharynx clear. NECK: ?Supple without lymphadenopathy.? No stiffness or restricted ROM. HEART:? Normal rate and regular rhythm, normal S1/S2, no m/r/g LUNGS:? CTAB, moving air well, without wheeze, rhonchi or rales ABDOMEN: ?Soft, nontender, nondistended, no rigidity, nontender BACK: No CVAT, no obvious deformity. EXTREMITIES: ?Without cyanosis, clubbing or edema. NEUROLOGICAL: ?Grossly nonfocal. Alert and oriented, moving all 4 extremities. Skin: ?Warm and dry without any rash. Medications Administered Discontinued Medications Generic Name Dose Route Start Last Admin Trade Name Freq PRN Reason Stop Dose Admin Acetaminophen 650 mg 09/12/25 14:17 09/14/25 08:50 Acetaminophen 325 Mg Tablet PO 650 mg Q6H PRN Administration Pain, Mild 1-3,fever,headache Diazepam 10 mg 09/12/25 11:13 09/12/25 11:15 Diazepam 10 Mg/2 Ml Cartridge IVPUSH 09/12/25 11:14 10 mg STAT STA Administration Diazepam 10 mg 09/12/25 14:03 09/12/25 14:24 Diazepam 10 Mg/2 Ml Cartridge IVPUSH 09/12/25 14:04 10 mg STAT STA Administration Enoxaparin Sodium 40 mg 09/12/25 14:30 09/13/25 13:48 Enoxaparin Sodium 40 Mg/0.4 Ml Syringe SUBCUT Not Given Q24H CAROLE Famotidine 20 mg 09/12/25 14:25 09/14/25 08:45 Famotidine/Pf 20 Mg/2 Ml Vial IVPUSH 20 mg BID CAROLE Administration Gabapentin 300 mg 09/12/25 20:32 09/12/25 21:22 Gabapentin 300 Mg Capsule PO 09/12/25 20:33 300 mg ONCE ONE Administration Gabapentin 600 mg 09/13/25 21:00 09/13/25 21:17 Gabapentin 300 Mg Capsule PO 600 mg BEDTIME CAROLE Administration Hydroxyzine HCl 10 mg 09/13/25 00:55 09/13/25 01:04 Hydroxyzine Hcl 10 Mg Tablet PO 09/13/25 00:56 10 mg ONCE ONE Administration Hydroxyzine HCl 10 mg 09/14/25 05:23 09/14/25 05:33 Hydroxyzine Hcl 10 Mg Tablet PO 09/14/25 05:24 10 mg ONCE ONE Administration Lactated Ringer's 1,000 mls @ 999 mls/hr 09/12/25 11:41 09/12/25 13:20 Lr IV 09/12/25 12:41 Infused .Q1H1M ONE Infusion Potassium Chloride 10 meq in 100 mls @ 100 mls/hr 09/12/25 12:15 09/12/25 14:50 Potassium Chloride/H20 IV 09/12/25 14:14 Infused Q1H CAROLE Infusion Thiamine HCl 200 mg/ Sodium 102 mls @ 204 mls/hr 09/12/25 13:24 09/12/25 15:00 Chloride IV 09/12/25 13:53 Infused ONCE ONE Infusion Lactated Ringer's 1,000 mls @ 100 mls/hr 09/12/25 14:30 09/13/25 08:50 Lr IVCONT Infused .Q10H CAROLE Infusion Potassium Chloride/Sodium Chloride 20 meq in 1,000 mls @ 100 mls/hr 09/13/25 08:00 09/14/25 03:51 Kcl 20 Meq In 0.9 % Sodium Chl IVCONT 100 mls/hr .Q10H CAROLE Administration Metoclopramide HCl 5 mg 09/13/25 00:56 09/13/25 01:02 Metoclopramide Hcl 10 Mg/2 Ml Vial IVPUSH 09/13/25 00:57 5 mg ONCE ONE Administration Ondansetron HCl 4 mg 09/12/25 14:17 09/13/25 09:11 Ondansetron Hcl 4 Mg/2 Ml Vial IVPUSH 4 mg Q8H PRN Administration Nausea and Vomiting Phenobarbital 45 mg 09/12/25 21:00 09/14/25 08:44 Phenobarbital 15 Mg Tablet PO 09/14/25 09:01 45 mg BID CAROLE Administration Phenobarbital Sodium 263 mg 09/12/25 10:30 09/12/25 10:34 Phenobarbital Sodium 130 Mg/Ml Im Once IM 09/12/25 10:31 263 mg ONCE ONE Administration Phenobarbital Sodium 197 mg 09/12/25 13:30 09/12/25 17:21 Phenobarbital Sodium 130 Mg/Ml Vial Im Q3hx2 IM 09/12/25 16:31 197 mg Q3H CAROLE Administration Potassium Chloride 40 meq 09/12/25 21:00 09/14/25 08:45 Potassium Chloride Er 20 Meq Tab.Er.Prt PO 40 meq BID CAROLE Administration Sodium Chloride 3 ml 09/12/25 16:00 09/14/25 07:25 0.9 % Sodium Chloride Flush 3 Ml Syringe IVFLUSH Not Given QSHIFT CAROLE Tramadol HCl 25 mg 09/12/25 21:45 09/12/25 21:56 Tramadol Hcl 50 Mg Tablet PO 09/12/25 21:46 25 mg ONCE ONE Administration Tramadol HCl 25 mg 09/13/25 08:57 09/13/25 09:11 Tramadol Hcl 50 Mg Tablet PO 09/13/25 08:58 25 mg ONCE ONE Administration Medical Decision Making Medical Decision Making [facility] Narrative: 35-year-old female with medical history of alcohol use disorder, HTN, peripheral neuropathy presents to the ED by EMS due to tremors, nausea, vomiting, and request for ETOH detox. Patient states her and her fiance drank a handle of vodka last night and woke up this morning tremulous, with nausea, vomiting and headache. Patient reports having a seizure before EMS arrived. Patient has not drank in anything prior to arrival as she would like detox. VS on initial observation-BP 140/60, pulse rate of 130, respiratory rate of 20, afebrile with oral temp of 98.4?, O2 saturation 98% on room air. On physical exam patient is fatigued appearing, and tremulous, HEENT exam reveals no nystagmus, EOMI, lungs clear to auscultation bilaterally without wheeze, rhonchi, cardiac exam reveals tachycardic rate and rhythm without murmurs/rubs/gallops, lower extremities without edema CIWA of 18 Plan: Labs, EKG, - patient medicated with 10 mg IM Valium, 300 mg IV thiamine, 12 mg/kg phenobarbital protocol, and additional 130 mg phenobarbital due to withdrawal symptoms EKG reveals sinus tachycardia without acute ischemic changes, initial troponin 10.2, patient without chest pain Labs without leukocytosis/leukopenia, left shift of 86.3, no evidence of anemia, hypokalemia of 2.9, transaminitis with an AST of 94, ALT of 32, lactic acid elevated at 2.8 most likely due to withdrawal seizure prior to arrival Course 14:30- patient required additional 10 mg IV diazepam for alcohol withdrawal symptoms. I reached out to hospitalist to admit this patient to medicine for ETOH withdrawal requiring phenobarbital, with electrolyte disturbance of hypokalemia of 2.9. Patient's lactic acid is elevated at 2.8 however I ordered this lab to evaluate for seizure as patient states she had a seizure prior to arrival. Patient will be admitted to Medicine for further management of alcohol withdrawal. Differential Diagnosis Differential Diagnoses: The differential diagnosis associated with the presentation includes Alcohol withdrawal Electrolyte abnormality Dysrhythmia Admission/Observation Consideration of admission/observation: Escalation of care including admission/observation considered Consult Healthcare Provider Management of the patient was discussed with: Hospitalist (Dr. Granados ) Lab Data [facility] Lab Attestation statement: I reviewed the patient's lab results. 09/13/25 06:40 09/14/25 08:51 Labs: Lab Results 09/12/25 09/12/25 Range/Units 11:48 13:18 WBC 9.3 (4.8-10.8) X10*3/uL RBC 4.23 (4.20-5.50) X10*6/uL Hgb 13.6 (12.0-16.0) g/dl Hct 38.1 (37.0-47.0) % MCV 90.1 (80.0-98.0) fL MCH 32.2 (27.0-33.0) pg MCHC 35.7 H (31.0-35.0) g/dl RDW 12.9 (11.0-16.0) % Plt Count 128 L (160-400) X10*3/uL MPV 10.6 (9.4-12.3) fL Immature Gran % (Auto) 0.6 H (0.0-0.4) % Neut % (Auto) 86.3 H (45-73) % Lymph % (Auto) 6.4 L (20-40) % [place] % (Auto) 6.4 (2-11) % Eos % (Auto) 0.1 (0-4) % Baso % (Auto) 0.2 (0-2) % Lymph # (Auto) 0.6 L (1.2-4.9) X10*3/uL [place] # (Auto) 0.6 (0.1-1.2) X10*3/uL Eos # (Auto) 0.0 (0.0-0.4) X10*3/uL Baso # (Auto) 0.0 (0.0-0.2) X10*3/uL Abs Immat Gran (auto) 0.06 H (0.00-0.03) X10*3/uL Absolute Neuts (auto) 8.0 (2.0-8.3) x10*3/uL Absolute Nucleated RBC 0.000 (0.0-0.012) X10*3/uL Nucleated RBC % (auto) 0.0 (0.0-0.2) /100WBC Sodium 141 (135-145) mmol/L Potassium 2.9 L* (3.3-5.1) mmol/L Chloride 94 L (96-108) mmol/L Carbon Dioxide 26 (22-29) mmol/L Anion Gap 24 H (12-20) BUN 15 (9-16) mg/dL Creatinine 0.72 (0.5-1.4) mg/dL Estim Creat Clear Calc 103.4 Estimated GFR > 60 Random Glucose 150 H (60-115) mg/dL Lactic Acid 2.8 H* (0.5-2.0) mmol/L Calcium 8.7 (8.4-10.2) mg/dL Magnesium 3.1 H (1.6-2.6) mg/dL Total Bilirubin 1.4 H (0.0-1.0) mg/dL AST 94 H (5-31) U/L ALT 32 H (0-31) U/L Alkaline Phosphatase 74 (39-117) U/L Troponin I High Sens 10.2 D (<3.5-17.0) ng/L Total Protein 7.5 (6.5-8.0) g/dL Albumin 4.7 (3.5-5.0) g/dL Urine Color DK YELLOW Urine Appearance Cloudy Urine pH 6.0 (5.0-9.0) Ur Specific [place] >= 1.030 H (1.005-1.025) Urine Protein 300 (3+) H (Neg-Trace) mg/dL Urine Glucose (UA) Negative (Negative) mg/dL Urine Ketones >=80 (Negative) mg/dL Urine Blood Large (3+) H (Negative) Urine Nitrite Negative (Negative) Ur Leukocyte Esterase Negative (Negative) Urine RBC >20 H (0-2) /HPF Urine WBC 0-5 (0-5) /HPF Ur Squamous Epith Cells 3-5 (0-2) /HPF Urine Bacteria 1+ (None Seen) Hyaline Casts 0-2 (0-2) /LPF Granular Casts Present Waxy Casts Present Independent Interpretation I performed an independent interpretation of an: EKG Interpretation: I personally interpreted the EKG which reveals sinus tachycardia without acute ischemic changes, with a prolonged QTC of 588 Vent. Rate : 125 BPM Atrial Rate : 125 BPM P-R Int : 112 ms QRS Dur : 96 ms QT Int : 408 ms P-R-T Axes : * 86 38 degrees QTcB Int : 588 ms Sinus tachycardia Cannot rule out Inferior infarct , age undetermined Abnormal ECG When compared with ECG of 07-Aug-2025 00:20, Non-specific change in ST segment in Inferior leads External Record Review External record reviewed: Inpatient record, Office record, Outpatient record and Prior outpatient labs Chronic Conditions Patient?s care impacted by: Hypertension and Other (Alcohol use disorder, peripheral neuropathy) Social Determinants Patient?s care significantly limited by Social Determinants of Health including: Other Social Determinant of Health Critical Care Time Critical Care Time Critical Care Time: Yes Total Critical Care Time: 43 Attestation: I provided 43 minutes of critical care, exclusive of separately billable procedures, for this patient with severe alcohol withdrawal. The patient was at high risk for imminent, life-threatening deterioration, including withdrawal seizures, delirium tremens, and autonomic instability. My critical care time included direct bedside management, frequent reassessment of mental status and vital signs, management of withdrawal symptoms using phenobarbital, cardiorespiratory monitoring, review and interpretation of laboratory studies, coordination of care with nursing staff, and discussion with the admitting service. These interventions were necessary to prevent progression to seizures, respiratory compromise, or delirium tremens. Due to the severity of withdrawal and need for ongoing monitoring and medication titration, the patient required hospital admission. Discharge Plan Discharge Clinical Impression: Alcohol withdrawal Patient Disposition: Admitted As Inpatient Interventions: Admission Worksheet (ED) Last Done: 09/12/25 23:39 Discharge Date/Time: 09/13/25 00:50
[2025-09-12] MEDS: PHENobarbitaL sodium 130 MG/ML VIAL IM Q3Hx2 197 MG IM ×2 (13:28→17:21)
[2025-09-12 13:29] LABS: Appearance Urine Cloudy; Glucose Urine UA Negative (Negative); PH 6.0 (5.0-9.0); Specific Gravity - Urine >= 1.030 (1.005-1.025); UMIC TRIGGER UACC YES
[2025-09-12 13:52] LABS: Reflex Lactate? Lactic Acid Added
[2025-09-12 14:01] LABS: Troponin-I High Sensitivity 10.2 ng/L (<3.5-17.0)
[2025-09-12 14:08] VITALS: BP 131/86; PULSE 101; RESP 13; TEMP 36.6; O2SAT 98
--- NOTE | 2025-09-12 14:13 | PM.IMHP ---
History of Present Illness Date of Service: 09/12/25 Chief Complaint: alxohol withdrawal 35-year-old woman with a history of alcohol use and withdrawal presented to the ER very tremulous with nausea and vomiting. Patient reports that she may have had 2 seizures. She drinks about half a L of vodka a day to reports that her last drink was last night and she has been on a ?[place]? for some time with her last sober period of time more than 4 months ago. Sounds like her fiance also drinks but he did not state that. She denied chest pain, shortness breath. She did say that she felt very anxious. She was given Valium, thiamine, IV fluid with potassium and started on phenobarbital. Plan will be to admit patient for further management and treatment of acute alcohol withdrawal seizure. Review of Systems Review of Systems: Denies any recent fever chills respiratory denies any shortness of breath or cough cardiovascular denied chest pain gastrointestinal denies any dysphagia abdominal pain nausea vomiting or diarrhea genitourinary denies any dysuria frequency or hematuria musculoskeletal denies any joint pain or swelling neuropsych denies any weakness or seizures all other systems reviewed are negative [facility] Medical History HTN (hypertension) Peripheral neuropathy Alcohol use disorder, severe, dependence Social History Household Members: Spouse Housing: Apartment Do you presently have visiting nurse or other home services: No Alcohol intake: current Alcohol intake frequency: 3 or more drinks per day Alcohol type: hard liquor Comment: Pt refusing BR assist, alarms Patient Tobacco Use Status: Never used Tobacco Smoked in Last 30 Days: No Use of substances other than those prescribed or required for medical reasons: Yes Substance Use Type: Marijuana Substance Use Frequency: Chronic Longstanding Advance Directives: No Advance Directives Information Provided: No Do you have a plan to hurt others: No Plan Patient : No service: No Meds Allergies Allergy/AdvReac Type Severity Reaction Status Date / Time No Known Allergies Allergy Verified 09/12/25 10:14 Active Medications: Current Medications Potassium Chloride (Potassium Chloride/H20) 10 meq in 100 mls @ 100 mls/hr IV Q1H CAROLE Stop: 09/12/25 14:14 Last Admin: 09/12/25 13:31 Dose: 100 mls/hr Pharmacy Consult (Consult Rx Etoh Phenob Im/Po) 1 each MISCELLANE ONCE PRN; Protocol PRN Reason: Consult order Phenobarbital (Phenobarbital 15 Mg Tablet) 45 mg PO BID [facility] Stop: 09/14/25 09:01 Phenobarbital (Phenobarbital 30 Mg Tablet) 30 mg PO BID CAROLE Stop: 09/16/25 09:01 Phenobarbital (Phenobarbital 30 Mg Tablet) 30 mg PO BEDTIME CAROLE Stop: 09/17/25 21:01 Phenobarbital Sodium (Phenobarbital Sodium 130 Mg/Ml Vial Im Q3hx2) 197 mg IM Q3H CAROLE Stop: 09/12/25 16:31 Last Admin: 09/12/25 13:28 Dose: 197 mg Home Medications ?Medication ?Instructions ?Recorded ?Confirmed ?Last Taken ?Type melatonin 5 mg tablet 5 mg PO BEDTIME PRN Sleep 03/25/25 08/07/25 Unknown History gabapentin 300 mg capsule 300 mg PO BID@0900,1200 05/12/25 08/07/25 05/08/25 History gabapentin 300 mg capsule 600 mg PO BEDTIME 05/12/25 08/07/25 08/05/25 History iron,carbonyl 65 mg-vitamin C 125 1 tab PO DAILY 05/12/25 08/07/25 08/06/25 History mg tablet,delayed release (Vitron-C) lidocaine 5 % topical patch 1 patch topical DAILY PRN Pain 05/12/25 08/07/25 08/06/25 History clotrimazole-betamethasone 1 1 appl topical BID PRN Rash 06/28/25 08/07/25 Unknown History %-0.05 % topical cream hydroxyzine HCl 10 mg tablet 10 mg PO BID PRN anxiety 08/07/25 08/07/25 Unknown History ibuprofen 200 mg tablet 400 mg PO Q8H PRN Cramps and pain 08/07/25 08/07/25 Unknown History multivitamin with folic acid 400 1 tab PO DAILY 08/07/25 08/07/25 08/06/25 History mcg tablet (Daily-Lauro (with folic acid)) Physical Exam Vital Signs and Narrative: Vital Signs: Last Vital Signs Temp 98 F 09/12/25 14:08 Pulse 101 H 09/12/25 14:08 Resp 13 09/12/25 14:08 BP 131/86 09/12/25 14:08 Pulse Ox 98 09/12/25 14:08 O2 Del Method Room Air 09/12/25 14:08 BMI result Body Mass Index 26.9 Appearing in no acute distress head is normocephalic atraumatic eyes pupils are PERRLA sclera is anicteric mouth throat mucous membranes are intact and moist neck is supple no lymphadenopathy, no JVD noted lung sounds are clear to auscultation heart regular rate rhythm, clear S1, S2 positive bowel sounds, abdomen is soft, nontender neuro patient is alert x3, no focal deficits Tremulous Results Labs 09/12/25 11:48 09/12/25 11:48 Labs: Laboratory Results - last 24 hr 09/12/25 09/12/25 11:48 13:18 MCV 90.1 MCH 32.2 MCHC 35.7 H RDW 12.9 Plt Count 128 L MPV 10.6 Immature Gran % (Auto) 0.6 H Neut % (Auto) 86.3 H Lymph % (Auto) 6.4 L [place] % (Auto) 6.4 Eos % (Auto) 0.1 Baso % (Auto) 0.2 Lymph # (Auto) 0.6 L [place] # (Auto) 0.6 Eos # (Auto) 0.0 Baso # (Auto) 0.0 Abs Immat Gran (auto) 0.06 H Absolute Neuts (auto) 8.0 Absolute Nucleated RBC 0.000 Nucleated RBC % (auto) 0.0 Anion Gap 24 H Estim Creat Clear Calc 103.4 Estimated GFR > 60 Random Glucose 150 H Lactic Acid 2.8 H* Calcium 8.7 Magnesium 3.1 H Total Bilirubin 1.4 H AST 94 H ALT 32 H Alkaline Phosphatase 74 Troponin I High Sens 10.2 D Total Protein 7.5 Albumin 4.7 Urine Color DK YELLOW Urine Appearance Cloudy Urine pH 6.0 Ur Specific [place] >= 1.030 H Urine Protein 300 (3+) H Urine Glucose (UA) Negative Urine Ketones >=80 Urine Blood Large (3+) H Urine Nitrite Negative Ur Leukocyte Esterase Negative Urine RBC >20 H Urine WBC 0-5 Ur Squamous Epith Cells 3-5 Urine Bacteria 1+ Hyaline Casts 0-2 Granular Casts Present Waxy Casts Present Assessment and Plan (1) Alcohol use disorder: Status: Acute (2) HTN (hypertension): Status: Acute Plan 35 year old women admitted with alcohol withdrawal symptoms Alcohol withdrawal seizure Drinks 1/2 liter of vodka a day, last drink last night very tremulous and anxious Started phenobarbital IV fluids multivitamin, folic acid and thiamine add protein to diet PPI addiction team consult Hypokalemia Likely from alcohol use replete with IV and oral potassium Transaminitis secondary to alcohol use History of peripheral neuropathy Likely secondary to alcohol use On gabapentin DVT prophylaxis with Lovenox Full code Quality Stroke Does the patient have a stroke diagnosis?: No VTE Prior VTE?: No VTE Risk Level:: Medical - moderate - high VTE Device Contraindication: Treatment Not Indicated VTE Drug Contraindication: N/A - Med Ordered
[2025-09-12] MEDS: Thiamine HCL 200 MG in 0.9 % Sodium Chloride 100 ML 204 MG IV (14:24)
[2025-09-12 14:41] VITALS: BP 131/86; PULSE 104; RESP 13; TEMP 36.8; O2SAT 94
[2025-09-12 14:59] LABS: ~Lactic Acid-LAB USE ONLY 1.4 mmol/L (0.5-2.0)
[2025-09-12] MEDS: Lactated Ringers 1,000 ML 100 ML IVCONT (17:24)
--- NOTE | 2025-09-12 18:22 | PHA.MEDREC ---
Pharmacy Consult ? Medication Reconciliation Pharmacy has completed the medication reconciliation.Med rec complete. Spoke to patient and compared with pharmacy claims history
--- NOTE | 2025-09-12 19:05 | HO.NURTONUR ---
Addendum entered by Shahnaz Emerson RN 09/12/25 22:25: Pt reported headache earlier this evening to this RN, PRN Tylenol provided no relief. One time dose tramadol 25 mg ordered by hospitalist. Original Note: 35 y/o F, A/ox3, Full Code Came from home for ETOH withdrawal- per pt, last drink was 09/12 night, unsure exactly what time. Per pt- drinks for approx 5 days in a row then attempts to detox at home. ?Seizure prior to arrival. Has hx of withdrawal seizures. No seizure activity throughout day Labs: Potassium 2.9, Lactic 2.8 --> 1.4, LFTs elevated Reports: EKG- sinus tach (sinus tach on bus driver/monitor, HR 100s) 20g IV Right Wrist -Phenobarb protocol 11/15 IMs given -Has LR running @100ml/hr -Potassium replaced with 2 bags of 10meq CIWA upon arrival was 21--> last CIWA 14 (tremulous/nausea/vomiting/)
[2025-09-12 19:31] VITALS: BP 136/87; PULSE 96; RESP 18; TEMP 36.4; O2SAT 98
--- NOTE | 2025-09-12 19:35 | PC.NURSE ---
Late entry: Pt reporting 8/10 pounding headache, PRN Tylenol administered per pt request.
--- NOTE | 2025-09-12 19:36 | PC.NURSE ---
20 g IV in right wrist
[2025-09-12] MEDS: PHENobarbital 15 MG TABLET 45 MG PO (21:22)
[2025-09-12] MEDS: Potassium Chloride ER 20 MEQ TAB.ER.PRT 40 MEQ PO (21:22)
--- NOTE | 2025-09-12 21:55 | PC.NURSE ---
Late entry: Pt reports Tylenol has not helped her headache. Hospitalist aware, order for one time dose 25 mg PO tramadol given. Lights dimmed and curtain closed for pt at this time. Pt resting quietly on stretcher.
--- NOTE | 2025-09-12 22:22 | PC.NURSE ---
Pt now asleep on stretcher. RR even and unlabored, equal chest rise and fall.
[2025-09-13 00:46] VITALS: BMI 28.0
[2025-09-13] MEDS: Lactated Ringers 1,000 ML 100 ML IVCONT (00:49)
[2025-09-13 00:55] VITALS: BP 122/82; PULSE 93; RESP 17; TEMP 36.8; O2SAT 98
[2025-09-13 04:00] VITALS: BP 122/78; PULSE 75; RESP 16; TEMP 36.7; O2SAT 98
[2025-09-13 07:06] LABS: Hematocrit 35.3 % (37.0-47.0); Hemoglobin 12.2 g/dl (12.0-16.0); Mean Corpuscular HGB Conc 34.6 g/dl (31.0-35.0); Mean Corpuscular Hemoglobin 32.1 pg (27.0-33.0); Mean Corpuscular Volume 92.9 fL (80.0-98.0); NRBC Abs Auto 0.000 X10*3/uL (0.0-0.012); NRBC Pct Auto 0.0 /100WBC (0.0-0.2); PLT CLUMP 1; Red Blood Count 3.80 X10*6/uL (4.20-5.50)
[2025-09-13 07:17] LABS: Platelet Count 94 X10*3/uL (160-400); White Blood Count 5.5 X10*3/uL (4.8-10.8)
[2025-09-13 07:48] LABS: Alanine Aminotransferase 29 U/L (0-31); Albumin Level 4.0 g/dL (3.5-5.0); Alkaline Phosphatase 58 U/L (39-117); Anion Gap 11 (12-20); Aspartate Amino Transferase 70 U/L (5-31); Blood Urea Nitrogen 9 mg/dL (9-16); Calcium 8.5 mg/dL (8.4-10.2); Carbon Dioxide 29 mmol/L (22-29); Chloride 96 mmol/L (96-108); Creatinine Clr Calc Pharmacy 124.3; Estimated Glomerular Filt Rate > 60; Magnesium 2.4 mg/dL (1.6-2.6); Potassium 2.9 mmol/L (3.3-5.1); Sodium 133 mmol/L (135-145); Total Protein 6.3 g/dL (6.5-8.0)
[2025-09-13 08:00] VITALS: BP 119/80; PULSE 84; RESP 18; TEMP 36.7; O2SAT 96
[2025-09-13] MEDS: Potassium Chloride ER 20 MEQ TAB.ER.PRT 40 MEQ PO ×2 (08:49→21:17)
[2025-09-13] MEDS: PHENobarbital 15 MG TABLET 45 MG PO ×2 (08:49→21:17)
[2025-09-13] MEDS: KCl 20 mEq in 0.9 % Sodium ChL 20 MEQ/1,000 ML IV.SOLN 100 MEQ IVCONT ×2 (09:12→17:50)
--- NOTE | 2025-09-13 09:21 | P.PNIM_ITS ---
Subjective Subjective Date of Service: 09/13/25 Review of Systems F/U Alcohol Withdrawal Feeling a little nauseous, no vomiting, tolerating sherbert Had bed linen change this AM tried to sit up felt a little dizzy Occipital headache mild might be related to pre-admission fall No seizures overnight No tremors Review of Systems: Yes all other systems are reviewed and are negative Physical Exam 2 Exam: Exam: Appearing in no acute distress lung sounds are clear to auscultation heart regular rate rhythm, clear S1, S2 positive bowel sounds, abdomen is soft, nontender neuro patient is alert x3, no focal deficits Vital Signs: Vital Signs: Last Vital Signs Temp 98.1 F 09/13/25 04:00 Pulse 75 09/13/25 04:00 Resp 16 09/13/25 04:00 BP 122/78 09/13/25 04:00 Pulse Ox 98 09/13/25 04:00 O2 Del Method Room Air 09/13/25 04:00 BMI result Body Mass Index 28.0 Appearing in no acute distress head is normocephalic atraumatic eyes pupils are PERRLA sclera is anicteric mouth throat mucous membranes are intact and moist neck is supple no lymphadenopathy, no JVD noted lung sounds are clear to auscultation heart regular rate rhythm, clear S1, S2 positive bowel sounds, abdomen is soft, nontender neuro patient is alert x3, no focal deficits no tremors Objective Data Active Medications Acetaminophen (Acetaminophen 325 Mg Tablet) 650 mg PO Q6H PRN PRN Reason: Pain, Mild 1-3,fever,headache Last Admin: 09/12/25 19:35 Dose: 650 mg Documented By: FANNY Calcium Carbonate (Calcium Carbonate 750 Mg Tab.Chew) 750 mg PO Q4H PRN PRN Reason: Heartburn Enoxaparin Sodium (Enoxaparin Sodium 40 Mg/0.4 Ml Syringe) 40 mg SUBCUT Q24H [facility] Last Admin: 09/12/25 17:25 Dose: Not Given Documented By: DARIUS Non-Admin Reason: Patient Refused Famotidine (Famotidine/Pf 20 Mg/2 Ml Vial) 20 mg IVPUSH BID [facility] Last Admin: 09/13/25 08:49 Dose: 20 mg Documented By: DYLAN Potassium Chloride/Sodium Chloride (Kcl 20 Meq In 0.9 % Sodium Chl) 20 meq in 1,000 mls @ 100 mls/hr IVCONT .Q10H [facility] Last Admin: 09/13/25 09:12 Dose: 100 mls/hr Documented By: DYLAN Magnesium Hydroxide (Milk Of Magnesia 30 Ml Oral.Susp) 30 ml PO DAILY PRN PRN Reason: Constipation Melatonin (Melatonin 3 Mg Tablet) 6 mg PO BEDTIME PRN PRN Reason: Insomnia Ondansetron HCl (Ondansetron Hcl 4 Mg/2 Ml Vial) 4 mg IVPUSH Q8H PRN PRN Reason: Nausea and Vomiting Last Admin: 09/13/25 09:11 Dose: 4 mg Documented By: DYLAN Pharmacy Consult (Consult Rx Etoh Phenob Im/Po) 1 each MISCELLANE ONCE PRN; Protocol PRN Reason: Consult order Phenobarbital (Phenobarbital 15 Mg Tablet) 45 mg PO BID [facility] Stop: 09/14/25 09:01 Last Admin: 09/13/25 08:49 Dose: 45 mg Documented By: DYLAN Phenobarbital (Phenobarbital 30 Mg Tablet) 30 mg PO BID [facility] Stop: 09/16/25 09:01 Phenobarbital (Phenobarbital 30 Mg Tablet) 30 mg PO BEDTIME [facility] Stop: 09/17/25 21:01 Potassium Chloride (Potassium Chloride Er 20 Meq Tab.Er.Prt) 40 meq PO BID [facility] Last Admin: 09/13/25 08:49 Dose: 40 meq Documented By: DYLAN Sodium Chloride (0.9 % Sodium Chloride Flush 3 Ml Syringe) 3 ml IVFLUSH QSHIFT [facility] Last Admin: 09/13/25 08:47 Dose: Not Given Documented By: DYLAN Non-Admin Reason: IV Running Labs 09/13/25 06:40 09/13/25 06:40 Labs: Laboratory Results - last 24 hr 09/12/25 09/12/25 09/12/25 11:48 13:18 14:40 MCV 90.1 MCH 32.2 MCHC 35.7 H RDW 12.9 Plt Count 128 L MPV 10.6 Immature Gran % (Auto) 0.6 H Neut % (Auto) 86.3 H Lymph % (Auto) 6.4 L [place] % (Auto) 6.4 Eos % (Auto) 0.1 Baso % (Auto) 0.2 Lymph # (Auto) 0.6 L [place] # (Auto) 0.6 Eos # (Auto) 0.0 Baso # (Auto) 0.0 Abs Immat Gran (auto) 0.06 H Absolute Neuts (auto) 8.0 Absolute Nucleated RBC 0.000 Nucleated RBC % (auto) 0.0 Anion Gap 24 H Estim Creat Clear Calc 103.4 Estimated GFR > 60 Random Glucose 150 H Lactic Acid 2.8 H* Lactic Acid F/U @ 2Hr 1.4 Calcium 8.7 Magnesium 3.1 H Total Bilirubin 1.4 H AST 94 H ALT 32 H Alkaline Phosphatase 74 Troponin I High Sens 10.2 D Total Protein 7.5 Albumin 4.7 Urine Color DK YELLOW Urine Appearance Cloudy Urine pH 6.0 Ur Specific [place] >= 1.030 H Urine Protein 300 (3+) H Urine Glucose (UA) Negative Urine Ketones >=80 Urine Blood Large (3+) H Urine Nitrite Negative Ur Leukocyte Esterase Negative Urine RBC >20 H Urine WBC 0-5 Ur Squamous Epith Cells 3-5 Urine Bacteria 1+ Hyaline Casts 0-2 Granular Casts Present Waxy Casts Present 09/13/25 06:40 MCV 92.9 MCH 32.1 MCHC 34.6 RDW 12.8 Plt Count 94 L D MPV 11.1 Immature Gran % (Auto) Neut % (Auto) Lymph % (Auto) [place] % (Auto) Eos % (Auto) Baso % (Auto) Lymph # (Auto) [place] # (Auto) Eos # (Auto) Baso # (Auto) Abs Immat Gran (auto) Absolute Neuts (auto) Absolute Nucleated RBC 0.000 Nucleated RBC % (auto) 0.0 Anion Gap 11 L Estim Creat Clear Calc 124.3 Estimated GFR > 60 Random Glucose 95 Lactic Acid Lactic Acid F/U @ 2Hr Calcium 8.5 Magnesium 2.4 Total Bilirubin 0.8 AST 70 H ALT 29 Alkaline Phosphatase 58 Troponin I High Sens Total Protein 6.3 L Albumin 4.0 Urine Color Urine Appearance Urine pH Ur Specific [place] Urine Protein Urine Glucose (UA) Urine Ketones Urine Blood Urine Nitrite Ur Leukocyte Esterase Urine RBC Urine WBC Ur Squamous Epith Cells Urine Bacteria Hyaline Casts Granular Casts Waxy Casts Assessment and Plan (1) Alcohol use disorder: Status: Acute Plan 35 year old women admitted with alcohol withdrawal symptoms Alcohol withdrawal seizure Drinks 1/2 liter of vodka a day, last drink last night No tremors, mild anxiety continue phenobarbital IV fluids multivitamin, folic acid and thiamine add protein to diet PPI addiction team consult Hypokalemia Likely from alcohol use replete with IV and oral potassium K+ 2.9 Transaminitis secondary to alcohol use History of peripheral neuropathy Likely secondary to alcohol use continue gabapentin DVT prophylaxis with Lovenox Full code Quality Stroke Does the patient have a stroke diagnosis?: No VTE Prior VTE?: No VTE Risk Level:: Medical - moderate - high VTE Device Contraindication: Treatment Not Indicated VTE Drug Contraindication: N/A - Med Ordered
--- NOTE | 2025-09-13 10:16 | HO.ADDICT_ITS ---
History of Present Illness Date of Service: 09/13/2025 Chief Complaint: Alcohol withdrawl seizure Reason for Consult: AUD, acute withdrawal and seizure Sources of Information: patient interviewed and chart reviewed HPI Narrative: Patient is a 35 year old female with AUD, who presented to [facility] ED reporting acute withdrawal with witnessed seizure at home. In ED, CIWA 18, K 2.9. Patient subsequently medically admitted and initiated on phenobarbital protocol for alcohol withdrawal. Chart review shows 6 ED visits since March for alcohol related reasons, with 5 resulting in medical admission. Patient seen in room 484. She is awake, alert, laying in bed, blanket pulled up to her neck. She states that she has been sharing a gallon of vodka almost daily for the last week +. She identifies lack of structure as a major factor in her drinking. In terms of withdrawal, she reports tremors are much improved, and nausea has subsided. Still experiencing chills, anxiety and overall body aches. She states her goal is to abstain from alcohol completely. She does not want to seek admission to any type of inpatient treatment facility She is open to possibility of PHP/IOP admission. Declines SHAYY CIWA 4 no diaphoresis or restlessness noted K 2.9 this morning Past Psychiatric History: Denies history of inpatient psychiatric hospitalization. Does not have outpatient psychiatric providers. Denies history of psychiatric medications. Denies history of SA/SIB. Medical Evaluation Reviewed: Yes Review of Systems Constitutional: Reports as per HPI and Reports no additional constitutional complaints Diagnostics Vital Signs (24Hr): Vital Signs - 24 hr 09/12/25 11:44 09/12/25 14:08 09/12/25 14:41 Temperature 98 F 98.2 F Pulse Rate 130 H 101 H 104 H Respiratory Rate 16 13 13 Blood Pressure 154/85 H 131/86 131/86 Pulse Oximetry 98 98 94 Oxygen Delivery Method Room Air Room Air Room Air 09/12/25 19:31 09/13/25 00:55 09/13/25 04:00 Temperature 97.6 F 98.3 F 98.1 F Pulse Rate 96 93 75 Respiratory Rate 18 17 16 Blood Pressure 136/87 122/82 122/78 Pulse Oximetry 98 98 98 Oxygen Delivery Method Room Air Room Air Room Air 09/13/25 08:00 Temperature 98.0 F Pulse Rate 84 Respiratory Rate 18 Blood Pressure 119/80 Pulse Oximetry 96 Oxygen Delivery Method Room Air BMI result Body Mass Index 28.0 Labs 09/13/25 06:40 09/13/25 06:40 Labs: Laboratory Results - last 48 hr 09/12/25 09/12/25 09/12/25 11:48 13:18 14:40 WBC 9.3 RBC 4.23 Hgb 13.6 Hct 38.1 MCV 90.1 MCH 32.2 MCHC 35.7 H RDW 12.9 Plt Count 128 L MPV 10.6 Immature Gran % (Auto) 0.6 H Neut % (Auto) 86.3 H Lymph % (Auto) 6.4 L [place] % (Auto) 6.4 Eos % (Auto) 0.1 Baso % (Auto) 0.2 Lymph # (Auto) 0.6 L [place] # (Auto) 0.6 Eos # (Auto) 0.0 Baso # (Auto) 0.0 Abs Immat Gran (auto) 0.06 H Absolute Neuts (auto) 8.0 Absolute Nucleated RBC 0.000 Nucleated RBC % (auto) 0.0 Sodium 141 Potassium 2.9 L* Chloride 94 L Carbon Dioxide 26 Anion Gap 24 H BUN 15 Creatinine 0.72 Estim Creat Clear Calc 103.4 Estimated GFR > 60 Random Glucose 150 H Lactic Acid 2.8 H* Lactic Acid F/U @ 2Hr 1.4 Calcium 8.7 Magnesium 3.1 H Total Bilirubin 1.4 H AST 94 H ALT 32 H Alkaline Phosphatase 74 Troponin I High Sens 10.2 D Total Protein 7.5 Albumin 4.7 Urine Color DK YELLOW Urine Appearance Cloudy Urine pH 6.0 Ur Specific [place] >= 1.030 H Urine Protein 300 (3+) H Urine Glucose (UA) Negative Urine Ketones >=80 Urine Blood Large (3+) H Urine Nitrite Negative Ur Leukocyte Esterase Negative Urine RBC >20 H Urine WBC 0-5 Ur Squamous Epith Cells 3-5 Urine Bacteria 1+ Hyaline Casts 0-2 Granular Casts Present Waxy Casts Present 09/13/25 06:40 WBC 5.5 RBC 3.80 L Hgb 12.2 Hct 35.3 L MCV 92.9 MCH 32.1 MCHC 34.6 RDW 12.8 Plt Count 94 L D MPV 11.1 Immature Gran % (Auto) Neut % (Auto) Lymph % (Auto) [place] % (Auto) Eos % (Auto) Baso % (Auto) Lymph # (Auto) [place] # (Auto) Eos # (Auto) Baso # (Auto) Abs Immat Gran (auto) Absolute Neuts (auto) Absolute Nucleated RBC 0.000 Nucleated RBC % (auto) 0.0 Sodium 133 L Potassium 2.9 L* Chloride 96 Carbon Dioxide 29 Anion Gap 11 L BUN 9 Creatinine 0.61 Estim Creat Clear Calc 124.3 Estimated GFR > 60 Random Glucose 95 Lactic Acid Lactic Acid F/U @ 2Hr Calcium 8.5 Magnesium 2.4 Total Bilirubin 0.8 AST 70 H ALT 29 Alkaline Phosphatase 58 Troponin I High Sens Total Protein 6.3 L Albumin 4.0 Urine Color Urine Appearance Urine pH Ur Specific [place] Urine Protein Urine Glucose (UA) Urine Ketones Urine Blood Urine Nitrite Ur Leukocyte Esterase Urine RBC Urine WBC Ur Squamous Epith Cells Urine Bacteria Hyaline Casts Granular Casts Waxy Casts Mental Status Exam Mental Status Exam Patient Behavior: Appropriate and Cooperative Affect Description: Calm Speech Pattern: Clear Hallucinations: None Thought Process: Intact Thought Content: positive for Intact Judgement: Fair Medications Medications Current Medications Acetaminophen (Acetaminophen 325 Mg Tablet) 650 mg PO Q6H PRN PRN Reason: Pain, Mild 1-3,fever,headache Last Admin: 09/12/25 19:35 Dose: 650 mg Calcium Carbonate (Calcium Carbonate 750 Mg Tab.Chew) 750 mg PO Q4H PRN PRN Reason: Heartburn Enoxaparin Sodium (Enoxaparin Sodium 40 Mg/0.4 Ml Syringe) 40 mg SUBCUT Q24H [facility] Last Admin: 09/12/25 17:25 Dose: Not Given Famotidine (Famotidine/Pf 20 Mg/2 Ml Vial) 20 mg IVPUSH BID [facility] Last Admin: 09/13/25 08:49 Dose: 20 mg Potassium Chloride/Sodium Chloride (Kcl 20 Meq In 0.9 % Sodium Chl) 20 meq in 1,000 mls @ 100 mls/hr IVCONT .Q10H [facility] Last Admin: 09/13/25 09:12 Dose: 100 mls/hr Magnesium Hydroxide (Milk Of Magnesia 30 Ml Oral.Susp) 30 ml PO DAILY PRN PRN Reason: Constipation Melatonin (Melatonin 3 Mg Tablet) 6 mg PO BEDTIME PRN PRN Reason: Insomnia Ondansetron HCl (Ondansetron Hcl 4 Mg/2 Ml Vial) 4 mg IVPUSH Q8H PRN PRN Reason: Nausea and Vomiting Last Admin: 09/13/25 09:11 Dose: 4 mg Pharmacy Consult (Consult Rx Etoh Phenob Im/Po) 1 each MISCELLANE ONCE PRN; Protocol PRN Reason: Consult order Phenobarbital (Phenobarbital 15 Mg Tablet) 45 mg PO BID [facility] Stop: 09/14/25 09:01 Last Admin: 09/13/25 08:49 Dose: 45 mg Phenobarbital (Phenobarbital 30 Mg Tablet) 30 mg PO BID [facility] Stop: 09/16/25 09:01 Phenobarbital (Phenobarbital 30 Mg Tablet) 30 mg PO BEDTIME [facility] Stop: 09/17/25 21:01 Potassium Chloride (Potassium Chloride Er 20 Meq Tab.Er.Prt) 40 meq PO BID [facility] Last Admin: 09/13/25 08:49 Dose: 40 meq Sodium Chloride (0.9 % Sodium Chloride Flush 3 Ml Syringe) 3 ml IVFLUSH QSHIFT [facility] Last Admin: 09/13/25 08:47 Dose: Not Given Allergies Allergies Allergy/AdvReac Type Severity Reaction Status Date / Time No Known Allergies Allergy Verified 09/12/25 10:14 Assessment & Plan Assessment & Plan (1) Alcohol use disorder: Status: Acute Code(s): F10.90 - Alcohol use, unspecified, uncomplicated Assessment and Plan: * acute withdrawal --pheno taper in place. Withdrawal sx improving * thiamine IV in ED---PO ordered * Gabapentin 100mg PRN for anxiety * Discussed increase in admissions and overall impact on health * escrow closer to follow up with PHP/IOP information Total time managing care of this patient today _30___ minutes. [facility] Past Medical History Medical History HTN (hypertension) Peripheral neuropathy Alcohol use disorder, severe, dependence Social History Social History Household Members: Significant Other Housing: Apartment Do you presently have visiting nurse or other home services: No Alcohol intake: current Alcohol intake frequency: 3 or more drinks per day Alcohol type: hard liquor Comment: Pt refusing BR assist, alarms Patient Tobacco Use Status: Never used Tobacco Substance Use Type: Marijuana service: No
--- NOTE | 2025-09-13 11:03 | MHC.CM.PN ---
Pt. lives alone, her fiance stays with her and helps her often, PCP is: Gil Flores MD at [facility]. Pt. does not use home health services or DME. She has met with addictions counselor for resources at [place]. DCP: home, self care, transport via her fiance. CM to follow for DC needs.
[2025-09-13 12:00] VITALS: BP 126/84; PULSE 87; RESP 19; TEMP 36.9; O2SAT 98
[2025-09-13 16:00] VITALS: BP 142/79; PULSE 91; RESP 18; TEMP 36.8; O2SAT 97
--- NOTE | 2025-09-13 16:10 | MHC.RECOVRN ---
Pt is a 35-y/o Yi-speaking female with AUD, neuropathy, anxiety who was BIBA after experiencing 2 witnessed seizures r/t alcohol withdrawals. Pt was medically admitted for further management and was seen in room 484-2 after an addiction consult was placed for recovery support of pt with AUD. Discussed alcohol use which pt reports has been a daily occurrence since 08/28. Pt reports drinking 1L of vodka daily with someone else . This has been pt's 7th admission in 2024 for etoh withdrawals and seizures. Pt verbalizes understanding of the severity of her AUD. See recovery/ eval for full interview/more info. Pt accepted referrals for be sent on her behalf for [facility]/PHP. ROSA obtained and dental assistant teacher to send referral.
[2025-09-13 20:00] VITALS: BP 129/83; PULSE 83; RESP 18; TEMP 36.3; O2SAT 99
[2025-09-14] VITALS: BP 121/75; PULSE 81; RESP 16; TEMP 36.4; O2SAT 97
[2025-09-14 03:20] VITALS: BP 142/89; PULSE 77; RESP 16; TEMP 37.5; O2SAT 99
[2025-09-14] MEDS: KCl 20 mEq in 0.9 % Sodium ChL 20 MEQ/1,000 ML IV.SOLN 100 MEQ IVCONT (03:51)
[2025-09-14 07:57] VITALS: BP 138/82; PULSE 101; RESP 20; TEMP 36.7; O2SAT 99
[2025-09-14] MEDS: PHENobarbital 15 MG TABLET 45 MG PO (08:44)
[2025-09-14] MEDS: Potassium Chloride ER 20 MEQ TAB.ER.PRT 40 MEQ PO (08:45)
[2025-09-14 09:37] LABS: Blood Urea Nitrogen 5 mg/dL (9-16); Calcium 8.4 mg/dL (8.4-10.2); Creatinine Clr Calc Pharmacy 128.5; Estimated Glomerular Filt Rate > 60
[2025-09-14 11:04] LABS: Anion Gap 14 (12-20); Carbon Dioxide 24 mmol/L (22-29); Chloride 99 mmol/L (96-108); Potassium 3.5 mmol/L (3.3-5.1); Sodium 133 mmol/L (135-145)
--- NOTE | 2025-09-14 11:12 | MHC.RECOVRN ---
Met with patient for follow-up and to offer support. Pt accepted referral to [facility] [employer], which anticipates accepting her insurance in approximately 2?3 weeks. D/c paperwork to be sent to [facility] once available. Pt was encouraged to follow up with [facility] up dscharge Pt declined referral to other IOP/PHP programs at this time due to transportation barriers. Pt declined initiation of SHAYY, citing that she is already taking multiple medications.
--- NOTE | 2025-09-14 11:31 | P.DS_ITS ---
DS: Providers Provider Date of admission: 09/12/25 14:17 Date of discharge: 09/14/25 Primary care physician: Gil Flores MD Consults: 09/12/25 14:17 Addiction Medicine Provider Routine Consulting Provider: Addiction Covering Reason for consultation: alcohol withdrawal seizure DS: Diagnosis Discharge Diagnosis (1) Alcohol use disorder: Status: Acute (2) Alcohol withdrawal: Status: Acute (3) Acute lactic acidosis: Status: Acute (4) Acute hypokalemia: Status: Resolved (5) Acute hyponatremia: Status: Acute DS: Summary Time Attestation Discharge Coordination Time (in mins): 41 Quality: Safe Use of Opioids Does Pt have an Active Cancer Diagnosis on the Problem List?: No Quality: Stroke Does the patient have a stroke diagnosis?: No Physical Exam Vital Signs: Vital Signs: Last Vital Signs Temp 98.1 F 09/14/25 07:57 Pulse 101 H 09/14/25 07:57 Resp 20 09/14/25 07:57 BP 138/82 09/14/25 07:57 Pulse Ox 99 09/14/25 07:57 O2 Del Method Room Air 09/14/25 07:57 BMI result Body Mass Index 28.0 DS: Data Data Completed and Pending Completed studies during hospitalization [Text1]: Procedures Detoxification Services for Substance Abuse Treatment (08/07/25) Labs on day of discharge: Laboratory Results - last 24 hr 09/14/25 08:51 Sodium 133 L Potassium 3.5 D Chloride 99 Carbon Dioxide 24 Anion Gap 14 BUN 5 L Creatinine 0.59 Estim Creat Clear Calc 128.5 Estimated GFR > 60 Random Glucose 104 Calcium 8.4 Discharge Plan Discharge Anticipated Discharge Date/Time: 09/14/25 11:29 Patient Disposition: Home, Self-Care Discharge Diagnosis: Alcohol abuse and withdrawal Electrolytes imbalance Referrals: Physician,Unknown J [Physician, Medical] - 1 Week Discharge Medications: Continued lidocaine 5 % adhesive patch,medicated 1 patch topical DAILY PRN (Reason: Pain) Rx Instructions: APPLY 1 PATCH DAILY APPLY TO PAINFUL AREA FOR 12 HOURS PER DAY, REMOVE FOR 12 HOURS Vitron-C 65 mg iron- 125 mg tablet,delayed release (DR/EC) 1 tab PO DAILY gabapentin 300 mg capsule 600 mg PO BEDTIME clotrimazole-betamethasone 1-0.05 % cream 1 appl topical BID PRN (Reason: Rash) hydroxyzine HCl 10 mg tablet 10 mg PO BID PRN (Reason: anxiety) ibuprofen 200 mg Tablet 400 mg PO Q8H PRN (Reason: Cramps and pain) multivitamin [Daily-Lauro] Tablet 1 tab PO DAILY 30 Days Qty: 30 0RF folic acid 1 mg Tablet 1 mg PO DAILY 30 Days Qty: 30 0RF ondansetron 4 mg tablet,disintegrating 4 mg PO DAILY PRN (Reason: nausea/vomiting) melatonin 5 mg Tablet 5 mg PO BEDTIME PRN (Reason: Sleep) thiamine HCl (vitamin B1) 100 mg capsule 100 mg PO DAILY Qty: 90 0RF Rx Instructions: Take one tablet daily Discharge Orders: Discharge Order (Routine); Ordered 09/14/25 Ordered By: Yesy Llamas Diet: Advance to usual diet Activity on Discharge: As tolerated Stand Alone Forms: Patient Portal Discharge page Print Language: Luxembourger Care Plan Goals: as below Health Concerns: Alcohol abuse Plan of Treatment: Total abstinence from Alcohol Balanced diet Assessment: as above
== END 2025-09-14 11:57 | disposition home or self-care (01) | DRG 775 ==
LOC: HO.ED 17:28 → HO.EDOVER 17:39 → HO.IMC 23:37
PROVIDERS: Absent Provider Nurse Practitioner Acute Care; Admitting Provider Nurse Practitioner Acute Care; Emergency Provider Emergency Medicine; PCP Internal Medicine; Visit Provider Student in an Organized Health Care Education/Training Program
DX: F10.239 Alcohol dependence with withdrawal, unspecified (principal); R56.9 Unspecified convulsions; G62.1 Alcoholic polyneuropathy; E87.6 Hypokalemia; Z79.899 Other long term (current) drug therapy
CPT/HCPCS: 36415; 80048; 80053; 81001; 83605; 83735; 84484; 85025; 85027; 93005; 99285; J1308; J2405; J2560; J2765; J3360; J3411; J3480; J7120; S9485

== ENCOUNTER → 2025-09-12 10:47 | Outpatient (BNV) | payer OTHER, SELFPAY | PROVIDERS: Absent Provider Nurse Practitioner Acute Care; Admitting Provider Nurse Practitioner Acute Care; Emergency Provider Emergency Medicine; Visit Provider Internal Medicine | DX: R00.0 Tachycardia, unspecified (principal) | CPT/HCPCS: 93010 ==

== ENCOUNTER → 2025-09-12 14:17 | Outpatient (BNV) | payer OTHER, SELFPAY | PROVIDERS: Absent Provider Nurse Practitioner Acute Care; Admitting Provider Nurse Practitioner Acute Care; Emergency Provider Emergency Medicine; Visit Provider Nurse Practitioner Psychiatric/Mental Health | DX: F10.90 Alcohol use, unspecified, uncomplicated (principal) | CPT/HCPCS: 99222 ==

== ENCOUNTER → 2025-09-12 14:17 | Outpatient (BNV) | payer OTHER, SELFPAY | PROVIDERS: Absent Provider Nurse Practitioner Acute Care; Admitting Provider Nurse Practitioner Acute Care; Emergency Provider Emergency Medicine; Visit Provider Nurse Practitioner Acute Care | DX: F10.90 Alcohol use, unspecified, uncomplicated (principal) | CPT/HCPCS: 99232 ==